=== PATIENT | female | born 1990 | race Caucasian/White ===

== ENCOUNTER 2024-06-17 18:41 | Emergency (ER) | payer OTHER, SELFPAY ==
[2024-06-17 18:42] VITALS: BP 151/107; PULSE 128; RESP 20; TEMP 36.2; O2SAT 100; BMI 25.7
[2024-06-17 19:24] LABS: Absolute Lymphocyte Count 1.62 X10^3/uL (0.83-4.51); Absolute Neutrophil Count 7.5 X10^3/uL (2.0-7.7); Basophil# 0.04 X10^3/uL; Basophil% 0.4 % (0-1); Eosinophil# 0.09 X10^3/uL; Eosinophils% 0.9 % (0-5); Hematocrit 38.1 % (37-47); Hemoglobin 13.4 g/dL (12.0-15.0); Lymphocyte # 1.62 X10^3/ul (0.83-4.51); Lymphocyte % 15.9 % (19-41); Mean Corp Hgb Conc 35.2 g/dL (32-36); Mean Corpuscular Hgb 31.5 pg (27.0-32.0); Mean Corpuscular Volume 89.4 fL (81-99); Mean Platelet Vol. 9.9 fl (6.2-12.0); Monocyte# 0.91 X10^3/uL; Monocyte% 8.9 % (0-10); NRBC Flagged by Analyzer 0 % (0-5); Neutrophil # 7.46 X10^3/uL (2.7-7.7); Neutrophil % 73.2 % (47-70); Platelet Count 336 K/mm3 (150-450); RBC Distribution Width CV 12.6 % (11.6-14.6); RBC Distribution Width SD 41.1 fl (35.1-43.9); Red Blood Count 4.26 M/mm3 (4.2-5.4); White Blood Count 10.2 K/mm3 (4.4-11.0)
--- NOTE | 2024-06-17 19:49 | US_ITS ---
PROCEDURE: OB LIMITED WITH BIOMETRICS REASON FOR EXAM: 2NFD TRIMESTER BLEEDING COMPARISON: None. FINDINGS Examination is extremely limited. Intrauterine gestation is present in breech position. cardiac activity was noted at 164 beats per minute. The placenta is posterior and low-lying. Anechoic areas within the placenta measuring up to 0.9 by 1 x 0.4 cm nonspecific but may represent area of focal hemorrhage. age by current ultrasound is 14 weeks and 5 days. age by LMP is 15 weeks and 6 days. The bilateral ovaries demonstrate normal arterial and venous flow. No evidence of ovarian torsion. US/OB Limited With Biometrics IMPRESSION: As above. Please note that these examination is not predictive of viability of . Recommend OB input. Reading Location: [facility]
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
[2024-06-17 20:00] LABS: ALB/GLOB Ratio 1.3 RATIO (0.9-2.4); AST(SGOT) 18 U/L (<=31); Alanine Aminotransfer ALT/SGPT 15 U/L (<=34); Albumin, Serum 4.6 g/dL (3.5-5.0); Alkaline Phosphatase 59 U/L (35-104); Anion Gap 18 (5-15); BUN 11 mg/dL (4-19); BUN/Creat Ratio 16.2 RATIO (10-20); Calcium,Total 10.3 mg/dL (7.6-11.0); Carbon Dioxide 17.1 mmol/L (21.0-32.0); Chloride 98 mmol/L (98-108); Creatinine, Serum 0.66 mg/dL (0.70-1.20); EST Glomerular Filtration Rate 119 (>60); Estimated Creatinine Clearance 123.37 ml/min (50-250); Globulin 3.5 g/dL (2.2-4.2); Glucose 87 mg/dL (70-99); Lipase 66 U/L (13-75); Potassium 3.6 mmol/L (3.3-5.1); Sodium Level 133 mmol/L (133-145); Total Bilirubin 0.59 mg/dL (0.00-1.30)
[2024-06-17 20:13] LABS: Internal QC Validated? YES +Cl - CLEAR BKGD
[2024-06-17 20:41] VITALS: BP 112/81; O2SAT 98
--- NOTE | 2024-06-17 21:01 | ED.RN ---
Patient prompted for urine sample. Pt requested water first. Cup of ice water given.
[2024-06-17 21:37] LABS: White Blood Cells 0 SEEN /hpf (0-5)
[2024-06-17 22:00] VITALS: BP 121/80; O2SAT 99
[2024-06-17 22:14] LABS: Color, Urine Yellow (Yellow); Glucose, Dipstick Normal (Normal); Ketone-Dipstick 150 mg/dl (Negative); Protein-Dipstick 30 mg/dl (Negative); Urine Bilirubin Dipstick Negative (Negative); Urine Clarity Sl Cldy (Clear); Urine Urobilinogen Normal (Normal)
[2024-06-17 22:15] LABS: Leukocyte Esterase-Dipstick Negative /ul (Negative); Nitrite-Dipstick Negative (Negative); Occult Blood-Urine Negative /ul (Negative)
[2024-06-17 22:17] LABS: Bacteria 1+ /hpf (None Seen); Mucous, Urine 1+ /hpf (<or=2+); Red Blood Cells-Urine 0 SEEN /hpf (0-5); Squamous Epithelial Cells - UA 0-5 SEEN /hpf (5-10)
[2024-06-17 23:17] VITALS: BP 112/86; PULSE 74; RESP 16; TEMP 36.6; O2SAT 99
[2024-06-17 23:24] LABS: Pregnancy, Serum, hCG Quali. POSITIVE Negative
== END 2024-06-17 23:18 | disposition home or self-care (01) ==
PROVIDERS: Emergency Provider Emergency Medicine; Visit Provider Emergency Medicine
DX: O20.0 Threatened abortion (principal); O99.891 Other specified diseases and conditions complicating pregnancy; R45.6 Violent behavior; Z3A.16 16 weeks gestation of pregnancy
CPT/HCPCS: 76816; 80053; 81001; 83690; 84703; 85025; 86900; 86901; 99283; A4216

== ENCOUNTER 2024-09-26 17:45 | Outpatient (CLI) | payer OTHER, SELFPAY ==
[2024-09-26 17:59] VITALS: PULSE 115; O2SAT 98
[2024-09-26 18:00] VITALS: BP 115/70; PULSE 112
--- OUTSIDE RECORDS SUMMARY | 2024-09-26 19:41 | XMS RPT_ITS | CCD ---
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 above: Order Comment: Speci men Type: BLOOD SPECIMENOrdering Facility: [facility] Address: [address] [place] [address] Performed By: #### L [id number], HGBELEV ####[facility] LAB[facility] [id number] [place] [address] [place] HGB EVALUATION CASCADE INTER Florentino 06-18-2024 Hemoglobin pattern (Bld) [Interp] Reviewed by Everardo Goldberg MD Normal [facility] Comment on above: Order Comment: Speci men Type: BLOOD SPECIMENOrdering Facility: [facility] Address: [address] [place] [address] Performed By: #### L [id number], HGBELEV ####[facility] LABIA [id number] [place] [address] [place] INTERPRETATION (HGB EVAL) Normal [facility] Comment on above: Order Comment: Speci men Type: BLOOD SPECIMENOrdering Facility: [facility] Address: [address] [place] [address] Result Comment: Hemo globins were analyzed by capillary electrophoresis and CBC red cell parameters were reviewed. No abnormal hemoglobin is identified. There is a normal hemoglobin capillary electrophoresis pattern. Performed By: #### L [id number], HGBELEV ####[facility] [id number] [place] [address] [place] HIGH RISK HUMAN PAPILLOMA THELMA (HPV), PCR FOR DETECTION AND GENOTYPINGon 06-18-2024 HPV 16 Ag Ql (Unsp spec) Not detected Normal Not detec ashkan [facility] Comment on above: Order Comment: Speci men Type: FLUID SPECIMENOrdering Facility: [facility] Address: [address] [place] [address] Performed By: #### H PVHRT ####[facility] [id number] [address] [place] HPV 18 Ag Ql (Unsp spec) Not detected Normal Not detec [facility] Comment on above: Order Comment: Speci men Type: FLUID SPECIMENOrdering Facility: [facility] Address: [address] [place] [address] Performed By: #### H PVHRT ####[facility] [id number] [place] [address] [place] HPV 31+33+35+39+45+51+52+56+ 58+59+66+68 DNA JUANJOSE+probe Ql (Cvx) Not detected Normal Not detected [facility] Comment on above: Order Comment: Speci men Type: FLUID SPECIMENOrdering Facility: [facility] Address: [address] [place] [address] Result Comment: High Risk HPV Other Type includes HPV types 31, 33, 35, 39, 45, 51, 52, 56, 58, 59, 66 and 68. Performed By: #### H PVHRT ####[facility] [id number] [place] [address] [place] HIV 1+2 Ab IA Qlon HIV 1 and 2 Ab IA.rapid Nom (S/P/Bld) [facility] Comment on above: Test not indicated. HIV 1+2 Ab+HIV1 p24 Ag IA Ql Non-Reactive Nonreactive [facility] HIV immunoassay testing algorithm interpretation (S/P/Bld) [Interp] [facility] Comment on above: No evidence of HIV-1 or HIV-2 infection. Should recent infection be suspected, repeat testing may be considered 2-3 weeks after this draw. [place] Rev. Code 3701.243(E): This information has been disclosed to you from confidential records protected from disclosure by state law. You shall make no further disclosure of this information without the specific, written, and informed release of the individual to whom it pertains or as otherwise permitted by state law. A general authorization for the release of medical or other information is not sufficient for the purpose of the release of HIV test results or diagnoses. [facility] HIV 1 and 2 Ab IA.rapid Nom (S/P/Bld) Normal [facility] Comment on above: Order Comment: Speci men Type: BLOOD SPECIMENOrdering Facility: [facility] Address: [address] [place] [address] Result Comment: Test not indicated. Performed By: #### 5 195-3, 73186-3, 55375-1 ####[facility] [id number] [place] [address] [place] HIV 1+2 Ab+HIV1 p24 Ag IA Ql Non-Reactive Normal Nonreactive [facility] Comment on above: Order Comment: Speci men Type: BLOOD SPECIMENOrdering Facility: [facility] Address: [address] [place] [address] Performed By: #### 5 195-3, 65930-5, 31091-1 ####[facility] LABIA [id number] [place] [id number] [place] HIV immunoassay testing algorithm interpretation (S/P/Bld) [Interp] Normal [facility] Comment on above: Order Comment: Speci men Type: BLOOD SPECIMENOrdering Facility: [facility] Address: [address] [place] [address] Result Comment: No e vidence of HIV-1 or HIV-2 infection. Should recent infection be suspected, repeat testing may be considered 2-3 weeks after this draw. [place] Rev. Code 3701.243(E): This information has been disclosed to you from confidential records protected from disclosure by state law. ???You shall make no further disclosure of this information without the specific, written, and informed release of the individual to whom it pertains or as otherwise permitted by state law. A general authorization for the release of medical or other information is not sufficient for the purpose of the release of HIV test results or diagnoses. Performed By: #### 5 195-3, 84795-4, 21942-5 ####[facility] LABCLIA [id number] [facility] [place] [address] [place] HbA1c (Bld)on 06-18-2024 Average glucose Estimated from glycated hemoglobin (Bld) [Mass/Vol] 74 mg/dL [facility] Comment on above: eAG: (Estimated aver age glucose) is a calculated value from HgbA1c and is sales representatives of the average blood glucose level in the last 2-3 month period. HbA1c (Bld) [Mass fraction] 4.2 % Low 4.3 - 5.6 % [facility] Comment on above: [place] [employer] sociation guidelines indicate that patients with HgbA1c in the range 5.7-6.4% are at increased risk for development of diabetes, and intervention by lifestyle modification may be beneficial. HgbA1c greater or equal to 6.5% is considered diagnostic of diabetes. Interpretation and review of laboratory results Abnormal [facility] Average glucose Estimated from glycated hemoglobin (Bld) [Mass/Vol] 74 mg/dL Normal [facility] Comment on above: Order Comment: Speci men Type: BLOOD SPECIMEN Ordering Facility: [facility] Address: [address] [place] [address] Result Comment: eAG: (Estimated average glucose) is a calculated value from HgbA1c and is sales representatives of the average blood glucose level in the last 2-3 month period. Performed By: #### T SPN #### [facility] CLIA [id number] [address] [place], [place] [address] [address] [place] HbA1c (Bld) [Mass fraction] 4.2 % Low 4.3-5.6 [facility] Comment on above: Order Comment: Speci men Type: BLOOD SPECIMEN Ordering Facility: [facility] Address: [address] [place] [address] Result Comment: [place] [employer] guidelines indicate that patients with HgbA1c in the range 5.7-6.4% are at increased risk for development of diabetes, and intervention by lifestyle modification may be beneficial. HgbA1c greater or equal to 6.5% is considered diagnostic of diabetes. Performed By: #### T SPN #### [facility] CLIA [id number] [address] [place] [address] [place] PAP TESTon 06-18-2024 ADEQUACY Normal [facility] Comment on above: Order Comment: Speci men Type: FLUID SPECIMEN Ordering Facility: [facility] Address: [address] [place] [address] Result Comment: Sati sfactory for interpretation. Transformation zone present Performed By: #### L [id number] #### [facility] CLIA [id number] [address] OF [facility] CLIA [id number] [address] [place] [address] [place] CASE REPORT Normal [facility] Comment on above: Order Comment: Speci men Type: FLUID SPECIMEN Ordering Facility: [facility] Address: [address] [place] [address] Result Comment: Gyne cologic Cytology Report Case: [id number] Authorizing Provider: Marcia Thurman APRN.CNM Collected: 06/18/2024 09:43 AM Ordering Location: OB/Gynecology Received: 06/18/2024 12:41 PM First Screen: Feciuch, Anitra, CT, ASCP Specimen: Pap Test, ThinPrep, Cervix Performed By: #### L [id number] #### [facility] CLIA [id number] [address] OF [facility] CLIA [id number] [address] [place] [address] [place] CLINICAL HISTORY, CYTOLOGY, PAPER TESTER Routine Exam Normal [facility] Comment on above: Order Comment: Speci men Type: FLUID SPECIMEN Ordering Facility: [facility] Address: [address] [place] [address] Performed By: #### L [id number] #### [facility] CLIA [id number] [address] LAB CLIA [id number] [address] [place] [address] STATES OF [facility] Normal [facility] Comment on above: Order Comment: Speci men Type: FLUID SPECIMEN Ordering Facility: [facility] Address: [address] [place] [address] Result Comment: Tech nical component, journeyman lineman screening performed at [facility], [address] [place] [address] CLIA# [id number] Diagnostic interpretation performed at [facility], [address] [place] [address] CLIA# [id number] Annual Giving Director: Samuel Black M.D. Performed By: #### L [id number] #### [facility] CLIA [id number] [address] LAB CLIA [id number] [address] [place] [address] [place] INTERPRETATION, CYTOLOGY, PAPER TESTER Normal [facility] Comment on above: Order Comment: Speci men Type: FLUID SPECIMEN Ordering Facility: [facility] Address: [address] [place] [address] Result Comment: Nega tive for intraepithelial lesion or malignancy. at 1359 EDT Performed By: #### L [id number] #### [facility] CLIA [id number] [address] STATES OF [facility] CLIA [id number] [address] [place], [place] [id number] [place] LMP 02/27/2024 Normal [facility] Comment on above: Order Comment: Speci men Type: FLUID SPECIMEN Ordering Facility: [facility] Address: [address] [place] [address] Performed By: #### L [id number] #### [facility] CLIA [id number] [address] LAB CLIA [id number] [address] [place] [address] [place] PAP DISCLAIMER COMMENT The Pap Smear is a screening test for cervical cancer. False negative results occur with all screening tests, emphasizing the need for rescreening at recommended intervals, and clinical correlation. Normal [facility] Comment on above: Order Comment: Speci men Type: FLUID SPECIMEN Ordering Facility: [facility] Address: [address] [place] [address] Performed By: #### L [id number] #### [facility] CLIA [id number] [address] LAB CLIA [id number] [address] [place] [address] [place] PAP PHLEBOTOMY SERVICES TECHNICIAN COMMENT This specimen has been analyzed by the ThinPrep Imaging System, an automated imaging and review system, which assists the laboratory in evaluating cells on ThinPrep Pap tests. Following automated imaging, selected allen from every slide are reviewed by a journeyman lineman. Normal [facility] Comment on above: Order Comment: Speci men Type: FLUID SPECIMEN Ordering Facility: [facility] Address: [address] [place] [address] Performed By: #### L [id number] #### [facility] CLIA [id number] [address] LAB CLIA [id number] [address] [place] [address] [place] RBC PARAMETERS FOR HB IDon 0 - Erythrocyte distribution width (RBC) [Ratio] 12.6 % Normal 11.5-15.0 [facility] Comment on above: Order Comment: Speci men Type: BLOOD SPECIMENOrdering Facility: [facility] Address: [address] [place] [address] Performed By: #### L [id number] ####[facility] LABIA [id number] [place] [address] [place] Hematocrit (Bld) [Volume fraction] 36.5 % Normal 36.0-46.0 [facility] Comment on above: Order Comment: Speci men Type: BLOOD SPECIMENOrdering Facility: [facility] Address: [address] [place] [address] Performed By: #### L [id number] ####[facility] [id number] [place] [address] [place] Hemoglobin (Bld) [Mass/Vol] 12.6 g/dL Normal 11.5-15.5 [facility] Comment on above: Order Comment: Speci men Type: BLOOD SPECIMENOrdering Facility: [facility] Address: [address] [place] [address] Performed By: #### L [id number] ####[facility] [id number] [place] [address] [place] MCH (RBC) [Entitic mass] 31.6 pg Normal 26.0-34.0 [facility] Comment on above: Order Comment: Speci men Type: BLOOD SPECIMENOrdering Facility: [facility] Address: [address] [place] [address] Performed By: #### L [id number] ####[facility] [id number] [place] [address] [place] MCHC (RBC) [Mass/Vol] 34.5 g/dL Normal 30.5-36.0 [facility] Comment on above: Order Comment: Speci men Type: BLOOD SPECIMENOrdering Facility: [facility] Address: [address] [place] [address] Performed By: #### L [id number] ####[facility] [id number] [place] [address] [place] MCV (RBC) [Entitic vol] 91.5 fL Normal 80.0-100.0 [facility] Comment on above: Order Comment: [facility] Type: BLOOD SPECIMENOrdering Facility: [facility] Address: [address] [place] [address] Performed By: #### L [id number] ####[facility] [id number] [place] [address] [place] RBC (Bld) [#/Vol] 3.99 10*6/uL Normal 3.90-5.20 [facility] Comment on above: Order [facility]: [facility] Type: BLOOD SPECIMENOrdering Facility: [facility] Address: [address] [place] [address] Performed By: #### L [id number] ####[facility] [id number] [address] OF [place] RUBELLA IGG ANTIBODYon 06-18 Interpretation and review of laboratory results Abnormal [facility] Rubella IgG, Qual Negative Abnormal Positive [facility] Comment on above: The result suggests no history of Rubella vaccination or exposure to Rubella virus, however, some individuals with past history of Rubella vaccination may test negative using this test as immunity to Rubella virus wanes over time after vaccination. Please correlate with vaccination history if applicable. [facility] RUBELLA IGG AB, QUAL Negative Abnormal Positive [facility] Comment on above: Order Comment: Speci [facility] Type: BLOOD SPECIMENOrdering Facility: [facility] Address: [address] [place] [address] Result Comment: The result suggests no history of Rubella vaccination or exposure to Rubella virus, however, some individuals with past history of Rubella vaccination may test negative using this test as immunity to Rubella virus wanes over time after vaccination. Please correlate with vaccination history if applicable. Performed By: #### R UBIGG ####[facility] LAB[facility] [id number] [place] [id number] [place] Reagin and Treponema pallidu m IgG and IgM [Interp]on 06-18-2024 T. pallidum IgG+IgM IA Ql (S) Non-Reactive Nonreactive [facility] T. pallidum IgG+IgM IA Ql (S) Non-Reactive Normal Nonreactive [facility] Comment on above: Order Comment: Speci men Type: BLOOD SPECIMENOrdering Facility: [facility] Address: [address] [place] [address] Performed By: #### 5 195-3, [id number], 77395-1 ####[facility] [id number] [place] [id number] [place] Reagin+T pallidum IgG+IgM Se rPl-Impon 06-18-2024 Reagin and Treponema pallidum IgG and IgM [Interp] Cannot exclude recent Treponemal infection if specimen collected within 7-10 days after appearance of suspect lesions or 2-3 weeks after an exposure. Clinical correlation is required. Normal [facility] Comment on above: Order Comment: Speci men Type: BLOOD SPECIMENOrdering Facility: [facility] Address: [address] [place] [address] Performed By: #### 5 195-3, 48194-9, 27915-9 ####[facility] [id number] [place] [id number] [place] SYPHILIS TREPONEMAL W/REFLEX on 06-18-2024 Reagin and Treponema pallidum IgG and IgM [Interp] Cannot exclude recent Treponemal infection if specimen collected within 7-10 days after appearance of suspect lesions or 2-3 weeks after an exposure. Clinical correlation is required. [facility] TRICHOMONAS VAGINALIS NAATon 06-18-2024 T. vaginalis DNA JUANJOSE+probe Ql (Unsp spec) Not detected Normal Not detected [facility] Comment on above: Order Comment: Speci men Type: BLOOD SPECIMEN [facility] Address: [address] [place] [address] Performed By: #### T SPN #### [facility] CLIA [id number] [address] [place] [address] [place] TYPE + SCREEN PRENATALon ABO group Nom (Bld) O [facility] Blood group antibody screen Ql Negative [facility] Rh Nom (Bld) Positive [facility] Type and Screen Expiration 06/21/2024 23:[address] [facility] ABO O Normal [facility] Comment on above: Order Comment: Speci men Type: BLOOD SPECIMEN [facility] Address: [address] [place] [address] Performed By: #### T SPN #### [facility] CLIA [id number] [address] [place] [address] [place] Rh Nom (Bld) Positive Normal [facility] Comment on above: Order Comment: Speci men Type: BLOOD SPECIMEN [facility] Address: [address] [place] [address] Performed By: #### T SPN #### [facility] CLIA [id number] [address] [place] [address] [place] TYPE AND SCREEN EXPIRATION 06/21/2024 23:59 Normal [facility] Comment on above: Order Comment: Speci men Type: BLOOD SPECIMEN [facility] Address: [address] [place] [address] Performed By: #### T SPN #### [facility] CLIA [id number] [address] [place] [address] [place] Absolute lymphocyte countOrd ered By: ED PROVIDER on 06-17-2024 Lymphocytes Auto (Unsp spec) [#/Vol] 1.62 10*3/uL 0.83-4.51 [facility] Absolute neutrophil countOrd ered By: ED PROVIDER on 06-17-2024 Neutrophils (Bld) [#/Vol] 7.5 10*3/uL 2.0-7.7 [facility] Anion gap in Serum or Plasma Ordered By: Herber Fisher on 06-17-2024 Anion gap [Moles/Vol] 18 mmol/L High 5-15 [facility] Automated lymphocyte count a s percentage of total leukocytesOrdered By: ED PROVIDER on 06-17-2024 Lymphocytes/100 WBC Auto (Unsp spec) 15.9 % Low 19-41 [facility] [id number] 06-17-2024 ABO and Rh group Nom (Bld) Blood group O Rh(D) positive Normal [facility] Comment on above: Performed By: #### B 882-1 #### [facility] [address] [place], [address] BUN/creatinine ratioOrdered By: Herber Fisher on 06-17-2024 Urea nitrogen/Creatinine [Mass ratio] 16.2 mg/mg 10-20 [facility] Basophil percentageOrdered B y: ED PROVIDER on 06-17-2024 Basophils/100 WBC (Bld) 0.4 % 0-1 [facility] Beta HCG ( test) Ql Ordered By: Herber Fisher on 06-17-2024 Serum Test, Qualitative Negative [facility] Bilirubin Test strip Ql (U)O rdered By: Herber Fisher on 06-17-2024 Bilirubin Ql (U) Negative Negative [facility] CBC W/Diff, Automatedon 06-07 Absolute Lymph 1.62 X10 3/uL Normal 0.83-4.51 [facility] Comment on above: Performed By: #### L 100.0100, L700.6800, L501.2450, L500.4050 #### [facility] [address] [place], [address] Absolute Neut 7.5 X10 3/uL Normal 2.0-7.7 [facility] Comment on above: Performed By: #### L 100.0100, L700.6800, L501.2450, L500.4050 #### [facility] [address] [place], [address] Basophils/100 WBC (Bld) 0.4 % Normal 0-1 [facility] Comment on above: Performed By: #### L 100.0100, L700.6800, L501.2450, L500.4050 #### [facility] [address] [place], [address] Eosinophils/100 WBC (Bld) 0.9 % Normal 0-5 [facility] Comment on above: Performed By: #### L 100.0100, L700.6800, L501.2450, L500.4050 #### [facility] [address] [place], [address] Erythrocyte distribution width (RBC) [Ratio] 12.6 % Normal 11.6-14.6 [facility] Comment on above: Performed By: #### L 100.0100, L700.6800, L501.2450, L500.4050 #### [facility] [address] [place], [address] Hematocrit (Bld) [Volume fraction] 38.1 % Normal 37-47 [facility] Comment on above: Performed By: #### L 100.0100, L700.6800, L501.2450, L500.4050 #### [facility] [address] [place], [address] Hemoglobin (Bld) [Mass/Vol] 13.4 g/dL Normal 12.0-15.0 [facility] Comment on above: Performed By: #### L 100.0100, L700.6800, L501.2450, L500.4050 #### [facility] [address] [place], [address] IG% 0.700 Normal 0.0-0.9 [facility] Comment on above: Result Comment: IG% - Immature Granulocytes (promyelocytes, myelocytes and metamyelocytes) > 1% indicates that a LEFT SHIFT is Present. Performed By: #### L 100.0100, L700.6800, L501.2450, L500.4050 #### [facility] [address] [place], [address] Lymphocytes/100 WBC (Bld) 15.9 % Low 19-41 [facility] Comment on above: Performed By: #### L 100.0100, L700.6800, L501.2450, L500.4050 #### [facility] [address] [place], [address] MCH (RBC) [Entitic mass] 31.5 pg Normal 27.0-32.0 [facility] Comment on above: Performed By: #### L 100.0100, L700.6800, L501.2450, L500.4050 #### [facility] [address] [place], [address] MCHC (RBC) [Mass/Vol] 35.2 g/dL Normal 32-36 [facility] Comment on above: Performed By: #### L 100.0100, L700.6800, L501.2450, L500.4050 #### [facility] [address] [place], [address] MCV (RBC) [Entitic vol] 89.4 fL Normal 81-99 [facility] Comment on above: Performed By: #### L 100.0100, L700.6800, L501.2450, L500.4050 #### [facility] [address] [place], [address] Monocytes/100 WBC (Bld) 8.9 % Normal 0-10 [facility] Comment on above: Performed By: #### L 100.0100, L700.6800, L501.2450, L500.4050 #### [facility] [address] [place], [address] Neutrophils/100 WBC (Bld) 73.2 % High 47-70 [facility] Comment on above: Performed By: #### L 100.0100, L700.6800, L501.2450, L500.4050 #### [facility] [address] [place], [address] Nucleated RBC (Bld) [#/Vol] 0 10*3/uL Normal 0-5 [facility] Comment on above: Performed By: #### L 100.0100, L700.6800, L501.2450, L500.4050 #### [facility] [address] [place], [address] Platelet mean volume (Bld) [Entitic vol] 9.9 fL Normal 6.2-12.0 [facility] Comment on above: Performed By: #### L 100.0100, L700.6800, L501.2450, L500.4050 #### [facility] [address] [place], [address] Platelets (Bld) [#/Vol] 336 10*3/uL Normal 150-450 [facility] Comment on above: Performed By: #### L 100.0100, L700.6800, L501.2450, L500.4050 #### [facility] [address] [place], [address] RBC (Bld) [#/Vol] 4.26 10*6/uL Normal 4.2-5.4 [facility] Comment on above: Performed By: #### L 100.0100, L700.6800, L501.2450, L500.4050 #### [facility] [address] [place], [address] RDW SD 41.1 fl Normal 35.1-43.9 [facility] Comment on above: Performed By: #### L 100.0100, L700.6800, L501.2450, L500.4050 #### [facility] [address] [place], [address] WBC (Bld) [#/Vol] 10.2 10*3/uL Normal 4.4-11.0 [facility] Comment on above: Performed By: #### L 100.0100, L700.6800, L501.2450, L500.4050 #### [facility] [address] [place], [address] Comprehensive Metabolic Prof ilon 06-17-2024 ALK PHOS 59 U/L Normal 35-104 [facility] Comment on above: Performed By: #### L 100.0100, L700.6800, L501.2450, L500.4050 #### [facility] [address] [place], [address] BUN/CRE 16.2 RATIO Normal 10-20 [facility] Comment on above: Performed By: #### L 100.0100, L700.6800, L501.2450, L500.4050 #### [facility] [address] [place], [address] ECRCL 123.37 ml/min Normal 50-250 [facility] Comment on above: Performed By: #### L 100.0100, L700.6800, L501.2450, L500.4050 #### [facility] [address] [place], [address] GAP 18 High 5-15 [facility] Comment on above: Performed By: #### L 100.0100, L700.6800, L501.2450, L500.4050 #### [facility] [address] [place], [address] T PROT 8.0 g/dL Normal 5.9-8.4 [facility] Comment on above: Performed By: #### L 100.0100, L700.6800, L501.2450, L500.4050 #### [facility] [address] [place], [address] Comprehensive Metabolic Prof ilOrdered By: Herber Fisher on 06-17-2024 Albumin [Mass/Vol] 4.6 g/dL 3.5-5.0 [facility] Comment on above: Performed By: #### L 100.0100, L700.6800, L501.2450, L500.4050 #### [facility] [address] [place], [address] Albumin/Globulin [Mass ratio] 1.3 {ratio} 0.9-2.4 [facility] Comment on above: Performed By: #### L 100.0100, L700.6800, L501.2450, L500.4050 #### [facility] [address] [place], [address] ALT [Catalytic activity/Vol] 15 U/L <35 [facility] Comment on above: Performed By: #### L 100.0100, L700.6800, L501.2450, L500.4050 #### [facility] [address] [place], [address] AST [Catalytic activity/Vol] 18 U/L <32 [facility] Comment on above: Performed By: #### L 100.0100, L700.6800, L501.2450, L500.4050 #### [facility] [address] [place], [address] Bilirubin [Mass/Vol] 0.59 mg/dL 0.00-1.30 [facility] Comment on above: Performed By: #### L 100.0100, L700.6800, L501.2450, L500.4050 #### [facility] [address] [place], [address] Calcium [Mass/Vol] 10.3 mg/dL 7.6-11.0 [facility] Comment on above: Performed By: #### L 100.0100, L700.6800, L501.2450, L500.4050 #### [facility] [address] [place], [address] Chloride [Moles/Vol] 98 mmol/L 98-108 [facility] Comment on above: Performed By: #### L 100.0100, L700.6800, L501.2450, L500.4050 #### [facility] [address] [place], [address] CO2 [Moles/Vol] 17.1 mmol/L Low 21.0-32.0 [facility] Comment on above: Performed By: #### L 100.0100, L700.6800, L501.2450, L500.4050 #### [facility] [address] [place], [address] Creatinine [Mass/Vol] 0.66 mg/dL Low 0.70-1.20 [facility] Comment on above: Performed By: #### L 100.0100, L700.6800, L501.2450, L500.4050 #### [facility] [address] [place], [address] GFR/1.73 sq M.predicted among non-blacks MDRD (S/P/Bld) [Vol rate/Area] 119 mL/min/{1.73_m2} >60 [facility] Comment on above: Result Comment: mL/m in/1.73m2 CKD-EPI Creatinine Equation (2020) Performed By: #### L 100.0100, L700.6800, L501.2450, L500.4050 #### [facility] [address] [place], [address] mL/min/1.73m2 CKD-EP I Creatinine Equation (2020) Globulin (S) [Mass/Vol] 3.5 g/dL 2.2-4.2 [facility] Comment on above: Performed By: #### L 100.0100, L700.6800, L501.2450, L500.4050 #### [facility] [address] [place], [address] Glucose [Mass/Vol] 87 mg/dL 70-99 [facility] Comment on above: Performed By: #### L 100.0100, L700.6800, L501.2450, L500.4050 ####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
--- NOTE | 2024-09-29 07:23 | OB.TRI.HP_ITS ---
HPI - General General Date of Admission: 09/26/24 Date of Service: 09/26/24 Chief Complaint: NST HPI Narrative MICHAEL CARDENAS, is a 33 F who presents scheduled NST for IUGR. BPP in office weekly. No complaints. Reactive NST Maternal Data Information Final ANDRÉS: 12/03/24 Gestational age: 30+2 PFSH PFSH Medical History Epilepsy Home Medications ?Medication ?Instructions ?Recorded ?Last Taken ?Type vit no.95-ferrous 1 tab PO DAILY 06/17/24 Unk nown History fumarate 28 mg-folic acid 800 mcg tablet () Allergy/AdvReac Type Severity Reaction Status Date / Time No Known Allergies Allergy Verified 06/17/24 18:42 Social History Smoking Status: Never smoker History 2 Elective abortions Hx Para 0 Spontaneous abortions Hx # Term Pregnancies Ectopic pregnancies Hx # Pregnancies Multiple births # of living children NST FHR Rate Baby A Baseline: 145 Variability:: Moderate Accelerations:: 15 x 15 Decelerations:: None NST Reactive:: Yes Uterine Activity:: none Assessment & Plan (1) IUGR (intrauterine growth restriction): (2) 30 weeks gestation of : PLAN: Plan Weekly NST and BPP for IUGR
== END 2024-09-26 19:00 | disposition home or self-care (01) ==
LOC: WPOUT 17:56 → WP 17:56
PROVIDERS: Referring Provider Obstetrics & Gynecology; Visit Provider Obstetrics & Gynecology
DX: O36.5930 Maternal care for other known or suspected poor fetal growth, third trimester, not applicable or unspecified (principal); Z3A.30 30 weeks gestation of pregnancy
CPT/HCPCS: 59025; 59050; 99221; G0378

== ENCOUNTER 2024-10-04 17:40 | Outpatient (CLI) | payer OTHER, SELFPAY ==
[2024-09-26 18:00] VITALS: RESP 14; TEMP 37.2; O2SAT 100
[2024-10-04 17:51] VITALS: RESP 12; TEMP 37.3; O2SAT 97
--- OUTSIDE RECORDS SUMMARY | 2024-10-04 17:53 | XMS RPT_ITS | CCD ---
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 Registered Nurse Type: ED Notes Filed: 07/21/2024 00:20 Note Text: Hand off report given to EMS and OB roving changer who verbalized understanding. Pt's vss and left ED in stable condition via EMS. Normal [facility] NURSING PROGon 07-21-2024 NURSING PROG HNO ID: [id number] Author: ALY HERNANDEZ, DIEGO Service: Nursing Author Type: Registered Nurse Type: Nursing Progress Note Filed: 07/21/2024 02:48 Note Text: Other: IV removed and bandaid applied. Patient states pain is getting less frequent and more manageable and just wants to go home. Discharge instructions given to patients and discussed precautions. This RN walked Patient to main entrance where was picking her up. No complaints at this time. Normal [facility] NURSING PROG HNO ID: [id number] Author: ALY HERNANDEZ RN Service: Nursing Author Type: Registered Nurse [...] feels safe going home with . Normal [facility] CBC W Auto Differential pane l (Bld)on 07-20-2024 Basophils (Bld) [#/Vol] 0.03 10*3/uL Normal <0.11 [facility] Comment on above: Order Comment: Speci men Type: BLOOD SPECIMENOrdering Facility: [facility] Address: [address] [place] [address] Performed By: #### 5 7021-8 ####[facility] LABCLIA [id number] [place] [address] [place] Basophils/100 WBC (Bld) 0.3 % Normal [facility] Comment on above: Order Comment: Speci men Type: BLOOD SPECIMENOrdering Facility: [facility] Address: [address] [place] [address] Performed By: #### 5 7021-8 ####[facility] LABCLIA [id number] [place] [address] [place] Differential cell count method Nom (Bld) Auto Normal [facility] Comment on above: Order Comment: Speci men Type: BLOOD SPECIMENOrdering Facility: [facility] Address: [address] [place] [address] Performed By: #### 5 7021-8 ####[facility] [place] LABCLIA [id number] [place] [address] [place] Eosinophils (Bld) [#/Vol] 0.12 10*3/uL Normal <0.46 [facility] Comment on above: Order Comment: Speci men Type: BLOOD SPECIMENOrdering Facility: [facility] Address: [address] [place] [address] Performed By: #### 5 7021-8 ####[facility] LABCLIA [id number] [place] [address] [place] Eosinophils/100 WBC (Bld) 1.1 % Normal [facility] Comment on above: Order Comment: Speci men Type: BLOOD SPECIMENOrdering Facility: [facility] Address: [address] [place] [address] Performed By: #### 5 7021-8 ####[facility] [place] LABCLIA [id number] [place] [address] [place] Erythrocyte distribution width (RBC) [Ratio] 12.7 % Normal 11.5-15.0 [facility] Comment on above: Order Comment: Speci men Type: BLOOD SPECIMENOrdering Facility: [facility] Address: [address] [place] [address] Performed By: #### 5 7021-8 ####[facility] [place] LABCLIA [id number] [place] [address] [place] Hematocrit (Bld) [Volume fraction] 32.4 % Low 36.0-46.0 [facility] Comment on above: Order Comment: Speci men Type: BLOOD SPECIMENOrdering Facility: [facility] Address: [address] [place] [address] Performed By: #### 5 7021-8 ####[facility] LABCLIA [id number] [place] [address] [facility] [place] Hemoglobin (Bld) [Mass/Vol] 11.1 g/dL Low 11.5-15.5 [facility] Comment on above: Order Comment: Speci men Type: BLOOD SPECIMENOrdering Facility: [facility] Address: [address] [place] [address] Performed By: #### 5 7021-8 ####[facility] [place] LABCLIA [id number] [place] [address] [place] Immature granulocytes (Bld) [#/Vol] 0.07 10*3/uL Normal <0.10 [facility] Comment on above: Order Comment: Speci men Type: BLOOD SPECIMENOrdering Facility: [facility] Address: [address] [place] [address] Performed By: #### 5 7021-8 ####[facility] [place] LABCLIA [id number] [place] [address] [facility] [place] Immature granulocytes/100 WBC (Bld) 0.6 % Normal [facility] Comment on above: Order Comment: Speci men Type: BLOOD SPECIMENOrdering Facility: [facility] Address: [address] [place] [address] Performed By: #### 5 7021-8 ####[facility] [place] LABCLIA [id number] [place] [address] [place] Lymphocytes (Bld) [#/Vol] 1.73 10*3/uL Normal 1.00-4.00 [facility] Comment on above: Order Comment: Speci men Type: BLOOD SPECIMENOrdering Facility: [facility] Address: [address] [place] [address] Performed By: #### 5 7021-8 ####[facility] LABCLIA [id number] [address] Lymphocytes/100 WBC (Bld) 15.6 % Normal [facility] Comment on above: Order Comment: Speci men Type: BLOOD SPECIMENOrdering Facility: [facility] Address: [address] [place] [address] Performed By: #### 5 7021-8 ####[facility] LABCLIA [id number] [place] [address] [place] MCH (RBC) [Entitic mass] 31.0 pg Normal 26.0-34.0 [facility] Comment on above: Order Comment: Speci men Type: BLOOD SPECIMENOrdering Facility: [facility] Address: [address] [place] [address] Performed By: #### 5 7021-8 ####[facility] [place] LABCLIA [id number] [place] [address] [facility] MCHC (RBC) [Mass/Vol] 34.3 g/dL Normal 30.5-36.0 [facility] Comment on above: Order Comment: Speci men Type: BLOOD SPECIMENOrdering Facility: [facility] Address: [address] [place] [address] Performed By: #### 5 7021-8 ####[facility] [place] LABCLIA [id number] [place] [address] [place] MCV (RBC) [Entitic vol] 90.5 fL Normal 80.0-100.0 [facility] Comment on above: Order Comment: Speci men Type: BLOOD SPECIMENOrdering Facility: [facility] Address: [address] [place] [address] Performed By: #### 5 7021-8 ####[facility] [place] LABCLIA [id number] [place] [address] [place] Monocytes (Bld) [#/Vol] 0.65 10*3/uL Normal <0.87 [facility] Comment on above: Order Comment: Speci men Type: BLOOD SPECIMENOrdering Facility: [facility] Address: [address] [place] [address] Performed By: #### 5 7021-8 ####[facility] LABCLIA [id number] [place] [address] [place] Monocytes/100 WBC (Bld) 5.9 % Normal [facility] Comment on above: Order Comment: Speci men Type: BLOOD SPECIMENOrdering Facility: [facility] Address: [address] [place] [address] Performed By: #### 5 7021-8 ####[facility] LABCLIA [id number] [place] [address] [place] Neutrophils (Bld) [#/Vol] 8.48 10*3/uL High 1.45-7.50 [facility] Comment on above: Order Comment: Speci men Type: BLOOD SPECIMENOrdering Facility: [facility] Address: [address] [place] [address] Performed By: #### 5 7021-8 ####[facility] [place] LABCLIA [id number] [place] [address] [place] Neutrophils/100 WBC (Bld) 76.5 % Normal [facility] Comment on above: Order Comment: Speci men Type: BLOOD SPECIMENOrdering Facility: [facility] Address: [address] [place] [address] Performed By: #### 5 7021-8 ####[facility] LABCLIA [id number] [facility] [address] [place] Nucleated RBC (Bld) [#/Vol] Normal [facility] Comment on above: Order Comment: Speci men Type: BLOOD SPECIMENOrdering Facility: [facility] Address: [address] [place] [address] Performed By: #### 5 7021-8 ####[facility] LABCLIA [id number] [facility] [place] [address] [place] Nucleated RBC/100 WBC (Bld) [Ratio] Normal [facility] Comment on above: Order Comment: Speci men Type: BLOOD SPECIMENOrdering Facility: [facility] Address: [address] [place] [address] Performed By: #### 5 7021-8 ####[facility] [place] LABCLIA [id number] [facility] [address] [place] Platelet mean volume (Bld) [Entitic vol] 9.6 fL Normal 9.0-12.7 [facility] Comment on above: Order Comment: Speci men Type: BLOOD SPECIMENOrdering Facility: [facility] Address: [address] [place] [address] Performed By: #### 5 7021-8 ####[facility] LABCLIA [id number] [facility] [address] [place] Platelets (Bld) [#/Vol] 295 10*3/uL Normal 150-400 [facility] Comment on above: Order Comment: Speci men Type: BLOOD SPECIMENOrdering Facility: [facility] Address: [address] [place] [address] Performed By: #### 5 7021-8 ####[facility] [place] LABCLIA [id number] [place] [address] [facility] RBC (Bld) [#/Vol] 3.58 10*6/uL Low 3.90-5.20 [facility] Comment on above: Order Comment: Speci men Type: BLOOD SPECIMENOrdering Facility: [facility] Address: [address] [place] [address] Performed By: #### 5 7021-8 ####[facility] LABCLIA [id number] [facility] [address] [facility] WBC (Bld) [#/Vol] 11.08 10*3/uL High 3.70-11.00 [facility] Comment on above: Order Comment: Speci men Type: BLOOD SPECIMENOrdering Facility: [facility] Address: [address] [place] [address] Performed By: #### 5 7021-8 ####[facility] LABCLIA [id number] [facility] [address] [facility] Comprehensive metabolic 2000 panelon 07-20-2024 Albumin [Mass/Vol] 3.8 g/dL Low 3.9-4.9 [facility] Comment on above: Order Comment: Speci men Type: BLOOD SPECIMENOrdering Facility: [facility] Address: [address] [place] [address] Performed By: #### 2 4323-8, 96072-5, 3040-3 ####[facility] LABCLIA [id number] [facility] [address] [facility] ALP [Catalytic activity/Vol] 59 U/L Normal 34-123 [facility] Comment on above: Order Comment: Speci men Type: BLOOD SPECIMENOrdering Facility: [facility] Address: [address] [place] [address] Performed By: #### 2 4323-8, 96829-3, 3040-3 ####[facility] LABCLIA [id number] [facility] [address] [facility] ALT With P-5'-P [Catalytic activity/Vol] 9 U/L Normal 7-38 [facility] Comment on above: Order Comment: Speci men Type: BLOOD SPECIMENOrdering Facility: [facility] Address: [address] [place] [address] Performed By: #### 2 4323-8, 19324-5, 3039-3 ####[facility] LABCLIA [id number] [place] [address] [place] [facility] Anion gap [Moles/Vol] 14 mmol/L Normal 8-15 [facility] Comment on above: Order Comment: Speci men Type: BLOOD SPECIMENOrdering Facility: [facility] Address: [address] [place] [address] Performed By: #### 2 4323-8, , 3 ####[facility] [place] LABCLIA [id number] [facility] [address] [place] AST With P-5'-P [Catalytic activity/Vol] 14 U/L Normal 13-35 [facility] Comment on above: Order Comment: Speci men Type: BLOOD SPECIMENOrdering Facility: [facility] Address: [address] [place] [address] Performed By: #### 2 4323-8, , 3039-3 ####[facility] [place] LABCLIA [id number] [facility] [address] [place] Bilirubin [Mass/Vol] mg/dL Low 0.2-1.3 [facility] Comment on above: Order Comment: Speci men Type: BLOOD SPECIMENOrdering Facility: [facility] Address: [address] [place] [address] Performed By: #### 2 4323-8, , 3039-3 ####[facility] [place] LABCLIA [id number] [facility] [address] [place] Calcium [Mass/Vol] 9.1 mg/dL Normal 8.5-10.2 [facility] Comment on above: Order Comment: Speci men Type: BLOOD SPECIMENOrdering Facility: [facility] Address: [address] [id number] Performed By: #### 2 4323-8, 14772-8, 0-3 ####[facility] [place] LABCLIA [id number] [place] [address] [place] Chloride [Moles/Vol] 107 mmol/L Normal 98-107 [facility] Comment on above: Order Comment: Speci men Type: BLOOD SPECIMENOrdering Facility: [facility] Address: [address] [place], [place] [address] Performed By: #### 2 4323-8, , 0-3 ####[facility] LABCLIA [id number] [place] [address] [facility] [place] CO2 [Moles/Vol] 16 mmol/L Low 22-30 [facility] Comment on above: Order Comment: Speci men Type: BLOOD SPECIMENOrdering Facility: [facility] Address: [address] [place] [address] Performed By: #### 2 4323-8, , 0-3 ####[facility] LABCLIA [id number] [place] [address] [facility] [place] Creatinine [Mass/Vol] 0.50 mg/dL Low 0.58-0.96 [facility] Comment on above: Order Comment: Speci men Type: BLOOD SPECIMENOrdering Facility: [facility] Address: [address] [place] [address] Performed By: #### 2 4323-8, 88914-1, 0-3 ####[facility] [place] LABCLIA [id number] [place] [address] [facility] Creatinine and Glomerular filtration rate.predicted panel (S/P/Bld) 127 mL/min/1.73m??? Normal >=60 [facility] Comment on above: Order Comment: Speci men Type: BLOOD SPECIMENOrdering Facility: [facility] Address: [address] [place], [place] [address] Result Comment: Rosal[place] mated Glomerular Filtration Rate [...] actual GFR. Performed By: #### 2 4323-8, 71222-8, 3039-3 ####[facility] Advise Only LABLoved.laIA [id number] [place] [address] [place] Glucose [Mass/Vol] 103 mg/dL High 74-99 [facility] Comment on above: Order Comment: Vivi leon Type: BLOOD SPECIMENOrdering Facility: [facility] Address: [address] [place] [address] Result Comment: The [place] Diabetes Association (ADA) provides guidance for cutoff [...] Standards of Medical Care in Diabetes 2016, [place] [employer]. Diabetes Care. 2016.39(Suppl 1). Performed By: #### 2 4323-8, , 3 ####[facility] [employer] LABIA [id number] [place] [address] [place] Potassium [Moles/Vol] 3.7 mmol/L Normal 3.7-5.1 [facility] Comment on above: Order Comment: Vivi leon Type: BLOOD SPECIMENOrdering Facility: [facility] Address: [address] [place] [address] Performed By: #### 2 4323-8, , 3039-3 ####[facility] [place] LABCLIA [id number] [facility] [place] [address] [place] Protein [Mass/Vol] 6.6 g/dL Normal 6.3-8.0 [facility] Comment on above: Order Comment: Speci men Type: BLOOD SPECIMENOrdering Facility: [facility] Address: [address] [place] [address] Performed By: #### 2 4323-8, 31432-7, 3040-3 ####[facility] [place] LABCLIA [id number] [facility] [address] [place] Sodium [Moles/Vol] 137 mmol/L Normal 136-144 [facility] Comment on above: Order Comment: Speci men Type: BLOOD SPECIMENOrdering Facility: [facility] Address: [address] [place] [address] Performed By: #### 2 4323-8, 73666-3, 3040-3 ####[facility] LABCLIA [id number] [place] [address] [place] Urea nitrogen [Mass/Vol] 3 mg/dL Low 7-21 [facility] Comment on above: Order Comment: Speci men Type: BLOOD SPECIMENOrdering Facility: [facility] Address: [address] [place] [address] Performed By: #### 2 4323-8, 11297-9, 3040-3 ####[facility] [place] LABCLIA [id number] [facility] [place] [address] [place] ED NOTEon 07-20-2024 ED NOTE HNO ID: [id number] Author: RASHEEDA COSTELLO RN Service: ? Author Type: Registered Nurse Type: ED Notes Filed: 07/21/2024 00:18 Note Text: Dr. Babb at bedside speaking with pt. Pt very reluctant to be admitted to the hospital, but after discussion with Dr. Babb pt is compliant with transfer. Pt on phone with spouse notifying him of transfer. Normal [facility] ED NOTE HNO ID: [id number] Author: RASHEEDA COSTELLO RN Service: ? Author [...] she leave with . Dr. Babb notified. [facility] ED NOTE HNO ID: [id number] Author: RASHEEDA COSTELLO RN Service: ? Author Type: Registered Nurse Type: ED Notes Filed: 07/20/2024 23:37 Note Text: Pt asked this RN if she could have spouse take her to [facility] OB Triage. This RN asked Dr. [...] importance of continuous monitoring. Pt verbalized understanding. [facility] ED NOTE HNO ID: [id number] Author: RAMIRO DING RN Service: Emergency Medicine Author Type: Registered Nurse Type: ED Notes Filed: 07/20/2024 23:03 Note Text: OB Triage at [facility] contacted. ED physician spoke with Dr. Farris. Dr. Farris accepted patient. [facility] transport arranged. [facility] ED NOTE HNO ID: [id number] Author: RAMIRO DING RN Service: ? Author Type: Registered Nurse Type: ED Notes Filed: 07/20/2024 23:01 Note Text: [facility] ETA 0000/0030 [facility] ED NOTE HNO ID: [id number] Author: RASHEEDA COSTELLO RN Service: ? Author [...] 2236 2240 2251 2301 2313 2324 Normal [facility] ED PROV NOTEon 07-20-2024 ED PROV NOTE HNO ID: [id number] Author: TRIPP BABB MD Service: Emergency Medicine Author Type: Physician Type: ED Provider Notes Filed: 07/20/2024 23:56 Note Text: ED Provider Note Patient Name: Monique Cardenas : 1990 SERVICE DATE: 07/20/24 History Patient [...] of town, with her delivery plan in [facility]. This afternoon patient had unfortunately had a [...] reviewed and are negative. Physical Exam Vitals [07/20/24 2225] BP Pulse Temp Temp src Resp SpO2 [...] of 2024. Patient is actually here from [place], with her planned delivery in [place]. Patient is only here visiting with her for work. Patient did have 1 pr (more content not included)... Normal [facility] Ethanol SerPl-mCncon 025 Ethanol [Mass/Vol] 156 mg/dL High <11 [facility] Comment on above: Order Comment: Vivi leon Type: BLOOD SPECIMEN [facility] Address: [address] [place] [address] Result Comment: Valu es > 80 mg/dL may indicate intoxication Performed By: #### 5 643-2 #### [facility] CLIA [id number] [place] [address] [place] Lipase SerPl-cCncon 07-21-19 25 Lipase [Catalytic activity/Vol] 57 U/L Normal 16-61 [facility] Comment on above: Order Comment: Vivi leon Type: BLOOD SPECIMENOrdering Facility: [facility] Address: [address] [place] [address] Performed By: #### 2 4323-8, 19669-4, 3040-3 ####[facility] LABCLIA [id number] [place] [address] [place] MATERNAL DRUG SCREEN,URINEon 07-20-2024 Amphetamines Confirm (U) [Mass/Vol] Negative Normal Negative [facility] Comment on above: Order Comment: Vvii leon Type: URINE SPECIMEN [facility] Address: [address] [place] [address] Performed By: #### M DSRF #### [facility] CLIA [id number] [address] [place] BARBITURATES, URINE Negative Normal Negative [facility] Comment on above: Order Comment: Speci men Type: URINE SPECIMEN [facility] Address: [facility] [place] [address] Performed By: #### M DSRF #### [facility] CLIA [id number] [address] [place] [address] [place] BENZODIAZEPINES, UR Negative Normal Negative [facility] Comment on above: Order Comment: Speci men Type: URINE SPECIMEN [facility] Address: [address] [place] [address] Performed By: #### M DSRF #### [facility] CLIA [id number] [address] [place] Cannabinoids Screen Ql (U) Negative Normal Negative [facility] Comment on above: Order Comment: Speci men Type: URINE SPECIMEN [facility] Address: [address] [place] [address] Performed By: #### M DSRF #### [facility] CLIA [id number] [address] [place] Cocaine Ql (U) Negative Normal Negative [facility] [facility] Comment on above: Order Comment: Speci men Type: URINE SPECIMEN [facility] Address: [address] [place] [address] Performed By: #### M DSRF #### [facility] CLIA [id number] 1 [place] [address] [place] Ethanol (U) [Mass/Vol] 211 mg/dL High <11 [facility] Comment on above: Order Comment: Speci men Type: URINE SPECIMEN [facility] Facility[facility] Address: [address] [place] [address] Performed By: #### M DSRF #### [facility] CLIA [id number] 1 [place] [address] [place] Opiates Screen Ql (U) Negative Normal Negative [facility] Comment on above: Order Comment: Speci men Type: URINE SPECIMEN [facility] Address: [address] [place] [address] Performed By: #### M DSRF #### [facility] CLIA [id number] [address] oxyCODONE cutoff Screen (U) [Mass/Vol] Negative Normal Negative [facility] Comment on above: Order Comment: Speci men Type: URINE SPECIMEN [facility] Address: [address] [place] [address] Performed By: #### M DSRF #### [facility] CLIA [id number] [address] Phencyclidine Ql (U) Negative Normal Negative [facility] Comment on above: Order Comment: Speci men Type: URINE SPECIMEN [facility] Facility[facility] Address: [address] [place] [address] Performed By: #### M DSRF #### [facility] CLIA [id number] [address] [place] Magnesium SerPl-mCncon 07-20 Magnesium [Mass/Vol] 1.6 mg/dL Low 1.7-2.3 [facility] Comment on above: Order Comment: Speci men Type: BLOOD SPECIMENOrdering Facility: [facility] Address: [address] [place] [address] Performed By: #### 2 4323-8, 75325-3, 3040-3 ####[facility] LABCLIA [id number] [address] [place] SEPSIS LACTATEon 07-20-2024 Lactate [Moles/Vol] 1.7 mmol/L Normal <=2.0 [facility] Comment on above: Order Comment: Speci men Type: BLOOD SPECIMENOrdering Facility: [facility] Address: [address] [place] [address] Performed By: #### S LACT ####[facility] [id number] [place] [address] [facility] Urinalysis complete panel (U )on 07-20-2024 Bacteria LM.HPF (Urine sed) [#/Area] Rare Abnormal None Seen [facility] Comment on above: Order Comment: Speci men Type: URINE SPECIMEN [facility] Address: [address] [place] [address] Performed By: #### 2 4356-8 #### [facility] CLIA [id number] [address] [place] [address] [facility] [place] Bilirubin Ql (U) Negative Normal Negative [facility] Comment on above: Order Comment: Speci men Type: URINE SPECIMEN [facility] Facility[facility] Address: [address] [place] [address] Performed By: #### 2 4356-8 #### [facility] CLIA [id number] [address] [place], [place] [address] [place] [address] Clarity (Unsp spec) Clear Normal Clear [facility] Comment on above: Order Comment: Speci men Type: URINE SPECIMEN [facility] Facility[facility] Address: [address] [place] [address] Performed By: #### 2 4356-8 #### [facility] CLIA [id number] [address] [place] [address] [facility] Color (U) Yellow Normal Yellow [facility] Comment on above: Order Comment: Speci men Type: URINE SPECIMEN [facility] Facility[facility] Address: [address] [place] [address] Performed By: #### 2 4356-8 #### [facility] CLIA [id number] [address] Epithelial cells LM.HPF (Urine sed) [#/Area] Few Normal [facility] Comment on above: Order Comment: Speci men Type: URINE SPECIMEN [facility] Address: [address] [place] [address] Performed By: #### 2 4356-8 #### [facility] CLIA [id number] [address] [place] [address] [facility] [place] Glucose Test strip (U) [Mass/Vol] Negative Normal Negative [facility] Comment on above: Order Comment: Speci men Type: URINE SPECIMEN [facility] Address: [address] [place] [address] Performed By: #### 2 4356-8 #### [facility] CLIA [id number] [address] [place] [address] [place] Hemoglobin Ql (U) Negative Normal Negative [facility] Comment on above: Order Comment: Speci men Type: URINE SPECIMEN [facility] Address: [address] [place] [address] Performed By: #### 2 4356-8 #### [facility] CLIA [id number] [address] [place] [address] [place] Ketones Ql (U) Negative Normal Negative [facility] Comment on above: Order Comment: Speci men Type: URINE SPECIMEN [facility] Address: [address] [place] [address] Performed By: #### 2 4356-8 #### [facility] CLIA [id number] [address] [place] [address] [place] Leukocyte esterase Test strip Ql (U) Negative Normal Negative [facility] Comment on above: Order Comment: Speci men Type: URINE SPECIMEN [facility] Address: [address] [place] [address] Performed By: #### 2 4356-8 #### [facility] CLIA [id number] [address] [place] [address] [place] Nitrite Ql (U) Negative Normal Negative [facility] Comment on above: Order Comment: Speci men Type: URINE SPECIMEN [facility] Address: [address] [place] [address] Performed By: #### 2 4356-8 #### [facility] CLIA [id number] [address] [place] [address] [place] pH (U) 6.0 [pH] Normal 5.0-8.0 [facility] Comment on above: Order Comment: Speci men Type: URINE SPECIMEN [facility] Address: [address] [place] [address] Performed By: #### 2 4356-8 #### [facility] CLIA [id number] [address] [place] [id number] [facility] Protein (U) [Mass/Vol] Negative Normal Negative [facility] Comment on above: Order Comment: Speci men Type: URINE SPECIMEN [facility] Address: [address] [place] [address] Performed By: #### 2 4356-8 #### [facility] CLIA [id number] [address] [place] RBC LM.HPF (Urine sed) [#/Area] 0-3 /HPF Normal 0-3 /HPF [facility] Comment on above: Order Comment: Speci men Type: URINE SPECIMEN [facility] Address: [address] [place] [address] Performed By: #### 2 4356-8 #### [facility] CLIA [id number] [address] [place] Specific gravity (U) [Rel density] <=1.005 Low 1.005-1.030 [facility] Comment on above: Order Comment: Speci men Type: URINE SPECIMEN [facility] Address: [address] [place] [address] Performed By: #### 2 4356-8 #### [facility] CLIA [id number] [address] Urobilinogen Ql (U) 0.2 EU/dL Normal 0.2-1.0 EU/dL [facility] Comment on above: Order Comment: Speci men Type: URINE SPECIMEN [facility] Address: [address] [place] [address] Performed By: #### 2 4356-8 #### [facility] CLIA [id number] [address] [place] [address] [place] WBC LM.HPF (Urine sed) [#/Area] 0-5 /HPF Normal 0-5 /HPF [facility] Comment on above: Order Comment: Speci men Type: URINE SPECIMEN [facility] Facility[facility] Address: [address] [place] [id number] Performed By: #### 2 4356-8 #### [facility] CLIA [id number] [address] [place] [address] [facility] [place] CNCOon 07-01-2024 CNCO Letter Text Normal [facility] CNPNon 06-27-2024 CNPN Telephone (OBGYWM) MONIQUE CARDENAS ([id number]) 1990 F Date Time Provider Department 06/27/24 MARCIA THURMAN OBMIKAWBobby During your visit today, we recorded the following information about you: Arelis Vázquez RN 06/27/2024 8:24 AM Signed Breast pump order received from [facility]. To JOSE to sign. DIEGO Ruiz Jennifer, [...] 3 tablets by mouth once daily. - Ncuygzht-Bs-Vql-Fe-F A tab Take 1 tablet by mouth [...] status, antepartum [O09.899,*06/23/2024 Encounter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
[2024-10-04 17:54] VITALS: BMI 27.1
[2024-10-04 18:11] VITALS: BP 110/71; PULSE 108
[2024-10-04] MEDS: Ondansetron ODT 4 MG Tablet 8 MG PO (18:44)
--- NOTE | 2024-10-05 13:11 | OB.TRI.HP_ITS ---
HPI - General General Date of Service: 10/04/24 Chief Complaint: IUGR HPI Narrative MICHAEL CARDENAS, is a 33 F who presents at 31 3/7 w/ IUGR for NST. Denies VB/LOF. Good FM. No ctxs, just occas. cramping Maternal Data Information Final ANDRÉS: 12/03/24 Final ANDRÉS Source: US <20 weeks Gestational age: 31 3/7 [facility] Medical History Epilepsy Home Medications ?Medication ?Instructions ?Recorded ?Last Taken ?Type vit no.95-ferrous 1 tab PO DAILY 06/17/24 Unk nown History fumarate 28 mg-folic acid 800 mcg tablet () Allergy/AdvReac Type Severity Reaction Status Date / Time No Known Allergies Allergy Verified 10/04/24 18:04 Social History Smoking Status: Never smoker History 2 Elective abortions Hx Para 0 Spontaneous abortions Hx # Term Pregnancies Ectopic pregnancies Hx # Pregnancies Multiple births # of living children Physical Exam Narrative abd- soft, nontender, graivd ext- no edema Const alert and no apparent distress NST FHR Rate Baby A Baseline: 150 Variability:: Moderate Accelerations:: 15 x 15 Decelerations:: None NST Reactive:: Yes Uterine Activity:: no regular ctxs Assessment & Plan (1) 31 weeks gestation of : (2) IUGR (intrauterine growth restriction): (3) Supervision of other high risk pregnancies, third trimester: PLAN: NST reactive, f/u in office as scheduled. Kick counts. D/w her possible etiologies of IUGR and for now I do not have a definitive cause for her. However, d/w her importance of close f/u and importance of this and she agrees w/ plan
== END 2024-10-04 18:50 | disposition home or self-care (01) ==
LOC: WPOUT 17:50 → WP 17:50
PROVIDERS: Referring Provider Obstetrics & Gynecology; Visit Provider Obstetrics & Gynecology
DX: O36.5930 Maternal care for other known or suspected poor fetal growth, third trimester, not applicable or unspecified (principal); Z3A.31 31 weeks gestation of pregnancy
CPT/HCPCS: 59025; 99221; G0378

== ENCOUNTER 2024-10-11 17:45 | Outpatient (CLI) | payer OTHER, SELFPAY ==
--- OUTSIDE RECORDS SUMMARY | 2024-10-11 17:53 | XMS RPT_ITS | CCD ---
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 ####[facility] LABIA [id number] [place] [id number] [place] CNPNon 09-22-2024 [facility] MONIQUE SILVEIRA ([id number]) 1990 F Date Time Provider Department 09/22/24 ASHLYN SOTO OBGYWM During your visit today, we recorded the following information about you: Last Period 02/27/24 Arelis Manzo, DIEGO 09/22/2024 3:03 PM Signed Spoke to patient and she is spending time between both [place] and [place]. On her way back now for tomorrow's visit. She has not had any additional care elsewhere in [place]. She did not have ultrasound done or [...] Allergies) Date Reviewed: 07/21/2024 Reviewed by: Aly Hernandez, DIEGO - Fully Assessed Reason for Visit: Appointment [186] Prescriptions as of 09/22/2024 - aspirin, enteric coated (ECOTRIN LOW STRENGTH) 81 mg EC tablet Take 1 tablet by mouth once daily. - vits62/FA/om3/dha/ep a ( GUMMY ORAL) Take by mouth once daily. - folic acid 1 mg tablet Take 3 tablets by mouth once daily. - Jlclqbrk-Cj-Cal-Fe-F A tab Take 1 tablet by mouth [...] Encounter Status:Closed by ARELIS MANZO on 09/22/24 [facility] Davin 08-22-2024 CNPN Telephone (NE50MN) MONIQUE SILVEIRA ([id number]) 1990 F Date Time Provider Department 08/22/[address] [facility] During your visit today, we recorded the following information about you: Shellicarolyn Kourtney 08/22/2024 1:46 PM Signed left vm for patient about scheduling consult to epilepsy. called [phone] Allergies As of Date: 08/22/2024 (No Known Allergies) Date Reviewed: 07/21/2024 Reviewed by: Aly Hernandez, DIEGO - Fully Assessed Reason for Visit: Appointment [186] Cmt: left vm for patient about scheduling consult to epilepsy. called [phone] Prescriptions as of 08/22/2024 - aspirin, enteric coated (ECOTRIN LOW STRENGTH) 81 mg EC tablet Take 1 tablet by mouth once daily. - vits62/FA/om3/dha/ep a ( GUMMY ORAL) Take by mouth once daily. - folic acid 1 mg tablet Take 3 tablets by mouth once daily. - Sudejbkk-Vu-Fcs-Fe-F A tab Take 1 tablet by mouth [...] Encounter Status:Closed by KOURTNEY SUTTON on 08/22/24 [facility] Davin 08-14-2024 CNPN Telephone (OBGYWM) MONIQUE SILVEIRA ([id number]) 1990 F Date Time Provider Department 08/14/24 MARCIA THURMAN OBMIKAWBobby During your visit today, we recorded the following information about you: Little Kline RN 08/14/2024 5:00 PM Signed Patient called requesting to have her medical records faxed to an office in [place]. Advised that a medical release would need [...] 3 tablets by mouth once daily. - Dxwjxxnm-Hk-Jlh-Fe-F A tab Take 1 tablet by mouth [...] Encounter Status:Closed by LITTLE KLINE on 08/14/24 [facility] ED NOTEon 07-21-2024 ED NOTE HNO ID: [id number] Author: RASHEEDA COSTELLO RN Service: ? Author Type: Registered Nurse Type: ED Notes Filed: 07/21/2024 00:20 Note Text: Hand off report given to EMS and OB photo intern who verbalized understanding. Pt's vss and left ED in stable condition via EMS. Normal [facility] NURSING PROGon 07-21-2024 NURSING PROG HNO ID: [id number] Author: ALY HERNANDEZ, DIEGO Service: Nursing Author [...] up. No complaints at this time. Normal [facility] NURSING PROG HNO ID: [id number] Author: ALY HERNANDEZ, RN Service: Nursing Author [...] feels safe going home with . Normal [facility] CBC W Auto Differential pane l (Bld)on 07-20-2024 Basophils (Bld) [#/Vol] 0.03 10*3/uL Normal <0.11 [facility] Comment on above: Order Comment: Speci men Type: BLOOD SPECIMENOrdering Facility: [facility] Address: [address] [place] [address] Performed By: #### 5 7021-8 ####[facility] [place] LABCLIA [id number] [place] [address] [place] Basophils/100 WBC (Bld) 0.3 % Normal A [facility] Comment on above: Order Comment: Speci men Type: BLOOD SPECIMENOrdering Facility: [facility] Address: [address] [place] [address] Performed By: #### 5 7021-8 ####[facility] [place] LABCLIA [id number] [place] [id number] [place] Differential cell count method Nom (Bld) Auto Normal [facility] Comment on above: Order Comment: Speci men Type: BLOOD SPECIMENOrdering Facility: [facility] Address: [address] [place] [address] Performed By: #### 5 7021-8 ####[facility] [place] LABCLIA [id number] [facility] [address] [place] Eosinophils (Bld) [#/Vol] 0.12 10*3/uL Normal <0.46 [facility] Comment on above: Order Comment: Speci men Type: BLOOD SPECIMENOrdering Facility: [facility] Address: [address] [place] [address] Performed By: #### 5 7021-8 ####[facility] [place] LABCLIA [id number] [place] [address] [place] Eosinophils/100 WBC (Bld) 1.1 % Normal [facility] Comment on above: Order Comment: Speci men Type: BLOOD SPECIMENOrdering Facility: [facility] Address: [address] [place] [address] Performed By: #### 5 7021-8 ####[facility] LABCLIA [id number] [place] [address] [facility] Erythrocyte distribution width (RBC) [Ratio] 12.7 % Normal 11.5-15.0 [facility] Comment on above: Order Comment: Speci men Type: BLOOD SPECIMENOrdering Facility: [facility] Address: [address] [place] [address] Performed By: #### 5 7021-8 ####[facility] [place] LABCLIA [id number] [place] [address] [facility] OF [place] Hematocrit (Bld) [Volume fraction] 32.4 % Low 36.0-46.0 [facility] Comment on above: Order Comment: Speci men Type: BLOOD SPECIMENOrdering Facility: [facility] Address: [address] [place] [address] Performed By: #### 5 7021-8 ####[facility] [place] LABCLIA [id number] [place] [address] [facility] [place] Hemoglobin (Bld) [Mass/Vol] 11.1 g/dL Low 11.5-15.5 [facility] Comment on above: Order Comment: Speci men Type: BLOOD SPECIMENOrdering Facility: [facility] Address: [address] [place] [address] Performed By: #### 5 7021-8 ####[facility] [place] LABCLIA [id number] [place] [address] [place] [facility] Immature granulocytes (Bld) [#/Vol] 0.07 10*3/uL Normal <0.10 [facility] Comment on above: Order Comment: Speci men Type: BLOOD SPECIMENOrdering Facility: [facility] Address: [address] [place] [address] Performed By: #### 5 7021-8 ####[facility] [place] LABCLIA [id number] [place] [address] [facility] Immature granulocytes/100 WBC (Bld) 0.6 % Normal [facility] Comment on above: Order Comment: Speci men Type: BLOOD SPECIMENOrdering Facility: [facility] Address: [address] [place] [address] Performed By: #### 5 7021-8 ####[facility] [place] LABCLIA [id number] [place] [address] [place] Lymphocytes (Bld) [#/Vol] 1.73 10*3/uL Normal 1.00-4.00 [facility] Comment on above: Order Comment: Speci men Type: BLOOD SPECIMENOrdering Facility: [facility] Address: [address] [place] [address] Performed By: #### 5 7021-8 ####[facility] [place] LABCLIA [id number] [place] [address] [place] [facility] Lymphocytes/100 WBC (Bld) 15.6 % Normal [facility] Comment on above: Order Comment: Speci men Type: BLOOD SPECIMENOrdering Facility: [facility] Address: [address] [place] [address] Performed By: #### 5 7021-8 ####[facility] [place] LABCLIA [id number] [place] [address] [place] MCH (RBC) [Entitic mass] 31.0 pg Normal 26.0-34.0 [facility] Comment on above: Order Comment: Speci men Type: BLOOD SPECIMENOrdering Facility: [facility] Address: [address] [place] [address] Performed By: #### 5 7021-8 ####[facility] [place] LABCLIA [id number] [place] [address] [place] MCHC (RBC) [Mass/Vol] 34.3 g/dL Normal 30.5-36.0 [facility] Comment on above: Order Comment: Speci men Type: BLOOD SPECIMENOrdering Facility: [facility] Address: [address] [place] [address] Performed By: #### 5 7021-8 ####[facility] LABCLIA [id number] [place] [address] [place] [facility] MCV (RBC) [Entitic vol] 90.5 fL Normal 80.0-100.0 [facility] Comment on above: Order Comment: Speci men Type: BLOOD SPECIMENOrdering Facility: [facility] Address: [address] [place] [address] Performed By: #### 5 7021-8 ####[facility] LABCLIA [id number] [place] [address] [facility] Monocytes (Bld) [#/Vol] 0.65 10*3/uL Normal <0.87 [facility] Comment on above: Order Comment: Speci men Type: BLOOD SPECIMENOrdering Facility: [facility] Address: [address] [place] [address] Performed By: #### 5 7021-8 ####[facility] [place] LABCLIA [id number] [place] [id number] [facility] Monocytes/100 WBC (Bld) 5.9 % Normal [facility] Comment on above: Order Comment: Speci men Type: BLOOD SPECIMENOrdering Facility: [facility] Address: [address] [place] [address] Performed By: #### 5 7021-8 ####[facility] [place] LABCLIA [id number] [place] [address] [place] Neutrophils (Bld) [#/Vol] 8.48 10*3/uL High 1.45-7.50 [facility] Comment on above: Order Comment: Speci men Type: BLOOD SPECIMENOrdering Facility: [facility] Address: [address] [place] [address] Performed By: #### 5 7021-8 ####[facility] [place] LABCLIA [id number] [place] [address] [place] Neutrophils/100 WBC (Bld) 76.5 % Normal [facility] Comment on above: Order Comment: Speci men Type: BLOOD SPECIMENOrdering Facility: [facility] Address: [address] [place] [address] Performed By: #### 5 7021-8 ####[facility] [place] LABCLIA [id number] [facility] [place] [address] [place] Nucleated RBC (Bld) [#/Vol] Normal [facility] Comment on above: Order Comment: Speci men Type: BLOOD SPECIMENOrdering Facility: [facility] Address: [address] [place] [address] Performed By: #### 5 7021-8 ####[facility] [place] LABCLIA [id number] [facility] [address] [place] Nucleated RBC/100 WBC (Bld) [Ratio] Normal [facility] Comment on above: Order Comment: Speci men Type: BLOOD SPECIMENOrdering Facility: [facility] Address: [address] [place] [address] Performed By: #### 5 7021-8 ####[facility] [place] LABCLIA [id number] [facility] [address] [place] Platelet mean volume (Bld) [Entitic vol] 9.6 fL Normal 9.0-12.7 [facility] Comment on above: Order Comment: Speci men Type: BLOOD SPECIMENOrdering Facility: [facility] Address: [address] [place] [address] Performed By: #### 5 7021-8 ####[facility] LABCLIA [id number] [place] [address] [facility] Platelets (Bld) [#/Vol] 295 10*3/uL Normal 150-400 [facility] Comment on above: Order Comment: Speci men Type: BLOOD SPECIMENOrdering Facility: [facility] Address: [address] [place] [address] Performed By: #### 5 7021-8 ####[facility] LABCLIA [id number] [place] [address] [facility] RBC (Bld) [#/Vol] 3.58 10*6/uL Low 3.90-5.20 [facility] Comment on above: Order Comment: Speci men Type: BLOOD SPECIMENOrdering Facility: [facility] Address: [address] [place] [address] Performed By: #### 5 7021-8 ####[facility] LABCLIA [id number] [place] [address] [facility] WBC (Bld) [#/Vol] 11.08 10*3/uL High 3.70-11.00 [facility] Comment on above: Order Comment: Speci men Type: BLOOD SPECIMENOrdering Facility: [facility] Address: [address] [place] [address] Performed By: #### 5 7021-8 ####[facility] LABCLIA [id number] [place] [address] [facility] Comprehensive metabolic 2000 panelon 07-20-2024 Albumin [Mass/Vol] 3.8 g/dL Low 3.9-4.9 [facility] Comment on above: Order Comment: Speci men Type: BLOOD SPECIMENOrdering Facility: [facility] Address: [address] [place] [address] Performed By: #### 2 4323-8, 16576-4, 0-3 ####[facility] [place] LABCLIA [id number] [place] [address] [place] ALP [Catalytic activity/Vol] 59 U/L Normal 34-123 [facility] Comment on above: Order Comment: Speci men Type: BLOOD SPECIMENOrdering Facility: [facility] Address: [address] [place] [address] Performed By: #### 2 4323-8, 74489-5, 3039-3 ####[facility] [place] LABCLIA [id number] [place] [address] [place] ALT With P-5'-P [Catalytic activity/Vol] 9 U/L Normal 7-38 [facility] Comment on above: Order Comment: Speci men Type: BLOOD SPECIMENOrdering Facility: [facility] Address: [address] [place] [address] Performed By: #### 2 4323-8, , 3039-3 ####[facility] [place] LABCLIA [id number] [place] [address] [place] Anion gap [Moles/Vol] 14 mmol/L Normal 8-15 [facility] Comment on above: Order Comment: Speci men Type: BLOOD SPECIMENOrdering Facility: [facility] Address: [address] [place] [address] Performed By: #### 2 4323-8, 50021-5, 3039-3 ####[facility] [place] LABCLIA [id number] [place] [address] [place] AST With P-5'-P [Catalytic activity/Vol] 14 U/L Normal 13-35 [facility] Comment on above: Order Comment: Speci men Type: BLOOD SPECIMENOrdering Facility: [facility] Address: [address] [place] [address] Performed By: #### 2 4323-8, 60229-0, 0-3 ####[facility] [place] LABCLIA [id number] [place] [address] [place] Bilirubin [Mass/Vol] mg/dL Low 0.2-1.3 [facility] Comment on above: Order Comment: Speci men Type: BLOOD SPECIMENOrdering Facility: [facility] Address: [address] [place] [address] Performed By: #### 2 4323-8, 58620-2, 0-3 ####[facility] [place] LABCLIA [id number] [place] [address] [place] Calcium [Mass/Vol] 9.1 mg/dL Normal 8.5-10.2 [facility] Comment on above: Order Comment: Speci men Type: BLOOD SPECIMENOrdering Facility: [facility] Address: [address] [place] [address] Performed By: #### 2 4323-8, , 3039-3 ####[facility] [place] LABCLIA [id number] [place] [address] [place] Chloride [Moles/Vol] 107 mmol/L Normal 98-107 [facility] Comment on above: Order Comment: Speci men Type: BLOOD SPECIMENOrdering Facility: [facility] Address: [address] [place] [address] Performed By: #### 2 4323-8, , 3039-3 ####[facility] [place] LABCLIA [id number] [place] [address] [place] CO2 [Moles/Vol] 16 mmol/L Low 22-30 [facility] Comment on above: Order Comment: Speci men Type: BLOOD SPECIMENOrdering Facility: [facility] Address: [address] [place], [place] [address] Performed By: #### 2 4323-8, , 3039-3 ####[facility] [place] LABCLIA [id number] [place] [address] [place] Creatinine [Mass/Vol] 0.50 mg/dL Low 0.58-0.96 [facility] Comment on above: Order Comment: Speci men Type: BLOOD SPECIMENOrdering Facility: [facility] Address: [address] [place] [id number] Performed By: #### 2 4323-8, 84525-0, 3040-3 ####[facility] LABCLIA [id number] [place] [address] [place] Creatinine and Glomerular filtration rate.predicted panel (S/P/Bld) 127 mL/min/1.73m??? Normal >=60 [facility] Comment on above: Order Comment: Vivi leon Type: BLOOD SPECIMENOrdering Facility: [facility] Address: [address] [place] [address] Result Comment: Rosalind mated Glomerular Filtration Rate [...] actual GFR. Performed By: #### 2 4323-8, 40731-7, 3040-3 ####[facility] LABIA [id number] [place] [address] [place] Glucose [Mass/Vol] 103 mg/dL High 74-99 [facility] Comment on above: Order Comment: Vivi leon Type: BLOOD SPECIMENOrdering Facility: [facility] Address: [address] [place] [address] Result Comment: The [place] Diabetes Association (ADA) provides guidance for cutoff [...] Standards of Medical Care in Diabetes 2016, [place] Diabetes Association. Diabetes Care. 2016.39(Suppl 1). Performed By: #### 2 4323-8, 59446-0, 0-3 ####[employer] [facility] [place] LABCLIA [id number] [place] [address] [place] Potassium [Moles/Vol] 3.7 mmol/L Normal 3.7-5.1 [facility] Comment on above: Order Comment: Speci men Type: BLOOD SPECIMENOrdering Facility: [facility] Address: [address] [place] [address] Performed By: #### 2 4323-8, 63821-2, 0-3 ####[facility] LABCLIA [id number] [place] [address] [place] Protein [Mass/Vol] 6.6 g/dL Normal 6.3-8.0 [facility] Comment on above: Order Comment: Speci men Type: BLOOD SPECIMENOrdering Facility: [facility] Address: [address] [place] [address] Performed By: #### 2 4323-8, , 0-3 ####[facility] [employer] LABCLIA [id number] [place] [address] [place] Sodium [Moles/Vol] 137 mmol/L Normal 136-144 [facility] Comment on above: Order Comment: Speci men Type: BLOOD SPECIMENOrdering Facility: [facility] Address: [address] [place] [address] Performed By: #### 2 4323-8, 33363-7, 0-3 ####[facility] [employer] LABCLIA [id number] [place] [address] [place] Urea nitrogen [Mass/Vol] 3 mg/dL Low 7-21 [facility] Comment on above: Order Comment: Speci men Type: BLOOD SPECIMENOrdering Facility: [facility] Address: [address] [place] [address] Performed By: #### 2 4323-8, 54593-7, 0-3 ####[facility] NICOLAS [id number] [place] [address] [facility] ED NOTEon 07-20-2024 ED NOTE HNO ID: [id number] Author: RASHEEDA COSTELLO RN Service: ? Author Type: Registered Nurse Type: ED Notes Filed: 07/21/2024 00:18 Note Text: Dr. Babb at bedside speaking with pt. Pt very reluctant to be admitted to the hospital, but after discussion with Dr. Babb pt is compliant with transfer. Pt on phone with spouse notifying him of transfer. Normal [facility] ED NOTE HNO ID: [id number] Author: RASHEEDA COSTELLO RN Service: ? Author [...] she leave with . Dr. Babb notified. Normal [facility] ED NOTE HNO ID: [id number] Author: RASHEEDA COSTELLO RN Service: ? Author Type: Registered Nurse Type: ED Notes Filed: 07/20/2024 23:37 Note Text: Pt asked this RN if she could have spouse take her to [facility] OB Triage. This RN asked Dr. [...] importance of continuous monitoring. Pt verbalized understanding. Normal [facility] ED NOTE HNO ID: [id number] Author: RAMIRO DING RN Service: Emergency Medicine Author Type: Registered Nurse Type: ED Notes Filed: 07/20/2024 23:03 Note Text: OB Triage at [facility] contacted. ED physician spoke with Dr. Serra. Dr. Serra accepted patient. [facility] transport arranged. [facility] ED NOTE HNO ID: [id number] Author: RAMIRO DING RN Service: ? Author Type: Registered Nurse Type: ED Notes Filed: 07/20/2024 23:01 Note Text: [facility] ETA 0000/0030 [facility] ED NOTE HNO ID: [id number] Author: RASHEEDA COSTELLO RN Service: ? Author [...] 2230 [id number] 2240 2251 2301 2313 2324 [facility] ED PROV NOTEon 07-20-2024 ED PROV NOTE HNO ID: [id number] Author: TRIPP BABB MD Service: Emergency Medicine [...] of town, with her delivery plan in [facility]. This afternoon patient had unfortunately had a [...] of 2024. Patient is actually here from [place], with her planned delivery in [place]. Patient is only here visiting with her for work. Patient did have 1 pr (more content not included)... Normal [facility] Ethanol SerPl-mCncon 025 Ethanol [Mass/Vol] 156 mg/dL High <11 [facility] Comment on above: Order Comment: Speci men Type: BLOOD SPECIMEN Ordering Facility: [facility] Address: [address] [place], [place] [address] Result Comment: Valu es > 80 mg/dL may indicate intoxication Performed By: #### 5 643-2 #### [facility] CLIA [id number] [address] [place] [address] [place] Lipase SerPl-cCncon 07-21-19 25 Lipase [Catalytic activity/Vol] 57 U/L Normal 16-61 [facility] Comment on above: Order Comment: Speci men Type: BLOOD SPECIMENOrdering Facility: [facility] Address: [address] [place] [address] Performed By: #### 2 4323-8, 18657-5, 3040-3 ####[facility] LABCLIA [id number] [place] [address] [place] MATERNAL DRUG SCREEN,URINEon 07-20-2024 Amphetamines Confirm (U) [Mass/Vol] Negative Normal Negative [facility] Comment on above: Order Comment: Speci men Type: URINE SPECIMEN Ordering Facility: [facility] Address: [address] [place] [address] Performed By: #### M DSRF #### [facility] CLIA [id number] [address] [place] [address] [place] BARBITURATES, URINE Negative Normal Negative [facility] Comment on above: Order Comment: Speci men Type: URINE SPECIMEN Ordering Facility: [facility] Address: [address] [place] [address] Performed By: #### M DSRF #### [facility] CLIA [id number] [address] [place] [address] [place] BENZODIAZEPINES, UR Negative Normal Negative [facility] Comment on above: Order Comment: Speci men Type: URINE SPECIMEN Ordering Facility: [facility] Address: [address] [place] [address] Performed By: #### M DSRF #### [facility] CLIA [id number] [address] [place] [address] [place] Cannabinoids Screen Ql (U) Negative Normal Negative [facility] Comment on above: Order Comment: Speci men Type: URINE SPECIMEN Ordering Facility: [facility] Address: [address] [place] [address] Performed By: #### M DSRF #### [facility] CLIA [id number] [address] [place] [address] [place] Cocaine Ql (U) Negative Normal Negative [facility] Comment on above: Order Comment: Speci men Type: URINE SPECIMEN Ordering Facility: [facility] Address: [address] [place] [address] Performed By: #### M DSRF #### [facility] CLIA [id number] [address] [place] Ethanol (U) [Mass/Vol] 211 mg/dL High <11 [facility] Comment on above: Order Comment: Speci men Type: URINE SPECIMEN Ordering Facility: [facility] Address: [address] [place] [address] Performed By: #### M DSRF #### [facility] CLIA [id number] [address] [place] Opiates Screen Ql (U) Negative Normal Negative [facility] Comment on above: Order Comment: Speci men Type: URINE SPECIMEN Ordering Facility: [facility] Address: [address] [place] [address] Performed By: #### M DSRF #### [facility] CLIA [id number] [address] [place] oxyCODONE cutoff Screen (U) [Mass/Vol] Negative Normal Negative [facility] Comment on above: Order Comment: Speci men Type: URINE SPECIMEN Ordering Facility: [facility] Address: [address] [place] [address] Performed By: #### M DSRF #### [facility] CLIA [id number] [address] [place] Phencyclidine Ql (U) Negative Normal Negative [facility] Comment on above: Order Comment: Speci men Type: URINE SPECIMEN Ordering Facility: [facility] Address: [address] [place] [address] Performed By: #### M DSRF #### [facility] CLIA [id number] [address] [place] Magnesium SerPl-mCncon 07-20 Magnesium [Mass/Vol] 1.6 mg/dL Low 1.7-2.3 [facility] Comment on above: Order Comment: Speci men Type: BLOOD SPECIMENOrdering Facility: [facility] Address: [address] [place] [address] Performed By: #### 2 4323-8, 91368-7, 3040-3 ####[facility] LABCLIA [id number] [place] [address] [facility] SEPSIS LACTATEon 07-20-2024 Lactate [Moles/Vol] 1.7 mmol/L Normal <=2.0 [facility] Comment on above: Order Comment: Speci men Type: BLOOD SPECIMENOrdering Facility: [facility] Address: [address] [place] [address] Performed By: #### S LACT ####[facility] LABCLIA [id number] [address] Urinalysis complete panel (U )on 07-20-2024 Bacteria LM.HPF (Urine sed) [#/Area] Rare Abnormal None Seen [facility] Comment on above: Order Comment: Speci men Type: URINE SPECIMEN [facility]ing Facility: [facility] Address: [address] [place] [address] Performed By: #### 2 4356-8 #### [facility] CLIA [id number] [address] Bilirubin Ql (U) Negative Normal Negative [facility] Comment on above: Order Comment: Speci men Type: URINE SPECIMEN [facility]ing [facility]: [facility] Address: [address] [place] [address] Performed By: #### 2 4356-8 #### [facility] CLIA [id number] [address] [place] [address] [facility] Clarity (Unsp spec) Clear Normal Clear [facility] Comment on above: Order Comment: Speci men Type: URINE SPECIMEN Ordering Facility: [facility] Address: [address] [place] [address] Performed By: #### 2 4356-8 #### [facility] CLIA [id number] [address] [place] [address] [place] Color (U) Yellow Normal Yellow [facility] Comment on above: Order Comment: Speci men Type: URINE SPECIMEN Ordering Facility: [facility] Address: [address] [place] [address] Performed By: #### 2 4356-8 #### [facility] CLIA [id number] [address] [place] [address] [place] Epithelial cells LM.HPF (Urine sed) [#/Area] Few Normal [facility] Comment on above: Order Comment: Speci men Type: URINE SPECIMEN Ordering Facility: [facility] Address: [address] [place] [address] Performed By: #### 2 4356-8 #### [facility] CLIA [id number] [address] [place] [address] [facility] Glucose Test strip (U) [Mass/Vol] Negative Normal Negative [facility] Comment on above: Order Comment: Speci men Type: URINE SPECIMEN Ordering Facility: [facility] Address: [address] [place] [address] Performed By: #### 2 4356-8 #### [facility] CLIA [id number] [address] [place] [address] [place] Hemoglobin Ql (U) Negative Normal Negative [facility] Comment on above: Order Comment: Speci men Type: URINE SPECIMEN Ordering Facility: [facility] Address: [address] [place] [address] Performed By: #### 2 4356-8 #### [facility] CLIA [id number] [address] [place] [address] [place] Ketones Ql (U) Negative Normal Negative [facility] Comment on above: Order Comment: Speci men Type: URINE SPECIMEN Ordering Facility: [facility] Address: [address] [place] [address] Performed By: #### 2 4356-8 #### [facility] CLIA [id number] [address] [place] [address] [place] Leukocyte esterase Test strip Ql (U) Negative Normal Negative [facility] Comment on above: Order Comment: Speci men Type: URINE SPECIMEN Ordering Facility: [facility] Address: [address] [place] [address] Performed By: #### 2 4356-8 #### [facility] CLIA [id number] [address] [place] [address] [place] Nitrite Ql (U) Negative Normal Negative [facility] Comment on above: Order Comment: Speci men Type: URINE SPECIMEN Ordering Facility: [facility] Address: [address] [place] [address] Performed By: #### 2 4356-8 #### [facility] CLIA [id number] [address] [place] [address] [place] pH (U) 6.0 [pH] Normal 5.0-8.0 [facility] Comment on above: Order Comment: Speci men Type: URINE SPECIMEN Ordering Facility: [facility] Address: [address] [place] [address] Performed By: #### 2 4356-8 #### [facility] CLIA [id number] [address] [place] [address] [place] Protein (U) [Mass/Vol] Negative Normal Negative [facility] Comment on above: Order Comment: Speci men Type: URINE SPECIMEN Ordering Facility: [facility] Address: [address] [place] [address] Performed By: #### 2 4356-8 #### [facility] CLIA [id number] [address] [place] [address] [place] RBC LM.HPF (Urine sed) [#/Area] 0-3 /HPF Normal 0-3 /HPF [facility] Comment on above: Order Comment: Speci men Type: URINE SPECIMEN Ordering Facility: [facility] Address: [address] [place] [address] Performed By: #### 2 4356-8 #### [facility] CLIA [id number] [address] [place] [address] [place] Specific gravity (U) [Rel density] <=1.005 Low 1.005-1.030 [facility] Comment on above: Order Comment: Speci men Type: URINE SPECIMEN Ordering Facility: [facility] Address: [address] [place] [address] Performed By: #### 2 4356-8 #### [facility] CLIA [id number] [address] [place] [address] [place] Urobilinogen Ql (U) 0.2 EU/dL Normal 0.2-1.0 EU/dL [facility] Comment on above: Order Comment: Speci men Type: URINE SPECIMEN Ordering [facility]: [facility] Address: [address] [place] [address] Performed By: #### 2 4356-8 #### [facility] CLIA [id number] [address] [place] [id number] [place] WBC LM.HPF (Urine sed) [#/Area] 0-5 /HPF Normal 0-5 /HPF [facility] Comment on above: Order Comment: Speci men Type: URINE SPECIMEN [facility]ing [facility]: [facility] Address: [address] [place] [address] Performed By: #### 2 4356-8 #### [facility] CLIA [id number] [address] [place] [id number] [place] CNCOon 07-01-2024 CNCO Letter Text Normal [facility] CNPNon 06-27-2024 CNPN Telephone (ASHANTIWBobby) MONIQUE SILVEIRA ([id number]) 1990 F Date Time Provider Department 06/27/24 MARCIA THURMAN During your visit today, we recorded the following information about you: Arelis Manzo, DIEGO 06/27/2024 8:24 AM Signed Breast pump order received from [facility] Leanne. To JOSE to sign. DIEGO Ruiz Jennifer, [...] 3 tablets by mouth once daily. - Fvyberpv-Ef-Fch-Fe-F A tab Take 1 tablet by mouth [...] Encounter Status:Closed by ARELIS MANZO on 06/27/24 [facility] MONIQUE SILVEIRA ([id number]) 1990 F Date Time Provider Department 06/23/24 [...] 3 tablets by mouth once daily. - Taflqfzm-Bb-Xst-Fe-F A tab Take 1 tablet by mouth [...] Encounter Status:Closed by ARELIS MANZO on 06/26/24 [facility] 06-20-2024 [facility] Telephone (OBGYWM) THERESAMONIQUE ([id number]) 1990 F Date Time Provider Department 06/20/24 MARCIA THURMAN During your visit today, we [...] 3 tablets by mouth once daily. - Rppaofxl-Ig-Eqa-Fe-F A tab Take 1 tablet by mouth [...] Status:Closed by ARELIS MANZO on 06/20/24 [facility] NAATon 0 06-18-2024 Lactobacillus crispatus+gasseri+randolph ii + Gardnerella vaginalis + Atopobium vaginae rRNA JUANJOSE+probe Ql (Vag fld) Not detected Normal Not detected [facility] Comment on above: Order Comment: Speci men Type: SWABOrdering Facility: [facility] Address: [address] [place] [address] Performed By: #### B VAMP ####[facility] LABCLIA [id number] [place] [address] [place] Bacteria Ur Culton Bacteria identified Cx Nom (U) ORGANISM ID: 1 10,000 -<50,000 CFU/ml Normal urogenital donald Normal [facility] Comment on above: Performed By: #### 6 30-4 ####[facility] LABCLIA [id number] [place] [address] [place] C. trachomatis+N. gonorrhoea e DNA JUANJOSE+probe Ql (Unsp spec)on 06-18-2024 C. trachomatis rRNA JUANJOSE+probe Ql (Unsp spec) Not detected Normal Not detected [facility] Comment on above: Order Comment: Speci men Type: SWABOrdering Facility: [facility] Address: [address] [place] [address] Performed By: #### 3 6902-5, TRVAMP ####[facility] LABIA [id number] [place] [address] [place] N. gonorrhoeae rRNA JUANJOSE+probe Ql (Unsp spec) Not detected Normal Not detected [facility] Comment on above: Order Comment: Speci men Type: SWABOrdering Facility: [facility] Address: [address] [place] [address] Performed By: #### 3 6902-5, TRVAMP ####[facility] LABCLIA [id number] [place] [address] [place] CBC W Auto Differential pane l (Bld)on 06-18-2024 Basophils (Bld) [#/Vol] 10*3/uL Normal <0.11 C [facility] Comment on above: Order Comment: Speci men Type: BLOOD SPECIMENOrdering Facility: [facility] Address: [address] [place] [address] Performed By: #### 5 7021-8 ####[facility]ENTERWNCLIA [id number] [place] [address] [place] Basophils/100 WBC (Bld) 0.2 % Normal C [facility] Comment on above: Order Comment: Speci men Type: BLOOD SPECIMENOrdering Facility: [facility] Address: [address] [place] [address] Performed By: #### 5 7021-8 ####[facility]ENTERLIA [id number] [place] [address] [place] Differential cell count method Nom (Bld) Auto Normal [facility] Comment on above: Order Comment: Speci men Type: BLOOD SPECIMENOrdering Facility: [facility] Address: [address] [place] [address] Performed By: #### 5 7021-8 ####[facility] [id number] [place] [address] [place] Eosinophils (Bld) [#/Vol] 0.12 10*3/uL Normal <0.46 [facility] Comment on above: Order Comment: Speci men Type: BLOOD SPECIMENOrdering Facility: [facility] Address: [address] [place] [address] Performed By: #### 5 7021-8 ####[facility]ENTERLIA [id number] [place] [address] [place] Eosinophils/100 WBC (Bld) 1.3 % Normal [facility] Comment on above: Order Comment: Speci men Type: BLOOD SPECIMENOrdering Facility: [facility] Address: [address] [place] [address] Performed By: #### 5 7021-8 ####[facility]ITALNCLIA [id number] [place] [address] [place] Erythrocyte distribution width (RBC) [Ratio] 12.7 % Normal 11.5-15.0 [facility] Comment on above: Order Comment: Speci men Type: BLOOD SPECIMENOrdering Facility: [facility] Address: [address] [place] [address] Performed By: #### 5 7021-8 ####[facility]ENTERLI [id number] [place] [address] [place] Hematocrit (Bld) [Volume fraction] 35.4 % Low 36.0-46.0 [facility] Comment on above: Order Comment: Speci men Type: BLOOD SPECIMENOrdering Facility: [facility] Address: [address] [place] [address] Performed By: #### 5 7021-8 ####[facility] [id number] [place] [address] [place] Hemoglobin (Bld) [Mass/Vol] 12.3 g/dL Normal 11.5-15.5 [facility] Comment on above: Order Comment: Speci men Type: BLOOD SPECIMENOrdering Facility: [facility] Address: [address] [place] [address] Performed By: #### 5 7021-8 ####[facility]ENTERLIA [id number] [place] [address] [place] Immature granulocytes (Bld) [#/Vol] 0.07 10*3/uL Normal <0.10 [facility] Comment on above: Order Comment: Speci men Type: BLOOD SPECIMENOrdering Facility: [facility] Address: [address] [place] [address] Performed By: #### 5 7021-8 ####[facility]PITALNCVAL[facility] [id number] [place] [address] [place] Immature granulocytes/100 WBC (Bld) 0.7 % Normal [facility] Comment on above: Order Comment: Speci men Type: BLOOD SPECIMENOrdering Facility: [facility] Address: [address] [place] [address] Performed By: #### 5 7021-8 ####[facility] HOSPITALNCJeanette [id number] [place] [address] [place] Lymphocytes (Bld) [#/Vol] 1.68 10*3/uL Normal 1.00-4.00 [facility] Comment on above: Order Comment: Speci men Type: BLOOD SPECIMENOrdering Facility: [facility] Address: [address] [place] [address] Performed By: #### 5 7021-8 ####[facility] HOSPITALNCMYRIAM [id number] [place] [address] [place] Lymphocytes/100 WBC (Bld) 17.6 % Normal [facility] Comment on above: Order Comment: Speci men Type: BLOOD SPECIMENOrdering Facility: [facility] Address: [address] [place] [address] Performed By: #### 5 7021-8 ####[facility]PITALNCLIA [id number] [place] [address] [place] MCH (RBC) [Entitic mass] 31.1 pg Normal 26.0-34.0 [facility] Comment on above: Order Comment: Speci men Type: BLOOD SPECIMENOrdering Facility: [facility] Address: [address] [place] [address] Performed By: #### 5 7021-8 ####[facility] H[facility]PITALNCLIA [id number] [place] [address] [place] MCHC (RBC) [Mass/Vol] 34.7 g/dL Normal 30.5-36.0 [facility] Comment on above: Order Comment: Speci men Type: BLOOD SPECIMENOrdering Facility: [facility] Address: [address] [place] [address] Performed By: #### 5 7021-8 ####[facility] [id number] [place] [address] [place] MCV (RBC) [Entitic vol] 89.6 fL Normal 80.0-100.0 C [facility] Comment on above: Order Comment: Speci men Type: BLOOD SPECIMENOrdering Facility: [facility] Address: [address] [place] [address] Performed By: #### 5 7021-8 ####[facility] HOSPITALNCJeanette [id number] [place] [address] [place] Monocytes (Bld) [#/Vol] 0.90 10*3/uL High <0.87 [facility] Comment on above: Order Comment: Speci men Type: BLOOD SPECIMENOrdering Facility: [facility] Address: [address] [place] [address] Performed By: #### 5 7021-8 ####[facility]PITALNCLIA [id number] [place] [address] [place] Monocytes/100 WBC (Bld) 9.4 % Normal [facility] Comment on above: Order Comment: Speci men Type: BLOOD SPECIMENOrdering Facility: [facility] Address: [address] [place] [address] Performed By: #### 5 7021-8 ####[facility]ITALNCLIA [id number] [place] [address] [place] Neutrophils (Bld) [#/Vol] 6.75 10*3/uL Normal 1.45-7.50 [facility] Comment on above: Order Comment: Speci men Type: BLOOD SPECIMENOrdering Facility: [facility] Address: [address] [place], [place] [address] Performed By: #### 5 7021-8 ####[facility] CENTERWGAURAVLIA [id number] [place] [address] [place] Neutrophils/100 WBC (Bld) 70.8 % Normal [facility] [facility] Comment on above: Order Comment: Speci men Type: BLOOD SPECIMENOrdering Facility: [facility] Address: [address] [place] [address] Performed By: #### 5 7021-8 ####[facility] CENTERLIA [id number] [place] [address] [place] Nucleated RBC (Bld) [#/Vol] 10*3/uL Normal <0.01 [facility] Comment on above: Order Comment: Speci men Type: BLOOD SPECIMENOrdering Facility: [facility] Address: [address] [place] [address] Performed By: #### 5 7021-8 ####[facility] [id number] [place] [address] [place] Nucleated RBC/100 WBC (Bld) [Ratio] 0.0 /100 WBC Normal [facility] Comment on above: Order Comment: Speci men Type: BLOOD SPECIMENOrdering Facility: [facility] Address: [address] [place] [address] Performed By: #### 5 7021-8 ####[facility]A [id number] [place] [address] [place] Platelet mean volume (Bld) [Entitic vol] 9.5 fL Normal 9.0-12.7 [facility] Comment on above: Order Comment: Speci men Type: BLOOD SPECIMENOrdering Facility: [facility] Address: [address] [place] [address] Performed By: #### 5 7021-8 ####[facility] CENTERLI [id number] [place] [address] [place] Platelets (Bld) [#/Vol] 282 10*3/uL Normal 150-400 [facility] Comment on above: Order Comment: Speci men Type: BLOOD SPECIMENOrdering Facility: [facility] Address: [address] [place] [address] Performed By: #### 5 7021-8 ####[facility] CENTERMYRIAM [id number] [place] [address] [place] RBC (Bld) [#/Vol] 3.95 10*6/uL Normal 3.90-5.20 [facility] Comment on above: Order Comment: Speci men Type: BLOOD SPECIMENOrdering Facility: [facility] Address: [address] [place] [address] Performed By: #### 5 7021-8 ####[facility] CENTERJeanette [id number] [place] [address] [place] WBC (Bld) [#/Vol] 9.54 10*3/uL Normal 3.70-11.00 [facility] Comment on above: Order Comment: Speci men Type: BLOOD SPECIMENOrdering Facility: [facility] Address: [address] [place] [address] Performed By: #### 5 7021-8 ####[facility] CENTERLIA [id number] [place] [id number] [place] HBV surface Ag Ql (S)on 06-07 Interpretation and review of laboratory results Normal [facility] HBV surface Ag Ser Qlon 06-07 HBV surface Ag Ql (S) Negative Normal Negative [facility] Comment on above: Order Comment: Speci men Type: BLOOD SPECIMENOrdering Facility: [facility] Address: [address] [place] [address] Performed By: #### 5 195-3, 76584-5, 18932-6 ####[facility] LABCLIA [id number] [place] [address] [place] HCV Ab Ql (S)on 06-18-2024 Interpretation and review of laboratory results Normal [facility] HCV Ab Ser Qlon 06-18-2024 HCV Ab Ql (S) Negative Normal Negative [facility] Comment on above: Order Comment: Speci men Type: BLOOD SPECIMENOrdering Facility: [facility] Address: [address] [place] [address] Result Comment: The result suggests no evidence of active infection with Hepatitis C virus. Should recent infection be suspected, repeat testing may be considered 4-6 weeks after this draw. Performed By: #### 1 6128-1 ####[facility]PITALIA [id number] [place] [address] [place] HEPATITIS B SURFACE ANTIGENo n 06-18-2024 HBV surface Ag Ql (S) Negative Negative [facility] HEPATITIS C ANTIBODY IA WITH CONFIRMATIONon 06-18-2024 HCV Ab Ql (S) Negative Negative [facility] Comment on above: The result suggests no evidence of active infection with Hepatitis C virus. Should recent infection be suspected, repeat testing may be considered 4-6 weeks after this draw. HGB ELECTROPHORESIS FOR EVAL (LAB ORDER)on 06-18-2024 Hemoglobin A (Bld) [Mass fraction] 97.1 % Normal 96.2-98.0 [facility] Comment on above: Order Comment: Speci men Type: BLOOD SPECIMENOrdering Facility: [facility] Address: [address] [place] [address] Performed By: #### L [id number], HGBELEV ####[facility] HOSPITALIA [id number] [place] [address] [place] Hemoglobin A2 (Bld) [Mass fraction] 2.9 % Normal 2.0-3.1 [facility] Comment on above: Order Comment: Speci men Type: BLOOD SPECIMENOrdering Facility: [facility] Address: [address] [place] [address] Performed By: #### L [id number], HGBELEV ####[facility] LABCLIA [id number] [place] [id number] [place] Hemoglobin Unsp Elph (Bld) [Mass fraction] No abnormal hemoglobin identified. Normal No abnormal hemoglobin identified. [facility] Comment on above: Order Comment: Speci men Type: BLOOD SPECIMENOrdering Facility: [facility] Address: [address] [place] [address] Performed By: #### L [id number], HGBELEV ####[facility] LABIA [id number] [place] [address] [place] HGB EVALUATION CASCADE INTER Florentino 06-18-2024 Hemoglobin pattern (Bld) [Interp] Reviewed by Everardo Goldberg MD Normal [facility] Comment on above: Order Comment: Speci men Type: BLOOD SPECIMENOrdering Facility: [facility] Address: [address] [place] [address] Performed By: #### L [id number], HGBELEV ####[facility] HOSPITALIA [id number] [place] [address] [place] INTERPRETATION (HGB EVAL) Normal [facility] Comment on above: Order Comment: Speci men Type: BLOOD SPECIMENOrdering Facility: [facility] Address: [address] [place] [address] Result Comment: Hemo globins were analyzed by capillary electrophoresis and CBC red cell parameters were reviewed. No abnormal hemoglobin is identified. There is a normal hemoglobin capillary electrophoresis pattern. Performed By: #### L [id number], HGBELEV ####[facility] LABIA [id number] [place] [address] [place] HIGH RISK HUMAN PAPILLOMA THELMA (HPV), PCR FOR DETECTION AND GENOTYPINGon 06-18-2024 HPV 16 Ag Ql (Unsp spec) Not detected Normal Not detec ashkan [facility] Comment on above: Order Comment: Speci men Type: FLUID SPECIMENOrdering Facility: [facility] Address: [address] [place] [address] Performed By: #### H PVHRT ####[facility] LABIA [id number] [place] [address] [place] HPV 18 Ag Ql (Unsp spec) Not detected Normal Not detec ashkan [facility] Comment on above: Order Comment: Speci men Type: FLUID SPECIMENOrdering Facility: [facility] Address: [address] [place] [address] Performed By: #### H PVHRT ####[facility]ITALIA [id number] [place] [address] [place] HPV 31+33+35+39+45+51+52+56+ 58+59+66+68 DNA JUANJOSE+probe Ql (Cvx) Not detected Normal Not detected [facility] Comment on above: Order Comment: Speci men Type: FLUID SPECIMENOrdering Facility: [facility] Address: [address] [place] [address] Result Comment: High Risk HPV Other Type includes HPV types 31, 33, 35, 39, 45, 51, 52, 56, 58, 59, 66 and 68. Performed By: #### H PVHRT ####[facility] LABIA [id number] [place] [address] [place] HIV 1+2 Ab IA Qlon 5 HIV 1 and 2 Ab IA.rapid Nom (S/P/Bld) [facility] Comment on above: Test not indicated. HIV 1+2 Ab+HIV1 p24 Ag IA Ql Non-Reactive Nonreactive [facility] HIV immunoassay testing algorithm interpretation (S/P/Bld) [Interp] [facility] Comment on above: No evidence of HIV-1 or HIV-2 infection. Should recent infection be suspected, repeat testing may be considered 2-3 weeks after this draw. [place] Rev. Code 3701.243(E): This information has been [...] release of HIV test results or diagnoses. [facility] HIV 1 and 2 Ab IA.rapid Nom (S/P/Bld) Normal [facility] Comment on above: Order Comment: Speci men Type: BLOOD SPECIMENOrdering Facility: [facility] Address: [address] [place] [address] Result Comment: Test not indicated. Performed By: #### 5 195-3, 93198-3, 70038-1 ####[facility] LABCLIA [id number] [place] [address] [place] HIV 1+2 Ab+HIV1 p24 Ag IA Ql Non-Reactive Normal Nonreactive [facility] Comment on above: Order Comment: Speci men Type: BLOOD SPECIMENOrdering Facility: [facility] Address: [address] [place] [address] Performed By: #### 5 195-3, 04783-8, 26890-0 ####[facility] LABCLIA [id number] [place] [address] [place] HIV immunoassay testing algorithm interpretation (S/P/Bld) [Interp] Normal [facility] Comment on above: Order Comment: Speci men Type: BLOOD SPECIMENOrdering Facility: [facility] Address: [address] [place] [address] Result Comment: No e vidence of HIV-1 or HIV-2 infection. Should recent infection be suspected, repeat testing may be considered 2-3 weeks after this draw. [place] Rev. Code 3701.243(E): This information has been [...] or diagnoses. Performed By: #### 5 195-3, 74792-4, 71450-6 ####[facility] LABCLIA [id number] [address] [address] [place] HbA1c (Bld)on 06-18-2024 Average glucose Estimated from glycated hemoglobin (Bld) [Mass/Vol] 74 mg/dL [facility] Comment on above: eAG: (Estimated aver age glucose) is a calculated value from HgbA1c and is brand representative of the average blood glucose level in the last 2-3 month period. HbA1c (Bld) [Mass fraction] 4.2 % Low 4.3 - 5.6 % [facility] Comment on above: [place] Diabetes As sociation guidelines indicate that patients with HgbA1c in the range 5.7-6.4% are at increased risk for development of diabetes, and intervention by lifestyle modification may be beneficial. HgbA1c greater or equal to 6.5% is considered diagnostic of diabetes. Interpretation and review of laboratory results Abnormal [facility] Average glucose Estimated from glycated hemoglobin (Bld) [Mass/Vol] 74 mg/dL Normal [facility] Comment on above: Order Comment: Vivi leon Type: BLOOD SPECIMENOrdering Facility: [facility] Address: [address] [place] [address] Result Comment: eAG: (Estimated average glucose) is a calculated value from HgbA1c and is brand representative of the average blood glucose level in the last 2-3 month period. Performed By: #### 5 5454-3 ####[facility] LABIA [id number] [address] [address] [place] [facility] HbA1c (Bld) [Mass fraction] 4.2 % Low 4.3-5.6 [facility] Comment on above: Order Comment: Vivi leon Type: BLOOD SPECIMENOrdering Facility: [facility] Address: [address] [place] [address] Result Comment: [place] Diabetes Association guidelines indicate that patients with HgbA1c in the range 5.7-6.4% are at increased risk for development of diabetes, and intervention by lifestyle modification may be beneficial. HgbA1c greater or equal to 6.5% is considered diagnostic of diabetes. Performed By: #### 5 5454-3 ####[facility] LABCLIA [id number] [address] [place] [address] [place] PAP TESTon 06-18-2024 ADEQUACY Normal [facility] Comment on above: Order Comment: Speci men Type: FLUID SPECIMENOrdering Facility: [facility] Address: [address] [place] [address] Result Comment: Sati sfactory for interpretation. Transformation zone present Performed By: #### L [id number] ####[facility]ORATORYCLIA [id number] [place] [id number] [place] [facility] LABCLIA [id number] [address] [address] [place] CASE REPORT Normal [facility] Comment on above: Order Comment: Speci men Type: FLUID SPECIMENOrdering Facility: [facility] Address: [address] [place] [address] Result Comment: Gyne cologic Cytology Report Case: [id number] Authorizing Provider: Marcia Thurman APRN.CNM Collected: 06/18/2024 09:43 AM Ordering Location: OB/Gynecology Received: 06/18/2024 12:41 PM First Screen: Feciuch, Anitra, CT, ASCP Specimen: Pap Test, ThinPrep, Cervix Performed By: #### L [id number] ####[facility] LABORATORYCLIA [id number] [place] [id number] [place] [facility] LABCLIA [id number] [address] [place] [address] [place] CLINICAL HISTORY, CYTOLOGY, RELAY TELEGRAPHER Routine Exam Normal [facility] Comment on above: Order Comment: Speci men Type: FLUID SPECIMENOrdering Facility: [facility] Address: [address] [place] [address] Performed By: #### L [id number] ####[facility]ATORYCLIA [id number] [place] [address] [place] [facility] LABCLIA [id number] [address] [place] [address] [place] FINAL PERFORMING LAB Normal [facility] Comment on above: Order Comment: Speci men Type: FLUID SPECIMENOrdering Facility: [facility] Address: [address] [place] [address] Result Comment: Tech nical component, superintendent of schools screening performed at [facility], [address] [place] [address] CLIA# [id number] Diagnostic interpretation performed at [facility], [address] [place] [address] CLIA# [id number] Taffy Candy Maker: Samuel Black M.D. Performed By: #### L [id number] ####[facility] LABORATORYCLIA [id number] [address] STATES [facility] LABCLIA [id number] [place] [id number] [place] INTERPRETATION, CYTOLOGY, RELAY TELEGRAPHER Normal [facility] Comment on above: Order Comment: Speci men Type: FLUID SPECIMENOrdering Facility: [facility] Address: [address] [place] [address] Result Comment: Nega tive for intraepithelial lesion or malignancy. at 1359 EDT Performed By: #### L [id number] ####[facility] LABORATORYCLIA [id number] [place] [address] [place] [facility] LABCLIA [id number] [place] [id number] [place] LMP 02/27/2024 Normal [facility] Comment on above: Order Comment: Speci men Type: FLUID SPECIMENOrdering Facility: [facility] Address: [address] [place] [address] Performed By: #### L [id number] ####[facility] LABORATORYCLIA [id number] [place], [place] [address] [place] [address] LABCLIA [id number] [address] [address] [place] PAP DISCLAIMER COMMENT The Pap Smear is a screening test for cervical cancer. False negative results occur with all screening tests, emphasizing the need for rescreening at recommended intervals, and clinical correlation. Normal [facility] Comment on above: Order Comment: Speci men Type: FLUID SPECIMENOrdering Facility: [facility] Address: [address] [place] [address] Performed By: #### L [id number] ####[facility] CARMELCLIA [id number] [address] LABCLIA [id number] [address] [address] [place] PAP FIELD AGRONOMIST COMMENT This specimen has been analyzed by the ThinPrep Imaging System, an automated imaging and review system, which assists the laboratory in evaluating cells on ThinPrep Pap tests. Following automated imaging, selected allen from every slide are reviewed by a superintendent of schools. Normal [facility] Comment on above: Order Comment: Speci men Type: FLUID SPECIMENOrdering Facility: [facility] Address: [address] [place] [address] Performed By: #### L [id number] ####[facility] LABORATORYCLIA [id number] [address] LABCLIA [id number] [place] [id number] [place] RBC PARAMETERS FOR HB IDon 0 - Erythrocyte distribution width (RBC) [Ratio] 12.6 % Normal 11.5-15.0 [facility] Comment on above: Order Comment: Speci men Type: BLOOD SPECIMENOrdering Facility: [facility] Address: [address] [place] [address] Performed By: #### L [id number] ####[facility] LABCLIA [id number] [place] [id number] [place] Hematocrit (Bld) [Volume fraction] 36.5 % Normal 36.0-46.0 [facility] Comment on above: Order Comment: Speci men Type: BLOOD SPECIMENOrdering Facility: [facility] Address: [address] [place] [address] Performed By: #### L [id number] ####[facility] LABCLIA [id number] [place] [address] [place] Hemoglobin (Bld)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
--- OUTSIDE RECORDS SUMMARY | 2024-10-11 17:53 | XMS RPT_ITS | CCD ---
Author Organization [facility] Care Team Providers Care Manager Of Disaster Recovery Name Role Phone Unavailable Primary Care Provider Unavailnataliia Fisher MD, Dr. Craven Emergency Provider Care Physician, No Primary Primary Care Provider Unavailable DEEPTI SERRA Admitting Unavailable DEEPTI SERRA Attending Unavailable TRIPP BABB Attending Dr. Herber Alvarez MD Attending Provider Alex SIMENTAL, Dr. Fitch Attending Provider Alex SIMENTAL, Dr. Fitch Referring Provider Dr. [...] Indications: with uncertain dates in first trimester ([facility]) , Late care ([facility]) Take 1 tablet by mouth [...] tablet Indications: Heartburn during in third trimester ([facility]) Take 1 tablet by mouth [...] {tbl} PO DAILY June 17, 2024 12:00am Alijxzpc-Wh-Ybs-Fe -FA tab (13 sources) Start: 06-18-2024 take 1 tablet by mouth once daily Jjysblav-Kj-Zhy-F e-FA tab Take 1 tablet by mouth [...] Translations: [Abdominal pain during in second trimester ([facility])] Onset: 07-20-2024 Episodic Administrative/social admission [...] care of mother, third trimester, other fetus ([facility])] Onset: 09-24-2024 Episodic Other complications of (1 source) Other specified related conditions, third trimester; Translations: [Heartburn during in third trimester ([facility])] Onset: 10-08-2024 Episodic Other complications of (1 source) Supervision of with insufficient care, third trimester; Translations: [Supervision of with insufficient care, third trimester ([facility])] Onset: 09-24-2024 Episodic Other female genital disorders (3 sources) Vaginal bleeding; Translations: [Abnormal uterine and vaginal bleeding, unspecified] 06-17-2024 Chronic Other female genital disorders (1 source) Abnormal uterine and vaginal bleeding, unspecified; Translations: [Abnormal uterine and vaginal bleeding, unspecified] Onset: 06-26-2024 Chronic Other gastrointestinal disorders (1 source) Heartburn; Translations: [Heartburn during in third trimester ([facility])] Onset: 10-08-2024 Episodic Other injuries [...] Unclassified (1 source) Rubella non-immune status, antepartum ([facility]); Translations: [Rubella non-immune status, antepartum ([facility])] Onset: 06-23-2024 Unclassified (1 source) [...] unspecified trimester; Translations: [Rubella non-immune status, antepartum ([facility])] Onset: 06-23-2024 Episodic Other complications of (2 sources) Supervision of with insufficient care, unspecified trimester; Translations: [Late care ([facility])] Onset: 06-18-2024 Episodic Other complications [...] Range Facility Examination level ultrasound on 10-08-2024 [facility] Radiology [facility]ative[facility] Phys[facility] Note[facility] 0 10-05-2024 OB Triage Physician Note [facility] Medical Records Department [address] [place] [address] OB Triage Physician Note 10/05/24 1311 MR#: [id number] Acct: [id number] Name: MONIQUE SILVEIRA Rep #: [id number] : 1990 33 From: Ashlyn Soto MD [...] US <20 weeks Gestational age: 31 3/7 [facility] Medical History Epilepsy Home Medications ???Medication ???Instructions [...] MD; No Primary Care Physician Signed Normal [facility] 09-29-2024 [facility] Telephone (OBGYWM) MONIQUE SILVEIRA ([id number]) 1990 F Date Time Provider Department 09/29/24 [...] day. Patient has her NSTs done at [facility] due to transportation issues.Please schedule her BPP for 09/30 if possible. DIEGO Mcmullen Lindsey, RN 09/29/2024 2:37 PM Signed Patient called back and states she is out of town which is why she cancelled today's ultrasound. She is not back until Sunday evening so wouldn't be available to do an ultrasound until . Patient has NST on Sunday at [facility] at 6 pm. After hanging up with patient a ultrasound did become available and I did schedule her. Is this ok to wait until and keep NST at [facility] on Sunday? Does patient need to see OB provider on if she does ultrasound? DIEGO Reyez Rebecca L, MD 09/29/2024 2:41 PM Signed US , NST Sunday or Sunday at [facility]. MD Darío Bailey Tara, RN 09/29/2024 3:08 [...] 3 tablets by mouth once daily. - Iwwqciau-Gf-Jnr-Fe-F A tab Take 1 tablet by mouth [...] Status:Closed by REN ANDERSON on 09/29/24 Normal [facility] OB Triage Physician Noteon 0 09-29-2024 OB Triage Physician Note [facility] Medical Records Department [address] [place] [address] OB Triage Physician Note 09/29/24 0723 MR#: [id number] Acct: [id number] Name: MONIQUE SILVEIRA Rep #: [id number] : 1990 33 From: Little Johnson MD PCP: Care Physician,No Primary Status:DEP CLI Y Location: [facility] HPI - General General Date of Admission: [...] MD; No Primary Care Physician Signed Normal [facility] CBC W Auto Differential pane l (Bld)on 09-24-2024 Basophils (Bld) [#/Vol] 0.03 10*3/uL Normal <0.11 [facility] Comment on above: Order Comment: Speci men Type: BLOOD SPECIMENOrdering Facility: [facility] Address: [address] [place] [address] Performed By: #### 5 7021-8 ####[facility] [id number] [place] [address] [place] Basophils/100 WBC (Bld) 0.3 % Normal C [facility] Comment on above: Order Comment: Speci men Type: BLOOD SPECIMENOrdering Facility: [facility] Address: [address] [place] [address] Performed By: #### 5 7021-8 ####[facility] [id number] [place] [address] [place] Differential cell count method Nom (Bld) Auto Normal [facility] Comment on above: Order Comment: Speci men Type: BLOOD SPECIMENOrdering Facility: [facility] Address: [address] [place] [address] Performed By: #### 5 7021-8 ####[facility] ALEYDALulyNCMYRIAM [id number] [place] [address] [place] Eosinophils (Bld) [#/Vol] 0.14 10*3/uL Normal <0.46 [facility] Comment on above: Order Comment: Speci men Type: BLOOD SPECIMENOrdering Facility: [facility] Address: [address] [place] [address] Performed By: #### 5 7021-8 ####[facility] [id number] [place] [address] [place] Eosinophils/100 WBC (Bld) 1.5 % Normal [facility] Comment on above: Order Comment: Speci men Type: BLOOD SPECIMENOrdering Facility: [facility] Address: [address] [place] [address] Performed By: #### 5 7021-8 ####[facility]ITALNCBUTCHA [id number] [place] [address] [place] Erythrocyte distribution width (RBC) [Ratio] 13.1 % Normal 11.5-15.0 [facility] Comment on above: Order Comment: Speci men Type: BLOOD SPECIMENOrdering Facility: [facility] Address: [address] [place] [address] Performed By: #### 5 7021-8 ####[facility]ITALNCL[facility] [id number] [place] [address] [place] Hematocrit (Bld) [Volume fraction] 32.2 % Low 36.0-46.0 [facility] Comment on above: Order Comment: Speci men Type: BLOOD SPECIMENOrdering Facility: [facility] Address: [address] [place] [address] Performed By: #### 5 7021-8 ####[facility]ITALNCL[facility] [id number] [place] [address] [place] Hemoglobin (Bld) [Mass/Vol] 11.0 g/dL Low 11.5-15.5 [facility] Comment on above: Order Comment: Speci men Type: BLOOD SPECIMENOrdering Facility: [facility] Address: [address] [place] [address] Performed By: #### 5 7021-8 ####[facility]IT[facility] [id number] [place] [address] [place] Immature granulocytes (Bld) [#/Vol] 0.13 10*3/uL High <0.10 [facility] Comment on above: Order Comment: Speci men Type: BLOOD SPECIMENOrdering Facility: [facility] Address: [address] [place] [address] Performed By: #### 5 7021-8 ####[facility] [id number] [place] [address] [place] Immature granulocytes/100 WBC (Bld) 1.4 % Normal [facility] Comment on above: Order Comment: Speci men Type: BLOOD SPECIMENOrdering Facility: [facility] Address: [address] [place] [address] Performed By: #### 5 7021-8 ####[facility]ITALL[facility] [id number] [place] [address] [place] Lymphocytes (Bld) [#/Vol] 1.69 10*3/uL Normal 1.00-4.00 [facility] Comment on above: Order Comment: Speci men Type: BLOOD SPECIMENOrdering Facility: [facility] Address: [address] [place] [address] Performed By: #### 5 7021-8 ####[facility]ITALNCLIA [id number] [place] [address] [place] Lymphocytes/100 WBC (Bld) 17.8 % Normal [facility] Comment on above: Order Comment: Speci men Type: BLOOD SPECIMENOrdering Facility: [facility] Address: [address] [place] [address] Performed By: #### 5 7021-8 ####[facility] [id number] [place] [address] [place] MCH (RBC) [Entitic mass] 30.0 pg Normal 26.0-34.0 [facility] Comment on above: Order Comment: Speci men Type: BLOOD SPECIMENOrdering Facility: [facility] Address: [address] [place] [address] Performed By: #### 5 7021-8 ####[facility] [id number] [place] [address] [place] MCHC (RBC) [Mass/Vol] 34.2 g/dL Normal 30.5-36.0 [facility] Comment on above: Order Comment: Speci men Type: BLOOD SPECIMENOrdering Facility: [facility] Address: [address] [place] [address] Performed By: #### 5 7021-8 ####[facility]ITALNCLIA [id number] [place] [address] [place] MCV (RBC) [Entitic vol] 87.7 fL Normal 80.0-100.0 C [facility] Comment on above: Order Comment: Speci men Type: BLOOD SPECIMENOrdering Facility: [facility] Address: [address] [place] [address] Performed By: #### 5 7021-8 ####[facility] [id number] [place] [address] [place] Monocytes (Bld) [#/Vol] 0.83 10*3/uL Normal <0.87 [facility] Comment on above: Order Comment: Speci men Type: BLOOD SPECIMENOrdering Facility: [facility] Address: [address] [place] [address] Performed By: #### 5 7021-8 ####[facility] HOSPITALGAURAVLIA [id number] [place] [address] [place] Monocytes/100 WBC (Bld) 8.7 % Normal [facility] Comment on above: Order Comment: Speci men Type: BLOOD SPECIMENOrdering Facility: [facility] Address: [address] [place] [address] Performed By: #### 5 7021-8 ####[facility] [id number] [place] [address] [place] Neutrophils (Bld) [#/Vol] 6.69 10*3/uL Normal 1.45-7.50 [facility] Comment on above: Order Comment: Speci men Type: BLOOD SPECIMENOrdering Facility: [facility] Address: [address] [place] [address] Performed By: #### 5 7021-8 ####[facility] [id number] [place] [address] [place] Neutrophils/100 WBC (Bld) 70.3 % Normal [facility] Comment on above: Order Comment: Speci men Type: BLOOD SPECIMENOrdering Facility: [facility] Address: [address] [place] [address] Performed By: #### 5 7021-8 ####[facility] [id number] [place] [address] [place] Nucleated RBC (Bld) [#/Vol] 10*3/uL Normal <0.01 [facility] Comment on above: Order Comment: Speci men Type: BLOOD SPECIMENOrdering Facility: [facility] Address: [address] [place] [address] Performed By: #### 5 7021-8 ####[facility] ALEYDAGUERNSEYGAURAVLIA [id number] [place] [address] [place] Nucleated RBC/100 WBC (Bld) [Ratio] 0.0 /100 WBC Normal [facility] Comment on above: Order Comment: Speci men Type: BLOOD SPECIMENOrdering Facility: [facility] Address: [address] [place] [address] Performed By: #### 5 7021-8 ####[facility] HOSPITALTRAA [id number] [place] [address] [place] Platelet mean volume (Bld) [Entitic vol] 9.7 fL Normal 9.0-12.7 [facility] Comment on above: Order Comment: Speci men Type: BLOOD SPECIMENOrdering Facility: [facility] Address: [address] [place] [address] Performed By: #### 5 7021-8 ####[facility]LE[facility]ATIONJeanette [id number] [place] [address] [place] Platelets (Bld) [#/Vol] 310 10*3/uL Normal 150-400 [facility] Comment on above: Order Comment: Speci men Type: BLOOD SPECIMENOrdering Facility: [facility] Address: [address] [place] [address] Performed By: #### 5 7021-8 ####[facility]ITALBUT[facility] [id number] [place] [address] [place] RBC (Bld) [#/Vol] 3.67 10*6/uL Low 3.90-5.20 [facility] Comment on above: Order Comment: Speci men Type: BLOOD SPECIMENOrdering Facility: [facility] Address: [address] [place] [address] Performed By: #### 5 7021-8 ####[facility]ITALL[facility] [id number] [place] [address] [place] WBC (Bld) [#/Vol] 9.51 10*3/uL Normal 3.70-11.00 [facility] Comment on above: Order Comment: Speci men Type: BLOOD SPECIMENOrdering Facility: [facility] Address: [address] [place] [address] Performed By: #### 5 7021-8 ####[facility] ELLI MILLTONCLIA [id number] [place] [address] [place] Examination level ultrasound [...] 10 oz EFW by: Hadlock (HC-AC-FL) Extended Rn Lpn Lvn 5.1 mm CM 6.4 mm 33% Nicolaides [...] normal LVOT view: normal 3-vessel view: normal 7-kdexlr-vubymgz view: normal Heart / Thorax Situs: situs [...] Perfo (more content not included)... MATERNAL MEDICINE [facility] Radiology Study observation (narrative) [facility] GESTATIONAL GLUCOSE SCREEN, 1-HOUR, 50 GRAM, NON-FASTINGOrdered By: Aniya Gan on 09-24-2024 Glucose [Mass/Vol] 121 mg/dL 74 - 134 mg/dL [facility] Comment on above: [place] [employer] of Obstetricians and Gynecologists (Lo/Sharla) guidelines state a gestational diabetes mellitus positive screen is made, in women not previously diagnosed with overt diabetes, when the 1 hr plasma glucose level is equal to or above 140 mg/dL. The [facility] Communications Coordinator and [facility] [place] recommends a 135 mg/dL cutoff. Interpretation and review of laboratory results Normal [facility] GESTATIONAL GLUCOSE SCREEN, 1-HOUR, 50 GRAM, NON-FASTINGon 09-24-2024 Glucose [Mass/Vol] 121 mg/dL Normal 74-[address] [facility] Comment on above: Order Comment: Speci men Type: BLOOD SPECIMENOrdering Facility: [facility] Address: [address] [place] [address] Result Comment: [facility] Congress of Obstetricians and Gynecologists (Wally/Sharla) guidelines state a gestational diabetes mellitus positive screen is made, in women not previously diagnosed with overt diabetes, when the 1 hr plasma glucose level is equal to or above 140 mg/dL. The [facility] Communications Coordinator and [facility] [place] recommends a 135 mg/dL cutoff. Performed By: #### G LTGST ####[facility] [id number] [place] [id number] [place] Reagin and Treponema pallidu m IgG and IgM [Interp]on 09-24-2024 T. pallidum IgG+IgM IA Ql (S) Non-Reactive Normal Nonreactive [facility] Comment on above: Order Comment: Speci men Type: BLOOD SPECIMENOrdering Facility: [facility] Address: [address] [place] [address] Performed By: #### 7 3752-8 ####[facility] LABIA [id number] [place] [address] [place] Reagin+T pallidum IgG+IgM Se rPl-Impon 09-24-2024 Reagin and Treponema pallidum IgG and IgM [Interp] Cannot exclude recent Treponemal infection if specimen collected within 7-10 days after appearance of suspect lesions or 2-3 weeks after an exposure. Clinical correlation is required. Normal [facility] Comment on above: Order Comment: Gisseli men Type: BLOOD SPECIMENOrdering Facility: [facility] Address: [address] [place] [address] Performed By: #### 7 3752-8 ####[facility] LABIA [id number] [place] [id number] [place] CNPNon 09-22-2024 CNPN Telephone ([facility]) MONIQUE SILVEIRA ([id number]) 1990 F Date Time Provider Department 09/22/24 ASHLYN SOTO OBGYWM During your visit today, we recorded the following information about you: Last Period 02/27/24 Arelis Manzo, DIEGO 09/22/2024 3:03 PM Signed Spoke to patient and she is spending time between both [place] and [place]. On her way back now for tomorrow's visit. She has not had any additional care elsewhere in [place]. She did not have ultrasound done or [...] 3 tablets by mouth once daily. - Nwzkvzjz-Wn-Evw-Fe-F A tab Take 1 tablet by mouth [...] Encounter Status:Closed by ARELIS MANZO on 09/22/24 [facility] Davin 08-22-2024 CNPN Telephone ([place]50[place]) MONIQUE SILVEIRA ([id number]) 1990 F Date Time Provider Department 08/22/24 NEUROLOGY PROVIDER [facility] During your visit today, we recorded the following information about you: Shellicarolyn Kourtney 08/22/2024 1:46 PM Signed left vm for patient about scheduling consult to epilepsy. called [phone] Allergies As of Date: 08/22/2024 (No Known Allergies) Date Reviewed: 07/21/2024 Reviewed by: Aly Hernandez, DIEGO - Fully Assessed Reason for Visit: Appointment [186] Cmt: left vm for patient about scheduling consult to epilepsy. called [phone] Prescriptions as of 08/22/2024 - aspirin, enteric coated (ECOTRIN LOW STRENGTH) 81 mg EC tablet Take 1 tablet by mouth once daily. - vits62/FA/om3/dha/ep a ( GUMMY ORAL) Take by mouth once daily. - folic acid 1 mg tablet Take 3 tablets by mouth once daily. - Iltpmvow-To-Nzb-Fe-F A tab Take 1 tablet by mouth [...] Encounter Status:Closed by KOURTNEY SUTTON on 08/22/24 [facility] 08-14-2024 CNPN Telephone (OBGYWM) MONIQUE SILVEIRA ([id number]) 1990 F Date Time Provider Department 08/14/24 MARCIA THURMAN OBMIKAWBobby During your visit today, we recorded the following information about you: Little Kline RN 08/14/2024 5:00 PM Signed Patient called requesting to have her medical records faxed to an office in [place]. Advised that a medical release would need [...] 3 tablets by mouth once daily. - Ljumvwav-Qi-Wra-Fe-F A tab Take 1 tablet by mouth [...] Encounter Status:Closed by LITTLE KLINE on 08/14/24 [facility] ED NOTEon 07-21-2024 ED NOTE HNO ID: [id number] Author: RASHEEDA COSTELLO RN Service: ? Author Type: Registered Nurse Type: ED Notes Filed: 07/21/2024 00:20 Note Text: Hand off report given to EMS and OB gold leaf layer who verbalized understanding. Pt's vss and left ED in stable condition via EMS. Normal [facility] NURSING PROGon 07-21-2024 NURSING PROG HNO ID: [id number] Author: ALY HERNANDEZ, DIEGO Service: Nursing Author [...] up. No complaints at this time. Normal [facility] NURSING PROG HNO ID: [id number] Author: ALY HERNANDEZ, RN Service: Nursing Author [...] feels safe going home with . Normal [facility] CBC W Auto Differential pane l (Bld)on 07-20-2024 Basophils (Bld) [#/Vol] 0.03 10*3/uL Normal <0.11 [facility] Comment on above: Order Comment: Speci men Type: BLOOD SPECIMENOrdering Facility: [facility] Address: [address] [place] [address] Performed By: #### 5 7021-8 ####[facility] LODI LABCLIA [id number] [place] [address] [place] Basophils/100 WBC (Bld) 0.3 % Normal [facility] Comment on above: Order Comment: Speci men Type: BLOOD SPECIMENOrdering Facility: [facility] Address: [address] [place] [address] Performed By: #### 5 7021-8 ####[facility] L[facility] LABCLIA [id number] [place] [id number] [place] Differential cell count method Nom (Bld) Auto Normal [facility] Comment on above: Order Comment: Speci men Type: BLOOD SPECIMENOrdering Facility: [facility] Address: [address] [place] [address] Performed By: #### 5 7021-8 ####[facility] LABCLIA [id number] [facility] [place] [address] [place] Eosinophils (Bld) [#/Vol] 0.12 10*3/uL Normal <0.46 [facility] Comment on above: Order Comment: Speci men Type: BLOOD SPECIMENOrdering Facility: [facility] Address: [address] [place] [address] Performed By: #### 5 7021-8 ####[facility] LABCLIA [id number] [facility] [place] [address] [place] Eosinophils/100 WBC (Bld) 1.1 % Normal [facility] Comment on above: Order Comment: Speci men Type: BLOOD SPECIMENOrdering Facility: [facility] Address: [address] [place] [address] Performed By: #### 5 7021-8 ####[facility] LABCLIA [id number] [place] [address] [facility] Erythrocyte distribution width (RBC) [Ratio] 12.7 % Normal 11.5-15.0 [facility] Comment on above: Order Comment: Speci men Type: BLOOD SPECIMENOrdering Facility: [facility] Address: [address] [place] [address] Performed By: #### 5 7021-8 ####[facility] L[facility] LABCLIA [id number] [place] [address] [facility] OF [place] Hematocrit (Bld) [Volume fraction] 32.4 % Low 36.0-46.0 [facility] Comment on above: Order Comment: Speci men Type: BLOOD SPECIMENOrdering Facility: [facility] Address: [address] [place] [address] Performed By: #### 5 7021-8 ####[facility] LABCLIA [id number] [place] [address] [facility] OF [place] Hemoglobin (Bld) [Mass/Vol] 11.1 g/dL Low 11.5-15.5 [facility] Comment on above: Order Comment: Speci men Type: BLOOD SPECIMENOrdering Facility: [facility] Address: [address] [place] [address] Performed By: #### 5 7021-8 ####[facility] LABCLIA [id number] [facility] [address] [place] [facility] Immature granulocytes (Bld) [#/Vol] 0.07 10*3/uL Normal <0.10 [facility] Comment on above: Order Comment: Speci men Type: BLOOD SPECIMENOrdering Facility: [facility] Address: [address] [place] [address] Performed By: #### 5 7021-8 ####[facility] LABCLIA [id number] [place] [address] [facility] Immature granulocytes/100 WBC (Bld) 0.6 % Normal [facility] Comment on above: Order Comment: Speci men Type: BLOOD SPECIMENOrdering Facility: [facility] Address: [address] [place] [address] Performed By: #### 5 7021-8 ####[facility] LABCLIA [id number] [facility] [address] [place] Lymphocytes (Bld) [#/Vol] 1.73 10*3/uL Normal 1.00-4.00 [facility] Comment on above: Order Comment: Speci men Type: BLOOD SPECIMENOrdering Facility: [facility] Address: [address] [place] [address] Performed By: #### 5 7021-8 ####[facility] LABCLIA [id number] [place] [address] [place] [facility] Lymphocytes/100 WBC (Bld) 15.6 % Normal [facility] Comment on above: Order Comment: Speci men Type: BLOOD SPECIMENOrdering Facility: [facility] Address: [address] [place] [address] Performed By: #### 5 7021-8 ####[facility] [place] LABCLIA [id number] [facility] [place] [address] [place] MCH (RBC) [Entitic mass] 31.0 pg Normal 26.0-34.0 [facility] Comment on above: Order Comment: Speci men Type: BLOOD SPECIMENOrdering Facility: [facility] Address: [address] [place] [address] Performed By: #### 5 7021-8 ####[facility] [place] LABCLIA [id number] [place] [address] [place] MCHC (RBC) [Mass/Vol] 34.3 g/dL Normal 30.5-36.0 [facility] Comment on above: Order Comment: Speci men Type: BLOOD SPECIMENOrdering Facility: [facility] Address: [address] [place] [address] Performed By: #### 5 7021-8 ####[facility] LAB[facility] [id number] [place] [address] [place] [facility] MCV (RBC) [Entitic vol] 90.5 fL Normal 80.0-100.0 [facility] Comment on above: Order Comment: Speci men Type: BLOOD SPECIMENOrdering Facility: [facility] Address: [address] [place] [address] Performed By: #### 5 7021-8 ####[facility] LABCL[facility] [id number] [place] [address] [facility] Monocytes (Bld) [#/Vol] 0.65 10*3/uL Normal <0.87 [facility] Comment on above: Order Comment: Speci men Type: BLOOD SPECIMENOrdering Facility: [facility] Address: [address] [place] [address] Performed By: #### 5 7021-8 ####[facility] [place] LABCLIA [id number] [place] [id number] [facility] Monocytes/100 WBC (Bld) 5.9 % Normal [facility] Comment on above: Order Comment: Speci men Type: BLOOD SPECIMENOrdering Facility: [facility] Address: [address] [place] [address] Performed By: #### 5 7021-8 ####[facility] [place] LABCLIA [id number] [place] [address] [place] Neutrophils (Bld) [#/Vol] 8.48 10*3/uL High 1.45-7.50 [facility] Comment on above: Order Comment: Speci men Type: BLOOD SPECIMENOrdering Facility: [facility] Address: [address] [place] [address] Performed By: #### 5 7021-8 ####[facility] [place] LABCLIA [id number] [place] [address] [place] Neutrophils/100 WBC (Bld) 76.5 % Normal [facility] Comment on above: Order Comment: Speci men Type: BLOOD SPECIMENOrdering Facility: [facility] Address: [address] [place] [address] Performed By: #### 5 7021-8 ####[facility] [place] LABCLIA [id number] [facility] [place] [address] [place] Nucleated RBC (Bld) [#/Vol] Normal [facility] Comment on above: Order Comment: Speci men Type: BLOOD SPECIMENOrdering Facility: [facility] Address: [address] [place] [address] Performed By: #### 5 7021-8 ####[facility] [place] LABCLIA [id number] [facility] [place] [address] [place] Nucleated RBC/100 WBC (Bld) [Ratio] Normal [facility] Comment on above: Order Comment: Speci men Type: BLOOD SPECIMENOrdering Facility: [facility] Address: [address] [place] [address] Performed By: #### 5 7021-8 ####[facility] [place] LABCLIA [id number] [facility] [place] [address] [place] Platelet mean volume (Bld) [Entitic vol] 9.6 fL Normal 9.0-12.7 [facility] Comment on above: Order Comment: Speci men Type: BLOOD SPECIMENOrdering Facility: [facility] Address: [address] [place] [address] Performed By: #### 5 7021-8 ####[facility] LABCLIA [id number] [facility] [address] [facility] Platelets (Bld) [#/Vol] 295 10*3/uL Normal 150-400 [facility] Comment on above: Order Comment: Speci men Type: BLOOD SPECIMENOrdering Facility: [facility] Address: [address] [place] [address] Performed By: #### 5 7021-8 ####[facility] LABCLIA [id number] [facility] [address] [facility] RBC (Bld) [#/Vol] 3.58 10*6/uL Low 3.90-5.20 [facility] Comment on above: Order Comment: Speci men Type: BLOOD SPECIMENOrdering Facility: [facility] Address: [address] [place] [address] Performed By: #### 5 7021-8 ####[facility] LABCL[facility] [id number] [facility] [address] [facility] WBC (Bld) [#/Vol] 11.08 10*3/uL High 3.70-11.00 [facility] Comment on above: Order Comment: Speci men Type: BLOOD SPECIMENOrdering Facility: [facility] Address: [address] [place] [address] Performed By: #### 5 7021-8 ####[facility] LABCLIA [id number] [facility] [address] [facility] Comprehensive metabolic 2000 panelon 07-20-2024 Albumin [Mass/Vol] 3.8 g/dL Low 3.9-4.9 [facility] Comment on above: Order Comment: Speci men Type: BLOOD SPECIMENOrdering Facility: [facility] Address: [address] [place] [address] Performed By: #### 2 4323-8, 44401-0, 0-3 ####[facility] [place] LABCLIA [id number] [place] [address] [place] ALP [Catalytic activity/Vol] 59 U/L Normal 34-123 [facility] Comment on above: Order Comment: Speci men Type: BLOOD SPECIMENOrdering Facility: [facility] Address: [address] [place] [address] Performed By: #### 2 4323-8, 50840-7, 3039-3 ####[facility] [place] LABCLIA [id number] [place] [address] [place] ALT With P-5'-P [Catalytic activity/Vol] 9 U/L Normal 7-38 [facility] Comment on above: Order Comment: Speci men Type: BLOOD SPECIMENOrdering Facility: [facility] Address: [address] [place] [address] Performed By: #### 2 4323-8, , 3039-3 ####[facility] [place] LABCLIA [id number] [place] [address] [place] Anion gap [Moles/Vol] 14 mmol/L Normal 8-15 [facility] Comment on above: Order Comment: Speci men Type: BLOOD SPECIMENOrdering Facility: [facility] Address: [address] [place] [address] Performed By: #### 2 4323-8, 50047-1, 3039-3 ####[facility] [place] LABCLIA [id number] [place] [address] [place] AST With P-5'-P [Catalytic activity/Vol] 14 U/L Normal 13-35 [facility] Comment on above: Order Comment: Speci men Type: BLOOD SPECIMENOrdering Facility: [facility] Address: [address] [place] [address] Performed By: #### 2 4323-8, 41451-1, 0-3 ####[facility] [place] LABCLIA [id number] [place] [address] [place] Bilirubin [Mass/Vol] mg/dL Low 0.2-1.3 [facility] Comment on above: Order Comment: Speci men Type: BLOOD SPECIMENOrdering Facility: [facility] Address: [address] [place] [address] Performed By: #### 2 4323-8, 10633-4, 0-3 ####[facility] [place] LABCLIA [id number] [facility] [address] [place] Calcium [Mass/Vol] 9.1 mg/dL Normal 8.5-10.2 [facility] Comment on above: Order Comment: Speci men Type: BLOOD SPECIMENOrdering Facility: [facility] Address: [address] [place] [address] Performed By: #### 2 4323-8, , 3039-3 ####[facility] [place] LABCLIA [id number] [place] [address] [place] Chloride [Moles/Vol] 107 mmol/L Normal 98-107 [facility] Comment on above: Order Comment: Speci men Type: BLOOD SPECIMENOrdering Facility: [facility] Address: [address] [place] [address] Performed By: #### 2 4323-8, , 3039-3 ####[facility] [place] LABCLIA [id number] [place] [address] [place] CO2 [Moles/Vol] 16 mmol/L Low 22-30 [facility] Comment on above: Order Comment: Speci men Type: BLOOD SPECIMENOrdering Facility: [facility] Address: [address] [place], [place] [address] Performed By: #### 2 4323-8, , 3039-3 ####[facility] [place] LABCLIA [id number] [facility] [address] [place] Creatinine [Mass/Vol] 0.50 mg/dL Low 0.58-0.96 [facility] Comment on above: Order Comment: Speci men Type: BLOOD SPECIMENOrdering Facility: [facility] Address: [address] [place] [id number] Performed By: #### 2 4323-8, 94205-9, 3040-3 ####[facility] LABCLIA [id number] [place] [address] [place] Creatinine and Glomerular filtration rate.predicted panel (S/P/Bld) 127 mL/min/1.73m??? Normal >=60 [facility] Comment on above: Order Comment: Vivi leon Type: BLOOD SPECIMENOrdering Facility: [facility] Address: [address] [place] [address] Result Comment: Rosalind mated Glomerular Filtration Rate [...] actual GFR. Performed By: #### 2 4323-8, 21206-1, 3040-3 ####[facility] LABIA [id number] [place] [address] [place] Glucose [Mass/Vol] 103 mg/dL High 74-99 [facility] Comment on above: Order Comment: Vivi leon Type: BLOOD SPECIMENOrdering Facility: [facility] Address: [address] [place] [address] Result Comment: The [place] Diabetes Association (ADA) provides guidance for cutoff [...] Standards of Medical Care in Diabetes 2016, [place] [employer]. Diabetes Care. 2016.39(Suppl 1). Performed By: #### 2 4323-8, 96909-1, 0-3 ####[facility] [place] LABCLIA [id number] [place] [address] [place] Potassium [Moles/Vol] 3.7 mmol/L Normal 3.7-5.1 [facility] Comment on above: Order Comment: Speci men Type: BLOOD SPECIMENOrdering Facility: [facility] Address: [address] [place] [address] Performed By: #### 2 4323-8, 57151-0, 0-3 ####[facility] LABCLIA [id number] [place] [address] [place] Protein [Mass/Vol] 6.6 g/dL Normal 6.3-8.0 [facility] Comment on above: Order Comment: Speci men Type: BLOOD SPECIMENOrdering Facility: [facility] Address: [address] [place] [address] Performed By: #### 2 4323-8, , 0-3 ####[facility] LABCLIA [id number] [place] [address] [place] Sodium [Moles/Vol] 137 mmol/L Normal 136-144 [facility] Comment on above: Order Comment: Speci men Type: BLOOD SPECIMENOrdering Facility: [facility] Address: [address] [place] [address] Performed By: #### 2 4323-8, 02521-3, 0-3 ####[facility] LABCLIA [id number] [facility] [address] [place] Urea nitrogen [Mass/Vol] 3 mg/dL Low 7-21 [facility] Comment on above: Order Comment: Speci men Type: BLOOD SPECIMENOrdering Facility: [facility] Address: [address] [place] [address] Performed By: #### 2 4323-8, 12003-5, 0-3 ####[facility] NICOLAS [id number] [place] [address] [facility] [place] ED NOTEon 07-20-2024 ED NOTE HNO ID: [id number] Author: RASHEEDA COSTELLO RN Service: ? Author Type: Registered Nurse Type: ED Notes Filed: 07/21/2024 00:18 Note Text: Dr. Babb at bedside speaking with pt. Pt very reluctant to be admitted to the hospital, but after discussion with Dr. Babb pt is compliant with transfer. Pt on phone with spouse notifying him of transfer. Normal [facility] ED NOTE HNO ID: [id number] Author: RASHEEDA COSTELLO RN Service: ? Author [...] leave with . Dr. Babb notified. Normal [facility] ED NOTE HNO ID: [id number] Author: RASHEEDA COSTELLO RN Service: ? Author Type: Registered Nurse Type: ED Notes Filed: 07/20/2024 23:37 Note Text: Pt asked this RN if she could have spouse take her to [facility] OB Triage. This RN asked Dr. [...] of continuous monitoring. Pt verbalized understanding. Normal [facility] ED NOTE HNO ID: [id number] Author: RAMIRO DING RN Service: Emergency Medicine Author Type: Registered Nurse Type: ED Notes Filed: 07/20/2024 23:03 Note Text: OB Triage at [facility] contacted. ED physician spoke with Dr. Serra. Dr. Serra accepted patient. [facility] transport arranged. [facility] ED NOTE HNO ID: [id number] Author: RAMIRO DING RN Service: ? Author Type: Registered Nurse Type: ED Notes Filed: 07/20/2024 23:01 Note Text: [facility] ETA 0000/0030 [facility] ED NOTE HNO ID: [id number] Author: RASHEEDA COSTELLO RN Service: ? Author [...] 2230 [id number] 2240 2251 2301 2313 2324 [facility] ED PROV NOTEon 07-20-2024 ED PROV NOTE HNO ID: [id number] Author: TRIPP BABB MD Service: Emergency Medicine [...] town, with her delivery plan in [facility]. This afternoon patient had unfortunately had a [...] of 2024. Patient is actually here from [place], with her planned delivery in [place]. Patient is only here visiting with her for work. Patient did have 1 pr (more content not included)... Normal [facility] Ethanol SerPl-mCncon 025 Ethanol [Mass/Vol] 156 mg/dL High <11 [facility] Comment on above: Order Comment: Speci men Type: BLOOD SPECIMEN [facility] Address: [address] [place], [place] [address] Result Comment: Valu es > 80 mg/dL may indicate intoxication Performed By: #### 5 643-2 #### [facility] CLIA [id number] [address] [place] [address] [place] Lipase SerPl-cCncon 07-21-19 25 Lipase [Catalytic activity/Vol] 57 U/L Normal 16-61 [facility] Comment on above: Order Comment: Speci men Type: BLOOD SPECIMENOrdering Facility: [facility] Address: [address] [place] [address] Performed By: #### 2 4323-8, 09693-9, 3040-3 ####[facility] [place] LABCLIA [id number] [place] [address] [place] MATERNAL DRUG SCREEN,URINEon 07-20-2024 Amphetamines Confirm (U) [Mass/Vol] Negative Normal Negative [facility] Comment on above: Order Comment: Speci men Type: URINE SPECIMEN [facility] Address: [address] [place] [address] Performed By: #### M DSRF #### [facility] CLIA [id number] [address] [place] [address] [place] BARBITURATES, URINE Negative Normal Negative [facility] Comment on above: Order Comment: Speci men Type: URINE SPECIMEN [facility] Address: [address] [place] [address] Performed By: #### M DSRF #### [facility] CLIA [id number] [address] [place] [address] [place] BENZODIAZEPINES, UR Negative Normal Negative [facility] Comment on above: Order Comment: Speci men Type: URINE SPECIMEN [facility] Address: [address] [place] [address] Performed By: #### M DSRF #### [facility] CLIA [id number] [address] [place] [address] [place] Cannabinoids Screen Ql (U) Negative Normal Negative [facility] Comment on above: Order Comment: Speci men Type: URINE SPECIMEN [facility] Address: [address] [place] [address] Performed By: #### M DSRF #### [facility] CLIA [id number] [address] [place] [address] [place] Cocaine Ql (U) Negative Normal Negative [facility] Comment on above: Order Comment: Speci men Type: URINE SPECIMEN [facility] Address: [address] [place] [address] Performed By: #### M DSRF #### [facility] CLIA [id number] [address] [place] Ethanol (U) [Mass/Vol] 211 mg/dL High <11 [facility] Comment on above: Order Comment: Speci men Type: URINE SPECIMEN [facility] Address: [address] [place] [address] Performed By: #### M DSRF #### [facility] CLIA [id number] [address] [place] Opiates Screen Ql (U) Negative Normal Negative [facility] Comment on above: Order Comment: Speci men Type: URINE SPECIMEN [facility] Address: [address] [place] [address] Performed By: #### M DSRF #### [facility] CLIA [id number] [address] [place] oxyCODONE cutoff Screen (U) [Mass/Vol] Negative Normal Negative [facility] Comment on above: Order Comment: Speci men Type: URINE SPECIMEN [facility] Address: [address] [place] [address] Performed By: #### M DSRF #### [facility] CLIA [id number] [address] [place] Phencyclidine Ql (U) Negative Normal Negative [facility] Comment on above: Order Comment: Speci men Type: URINE SPECIMEN [facility] Address: [address] [place] [address] Performed By: #### M DSRF #### [facility] CLIA [id number] [address] [place] Magnesium SerPl-mCncon 07-20 Magnesium [Mass/Vol] 1.6 mg/dL Low 1.7-2.3 [facility] Comment on above: Order Comment: Speci men Type: BLOOD SPECIMENOrdering Facility: [facility] Address: [address] [place] [address] Performed By: #### 2 4323-8, 92937-2, 3040-3 ####[facility] LABCLIA [id number] [place] [address] [facility] SEPSIS LACTATEon 07-20-2024 Lactate [Moles/Vol] 1.7 mmol/L Normal <=2.0 [facility] Comment on above: Order Comment: Speci men Type: BLOOD SPECIMENOrdering Facility: [facility] Address: [address] [place] [address] Performed By: #### S LACT ####[facility] LABCLIA [id number] [address] Urinalysis complete panel (U )on 07-20-2024 Bacteria LM.HPF (Urine sed) [#/Area] Rare Abnormal None Seen [facility] Comment on above: Order Comment: Speci men Type: URINE SPECIMEN [facility] Address: [address] [place] [address] Performed By: #### 2 4356-8 #### [facility] CLIA [id number] [address] Bilirubin Ql (U) Negative Normal Negative [facility] Comment on above: Order Comment: Speci men Type: URINE SPECIMEN [facility] Address: [address] [place] [address] Performed By: #### 2 4356-8 #### [facility] [place] [facility] CLIA [id number] [address] [place] [address] [facility] Clarity (Unsp spec) Clear Normal Clear [facility] Comment on above: Order Comment: Speci men Type: URINE SPECIMEN [facility] Address: [address] [place] [address] Performed By: #### 2 4356-8 #### [facility] [place] [facility] CLIA [id number] [address] [place] [address] [place] Color (U) Yellow Normal Yellow [facility] Comment on above: Order Comment: Speci men Type: URINE SPECIMEN [facility] Address: [address] [place] [address] Performed By: #### 2 4356-8 #### [facility] [place] [facility] CLIA [id number] [address] [place] [address] [place] Epithelial cells LM.HPF (Urine sed) [#/Area] Few Normal [facility] Comment on above: Order Comment: Speci men Type: URINE SPECIMEN [facility] Address: [address] [place] [address] Performed By: #### 2 4356-8 #### [facility] [place] [facility] CLIA [id number] [address] [place] [address] [facility] [place] Glucose Test strip (U) [Mass/Vol] Negative Normal Negative [facility] Comment on above: Order Comment: Speci men Type: URINE SPECIMEN [facility] Address: [address] [place] [address] Performed By: #### 2 4356-8 #### [facility] [place] [facility] CLIA [id number] [address] [place] [address] [place] Hemoglobin Ql (U) Negative Normal Negative [facility] Comment on above: Order Comment: Speci men Type: URINE SPECIMEN [facility] Address: [address] [place] [address] Performed By: #### 2 4356-8 #### [facility] [place] [facility] CLIA [id number] [address] [place] [address] [place] Ketones Ql (U) Negative Normal Negative [facility] Comment on above: Order Comment: Speci men Type: URINE SPECIMEN [facility] Address: [address] [place] [address] Performed By: #### 2 4356-8 #### [facility] [place] [facility] CLIA [id number] [address] [place] [address] [place] Leukocyte esterase Test strip Ql (U) Negative Normal Negative [facility] Comment on above: Order Comment: Speci men Type: URINE SPECIMEN [facility] Address: [address] [place] [address] Performed By: #### 2 4356-8 #### [facility] [place] [facility] CLIA [id number] [address] [place] [address] [place] Nitrite Ql (U) Negative Normal Negative [facility] Comment on above: Order Comment: Speci men Type: URINE SPECIMEN [facility] Address: [address] [place] [address] Performed By: #### 2 4356-8 #### [facility] [place] [facility] CLIA [id number] [address] [place] [address] [place] pH (U) 6.0 [pH] Normal 5.0-8.0 [facility] Comment on above: Order Comment: Speci men Type: URINE SPECIMEN [facility] Address: [address] [place] [address] Performed By: #### 2 4356-8 #### [facility] [place] [facility] CLIA [id number] [address] [place] [address] [place] Protein (U) [Mass/Vol] Negative Normal Negative [facility] Comment on above: Order Comment: Speci men Type: URINE SPECIMEN [facility] Address: [address] [place] [address] Performed By: #### 2 4356-8 #### [facility] [place] [facility] CLIA [id number] [address] [place] [address] [place] RBC LM.HPF (Urine sed) [#/Area] 0-3 /HPF Normal 0-3 /HPF [facility] Comment on above: Order Comment: Speci men Type: URINE SPECIMEN [facility] Address: [address] [place] [address] Performed By: #### 2 4356-8 #### [facility] [place] [facility] CLIA [id number] [address] [place] [address] [place] Specific gravity (U) [Rel density] <=1.005 Low 1.005-1.030 [facility] Comment on above: Order Comment: Speci men Type: URINE SPECIMEN [facility] Address: [address] [place] [address] Performed By: #### 2 4356-8 #### [facility] [place] [facility] CLIA [id number] [address] [place] [address] [place] Urobilinogen Ql (U) 0.2 EU/dL Normal 0.2-1.0 EU/dL [facility] Comment on above: Order Comment: Speci men Type: URINE SPECIMEN [facility] Address: [address] [place] [address] Performed By: #### 2 4356-8 #### [facility] CLIA [id number] [address] [id number] [place] WBC LM.HPF (Urine sed) [#/Area] 0-5 /HPF Normal 0-5 /HPF [facility] Comment on above: Order Comment: Speci men Type: URINE SPECIMEN [facility] Address: [address] [place] [address] Performed By: #### 2 4356-8 #### [facility] CLIA [id number] [address] [id number] [place] OF [place]DA CNCOon 07-01-2024 CNCO Letter Text Normal [facility] CNPNon 06-27-2024 CNPN Telephone (ASHANTIWBobby) MONIQUE SILVEIRA ([id number]) 1990 F Date Time Provider Department 06/27/24 MARCIA THURMAN During your visit today, we recorded the following information about you: Arelis Manzo, DIEGO 06/27/2024 8:24 AM Signed Breast pump order received from [employer] Leanne. To JOSE to sign. DIEGO Ruiz [...] 3 tablets by mouth once daily. - Vlevabsm-My-Ksp-Fe-F A tab Take 1 tablet by mouth [...] Encounter Status:Closed by ARELIS MANZO on 06/27/24 [facility]-2024 [facility] MONIQUE SILVEIRA ([id number]) 1990 F Date Time Provider Department 06/23/24 [...] 3 tablets by mouth once daily. - Lwblogpl-Nt-Ywp-Fe-F A tab Take 1 tablet by mouth [...] Encounter Status:Closed by ARELIS MANZO on 06/26/24 [facility] 06-20-2024 [facility] Telephone (OBGYWM) THERESAMONIQUE ([id number]) 1990 F Date Time Provider Department 06/20/24 [...] 3 tablets by mouth once daily. - Cxfgrpif-Ba-Ulr-Fe-F A tab Take 1 tablet by mouth [...] Status:Closed by ARELIS MANZO on 06/20/24 [facility]OSIS NAATon 0 06-18-2024 Lactobacillus crispatus+gasseri+randolph ii + Gardnerella vaginalis + Atopobium vaginae rRNA JUANJOSE+probe Ql (Vag fld) Not detected Normal Not detected [facility] Comment on above: Order Comment: Speci men Type: SWABOrdering Facility: [facility] Address: [address] [place] [address] Performed By: #### B VAMP ####[facility] LABCLIA [id number] [place] [address] [place] Bacteria Ur Culton Bacteria identified Cx Nom (U) ORGANISM ID: 1 10,000 -<50,000 CFU/ml Normal urogenital donald Normal [facility] Comment on above: Performed By: #### 6 30-4 ####[facility] LABCLIA [id number] [place] [address] [place] C. trachomatis+N. gonorrhoea e DNA JUANJOSE+probe Ql (Unsp spec)on 06-18-2024 C. trachomatis rRNA JUANJOSE+probe Ql (Unsp spec) Not detected Normal Not detected [facility] Comment on above: Order Comment: Speci men Type: SWABOrdering Facility: [facility] Address: [address] [place] [address] Performed By: #### 3 6902-5, TRVAMP ####[facility] LABIA [id number] [place] [address] [place] N. gonorrhoeae rRNA JUANJOSE+probe Ql (Unsp spec) Not detected Normal Not detected [facility] Comment on above: Order Comment: Speci men Type: SWABOrdering Facility: [facility] Address: [address] [place] [address] Performed By: #### 3 6902-5, TRVAMP ####[facility] LABCLIA [id number] [place] [address] [place] CBC W Auto Differential pane l (Bld)on 06-18-2024 Basophils (Bld) [#/Vol] 10*3/uL Normal <0.11 [facility] Comment on above: Order Comment: Speci men Type: BLOOD SPECIMENOrdering Facility: [facility] Address: [address] [place] [address] Performed By: #### 5 7021-8 ####[facility] HOSPITALWNCLIA [id number] [place] [address] [place] Basophils/100 WBC (Bld) 0.2 % Normal [facility] Comment on above: Order Comment: Speci men Type: BLOOD SPECIMENOrdering Facility: [facility] Address: [address] [place] [address] Performed By: #### 5 7021-8 ####[facility]ITALLIA [id number] [place] [address] [place] Differential cell count method Nom (Bld) Auto Normal [facility] Comment on above: Order Comment: Speci men Type: BLOOD SPECIMENOrdering Facility: [facility] Address: [address] [place] [address] Performed By: #### 5 7021-8 ####[facility] [id number] [place] [address] [place] Eosinophils (Bld) [#/Vol] 0.12 10*3/uL Normal <0.46 [facility] Comment on above: Order Comment: Speci men Type: BLOOD SPECIMENOrdering Facility: [facility] Address: [address] [place] [address] Performed By: #### 5 7021-8 ####[facility]ITALLIA [id number] [place] [address] [place] Eosinophils/100 WBC (Bld) 1.3 % Normal [facility] Comment on above: Order Comment: Speci men Type: BLOOD SPECIMENOrdering Facility: [facility] Address: [address] [place] [address] Performed By: #### 5 7021-8 ####[facility]PITALNCLIA [id number] [place] [address] [place] Erythrocyte distribution width (RBC) [Ratio] 12.7 % Normal 11.5-15.0 [facility] Comment on above: Order Comment: Speci men Type: BLOOD SPECIMENOrdering Facility: [facility] Address: [address] [place] [address] Performed By: #### 5 7021-8 ####[facility]OSPITALLI [id number] [place] [address] [place] Hematocrit (Bld) [Volume fraction] 35.4 % Low 36.0-46.0 [facility] Comment on above: Order Comment: Speci men Type: BLOOD SPECIMENOrdering Facility: [facility] Address: [address] [place] [address] Performed By: #### 5 7021-8 ####[facility] [id number] [place] [address] [place] Hemoglobin (Bld) [Mass/Vol] 12.3 g/dL Normal 11.5-15.5 [facility] Comment on above: Order Comment: Speci men Type: BLOOD SPECIMENOrdering Facility: [facility] Address: [address] [place] [address] Performed By: #### 5 7021-8 ####[facility]ITALLIA [id number] [place] [address] [place] Immature granulocytes (Bld) [#/Vol] 0.07 10*3/uL Normal <0.10 [facility] Comment on above: Order Comment: Speci men Type: BLOOD SPECIMENOrdering Facility: [facility] Address: [address] [place] [address] Performed By: #### 5 7021-8 ####[facility] [id number] [place] [address] [place] Immature granulocytes/100 WBC (Bld) 0.7 % Normal [facility] Comment on above: Order Comment: Speci men Type: BLOOD SPECIMENOrdering Facility: [facility] Address: [address] [place] [address] Performed By: #### 5 7021-8 ####[facility] HOSPITALNCJeanette [id number] [place] [address] [place] Lymphocytes (Bld) [#/Vol] 1.68 10*3/uL Normal 1.00-4.00 [facility] Comment on above: Order Comment: Speci men Type: BLOOD SPECIMENOrdering Facility: [facility] Address: [address] [place] [address] Performed By: #### 5 7021-8 ####COMMUNITY HOSPITALNCMYRIAM [id number] [place] [address] [place] Lymphocytes/100 WBC (Bld) 17.6 % Normal [facility] Comment on above: Order Comment: Speci men Type: BLOOD SPECIMENOrdering Facility: [facility] Address: [address] [place] [address] Performed By: #### 5 7021-8 ####[facility] HOSPITALNCLIA [id number] [place] [address] [place] MCH (RBC) [Entitic mass] 31.1 pg Normal 26.0-34.0 [facility] Comment on above: Order Comment: Speci men Type: BLOOD SPECIMENOrdering Facility: [facility] Address: [address] [place] [address] Performed By: #### 5 7021-8 ####[facility] HOSPITALNCLIA [id number] [place] [address] [place] MCHC (RBC) [Mass/Vol] 34.7 g/dL Normal 30.5-36.0 [facility] Comment on above: Order Comment: Speci men Type: BLOOD SPECIMENOrdering Facility: [facility] Address: [address] [place] [address] Performed By: #### 5 7021-8 ####[facility] ELLI VINICIO [id number] [place] [address] [place] MCV (RBC) [Entitic vol] 89.6 fL Normal 80.0-100.0 [facility] Comment on above: Order Comment: Speci men Type: BLOOD SPECIMENOrdering Facility: [facility] Address: [address] [place] [address] Performed By: #### 5 7021-8 ####[facility] HOSPITALNCJeanette [id number] [place] [address] [place] Monocytes (Bld) [#/Vol] 0.90 10*3/uL High <0.87 [facility] Comment on above: Order Comment: Speci men Type: BLOOD SPECIMENOrdering Facility: [facility] Address: [address] [place] [address] Performed By: #### 5 7021-8 ####[facility] HOSPITALNCLIA [id number] [place] [address] [place] Monocytes/100 WBC (Bld) 9.4 % Normal [facility] Comment on above: Order Comment: Speci men Type: BLOOD SPECIMENOrdering Facility: [facility] Address: [address] [place] [address] Performed By: #### 5 7021-8 ####[facility] HOSPITALNCLIA [id number] [place] [address] [place] Neutrophils (Bld) [#/Vol] 6.75 10*3/uL Normal 1.45-7.50 [facility] Comment on above: Order Comment: Speci men Type: BLOOD SPECIMENOrdering Facility: [facility] Address: [address] [place], [place] [address] Performed By: #### 5 7021-8 ####[facility] HOSPITALWGAURAVLIA [id number] [place] [address] [place] Neutrophils/100 WBC (Bld) 70.8 % Normal [facility] Comment on above: Order Comment: Speci men Type: BLOOD SPECIMENOrdering Facility: [facility] Address: [address] [place] [address] Performed By: #### 5 7021-8 ####[facility]ITALLIA [id number] [place] [address] [place] Nucleated RBC (Bld) [#/Vol] 10*3/uL Normal <0.01 [facility] Comment on above: Order Comment: Speci men Type: BLOOD SPECIMENOrdering Facility: [facility] Address: [address] [place] [address] Performed By: #### 5 7021-8 ####[facility] [id number] [place] [address] [place] Nucleated RBC/100 WBC (Bld) [Ratio] 0.0 /100 WBC Normal [facility] Comment on above: Order Comment: Speci men Type: BLOOD SPECIMENOrdering Facility: [facility] Address: [address] [place] [address] Performed By: #### 5 7021-8 ####[facility] [id number] [place] [address] [place] Platelet mean volume (Bld) [Entitic vol] 9.5 fL Normal 9.0-12.7 [facility] Comment on above: Order Comment: Speci men Type: BLOOD SPECIMENOrdering Facility: [facility] Address: [address] [place] [address] Performed By: #### 5 7021-8 ####[facility]PITALLI [id number] [place] [address] [place] Platelets (Bld) [#/Vol] 282 10*3/uL Normal 150-400 [facility] Comment on above: Order Comment: Speci men Type: BLOOD SPECIMENOrdering Facility: [facility] Address: [address] [place] [address] Performed By: #### 5 7021-8 ####[facility] HOSPITALMYRIAM [id number] [place] [address] [place] RBC (Bld) [#/Vol] 3.95 10*6/uL Normal 3.90-5.20 [facility] Comment on above: Order Comment: Speci men Type: BLOOD SPECIMENOrdering Facility: [facility] Address: [address] [place] [address] Performed By: #### 5 7021-8 ####[facility]ATIONJeanette [id number] [place] [address] [place] WBC (Bld) [#/Vol] 9.54 10*3/uL Normal 3.70-11.00 [facility] Comment on above: Order Comment: Speci men Type: BLOOD SPECIMENOrdering Facility: [facility] Address: [address] [place] [address] Performed By: #### 5 7021-8 ####[facility]OSPITALLIA [id number] [place] [address] [place] HBV surface Ag Ql (S)on 06-07 Interpretation and review of laboratory results Normal [facility] HBV surface Ag Ser Qlon 06-07 HBV surface Ag Ql (S) Negative Normal Negative [facility] Comment on above: Order Comment: Speci men Type: BLOOD SPECIMENOrdering Facility: [facility] Address: [address] [place] [address] Performed By: #### 5 195-3, 23790-8, 97244-8 ####[facility] LABCLIA [id number] [place] [address] [place] HCV Ab Ql (S)on 06-18-2024 Interpretation and review of laboratory results Normal [facility] HCV Ab Ser Qlon 06-18-2024 HCV Ab Ql (S) Negative Normal Negative [facility] Comment on above: Order Comment: Speci men Type: BLOOD SPECIMENOrdering Facility: [facility] Address: [address] [place] [address] Result Comment: The result suggests no evidence of active infection with Hepatitis C virus. Should recent infection be suspected, repeat testing may be considered 4-6 weeks after this draw. Performed By: #### 1 6128-1 ####[facility] SYSTEMIA [id number] [place] [address] [place] HEPATITIS B SURFACE ANTIGENo n 06-18-2024 HBV surface Ag Ql (S) Negative Negative [facility] HEPATITIS C ANTIBODY IA WITH CONFIRMATIONon 06-18-2024 HCV Ab Ql (S) Negative Negative [facility] Comment on above: The result suggests no evidence of active infection with Hepatitis C virus. Should recent infection be suspected, repeat testing may be considered 4-6 weeks after this draw. HGB ELECTROPHORESIS FOR EVAL (LAB ORDER)on 06-18-2024 Hemoglobin A (Bld) [Mass fraction] 97.1 % Normal 96.2-98.0 [facility] Comment on above: Order Comment: Speci men Type: BLOOD SPECIMENOrdering Facility: [facility] Address: [address] [place] [address] Performed By: #### L [id number], HGBELEV ####[facility] SYSTEMIA [id number] [place] [address] [place] Hemoglobin A2 (Bld) [Mass fraction] 2.9 % Normal 2.0-3.1 [facility] Comment on above: Order Comment: Speci men Type: BLOOD SPECIMENOrdering Facility: [facility] Address: [address] [place] [address] Performed By: #### L [id number], HGBELEV ####[facility] LABCLIA [id number] [place] [id number] [place] Hemoglobin Unsp Elph (Bld) [Mass fraction] No abnormal hemoglobin identified. Normal No abnormal hemoglobin identified. [facility] Comment on above: Order Comment: Speci men Type: BLOOD SPECIMENOrdering Facility: [facility] Address: [address] [place] [address] Performed By: #### L [id number], HGBELEV ####[facility] LABIA [id number] [place] [address] [place] HGB EVALUATION CASCADE INTER Florentino 06-18-2024 Hemoglobin pattern (Bld) [Interp] Reviewed by Everardo Goldberg MD Normal [facility] Comment on above: Order Comment: Speci men Type: BLOOD SPECIMENOrdering Facility: [facility] Address: [address] [place] [address] Performed By: #### L [id number], HGBELEV ####[facility] SYSTEMIA [id number] [place] [address] [place] INTERPRETATION (HGB EVAL) Normal [facility] Comment on above: Order Comment: Speci men Type: BLOOD SPECIMENOrdering Facility: [facility] Address: [address] [place] [address] Result Comment: Hemo globins were analyzed by capillary electrophoresis and CBC red cell parameters were reviewed. No abnormal hemoglobin is identified. There is a normal hemoglobin capillary electrophoresis pattern. Performed By: #### L [id number], HGBELEV ####[facility] LABIA [id number] [place] [address] [place] HIGH RISK HUMAN PAPILLOMA THELMA (HPV), PCR FOR DETECTION AND GENOTYPINGon 06-18-2024 HPV 16 Ag Ql (Unsp spec) Not detected Normal Not detec ashkan [facility] Comment on above: Order Comment: Speci men Type: FLUID SPECIMENOrdering Facility: [facility] Address: [address] [place] [address] Performed By: #### H PVHRT ####[facility] LABIA [id number] [place] [address] [place] HPV 18 Ag Ql (Unsp spec) Not detected Normal Not detec ashkan [facility] Comment on above: Order Comment: Speci men Type: FLUID SPECIMENOrdering Facility: [facility] Address: [address] [place] [address] Performed By: #### H PVHRT ####[facility] SYSTEMIA [id number] [place] [address] [place] HPV 31+33+35+39+45+51+52+56+ 58+59+66+68 DNA JUANJOSE+probe Ql (Cvx) Not detected Normal Not detected [facility] Comment on above: Order Comment: Speci men Type: FLUID SPECIMENOrdering Facility: [facility] Address: [address] [place] [address] Result Comment: High Risk HPV Other Type includes HPV types 31, 33, 35, 39, 45, 51, 52, 56, 58, 59, 66 and 68. Performed By: #### H PVHRT ####[facility] LABIA [id number] [place] [address] [place] HIV 1+2 Ab IA Qlon 5 HIV 1 and 2 Ab IA.rapid Nom (S/P/Bld) [facility] Comment on above: Test not indicated. HIV 1+2 Ab+HIV1 p24 Ag IA Ql Non-Reactive Nonreactive [facility] HIV immunoassay testing algorithm interpretation (S/P/Bld) [Interp] [facility] Comment on above: No evidence of HIV-1 or HIV-2 infection. Should recent infection be suspected, repeat testing may be considered 2-3 weeks after this draw. [place] Rev. Code 3701.243(E): This information has been [...] release of HIV test results or diagnoses. [facility] HIV 1 and 2 Ab IA.rapid Nom (S/P/Bld) Normal [facility] Comment on above: Order Comment: Speci men Type: BLOOD SPECIMENOrdering Facility: [facility] Address: [address] [place] [address] Result Comment: Test not indicated. Performed By: #### 5 195-3, 62105-5, 41660-7 ####[facility] LABCLIA [id number] [place] [address] [place] HIV 1+2 Ab+HIV1 p24 Ag IA Ql Non-Reactive Normal Nonreactive [facility] Comment on above: Order Comment: Speci men Type: BLOOD SPECIMENOrdering Facility: [facility] Address: [address] [place] [address] Performed By: #### 5 195-3, 20319-9, 68563-5 ####[facility] LABCLIA [id number] [place] [address] [place] HIV immunoassay testing algorithm interpretation (S/P/Bld) [Interp] Normal [facility] Comment on above: Order Comment: Speci men Type: BLOOD SPECIMENOrdering Facility: [facility] Address: [address] [place] [address] Result Comment: No e vidence of HIV-1 or HIV-2 infection. Should recent infection be suspected, repeat testing may be considered 2-3 weeks after this draw. [place] Rev. Code 3701.243(E): This information has been [...] or diagnoses. Performed By: #### 5 195-3, 29902-7, 42019-9 ####[facility] LABCLIA [id number] [address] [address] [place] HbA1c (Bld)on 06-18-2024 Average glucose Estimated from glycated hemoglobin (Bld) [Mass/Vol] 74 mg/dL [facility] Comment on above: eAG: (Estimated aver age glucose) is a calculated value from HgbA1c and is brand representative of the average blood glucose level in the last 2-3 month period. HbA1c (Bld) [Mass fraction] 4.2 % Low 4.3 - 5.6 % [facility] Comment on above: [place] Diabetes As sociation guidelines indicate that patients with HgbA1c in the range 5.7-6.4% are at increased risk for development of diabetes, and intervention by lifestyle modification may be beneficial. HgbA1c greater or equal to 6.5% is considered diagnostic of diabetes. Interpretation and review of laboratory results Abnormal [facility] Average glucose Estimated from glycated hemoglobin (Bld) [Mass/Vol] 74 mg/dL Normal [facility] Comment on above: Order Comment: Vivi leon Type: BLOOD SPECIMENOrdering Facility: [facility] Address: [address] [place] [address] Result Comment: eAG: (Estimated average glucose) is a calculated value from HgbA1c and is brand representative of the average blood glucose level in the last 2-3 month period. Performed By: #### 5 5454-3 ####[facility] LABIA [id number] [address] [address] [place] [facility] HbA1c (Bld) [Mass fraction] 4.2 % Low 4.3-5.6 [facility] Comment on above: Order Comment: Vivi leon Type: BLOOD SPECIMENOrdering Facility: [facility] Address: [address] [place] [address] Result Comment: [place] Diabetes Association guidelines indicate that patients with HgbA1c in the range 5.7-6.4% are at increased risk for development of diabetes, and intervention by lifestyle modification may be beneficial. HgbA1c greater or equal to 6.5% is considered diagnostic of diabetes. Performed By: #### 5 5454-3 ####[facility] LABCLIA [id number] [address] [place] [address] [place] PAP TESTon 06-18-2024 ADEQUACY Normal [facility] Comment on above: Order Comment: Speci men Type: FLUID SPECIMENOrdering Facility: [facility] Address: [address] [place] [address] Result Comment: Sati sfactory for interpretation. Transformation zone present Performed By: #### L [id number] ####[facility] LABORATORYCLIA [id number] [place] [id number] [place] [facility] LABCLIA [id number] [address] [address] [place] CASE REPORT Normal [facility] Comment on above: Order Comment: Speci men Type: FLUID SPECIMENOrdering Facility: [facility] Address: [address] [place] [address] Result Comment: Gyne cologic Cytology Report Case: [id number] Authorizing Provider: Marcia Thurman APRN.CNM Collected: 06/18/2024 09:43 AM Ordering Location: OB/Gynecology Received: 06/18/2024 12:41 PM First Screen: Feciuch, Anitra, CT, ASCP Specimen: Pap Test, ThinPrep, Cervix Performed By: #### L [id number] ####[facility] LABORATORYCLIA [id number] [place] [id number] [place] [facility] LABCLIA [id number] [address] [place] [address] [place] CLINICAL HISTORY, CYTOLOGY, CORE SHAPER TOP Routine Exam Normal [facility] Comment on above: Order Comment: Speci men Type: FLUID SPECIMENOrdering Facility: [facility] Address: [address] [place] [address] Performed By: #### L [id number] ####[facility]ORATORYCLIA [id number] [place] [address] [place] [facility] LABCLIA [id number] [address] [place] [address] [place] FINAL PERFORMING LAB Normal [facility] Comment on above: Order Comment: Speci men Type: FLUID SPECIMENOrdering Facility: [facility] Address: [address] [place] [address] Result Comment: Tech nical component, geospatial specialist screening performed at [facility], [address] [place] [address] CLIA# [id number] Diagnostic interpretation performed at [facility], [address] [place] [address] CLIA# [id number] Activities Counselor: Samuel Black M.D. Performed By: #### L [id number] ####[facility] LABORATORYCLIA [id number] [address] [facility] LABCLIA [id number] [place] [id number] [place] INTERPRETATION, CYTOLOGY, CORE SHAPER TOP Normal [facility] Comment on above: Order Comment: Speci men Type: FLUID SPECIMENOrdering Facility: [facility] Address: [address] [place] [address] Result Comment: Nega tive for intraepithelial lesion or malignancy. at 1359 EDT Performed By: #### L [id number] ####[facility] LABORATORYCLIA [id number] [place] [address] [facility] LABCLIA [id number] [place] [id number] [place] LMP 02/27/2024 Normal [facility] Comment on above: Order Comment: Speci men Type: FLUID SPECIMENOrdering Facility: [facility] Address: [address] [place] [address] Performed By: #### L [id number] ####[facility] LABORATORYCLIA [id number] [place], [place] [id number] [place] [address] LABCLIA [id number] [address] [address] [place] PAP DISCLAIMER COMMENT The Pap Smear is a screening test for cervical cancer. False negative results occur with all screening tests, emphasizing the need for rescreening at recommended intervals, and clinical correlation. Normal [facility] Comment on above: Order Comment: Speci men Type: FLUID SPECIMENOrdering Facility: [facility] Address: [address] [place] [address] Performed By: #### L [id number] ####[facility] CENTERCLIA [id number] [address] LABCLIA [id number] [address] [address] [place] PAP SOCIAL INSURANCE ADMINISTRATOR COMMENT This specimen has been analyzed by the ThinPrep Imaging System, an automated imaging and review system, which assists the laboratory in evaluating cells on ThinPrep Pap tests. Following automated imaging, selected allen from every slide are reviewed by a geospatial specialist. Normal [facility] Comment on above: Order Comment: Speci men Type: FLUID SPECIMENOrdering Facility: [facility] Address: [address] [place] [address] Performed By: #### L [id number] ####[facility] LABORATORYCLIA [id number] [address] LABCLIA [id number] [place] [id number] [place] RBC PARAMETERS FOR HB IDon 0 - Erythrocyte distribution width (RBC) [Ratio] 12.6 % Normal 11.5-15.0 [facility] Comment on above: Order Comment: Speci men Type: BLOOD SPECIMENOrdering Facility: [facility] Address: [address] [place] [address] Performed By: #### L [id number] ####[facility] LABCLIA [id number] [place] [id number] [place] Hematocrit (Bld) [Volume fraction] 36.5 % Normal 36.0-46.0 [facility] Comment on above: Order Comment: Speci men Type: BLOOD SPECIMENOrdering Facility: [facility] Address: [address] [place] [address] Performed By: #### L [id number] ####[facility] LABCLIA [id number] [place] [address] [place] Hemoglobin (Bld) [Mass/Vol] 12.6 g/dL Normal 11.5-15.5 [facility] Comment on above: Order Comment: Speci men Type: BLOOD SPECIMENOrdering Facility: [facility] Address: [address] [place] [address] Performed By: #### L [id number] ####[facility] LABIA [id number] [place] [address] [place] MCH (RBC) [Entitic mass] 31.6 pg Normal 26.0-34.0 [facility] Comment on above: Order Comment: Speci men Type: BLOOD SPECIMENOrdering Facility: [facility] Address: [address] [place] [address] Performed By: #### L [id number] ####[facility] LABIA [id number] [place] [address] [place] MCHC (RBC) [Mass/Vol] 34.5 g/dL Normal 30.5-36.0 [facility] Comment on above: Order Comment: Speci men Type: BLOOD SPECIMENOrdering Facility: [facility] Address: [address] [place] [address] Performed By: #### L [id number] ####[facility] LABCLIA [id number] [place] [address] [place] MCV (RBC) [Entitic vol] 91.5 fL Normal 80.0-100.0 [facility] Comment on above: Order Comment: Speci men Type: BLOOD SPECIMENOrdering Facility: [facility] Address: [address] [place] [address] Performed By: #### L [id number] ####[facility] LABCLIA [id number] [place] [address] [place] RBC (Bld) [#/Vol] 3.99 10*6/uL Normal 3.90-5.20 [facility] Comment on above: Order Comment: Vivi leon Type: BLOOD SPECIMENOrdering Facility: [facility] Address: [address] [place] [address] Performed By: #### L [id number] ####[facility] [id number] [place] [address] [place] RUBELLA IGG ANTIBODYon 06-18 Interpretation and review of laboratory results Abnormal [facility] Rubella IgG, Qual Negative Abnormal Positive [facility] Comment on above: The result suggests no history of Rubella vaccination or exposure to Rubella virus, however, some individuals with past history of Rubella vaccination may test negative using this test as immunity to Rubella virus wanes over time after vaccination. Please correlate with vaccination history if applicable. [facility] RUBELLA IGG AB, QUAL Negative Abnormal Positive [facility] Comment on above: Order Comment: Vivi leon Type: BLOOD SPECIMENOrdering Facility: [facility] Address: [address] [place] [address] Result Comment: The result suggests no history of Rubella vaccination or exposure to Rubella virus, however, some individuals with past history of Rubella vaccination may test negative using this test as immunity to Rubella virus wanes over time after vaccination. Please correlate with vaccination history if applicable. Performed By: #### R UBIGG ####[facility] [id number] [place] [address] [place] Reagin and Treponema pallidu m IgG and IgM [Interp]on 06-18-2024 T. pallidum IgG+IgM IA Ql (S) Non-Reactive Nonreactive [facility] T. pallidum IgG+IgM IA Ql (S) Non-Reactive Normal Nonreactive [facility] Comment on above: Order Comment: Vivi leon Type: BLOOD SPECIMENOrdering Facility: [facility] Address: [address] [place] [address] Performed By: #### 5 195-3, 38359-2, 42595-8 ####[facility] LABIA [id number] [place] [address] [place] Reagin+T pallidum IgG+IgM Se rPl-Impon 06-18-2024 Reagin and Treponema pallidum IgG and IgM [Interp] Cannot exclude recent Treponemal infection if specimen collected within 7-10 days after appearance of suspect lesions or 2-3 weeks after an exposure. Clinical correlation is required. Normal [facility] Comment on above: Order Comment: Speci men Type: BLOOD SPECIMENOrdering Facility: [facility] Address: [address] [place] [address] Performed By: #### 5 195-3, 88960-1, 15508-4 ####[facility] LABIA [id number] [place] [id number] [place] SYPHILIS TREPONEMAL W/REFLEX on 06-18-2024 Reagin and Treponema pallidum IgG and IgM [Interp] Cannot exclude recent Treponemal infection if specimen collected within 7-10 days after appearance of suspect lesions or 2-3 weeks after an exposure. Clinical correlation is required. [facility] TRICHOMONAS VAGINALIS NAATon 06-18-2024 T. vaginalis DNA JUANJOSE+probe Ql (Unsp spec) Not detected Normal Not detected [facility] Comment on above: Order Comment: Speci men Type: SWABOrdering Facility: [facility] Address: [address] [place] [address] Performed By: #### 3 6902-5, TRVAMP ####[facility] LABIA [id number] [place] [id number] [place] TYPE + SCREEN PRENATALon ABO group Nom (Bld) O [facility] Blood group antibody screen Ql Negative [facility] Rh Nom (Bld) Positive [facility] Type and Screen Expiration 06/21/2024 23:59 [facility] ABO O Normal [facility] Comment on above: Order Comment: Speci men Type: BLOOD SPECIMENOrdering Facility: [facility] Address: [address] [place] [address] Performed By: #### T SPN ####[facility] BANKCLIA [id number] [address] [place] Rh Nom (Bld) Positive Normal [facility] Comment on above: Order Comment: Speci men Type: BLOOD SPECIMENOrdering Facility: [facility] Address: [address] [place] [address] Performed By: #### T SPN ####[facility] BANKCLIA [id number] [address] [place] TYPE AND SCREEN EXPIRATION 06/21/2024 23:59 Normal [facility] Comment on above: Order Comment: Speci men Type: BLOOD SPECIMENOrdering Facility: [facility] Address: [address] [place] [address] Performed By: #### T SPN ####[facility] BANKCLIA [id number] [address] [place] Absolute lymphocyte countOrd ered By: ED PROVIDER on 06-17-2024 Lymphocytes Auto (Unsp spec) [#/Vol] 1.62 10*3/uL 0.83-4.51 [facility] Absolute neutrophil countOrd ered By: ED PROVIDER on 06-17-2024 Neutrophils (Bld) [#/Vol] 7.5 10*3/uL 2.0-7.7 [facility] Anion gap in Serum or Plasma Ordered By: Herber Fisher on 06-17-2024 Anion gap [Moles/Vol] 18 mmol/L High 5-15 [facility] Automated lymphocyte count a s percentage of total leukocytesOrdered By: ED PROVIDER on 06-17-2024 Lymphocytes/100 WBC Auto (Unsp spec) 15.9 % Low 19-41 [facility] [id number] 06-17-2024 ABO and Rh group Nom (Bld) Blood group O Rh(D) positive Normal [facility] Comment on above: Performed By: #### B 882-1 #### [facility] [address] [place], [address] BUN/creatinine ratioOrdered By: Herber Fisher on 06-17-2024 Urea nitrogen/Creatinine [Mass ratio] 16.2 mg/mg 10-20 [facility] Basophil percentageOrdered B y: ED PROVIDER on 06-17-2024 Basophils/100 WBC (Bld) 0.4 % 0-1 [facility] Beta HCG ( test) Ql Ordered By: Herber Fisher on 06-17-2024 Serum Test, Qualitative Negative [facility] Bilirubin Test strip Ql (U)O rdered By: Herber Fisher on 06-17-2024 Bilirubin Ql (U) Negative Negative [facility] Bilirubin, totalOrdered By: Herber Fisher on 06-17-2024 Bilirubin [Mass/Vol] 0.59 mg/dL Normal 0.00-1.30 [place] Comment on above: Performed By: #### L 100.0100, L700.6800, L501.2450, L500.4050 #### [facility] [address] [place], [address] CBC W/Diff, Automatedon 06-07 Absolute Lymph 1.62 X10 3/uL Normal 0.83-4.51 [facility] Comment on above: Performed By: #### L 100.0100, L700.6800, L501.2450, L500.4050 #### [facility] [address] [place], [address] Absolute Neut 7.5 X10 3/uL Normal 2.0-7.7 [facility] Comment on above: Performed By: #### L 100.0100, L700.6800, L501.2450, L500.4050 #### [facility] [address] [place], [address] Basophils/100 WBC (Bld) 0.4 % Normal 0-1 [facility] Comment on above: Performed By: #### L 100.0100, L700.6800, L501.2450, L500.4050 #### [facility] [address] [place], [address] Eosinophils/100 WBC (Bld) 0.9 % Normal 0-5 [facility] Comment on above: Performed By: #### L 100.0100, L700.6800, L501.2450, L500.4050 #### [facility] [address] [place], [address] Erythrocyte distribution width (RBC) [Ratio] 12.6 % Normal 11.6-14.6 [facility] Comment on above: Performed By: #### L 100.0100, L700.6800, L501.2450, L500.4050 #### [facility] [address] [place], [address] Hematocrit (Bld) [Volume fraction] 38.1 % Normal 37-47 [facility] Comment on above: Performed By: #### L 100.0100, L700.6800, L501.2450, L500.4050 #### [facility] [address] [place], [address] Hemoglobin (Bld) [Mass/Vol] 13.4 g/dL Normal 12.0-15.0 [facility] Comment on above: Performed By: #### L 100.0100, L700.6800, L501.2450, L500.4050 #### [facility] [address] [place], [address] IG% 0.700 Normal 0.0-0.9 [facility] Comment on above: Result Comment: IG% - Immature Granulocytes (promyelocytes, myelocytes and metamyelocytes) > 1% indicates that a LEFT SHIFT is Present. Performed By: #### L 100.0100, L700.6800, L501.2450, L500.4050 #### [facility] [address] [place], [address] Lymphocytes/100 WBC (Bld) 15.9 % Low 19-41 [facility] Comment on above: Performed By: #### L 100.0100, L700.6800, L501.2450, L500.4050 #### [facility] [address] [place], [address] MCH (RBC) [Entitic mass] 31.5 pg Normal 27.0-32.0 [facility] Comment on above: Performed By: #### L 100.0100, L700.6800, L501.2450, L500.4050 #### [facility] [address] [place], [address] MCHC (RBC) [Mass/Vol] 35.2 g/dL Normal 32-36 [facility] Comment on above: Performed By: #### L 100.0100, L700.6800, L501.2450, L500.4050 #### [facility] [address] [place], [address] MCV (RBC) [Entitic vol] 89.4 fL Normal 81-99 [facility] Comment on above: Performed By: #### L 100.0100, L700.6800, L501.2450, L500.4050 #### [facility] [address] [place], [address] Monocytes/100 WBC (Bld) 8.9 % Normal 0-10 [facility] Comment on above: Performed By: #### L 100.0100, L700.6800, L501.2450, L500.4050 #### [facility] [address] [place], [address] Neutrophils/100 WBC (Bld) 73.2 % High 47-70 [facility] Comment on above: Performed By: #### L 100.0100, L700.6800, L501.2450, L500.4050 #### [facility] [address] [place], [address] Nucleated RBC (Bld) [#/Vol] 0 10*3/uL Normal 0-5 [facility] Comment on above: Performed By: #### L 100.0100, L700.6800, L501.2450, L500.4050 #### [facility] [address] [place], [address] Platelet mean volume (Bld) [Entitic vol] 9.9 fL Normal 6.2-12.0 [facility] Comment on above: Performed By: #### L 100.0100, L700.6800, L501.2450, L500.4050 #### [facility] [address] [place], [address] Platelets (Bld) [#/Vol] 336 10*3/uL Normal 150-450 [facility] Comment on above: Performed By: #### L 100.0100, L700.6800, L501.2450, L500.4050 #### [facility] [address] [place], [address] RBC (Bld) [#/Vol] 4.26 10*6/uL Normal 4.2-5.4 [facility] Comment on above: Performed By: #### L 100.0100, L700.6800, L501.2450, L500.4050 #### [facility] [address] [place], [address] RDW SD 41.1 fl Normal 35.1-43.9 [facility] Comment on above: Performed By: #### L 100.0100, L700.6800, L501.2450, L500.4050 #### [facility] [address] [place], [address] WBC (Bld) [#/Vol] 10.2 10*3/uL Normal 4.4-11.0 [facility] Comment on above: Performed By: #### L 100.0100, L700.6800, L501.2450, L500.4050 #### [facility] [address] [place], [address] Carbon dioxide, total [Moles /volume] in Central venous bloodOrdered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
[2024-10-11 17:59] VITALS: BMI 28.2
[2024-10-11 18:34] VITALS: BP 115/69; PULSE 105
--- NOTE | 2024-10-12 10:58 | OB.TRI.NOTE ---
HPI - General General Date of Admission: 10/11/24 Date of Service: 10/11/24 Chief Complaint: NST HPI Narrative MICHAEL CARDENAS, is a 33 F who presents for scheduled NST. [facility] Medical History Epilepsy Home Medications ?Medication ?Instructions ?Recorded ?Last Taken ?Type vit no.95-ferrous 1 tab PO DAILY 06/17/24 Unknown History fumarate 28 mg-folic acid 800 mcg tablet () Allergy/AdvReac Type Severity Reaction Status Date / Time No Known Allergies Allergy Verified 10/11/24 17:58 Social History Smoking Status: Never smoker History 2 Elective abortions Hx Para 0 Spontaneous abortions Hx # Term Pregnancies Ectopic pregnancies Hx # Pregnancies Multiple births # of living children NST FHR Rate Baby A Baseline: 135 Variability:: Moderate Accelerations:: 15 x 15 Decelerations:: None NST Reactive:: Yes FHR Category:: Category I Uterine Activity:: none Assessment & Plan (1) 32 weeks gestation of : (2) IUGR (intrauterine growth restriction): PLAN: NST reactive.
--- NOTE | 2024-10-12 10:58 | OB.TRI.NOTE ---
HPI - General General Date of Admission: 10/11/24 Date of Service: 10/11/24 Chief Complaint: NST HPI Narrative MICHAEL CARDENAS, is a 33 F who presents for scheduled NST. [facility] Medical History Epilepsy Home Medications ?Medication ?Instructions ?Recorded ?Last Taken ?Type vit no.95-ferrous 1 tab PO DAILY 06/17/24 Unknown History fumarate 28 mg-folic acid 800 mcg tablet () Allergy/AdvReac Type Severity Reaction Status Date / Time No Known Allergies Allergy Verified 10/11/24 17:58 Social History Smoking Status: Never smoker History 2 Elective abortions Hx Para 0 Spontaneous abortions Hx # Term Pregnancies Ectopic pregnancies Hx # Pregnancies Multiple births # of living children NST FHR Rate Baby A Baseline: 135 Variability:: Moderate Accelerations:: 15 x 15 Decelerations:: None NST Reactive:: Yes FHR Category:: Category I Uterine Activity:: none Assessment & Plan (1) 32 weeks gestation of : (2) IUGR (intrauterine growth restriction): PLAN: NST reactive.
== END 2024-10-11 18:35 | disposition home or self-care (01) ==
LOC: WPOUT 17:51 → WP 17:51
PROVIDERS: Referring Provider Obstetrics & Gynecology; Visit Provider Obstetrics & Gynecology
DX: O36.5930 Maternal care for other known or suspected poor fetal growth, third trimester, not applicable or unspecified (principal); Z3A.32 32 weeks gestation of pregnancy
CPT/HCPCS: 59025; 59050; 99221; G0378

== ENCOUNTER 2024-12-07 19:05 | Inpatient (IN) | payer OTHER, SELFPAY ==
--- OUTSIDE RECORDS SUMMARY | 2024-12-07 19:17 | XMS RPT_ITS | CCD ---
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 1.73 10*3/uL Normal 1.00-4.00 [facility] Comment on above: Order Comment: Speci men Type: BLOOD SPECIMENOrdering Facility: [facility] Address: [address] [place] [address] Performed By: #### 5 7021-8 ####[facility] LABCLIA [id number] [place] [address] [facility] Lymphocytes/100 WBC (Bld) 15.6 % Normal [facility] Comment on above: Order Comment: Speci men Type: BLOOD SPECIMENOrdering Facility: [facility] Address: [address] [place] [address] Performed By: #### 5 7021-8 ####[facility] LABCLIA [id number] [place] [address] [facility] [place] MCH (RBC) [Entitic mass] 31.0 pg Normal 26.0-34.0 [facility] Comment on above: Order Comment: Speci men Type: BLOOD SPECIMENOrdering Facility: [facility] Address: [address] [place] [address] Performed By: #### 5 7021-8 ####[facility] LABCLIA [id number] [place] [address] [facility] MCHC (RBC) [Mass/Vol] 34.3 g/dL Normal 30.5-36.0 [facility] Comment on above: Order Comment: Speci men Type: BLOOD SPECIMENOrdering Facility: [facility] Address: [address] [place] [address] Performed By: #### 5 7021-8 ####[facility] LABCLIA [id number] [place] [id number] [facility] MCV (RBC) [Entitic vol] 90.5 fL Normal 80.0-100.0 [facility] Comment on above: Order Comment: Speci men Type: BLOOD SPECIMENOrdering Facility: [facility] Address: [address] [place] [address] Performed By: #### 5 7021-8 ####[facility] LABCLIA [id number] [place] [id number] [facility] Monocytes (Bld) [#/Vol] 0.65 10*3/uL Normal <0.87 [facility] Comment on above: Order Comment: Speci men Type: BLOOD SPECIMENOrdering Facility: [facility] Address: [address] [place] [address] Performed By: #### 5 7021-8 ####[facility] [place] LABCLIA [id number] [place] [address] [facility] Monocytes/100 WBC (Bld) 5.9 % Normal A [facility] Comment on above: Order Comment: Speci men Type: BLOOD SPECIMENOrdering Facility: [facility] Address: [address] [place] [address] Performed By: #### 5 7021-8 ####[facility] LABCLIA [id number] [place] [address] [place] Neutrophils (Bld) [#/Vol] 8.48 10*3/uL High 1.45-7.50 [facility] Comment on above: Order Comment: Speci men Type: BLOOD SPECIMENOrdering Facility: [facility] Address: [address] [place] [address] Performed By: #### 5 7021-8 ####[facility] LABCLIA [id number] [facility] [place] [address] [place] Neutrophils/100 WBC (Bld) 76.5 % Normal [facility] Comment on above: Order Comment: Speci men Type: BLOOD SPECIMENOrdering Facility: [facility] Address: [address] [place] [address] Performed By: #### 5 7021-8 ####[facility] LABCLIA [id number] [place] [address] [place] Nucleated RBC (Bld) [#/Vol] Normal [facility] Comment on above: Order Comment: Speci men Type: BLOOD SPECIMENOrdering Facility: [facility] Address: [address] [place] [address] Performed By: #### 5 7021-8 ####[facility] LABCLIA [id number] [place] [address] [place] Nucleated RBC/100 WBC (Bld) [Ratio] Normal [facility] Comment on above: Order Comment: Speci men Type: BLOOD SPECIMENOrdering Facility: [facility] Address: [address] [place] [address] Performed By: #### 5 7021-8 ####[facility] LABCLIA [id number] [place] [address] [place] Platelet mean volume (Bld) [Entitic vol] 9.6 fL Normal 9.0-12.7 [facility] Comment on above: Order Comment: Speci men Type: BLOOD SPECIMENOrdering Facility: [facility] Address: [address] [place] [address] Performed By: #### 5 7021-8 ####[facility] LABCLIA [id number] [place] [facility] [place] [address] [facility] Platelets (Bld) [#/Vol] 295 10*3/uL Normal 150-400 [facility] Comment on above: Order Comment: Speci men Type: BLOOD SPECIMENOrdering Facility: [facility] Address: [address] [place] [address] Performed By: #### 5 7021-8 ####[facility] [id number] [facility] [place] [address] [facility] RBC (Bld) [#/Vol] 3.58 10*6/uL Low 3.90-5.20 [facility] Comment on above: Order Comment: Speci men Type: BLOOD SPECIMENOrdering Facility: [facility] Address: [address] [place] [address] Performed By: #### 5 7021-8 ####[facility] LABCLIA [id number] [facility] [place] [address] [facility] WBC (Bld) [#/Vol] 11.08 10*3/uL High 3.70-11.00 [facility] Comment on above: Order Comment: Speci men Type: BLOOD SPECIMENOrdering Facility: [facility] Address: [address] [place] [address] Performed By: #### 5 7021-8 ####[facility] LABCLIA [id number] [facility] [place] [address] [facility] Comprehensive metabolic 2000 panelon 07-20-2024 Albumin [Mass/Vol] 3.8 g/dL Low 3.9-4.9 [facility] Comment on above: Order Comment: Speci men Type: BLOOD SPECIMENOrdering Facility: [facility] Address: [address] [place] [address] Performed By: #### 2 4323-8, 60443-6, 3040-3 ####[facility] LABCLIA [id number] [facility] [place] [address] [place] [facility] ALP [Catalytic activity/Vol] 59 U/L Normal 34-123 [facility] Comment on above: Order Comment: Speci men Type: BLOOD SPECIMENOrdering Facility: [facility] Address: [address] [place] [address] Performed By: #### 2 4323-8, 66029-8, 0-3 ####[facility] LABCLIA [id number] [place] [address] [place] [facility] ALT With P-5'-P [Catalytic activity/Vol] 9 U/L Normal 7-38 [facility] Comment on above: Order Comment: Speci men Type: BLOOD SPECIMENOrdering Facility: [facility] Address: [address] [place], [place] [address] Performed By: #### 2 4323-8, , 0-3 ####[facility] LABCLIA [id number] [facility] [place] [address] [facility] Anion gap [Moles/Vol] 14 mmol/L Normal 8-15 [facility] Comment on above: Order Comment: Speci men Type: BLOOD SPECIMENOrdering Facility: [facility] Address: [address] [place] [address] Performed By: #### 2 4323-8, , 0-3 ####[facility] LABCLIA [id number] [place] [address] [place] [facility] AST With P-5'-P [Catalytic activity/Vol] 14 U/L Normal 13-35 [facility] Comment on above: Order Comment: Speci men Type: BLOOD SPECIMENOrdering Facility: [facility] Address: [address] [place] [address] Performed By: #### 2 4323-8, , 0-3 ####[facility] LABCLIA [id number] [place] [address] [place] Bilirubin [Mass/Vol] mg/dL Low 0.2-1.3 [facility] Comment on above: Order Comment: Speci men Type: BLOOD SPECIMENOrdering Facility: [facility] Address: [address] [place], [place] [address] Performed By: #### 2 4323-8, , 3039-3 ####[facility] [place] LABCLIA [id number] [facility] [place] [address] [place] Calcium [Mass/Vol] 9.1 mg/dL Normal 8.5-10.2 [facility] Comment on above: Order Comment: Speci men Type: BLOOD SPECIMENOrdering Facility: [facility] Address: [address] [place], [place] [address] Performed By: #### 2 4323-8, , 3039-3 ####[facility] [place] LABCLIA [id number] [place] [address] [place] Chloride [Moles/Vol] 107 mmol/L Normal 98-107 [facility] Comment on above: Order Comment: Speci men Type: BLOOD SPECIMENOrdering Facility: [facility] Address: [address] [place], [place] [address] Performed By: #### 2 4323-8, , 3039-3 ####[facility] [place] LABCLIA [id number] [facility] [place] [address] [place] CO2 [Moles/Vol] 16 mmol/L Low 22-30 [facility] Comment on above: Order Comment: Speci men Type: BLOOD SPECIMENOrdering Facility: [facility] Address: [address] [place] [address] Performed By: #### 2 4323-8, , 0-3 ####[facility] [place] LABCLIA [id number] [facility] [place] [address] [place] Creatinine [Mass/Vol] 0.50 mg/dL Low 0.58-0.96 [facility] Comment on above: Order Comment: Speci men Type: BLOOD SPECIMENOrdering Facility: [facility] Address: [address] [place], [place] [address] Performed By: #### 2 4323-8, 89871-0, 3039-3 ####[facility] LABCLIA [id number] [place] [address] [place] Creatinine and Glomerular filtration rate.predicted panel (S/P/Bld) 127 mL/min/1.73m??? Normal >=60 [facility] Comment on above: Order Comment: Vivi leon Type: BLOOD SPECIMENOrdering Facility: [facility] Address: [address] [place] [address] Result Comment: Rosalind mated Glomerular Filtration Rate [...] GFR. Performed By: #### 2 4323-8, , 3 ####[facility] LABIA [id number] [place] [address] [place] Glucose [Mass/Vol] 103 mg/dL High 74-99 [facility] Comment on above: Order Comment: Vivi leon Type: BLOOD SPECIMENOrdering Facility: [facility] Address: [address] [place] [address] Result Comment: The [place] Diabetes Association (ADA) provides guidance for cutoff [...] Standards of Medical Care in Diabetes 2016, [place] [employer]. Diabetes Care. 2016.39(Suppl 1). Performed By: #### 2 4323-8, 11767-8, 3040-3 ####[facility] LABCLIA [id number] [place] [address] [place] Potassium [Moles/Vol] 3.7 mmol/L Normal 3.7-5.1 [facility] Comment on above: Order Comment: Speci men Type: BLOOD SPECIMENOrdering Facility: [facility] Address: [address] [place] [address] Performed By: #### 2 4323-8, , 3039-3 ####[facility] LABCLIA [id number] [facility] [place] [address] [place] Protein [Mass/Vol] 6.6 g/dL Normal 6.3-8.0 [facility] Comment on above: Order Comment: Speci men Type: BLOOD SPECIMENOrdering Facility: [facility] Address: [address] [place] [address] Performed By: #### 2 4323-8, , 3039-3 ####[facility] [id number] [facility] [place] [address] [place] Sodium [Moles/Vol] 137 mmol/L Normal 136-144 [facility] Comment on above: Order Comment: Speci men Type: BLOOD SPECIMENOrdering Facility: [facility] Address: [address] [place] [address] Performed By: #### 2 4323-8, , 3039-3 ####[facility] [id number] [facility] [place] [address] [place] Urea nitrogen [Mass/Vol] 3 mg/dL Low 7-21 [facility] Comment on above: Order Comment: Speci men Type: BLOOD SPECIMENOrdering Facility: [facility] Address: [address] [place] [address] Performed By: #### 2 4323-8, 87079-4, 0-3 ####[facility] [place] LABCLIA [id number] [facility] [place] [address] [place] ED NOTEon 07-20-2024 ED NOTE HNO ID: [id number] Author: RASHEEDA COSTELLO RN Service: ? Author Type: Registered Nurse Type: ED Notes Filed: 07/21/2024 00:18 Note Text: Dr. Babb at bedside speaking with pt. Pt very reluctant to be admitted to the hospital, but after discussion with Dr. Babb pt is compliant with transfer. Pt on phone with spouse notifying him of transfer. [facility] ED NOTE HNO ID: [id number] Author: RASHEEDA COSTELLO, [place] Service: ? Author Type: Registered Nurse Type: [...] she leave with . Dr. Babb notified. [facility] ED NOTE HNO ID: [id number] Author: RASHEEDA COSTELLO RN Service: ? Author Type: Registered Nurse Type: ED Notes Filed: 07/20/2024 23:37 Note Text: Pt asked this RN if she could have spouse take her to [facility] OB Triage. This RN asked Dr. Babb. [...] importance of continuous monitoring. Pt verbalized understanding. [facility] ED NOTE HNO ID: [id number] Author: RAMIRO DING RN Service: Emergency Medicine Author Type: Registered Nurse Type: ED Notes Filed: 07/20/2024 23:03 Note Text: OB Triage at [facility] contacted. ED physician spoke with Dr. Serra. Dr. Serra accepted patient. [facility] transport arranged. [facility] ED NOTE HNO ID: [id number] Author: RAMIRO DING RN Service: ? Author Type: Registered Nurse Type: ED Notes Filed: 07/20/2024 23:01 Note Text: [facility] ETA 0000/0030 [facility] ED NOTE HNO ID: [id number] Author: RASHEEDA COSTELLO RN Service: ? Author [...] 2230 2236 2240 2251 2301 2313 2324 [facility] ED PROV NOTEon 07-20-2024 ED PROV NOTE HNO ID: [id number] Author: TRIPP BABB MD Service: Emergency Medicine [...] of town, with her delivery plan in [facility]. This afternoon patient had unfortunately had [...] Clinical Impression Clinical Impressions as of 07/20/24 2353 Abdominal pain during in second trimester (HCC) [...] of 2024. Patient is actually here from [place], with her planned delivery in [place]. Patient is only here visiting with her for work. Patient did have 1 pr (more content not included)... Normal [facility] Ethanol SerPl-mCncon 025 Ethanol [Mass/Vol] 156 mg/dL High <11 [facility] Comment on above: Order Comment: Vivi leon Type: BLOOD SPECIMEN [facility] Address: [address] [place] [address] Result Comment: Valu es > 80 mg/dL may indicate intoxication Performed By: #### 5 643-2 #### [facility] CLIA [id number] [address] [place], [place] [id number] [place] Lipase SerPl-cCncon 07-21-19 25 Lipase [Catalytic activity/Vol] 57 U/L Normal 16-61 [facility] Comment on above: Order Comment: Vivi leon Type: BLOOD SPECIMENOrdering Facility: [facility] Address: [address] [place] [address] Performed By: #### 2 4323-8, 37234-3, 3040-3 ####[facility] [place] LABCLIA [id number] [place] [address] OF [place] MATERNAL DRUG SCREEN,URINEon 07-20-2024 Amphetamines Confirm (U) [Mass/Vol] Negative Normal Negative [facility] Comment on above: Order Comment: Speci men Type: URINE SPECIMEN [facility] Address: [address] [place] [address] Performed By: #### M DSRF #### [facility] CLIA [id number] [address] [place] BARBITURATES, URINE Negative Normal Negative [facility] Comment on above: Order Comment: Speci men Type: URINE SPECIMEN [facility] Address: [address] [place] [address] Performed By: #### M DSRF #### [facility] CLIA [id number] [address] [place] [address] [place] BENZODIAZEPINES, UR Negative Normal Negative [facility] Comment on above: Order Comment: Speci men Type: URINE SPECIMEN [facility] Address: [address] [place] [address] Performed By: #### M DSRF #### [facility] CLIA [id number] [address] OF [facility] Cannabinoids Screen Ql (U) Negative Normal Negative [facility] Comment on above: Order Comment: Speci men Type: URINE SPECIMEN Order[facility] Address: [address] [place] [address] Performed By: #### M DSRF #### [facility] CLIA [id number] [address] [place] Cocaine Ql (U) Negative Normal Negative [facility] Comment on above: Order Comment: Speci men Type: URINE SPECIMEN [facility] Address: [address] [place] [address] Performed By: #### M DSRF #### [facility] CLIA [id number] [address] [place] Ethanol (U) [Mass/Vol] 211 mg/dL High <[address] [facility] Comment on above: Order Comment: Speci men Type: URINE SPECIMEN [facility] Address: [address] [place] [address] Performed By: #### M DSRF #### [facility] CLIA [id number] [address] [place] Opiates Screen Ql (U) Negative Normal Negative [facility] Comment on above: Order Comment: Speci men Type: URINE SPECIMEN [facility] Address: [address] [place] [address] Performed By: #### M DSRF #### [facility] CLIA [id number] [address] [place] oxyCODONE cutoff Screen (U) [Mass/Vol] Negative Normal Negative [facility] Comment on above: Order Comment: Speci men Type: URINE SPECIMEN [facility] Address: [address] [place] [address] Performed By: #### M DSRF #### [facility] CLIA [id number] [address] OF [place] Phencyclidine Ql (U) Negative Normal Negative [facility] Comment on above: Order Comment: Speci men Type: URINE SPECIMEN [facility] Address: [address] [place] [address] Performed By: #### M DSRF #### [facility] CLIA [id number] [address] [place] [id number] [place] Magnesium SerPl-mCncon 07-20 Magnesium [Mass/Vol] 1.6 mg/dL Low 1.7-2.3 [facility] Comment on above: Order Comment: Speci men Type: BLOOD SPECIMENOrdering Facility: [facility] Address: [address] [place] [address] Performed By: #### 2 4323-8, 62645-0, 3040-3 ####[facility] [id number] [place] [address] [facility] SEPSIS LACTATEon 07-20-2024 Lactate [Moles/Vol] 1.7 mmol/L Normal <=2.0 [facility] Comment on above: Order Comment: Speci men Type: BLOOD SPECIMENOrdering Facility: [facility] Address: [address] [place] [address] Performed By: #### S LACT ####[facility] [id number] [place] [address] [facility] Urinalysis complete panel (U )on 07-20-2024 Bacteria LM.HPF (Urine sed) [#/Area] Rare Abnormal None Seen [facility] Comment on above: Order Comment: Speci men Type: URINE SPECIMEN [facility]ing Facility: [facility] Address: [address] [place] [address] Performed By: #### 2 4356-8 #### [facility] CLIA [id number] [address] [place] [address] [facility] Bilirubin Ql (U) Negative Normal Negative [facility] Comment on above: Order Comment: Speci men Type: URINE SPECIMEN [facility]ing Facility: [facility] Address: [address] [place] [address] Performed By: #### 2 4356-8 #### [facility] CLIA [id number] [address] [place] [address] [facility] [place] Clarity (Unsp spec) Clear Normal Clear [facility] Comment on above: Order Comment: Speci men Type: URINE SPECIMEN [facility]ing Facility: [facility] Address: [address] [place] [address] Performed By: #### 2 4356-8 #### [facility] CLIA [id number] [address] [place] [address] [facility] [place] Color (U) Yellow Normal Yellow [facility] Comment on above: Order Comment: Speci men Type: URINE SPECIMEN [facility]ing Facility: [facility] Address: [address] [place] [address] Performed By: #### 2 4356-8 #### [facility] CLIA [id number] [address] [place] [address] [place] Epithelial cells LM.HPF (Urine sed) [#/Area] Few Normal [facility] Comment on above: Order Comment: Speci men Type: URINE SPECIMEN [facility] Facility: [facility] Address: [address] [place] [address] Performed By: #### 2 4356-8 #### [facility] CLIA [id number] [address] [place] [address] [place] Glucose Test strip (U) [Mass/Vol] Negative Normal Negative [facility] Comment on above: Order Comment: Speci men Type: URINE SPECIMEN [facility]: [facility] Address: [address] [place] [address] Performed By: #### 2 4356-8 #### [facility] CLIA [id number] [address] [place] [address] [place] Hemoglobin Ql (U) Negative Normal Negative [facility] Comment on above: Order Comment: Speci men Type: URINE SPECIMEN [facility]: [facility] Address: [address] [place] [address] Performed By: #### 2 4356-8 #### [facility] CLIA [id number] [address] [place] [address] [place] Ketones Ql (U) Negative Normal Negative [facility] Comment on above: Order Comment: Speci men Type: URINE SPECIMEN [facility]: [facility] Address: [address] [place] [address] Performed By: #### 2 4356-8 #### [facility] CLIA [id number] [address] [place] [address] [place] Leukocyte esterase Test strip Ql (U) Negative Normal Negative [facility] Comment on above: Order Comment: Speci men Type: URINE SPECIMEN [facility] Address: [address] [place] [address] Performed By: #### 2 4356-8 #### [facility] CLIA [id number] [address] [place] [address] [place] Nitrite Ql (U) Negative Normal Negative [facility] Comment on above: Order Comment: Speci men Type: URINE SPECIMEN [facility] Address: [address] [place] [address] Performed By: #### 2 4356-8 #### [facility] CLIA [id number] [address] [place] [address] [place] pH (U) 6.0 [pH] Normal 5.0-8.0 [facility] Comment on above: Order Comment: Speci men Type: URINE SPECIMEN [facility] Address: [address] [place] [address] Performed By: #### 2 4356-8 #### [facility] CLIA [id number] [address] [place] [id number] [facility] Protein (U) [Mass/Vol] Negative Normal Negative [facility] Comment on above: Order Comment: Speci men Type: URINE SPECIMEN [facility]: [facility] Address: [address] [place] [address] Performed By: #### 2 4356-8 #### [facility] CLIA [id number] [address] [place] [id number] [facility] [place] RBC LM.HPF (Urine sed) [#/Area] 0-3 /HPF Normal 0-3 /HPF [facility] Comment on above: Order Comment: Speci men Type: URINE SPECIMEN [facility]: [facility] Address: [address] [place] [address] Performed By: #### 2 4356-8 #### [facility] CLIA [id number] [address] [place] [address] [place] Specific gravity (U) [Rel density] <=1.005 Low 1.005-1.030 [facility] Comment on above: Order Comment: Speci men Type: URINE SPECIMEN [facility] Address: [address] [place] [address] Performed By: #### 2 4356-8 #### [facility] CLIA [id number] [address] [place], [place] [id number] [facility] Urobilinogen Ql (U) 0.2 EU/dL Normal 0.2-1.0 EU/dL [facility] Comment on above: Order Comment: Speci men Type: URINE SPECIMEN [facility]: [facility] Address: [address] [place] [address] Performed By: #### 2 4356-8 #### [facility] CLIA [id number] [address] [place], [place] [id number] [place] WBC LM.HPF (Urine sed) [#/Area] 0-5 /HPF Normal 0-5 /HPF [facility] Comment on above: Order Comment: Speci men Type: URINE SPECIMEN [facility] Address: [address] [place] [address] Performed By: #### 2 4356-8 #### [facility] CLIA [id number] [address] [place] [address] [place] CNCOon 07-01-2024 CNCO Letter Text Normal [facility] CNPNon 06-27-2024 CNPN Telephone (OBGYWM) MONIQUE SILVEIRA ([id number]) 1990 F Date Time Provider Department 06/27/24 MARCIA THURMAN During your visit today, we recorded the following information about you: Arelis Manzo RN 06/27/2024 8:24 AM Signed Breast pump order received from [facility]. To JOSE to sign. DIEGO Ruiz Jennifer, [...] 3 tablets by mouth once daily. - Bkchlgiz-Xr-Six-Fe-F A tab Take 1 tablet by mouth [...] Encounter Status:Closed by ARELIS MANZO on 06/27/24 [facility] Davin [facility]2024 [facility] MONIQUE SILVEIRA ([id number]) 1990 F Date Time Provider Department 06/23/24 MARCIA THURMAN During your visit today, we [...] 3 tablets by mouth once daily. - Euysurcn-Oq-Ewy-Fe-F A tab Take 1 tablet by mouth [...] Encounter Status:Closed [facility] Telephone (OBGYWM) MONIQUE SILVEIRA ([id number]) 1990 F Date Time Provider Department 06/20/24 [...] 3 tablets by mouth once daily. - Bbzhmxei-Jp-Ldf-Fe-F A tab Take 1 tablet by mouth [...] Status:Closed by ARELIS MANZO on 06/20/24 Normal [facility] BACTERIAL VAGINOSIS NAATon 0 06-18-2024 Lactobacillus crispatus+gasseri+randolph ii + Gardnerella vaginalis + Atopobium vaginae rRNA JUANJOSE+probe Ql (Vag fld) Not detected Normal Not detected [facility] Comment on above: Order Comment: Speci men Type: BLOOD SPECIMEN [facility] Address: [address] [place] [address] Performed By: #### L [id number], [place]GB[place] #### [facility] CLIA [id number] [address] [place] [address] [place] Bacteria Ur Culton Bacteria identified Cx Nom (U) ORGANISM ID: 1 10,000 -<50,000 CFU/ml Normal urogenital donald Normal [facility] Comment on above: Performed By: #### 6 30-4 ####[facility] [id number] [place] [address] [place] C. trachomatis+N. gonorrhoea e DNA JUANJOSE+probe Ql (Unsp spec)on 06-18-2024 C. trachomatis rRNA JUANJOSE+probe Ql (Unsp spec) Not detected Normal Not detected [facility] Comment on above: Order Comment: Speci men Type: BLOOD SPECIMEN [facility] Address: [address] [place] [address] Performed By: #### L [id number], [place] #### [facility] CLIA [id number] [address] [place] [address] [place] N. gonorrhoeae rRNA JUANJOSE+probe Ql (Unsp spec) Not detected Normal Not detected [facility] Comment on above: Order Comment: Speci men Type: BLOOD SPECIMEN [facility] Address: [address] [place] [address] Performed By: #### L [id number], [place] #### [facility] CLIA [id number] [address] [place] [address] [place] CBC W Auto Differential pane l (Bld)on 06-18-2024 Basophils (Bld) [#/Vol] 10*3/uL Normal <0.11 C [facility] Comment on above: Order Comment: Speci men Type: BLOOD SPECIMEN [facility] Address: [address] [place] [address] Performed By: #### L [id number], [place]GB[place] #### [facility] CLIA [id number] [address] [place] [address] [place] Basophils/100 WBC (Bld) 0.2 % Normal [facility] Comment on above: Order Comment: Speci men Type: BLOOD SPECIMEN [facility] Address: [address] [place] [address] Performed By: #### L [id number], HGB[place] #### [facility] CLIA [id number] [address] [place] [address] [place] Differential cell count method Nom (Bld) Auto Normal [facility] Comment on above: Order Comment: Speci men Type: BLOOD SPECIMEN [facility] Address: [address] [place] [address] Performed By: #### L [id number], HGB[place] #### [facility] CLIA [id number] [address] [place] [address] [place] Eosinophils (Bld) [#/Vol] 0.12 10*3/uL Normal <0.46 [facility] Comment on above: Order Comment: Speci men Type: BLOOD SPECIMEN [facility] Address: [address] [place] [address] Performed By: #### L [id number], [place]GB[place] #### [facility] CLIA [id number] [address] [place] [address] [place] Eosinophils/100 WBC (Bld) 1.3 % Normal [facility] Comment on above: Order Comment: Speci men Type: BLOOD SPECIMEN [facility] Address: [address] [place] [address] Performed By: #### L [id number], [place]GB[place] #### [facility] CLIA [id number] [address] [place] [address] [place] Erythrocyte distribution width (RBC) [Ratio] 12.7 % Normal 11.5-15.0 [facility] Comment on above: Order Comment: Speci men Type: BLOOD SPECIMEN [facility] Address: [address] [place] [address] Performed By: #### L [id number], [place] #### [facility] CLIA [id number] [address] [place] [address] [place] Hematocrit (Bld) [Volume fraction] 35.4 % Low 36.0-46.0 [facility] Comment on above: Order Comment: Speci men Type: BLOOD SPECIMEN [facility] Address: [address] [place] [address] Performed By: #### L [id number], [place]GB[place] #### [facility] CLIA [id number] [address] [place] [address] [place] Hemoglobin (Bld) [Mass/Vol] 12.3 g/dL Normal 11.5-15.5 [facility] Comment on above: Order Comment: Speci men Type: BLOOD SPECIMEN [facility] Address: [address] [place] [address] Performed By: #### L [id number], [place]GB[place] #### [facility] CLIA [id number] [address] [place] [address] [place] Immature granulocytes (Bld) [#/Vol] 0.07 10*3/uL Normal <0.10 [facility] Comment on above: Order Comment: Speci men Type: BLOOD SPECIMEN [facility] Address: [address] [place] [address] Performed By: #### L [id number], [place]GB[place] #### [facility] CLIA [id number] [address] [place] [address] [place] Immature granulocytes/100 WBC (Bld) 0.7 % Normal [facility] Comment on above: Order Comment: Speci men Type: BLOOD SPECIMEN [facility]: [facility] Address: [address] [place] [address] Performed By: #### L [id number], [place] #### [facility] CLIA [id number] [address] [place] [address] [place] Lymphocytes (Bld) [#/Vol] 1.68 10*3/uL Normal 1.00-4.00 [facility] Comment on above: Order Comment: Speci men Type: BLOOD SPECIMEN [facility]: [facility] Address: [address] [place] [address] Performed By: #### L [id number], [place] #### [facility] CLIA [id number] [address] [place] [address] [place] Lymphocytes/100 WBC (Bld) 17.6 % Normal [facility] Comment on above: Order Comment: Speci men Type: BLOOD SPECIMEN [facility]: [facility] Address: [address] [place] [address] Performed By: #### L [id number], HGBELEV #### [facility] CLIA [id number] [address] [place] [address] [place] MCH (RBC) [Entitic mass] 31.1 pg Normal 26.0-34.0 [facility] Comment on above: Order Comment: Speci men Type: BLOOD SPECIMEN [facility] Address: [address] [place] [address] Performed By: #### L [id number], HGB[place] #### [facility] CLIA [id number] [address] [place] [address] [place] MCHC (RBC) [Mass/Vol] 34.7 g/dL Normal 30.5-36.0 [facility] Comment on above: Order Comment: Speci men Type: BLOOD SPECIMEN [facility]: [facility] Address: [address] [place] [address] Performed By: #### L [id number], [place]GB[place] #### [facility] CLIA [id number] [address] [place] [address] [place] MCV (RBC) [Entitic vol] 89.6 fL Normal 80.0-100.0 C [facility] Comment on above: Order Comment: Speci men Type: BLOOD SPECIMEN [facility]: [facility] Address: [address] [place] [address] Performed By: #### L [id number], [place]GB[place] #### [facility] CLIA [id number] [address] [place] [address] [place] Monocytes (Bld) [#/Vol] 0.90 10*3/uL High <0.87 [facility] Comment on above: Order Comment: Speci men Type: BLOOD SPECIMEN [facility]: [facility] Address: [address] [place] [address] Performed By: #### L [id number], [place]GB[place] #### [facility] CLIA [id number] [address] [place] [address] [place] Monocytes/100 WBC (Bld) 9.4 % Normal C [facility] Comment on above: Order Comment: Speci men Type: BLOOD SPECIMEN [facility]: [facility] Address: [address] [place] [address] Performed By: #### L [id number], HGBELEV #### [facility] CLIA [id number] [address] [place] [address] [place] Neutrophils (Bld) [#/Vol] 6.75 10*3/uL Normal 1.45-7.50 [facility] Comment on above: Order Comment: Speci men Type: BLOOD SPECIMEN [facility]: [facility] Address: [address] [place] [address] Performed By: #### L [id number], HGB[place]LEV #### [facility] CLIA [id number] [address] [place] [address] [place] Neutrophils/100 WBC (Bld) 70.8 % Normal [facility] Comment on above: Order Comment: Speci men Type: BLOOD SPECIMEN [facility] Facility: [facility] Address: [address] [place] [address] Performed By: #### L [id number], HGBELEV #### [facility] CLIA [id number] [address] [place] [address] [place] Nucleated RBC (Bld) [#/Vol] 10*3/uL Normal <0.01 [facility] Comment on above: Order Comment: Speci men Type: BLOOD SPECIMEN [facility] Facility: [facility] Address: [address] [place] [address] Performed By: #### L [id number], HGBELEV #### [facility] CLIA [id number] [address] [place] [address] [place] Nucleated RBC/100 WBC (Bld) [Ratio] 0.0 /100 WBC Normal [facility] Comment on above: Order Comment: Speci men Type: BLOOD SPECIMEN [facility] Facility: [facility] Address: [address] [place] [address] Performed By: #### L [id number], HGBELEV #### [facility] CLIA [id number] [address] [place] [address] [place] Platelet mean volume (Bld) [Entitic vol] 9.5 fL Normal 9.0-12.7 [facility] Comment on above: Order Comment: Speci men Type: BLOOD SPECIMEN [facility] Facility: [facility] Address: [address] [place] [address] Performed By: #### L [id number], HGBELEV #### [facility] CLIA [id number] [address] [place] [address] [place] Platelets (Bld) [#/Vol] 282 10*3/uL Normal 150-400 [facility] Comment on above: Order Comment: Speci men Type: BLOOD SPECIMEN Ordering Facility: [facility] Address: [address] [place] [address] Performed By: #### L [id number], HGBELEV #### [facility] CLIA [id number] [address] [place] [address] [place] RBC (Bld) [#/Vol] 3.95 10*6/uL Normal 3.90-5.20 [facility] Comment on above: Order Comment: Speci men Type: BLOOD SPECIMEN [facility]ing Facility: [facility] Address: [address] [place] [address] Performed By: #### L [id number], HGBELEV #### [facility] CLIA [id number] [address] [place] [address] [place] WBC (Bld) [#/Vol] 9.54 10*3/uL Normal 3.70-11.00 [facility] Comment on above: Order Comment: Speci men Type: BLOOD SPECIMEN Ordering Facility: [facility] Address: [address] [place] [address] Performed By: #### L [id number], HGBELEV #### [facility] CLIA [id number] [address] [place] [address] [place] HBV surface Ag Ql (S)on 06-07 Interpretation and review of laboratory results Normal [facility] HBV surface Ag Ser Qlon 06-07 HBV surface Ag Ql (S) Negative Normal Negative [facility] Comment on above: Order Comment: Speci men Type: BLOOD SPECIMEN Ordering Facility: [facility] Address: [address] [place] [address] Performed By: #### L [id number], HGBELEV #### [facility] CLIA [id number] [address] [place] [address] [place] HCV Ab Ql (S)on 06-18-2024 Interpretation and review of laboratory results Normal [facility] HCV Ab Ser Qlon 06-18-2024 HCV Ab Ql (S) Negative Normal Negative [facility] Comment on above: Order Comment: Vivi leon Type: BLOOD SPECIMEN Order[facility] Facility: [facility] Address: [address] [place] [address] Result Comment: The result suggests no evidence of active infection with Hepatitis C virus. Should recent infection be suspected, repeat testing may be considered 4-6 weeks after this draw. Performed By: #### L [id number], HGBELEV #### [facility] CLIA [id number] [address] [place] [address] [place] HEPATITIS B SURFACE ANTIGENo n 06-18-2024 HBV surface Ag Ql (S) Negative Negative [facility] HEPATITIS C ANTIBODY IA WITH CONFIRMATIONon 06-18-2024 HCV Ab Ql (S) Negative Negative [facility] Comment on above: The result suggests no evidence of active infection with Hepatitis C virus. Should recent infection be suspected, repeat testing may be considered 4-6 weeks after this draw. HGB ELECTROPHORESIS FOR EVAL (LAB ORDER)on 06-18-2024 Hemoglobin A (Bld) [Mass fraction] 97.1 % Normal 96.2-98.0 [facility] Comment on above: Order Comment: Vivi leon Type: BLOOD SPECIMEN Ordering Facility: [facility] Address: [address] [place] [address] Performed By: #### L [id number], HGBELEV #### [facility] CLIA [id number] [address] [place] [address] [place] Hemoglobin A2 (Bld) [Mass fraction] 2.9 % Normal 2.0-3.1 [facility] Comment on above: Order Comment: Vivi leon Type: BLOOD SPECIMEN Ordering Facility: [facility] Address: [address] [place] [address] Performed By: #### L [id number], HGBELEV #### [facility] CLIA [id number] [address] [place] [address] [place] Hemoglobin Unsp Elph (Bld) [Mass fraction] No abnormal hemoglobin identified. Normal No abnormal hemoglobin identified. [facility] Comment on above: Order Comment: Vivi leon Type: BLOOD SPECIMEN Ordering Facility: [facility] Address: [address] [place] [address] Performed By: #### L [id number], HGBELEV #### [facility] CLIA [id number] [address] [place] [address] [place] HGB EVALUATION CASCADE INTER Florentino 06-18-2024 Hemoglobin pattern (Bld) [Interp] Reviewed by Everardo Goldberg MD Normal [facility] Comment on above: Order Comment: Vivi leon Type: BLOOD SPECIMEN Ordering Facility: [facility] Address: [address] [place] [address] Performed By: #### L [id number], HGBELEV #### [facility] CLIA [id number] [address] [place] [address] [place] INTERPRETATION (HGB EVAL) Normal [facility] Comment on above: Order Comment: Vivi leon Type: BLOOD SPECIMEN Ordering Facility: [facility] Address: [address] [place] [address] Result Comment: Hemo globins were analyzed by capillary electrophoresis and CBC red cell parameters were reviewed. No abnormal hemoglobin is identified. There is a normal hemoglobin capillary electrophoresis pattern. Performed By: #### L [id number], HGBELEV #### [facility] CLIA [id number] [address] [place] [address] [place] HIGH RISK HUMAN P[place]ILL[place] THELMA (HPV), PCR FOR DETECTION AND GENOTYPINGon 06-18-2024 HPV 16 Ag Ql (Unsp spec) Not detected Normal Not detec ashkan [facility] Comment on above: Order Comment: Vivi leon Type: BLOOD SPECIMEN [facility] Facility: [facility] Address: [address] [place] [address] Performed By: #### L [id number], HGBELEV #### [facility] CLIA [id number] [address] [place] [address] [place] HPV 18 Ag Ql (Unsp spec) Not detected Normal Not detec ashkan [facility] Comment on above: Order Comment: Speci men Type: BLOOD SPECIMEN Ordering Facility: [facility] Address: [address] [place] [address] Performed By: #### L [id number], HGBELEV #### [facility] CLIA [id number] [address] [place] [address] [place] HPV 31+33+35+39+45+51+52+56+ 58+59+66+68 DNA JUANJOSE+probe Ql (Cvx) Not detected Normal Not detected [facility] Comment on above: Order Comment: Speci men Type: BLOOD SPECIMEN Ordering Facility: [facility] Address: [address] [place] [address] Result Comment: High Risk HPV Other Type includes HPV types 31, 33, 35, 39, 45, 51, 52, 56, 58, 59, 66 and 68. Performed By: #### L [id number], HGBELEV #### [facility] CLIA [id number] [address] [place] [address] [place] HIV 1+2 Ab IA Qlon 5 HIV 1 and 2 Ab IA.rapid Nom (S/P/Bld) [facility] Comment on above: Test not indicated. HIV 1+2 Ab+HIV1 p24 Ag IA Ql Non-Reactive Nonreactive [facility] HIV immunoassay testing algorithm interpretation (S/P/Bld) [Interp] [facility] Comment on above: No evidence of HIV-1 or HIV-2 infection. Should recent infection be suspected, repeat testing may be considered 2-3 weeks after this draw. [place] Rev. Code 3701.243(E): This information has been [...] release of HIV test results or diagnoses. [facility] HIV 1 and 2 Ab IA.rapid Nom (S/P/Bld) Normal [facility] Comment on above: Order Comment: Speci men Type: BLOOD SPECIMEN Ordering Facility: [facility] Address: [address] [place] [address] Result Comment: Test not indicated. Performed By: #### L [id number], HGBELEV #### [facility] CLIA [id number] [address] [place] [address] [place] HIV 1+2 Ab+HIV1 p24 Ag IA Ql Non-Reactive Normal Nonreactive [facility] Comment on above: Order Comment: Speci men Type: BLOOD SPECIMEN Ordering Facility: [facility] Address: [address] [place] [address] Performed By: #### L [id number], HGBELEV #### [facility] CLIA [id number] [address] [place] [address] [place] HIV immunoassay testing algorithm interpretation (S/P/Bld) [Interp] Normal [facility] Comment on above: Order Comment: Speci men Type: BLOOD SPECIMEN Ordering Facility: [facility] Address: [address] [place] [address] Result Comment: No e vidence of HIV-1 or HIV-2 infection. Should recent infection be suspected, repeat testing may be considered 2-3 weeks after this draw. [place] Rev. Code 3701.243(E): This information has been [...] test results or diagnoses. Performed By: #### L [id number], HGBELEV #### [facility] CLIA [id number] [address] [place] [address] [place] HbA1c (Bld)on 06-18-2024 Average glucose Estimated from glycated hemoglobin (Bld) [Mass/Vol] 74 mg/dL [facility] Comment on above: eAG: (Estimated aver age glucose) is a calculated value from HgbA1c and is medical collections representative of the average blood glucose level in the last 2-3 month period. HbA1c (Bld) [Mass fraction] 4.2 % Low 4.3 - 5.6 % [facility] Comment on above: [place] Diabetes [employer] sociation guidelines indicate that patients with HgbA1c in the range 5.7-6.4% are at increased risk for development of diabetes, and intervention by lifestyle modification may be beneficial. HgbA1c greater or equal to 6.5% is considered diagnostic of diabetes. Interpretation and review of laboratory results Abnormal [facility] Average glucose Estimated from glycated hemoglobin (Bld) [Mass/Vol] 74 mg/dL Normal [facility] Comment on above: Order Comment: Vivi leon Type: BLOOD SPECIMEN Ordering Facility: [facility] Address: [address] [place] [address] Result Comment: eAG: (Estimated average glucose) is a calculated value from HgbA1c and is medical collections representative of the average blood glucose level in the last 2-3 month period. Performed By: #### L [id number], HGBELEV #### [facility] CLIA [id number] [address] [place] [address] [place] HbA1c (Bld) [Mass fraction] 4.2 % Low 4.3-5.6 [facility] Comment on above: Order Comment: Vivi leon Type: BLOOD SPECIMEN Ordering Facility: [facility] Address: [address] [place] [address] Result Comment: [place] Diabetes Association guidelines indicate that patients with HgbA1c in the range 5.7-6.4% are at increased risk for development of diabetes, and intervention by lifestyle modification may be beneficial. HgbA1c greater or equal to 6.5% is considered diagnostic of diabetes. Performed By: #### L [id number], HGBELEV #### [facility] CLIA [id number] [address] [place] [address] [place] PAP TESTon 06-18-2024 ADEQUACY Normal [facility] Comment on above: Order Comment: Speci men Type: BLOOD SPECIMEN Ordering Facility: [facility] Address: [address] [place] [address] Result Comment: Sati sfactory for interpretation. Transformation zone present Performed By: #### L [id number], HGBELEV #### [facility] CLIA [id number] [address] [place] [address] [place] CASE REPORT Normal [facility] Comment on above: Order Comment: Speci men Type: BLOOD SPECIMEN Ordering Facility: [facility] Address: [address] [place] [address] Result Comment: Gyne cologic Cytology Report Case: [id number] Authorizing Provider: Marcia Thurman APRN.CNM Collected: 06/18/2024 09:43 AM Ordering Location: OB/Gynecology Received: 06/18/2024 12:41 PM First Screen: Feciuch, Anitra, CT, ASCP Specimen: Pap Test, ThinPrep, Cervix Performed By: #### L [id number], HGBELEV #### [facility] CLIA [id number] [address] [place] [address] [place] CLINICAL HISTORY, CYTOLOGY, DIRECTOR OF BILLING Routine Exam Normal [facility] Comment on above: Order Comment: Speci men Type: BLOOD SPECIMEN Ordering Facility: [facility] Address: [address] [place] [address] Performed By: #### L [id number], HGBELEV #### [facility] CLIA [id number] [address] [place], [place] [id number] [place] FINAL PERFORMING LAB Normal [facility] Comment on above: Order Comment: Speci men Type: BLOOD SPECIMEN Ordering Facility: [facility] Address: [address] [place] [address] Result Comment: Tech nical component, engravings polisher screening performed at [facility], [address] [place] [address] CLIA# [id number] Diagnostic interpretation performed at [facility], [address] [place] [address] CLIA# [id number] Battery Charger: Samuel Black M.D. Performed By: #### L [id number], HGBELEV #### [facility] CLIA [id number] [address] [place] [address] [place] INTERPRETATION, CYTOLOGY, DIRECTOR OF BILLING Normal [facility] Comment on above: Order Comment: Speci men Type: BLOOD SPECIMEN Ordering Facility: [facility] Address: [address] [place] [address] Result Comment: Nega tive for intraepithelial lesion or malignancy. at 1359 EDT Performed By: #### L [id number], HGBELEV #### [facility] CLIA [id number] [address] [place], [place] [id number] [place] LMP 02/27/2024 Normal [facility] Comment on above: Order Comment: Speci men Type: BLOOD SPECIMEN Ordering Facility: [facility] Address: [address] [place] [address] Performed By: #### L [id number], HGBELEV #### [facility] CLIA [id number] [address] [place] [address] [place] PAP DISCLAIMER COMMENT The Pap Smear is a screening test for cervical cancer. False negative results occur with all screening tests, emphasizing the need for rescreening at recommended intervals, and clinical correlation. Normal [facility] Comment on above: Order Comment: Speci men Type: BLOOD SPECIMEN Ordering Facility: [facility] Address: [address] [place] [address] Performed By: #### L [id number], HGBELEV #### [facility] CLIA [id number] [address] [place], [place] [id number] [place] PAP RETAIL SALESPERSON COMMENT This specimen has been analyzed by the [employer] Imaging System, an automated imaging and review system, which assists the laboratory in evaluating cells on ThinPrep Pap tests. Following automated imaging, selected allen from every slide are reviewed by a engravings polisher. Normal [facility] Comment on above: Order Comment: Speci men Type: BLOOD SPECIMEN Ordering Facility: [facility] Address: [address] [place] [address] Performed By: #### L [id number], HGBELEV #### [facility] CLIA [id number] [address] [place] [address] [place] RBC PARAMETERS FOR HB IDon 0 - Erythrocyte distribution width (RBC) [Ratio] 12.6 % Normal 11.5-15.0 [facility] Comment on above: Order Comment: Speci men Type: BLOOD SPECIMEN Ordering Facility: [facility] Address: [address] [place] [address] Performed By: #### L [id number], HGBELEV #### [facility] CLIA [id number] [address] [place] [address] [place] Hematocrit (Bld) [Volume fraction] 36.5 % Normal 36.0-46.0 [facility] Comment on above: Order Comment: Speci men Type: BLOOD SPECIMEN Ordering Facility: [facility] Address: [address] [place] [address] Performed By: #### L [id number], HGBELEV #### [facility] CLIA [id number] [address] [place] [address] [place] Hemoglobin (Bld) [Mass/Vol] 12.6 g/dL Normal 11.5-15.5 [facility] Comment on above: Order Comment: Speci men Type: BLOOD SPECIMEN Ordering Facility: [facility] Address: [address] [place] [address] Performed By: #### L [id number], HGBELEV #### [facility] CLIA [id number] [address] [place] [address] [place] MCH (RBC) [Entitic mass] 31.6 pg Normal 26.0-34.0 [facility] Comment on above: Order Comment: Speci men Type: BLOOD SPECIMEN Ordering Facility: [facility] Address: [address] [place] [address] Performed By: #### L [id number], HGBELEV #### [facility] CLIA [id number] [address] [place] [address] [place] MCHC (RBC) [Mass/Vol] 34.5 g/dL Normal 30.5-36.0 [facility] Comment on above: Order Comment: Speci men Type: BLOOD SPECIMEN Ordering Facility: [facility] Address: [address] [place] [address] Performed By: #### L [id number], HGBELEV #### [facility] CLIA [id number] [address] [place] [address] [place] MCV (RBC) [Entitic vol] 91.5 fL Normal 80.0-100.0 C [facility] Comment on above: Order Comment: Speci men Type: BLOOD SPECIMEN Ordering Facility: [facility] Address: [address] [place] [address] Performed By: #### L [id number], HGBELEV #### [facility] CLIA [id number] [address] [place] [address] [place] RBC (Bld) [#/Vol] 3.99 10*6/uL Normal 3.90-5.20 [facility] Comment on above: Order Comment: Speci men Type: BLOOD SPECIMEN Ordering Facility: [facility] Address: [address] [place] [address] Performed By: #### L [id number], HGBELEV #### [facility] CLIA [id number] [address] [place] [address] [place] RUBELLA IGG ANTIBODYon 06-18 Interpretation and review of laboratory results Abnormal [facility] Rubella IgG, Qual Negative Abnormal Positive [facility] Comment on above: The result suggests no history of Rubella vaccination or exposure to Rubella virus, however, some individuals with past history of Rubella vaccination may test negative using this test as immunity to Rubella virus wanes over time after vaccination. Please correlate with vaccination history if applicable. [facility] RUBELLA IGG AB, QUAL Negative Abnormal Positive [facility] Comment on above: Order Comment: Vivi leon Type: BLOOD SPECIMEN Ordering Facility: [facility] Address: [address] [place] [address] Result Comment: The result suggests no history of Rubella vaccination or exposure to Rubella virus, however, some individuals with past history of Rubella vaccination may test negative using this test as immunity to Rubella virus wanes over time after vaccination. Please correlate with vaccination history if applicable. Performed By: #### L [id number], ROSSYEV #### [facility] CLIA [id number] [address] [place] [address] [place] Reagin and Treponema pallidu m IgG and IgM [Interp]on 06-18-2024 T. pallidum IgG+IgM IA Ql (S) Non-Reactive Nonreactive [facility] T. pallidum IgG+IgM IA Ql (S) Non-Reactive Normal Nonreactive [facility] Comment on above: Order Comment: Vivi leon Type: BLOOD SPECIMEN Ordering Facility: [facility] Address: [address] [place] [address] Performed By: #### L [id number], HGBELEV #### [facility] CLIA [id number] [address] [place] [address] [place] Reagin+T pallidum IgG+IgM Se rPl-Impon 06-18-2024 Reagin and Treponema pallidum IgG and IgM [Interp] Cannot exclude recent Treponemal infection if specimen collected within 7-10 days after appearance of suspect lesions or 2-3 weeks after an exposure. Clinical correlation is required. Normal [facility] Comment on above: Order Comment: Vivi leon Type: BLOOD SPECIMEN Ordering Facility: [facility] Address: [address] [place] [address] Performed By: #### L [id number], HGBELEV #### [facility] CLIA [id number] [address] [place] [address] [place] SYPHILIS TREPONEMAL W/REFLEX on 06-18-2024 Reagin and Treponema pallidum IgG and IgM [Interp] Cannot exclude recent Treponemal infection if specimen collected within 7-10 days after appearance of suspect lesions or 2-3 weeks after an exposure. Clinical correlation is required. [facility] TRICHOMONAS VAGINALIS NAATon 06-18-2024 T. vaginalis DNA JUANJOSE+probe Ql (Unsp spec) Not detected Normal Not detected [facility] Comment on above: Order Comment: Speci men Type: BLOOD SPECIMEN Ordering Facility: [facility] Address: [address] [place] [address] Performed By: #### L [id number], HGBELEV #### [facility] CLIA [id number] [address] [place] [address] [place] TYPE + SCREEN PRENATALon ABO group Nom (Bld) O [facility] Blood group antibody screen Ql Negative [facility] Rh Nom (Bld) Positive [facility] Type and Screen Expiration 06/21/2024 23:59 [facility] ABO O Normal [facility] Comment on above: Order Comment: Speci men Type: BLOOD SPECIMEN Ordering Facility: [facility] Address: [address] [place] [address] Performed By: #### L [id number], HGBELEV #### [facility] CLIA [id number] [address] [place] [address] [place] Rh Nom (Bld) Positive Normal [facility] Comment on above: Order Comment: Speci men Type: BLOOD SPECIMEN Ordering Facility: [facility] Address: [address] [place] [address] Performed By: #### L [id number], HGBELEV #### [facility] CLIA [id number] [address] [place] [address] [place] TYPE AND SCREEN EXPIRATION 06/21/2024 23:59 Normal [facility] Comment on above: Order Comment: Speci men Type: BLOOD SPECIMEN Ordering Facility: [facility] Address: [address] [place] [address] Performed By: #### L [id number], HGBELEV #### [facility] CLIA [id number] [address] [place] [address] OF [facility] Absolute lymphocyte countOrd ered By: ED PROVIDER on 06-17-2024 Lymphocytes Auto (Unsp spec) [#/Vol] 1.62 10*3/uL 0.83-4.51 [facility] Absolute neutrophil countOrd ered By: ED PROVIDER on 06-17-2024 Neutrophils (Bld) [#/Vol] 7.5 10*3/uL 2.0-7.7 [facility] Anion gap in Serum or Plasma Ordered By: Herber Fisher on 06-17-2024 Anion gap [Moles/Vol] 18 mmol/L High 5-15 [facility] Automated lymphocyte count a s percentage of total leukocytesOrdered By: ED PROVIDER on 06-17-2024 Lymphocytes/100 WBC Auto (Unsp spec) 15.9 % Low 19-41 [facility] [id number] 06-17-2024 ABO and Rh group Nom (Bld) Blood group O Rh(D) positive Normal [facility] Comment on above: Performed By: #### B [id number] #### [facility] [address] [place] [address]. [place], [address] BUN/creatinine ratioOrdered By: Herber Fisher on 06-17-2024 Urea nitrogen/Creatinine [Mass ratio] 16.2 mg/mg 10-20 [facility] Basophil percentageOrdered B y: ED PROVIDER on 06-17-2024 Basophils/100 WBC (Bld) 0.4 % 0-1 [facility] Beta HCG ( test) Ql Ordered By: Herber Fisher on 06-17-2024 Serum Test, Qualitative Negative [facility]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 Denies headache, visual changes, chest pain, shortness of breath, vaginal bleeding, leakage of fluid, or dysuria. Feeling well, no complaints. Good movement, No contractions O: See flow sheet Gen: No apparent distress Abd: Gravid, nontender IOL Sunday if able Reactive NST ASSESSMENT/PLAN: 1. Supervision of high risk in third trimester ([facility]) - ICD9: V23.9, ICD10: O09.93 (primary diagnosis) - URINE OB DIP B/O 2. IUGR (intrauterine growth restriction) affecting care of mother, third trimester, other fetus ([facility]) - ICD9: 656.53, ICD10: O36.5939 Now 14% - URINE OB DIP B/O 3. Late care ([facility]) - ICD9: V23.7, ICD10: O09.30 - URINE OB DIP B/O 4. 39 weeks gestation of ([facility]) - ICD9: V22.2, ICD10: Z3A.39 - URINE OB DIP B/O Little Johnson MD [facility] 11-27-2024 Miscellaneous Notes S: Monique Silveira is a 33 year old female who presents at 2024, by Last Menstrual Period for a routine visit. Denies headache, visual changes, chest pain, shortness of breath, vaginal bleeding, leakage of fluid, or dysuria. Feeling well, no complaints. Good movement, No contractions O: See flow sheet Gen: No apparent distress Abd: Gravid, nontender IOL Sunday if able Reactive NST ASSESSMENT/PLAN: 1. Supervision of high risk in third trimester ([facility]) - ICD9: V23.9, ICD10: O09.93 (primary diagnosis) - URINE OB DIP B/O 2. IUGR (intrauterine growth restriction) affecting care of mother, third trimester, other fetus ([facility]) - ICD9: 656.53, ICD10: O36.5939 Now 14% - URINE OB DIP B/O 3. Late care ([facility]) - ICD9: V23.7, ICD10: O09.30 - URINE OB DIP B/O 4. 39 weeks gestation of ([facility]) - ICD9: V22.2, ICD10: Z3A.39 - URINE OB DIP B/O Little Johnson MD documented in this encounter [facility] 11-27-2024 Telephone encounter Note 39w1d JG wanted induction scheduled for 11/30/24; However, [facility] stated evening is full and not available. Next available evening for induction is 12/02/24 or 12/03/24. 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 Left message for patient to call office. [employer] message also sent to Pt. Ren Anderson RN [facility] 11-27-2024 Instructions Deandre Christina LPN - 11/27/2024 3:05 PM EDT SEQUENTIAL SCREENINGS The [facility] offers sequential screenings for women who [...] It will require an appointment with our hazardous materials waste technician. This is not an ultrasound performed [...] the above symptoms, contact our office at [phone] and ask to speak with a nurse. After hours, you can call doctors registry at [phone] OR call [facility] at [phone] and ask to have the doctor ent consultant paged. If you consider this an emergency, dial [phone] or go to your nearest emergency department. NEED HELP? Are you dealing with a violent or abusive relationship? Are you a victim of rape or sexual assult? Call [facility] ([place]) 24 hour Crisis Hotline: 165.920.8841 or 468-967-6625. MANUAL Your Guide to a Healthy manual is now on-line. Visit [email or web address] Melo to download your free copy documented in this encounter [facility] 11-24-2024 Telephone encounter Note Patient notified. Stated the pelvic pain has now improved some too. She will continue to monitor for now. Arelis Manzo RN [facility] 11-24-2024 Miscellaneous Notes Patient notified. Stated the pelvic pain has now improved some too. She will continue to monitor for now. Arelis Manzo RN OK to monitor contractions and timing every 5 minutes, lasting a minute for an hour. If feeling pain is worsening can be seen for evaluation. Likely pelvic pressure due to symphysis pubic pain due to position. Marcia Thurman APRN.CNM 38w5d Calling c/o pelvic pain. She has been having hoa murcia before today. Today she had three stronger contractions about an hour apart each, but then she is also having intermittent menstrual like cramping long with constant sharp pelvic pain. She feels the sharp pain could be related to pressure on pelvic bone because she noticed belly has dropped today too. Rating constant pain from 5-7/10 on the pain scale. No bleeding, leaking fluid or other concerns. Good movement. Labor precautions reviewed and when to call office or go to L&D. Please advise. Arelis Manzo RN documented in this encounter [facility] 11-24-2024 Telephone encounter Note OK to monitor contractions and timing every 5 minutes, lasting a minute for an hour. If feeling pain is worsening can be seen for evaluation. Likely pelvic pressure due to symphysis pubic pain due to position. Marcia Thurman APRN.CNM [facility] 11-24-2024 Telephone encounter Note 38w5d Calling c/o pelvic pain. She has been having hoa murcia before today. Today she had three stronger contractions about an hour apart each, but then she is also having intermittent menstrual like cramping long with constant sharp pelvic pain. She feels the sharp pain could be related to pressure on pelvic bone because she noticed belly has dropped today too. Rating constant pain from 5-7/10 on the pain scale. No bleeding, leaking fluid or other concerns. Good movement. Labor precautions reviewed and when to call office or go to L&D. Please advise. Arelis Manzo RN [facility] 11-21-2024 Progress note Formatting of t his note might be different from the original. S: Monique Silveira is a 33 year old female who presents at 2024, by Last Menstrual Period for a routine visit. Denies headache, visual changes, chest pain, shortness of breath, vaginal bleeding, leakage of fluid, or dysuria. Feeling well, no complaints. Good movement, No contractions O: See flow sheet Gen: No apparent distress Abd: Gravid, nontender EFW 16% MICHELLE 19 Nst next week Was considering transferring to [facility] but would like to stay at [place]. ASSESSMENT/PLAN: 1. Supervision of high risk in third trimester ([facility]) - ICD9: V23.9, ICD10: O09.93 (primary diagnosis) 2. IUGR (intrauterine growth restriction) affecting care of mother, third trimester, other fetus ([facility]) - ICD9: 656.53, ICD10: O36.5939 Now 16% 3. Late care ([facility]) - ICD9: V23.7, ICD10: O09.30 4. 38 weeks gestation of ([facility]) - ICD9: V22.2, ICD10: Z3A.38 Little Johnson MD [facility] 11-21-2024 Miscellaneous Notes S: Monique Silveira is a 33 year old female who presents at 2024, by Last Menstrual Period for a routine visit. Denies headache, visual changes, chest pain, shortness of breath, vaginal bleeding, leakage of fluid, or dysuria. Feeling well, no complaints. Good movement, No contractions O: See flow sheet Gen: No apparent distress Abd: Gravid, nontender EFW 16% MICHELLE 19 Nst next week Was considering transferring to [facility] but would like to stay at [place]. ASSESSMENT/PLAN: 1. Supervision of high risk in third trimester ([facility]) - ICD9: V23.9, ICD10: O09.93 (primary diagnosis) 2. IUGR (intrauterine growth restriction) affecting care of mother, third trimester, other fetus ([facility]) - ICD9: 656.53, ICD10: O36.5939 Now 16% 3. Late care ([facility]) - ICD9: V23.7, ICD10: O09.30 4. 38 weeks gestation of ([facility]) - ICD9: V22.2, ICD10: Z3A.38 Little Johnson MD documented in this encounter [facility] 11-21-2024 Note Indication Evaluation of growth Limited care Impression - Single, live, intrauterine . - presentation is cephalic. - The biometry is consistent with the assigned gestational dating. - The EFW is 2863 g, at the 16%. AC is at the 22%. - Amniotic fluid volume is normal amount with an MVP of 6.6 cm and MICHELLE of 18.6 cm. - The placenta is posterior, fundal. - No malformations visualized on a limited survey as detailed below. Recommendations Additional follow-up as clinically indicated. Maternal Assessment Height 168 cm Height (ft) 5 ft Height (in) 6 in Physical Exam Initial weight (lb) 160 lb Initial BMI 25.82 kg/m Maternal assessment other: 2 Para 0 REMOTE READ Method Transabdominal ultrasound examination Howell . Number of fetuses: 1 Dating LMP on: 02/27/2024 GA by LMP 38 w + 2 d ANDRÉS by LMP: 2024 GA by prior assessment 38 w + 2 d ANDRÉS by prior assessment: 2024 Ultrasound examination on: 11/21/2024 GA by U/S based upon: AC, BPD, Femur, HC GA by U/S 36 w + 0 d ANDRÉS by U/S: 12/19/2024 Assigned: based on stated ANDRÉS, selected on 11/21/2024 Assigned GA 38 w + 2 d Assigned ANDRÉS: 2024 General Evaluation Cardiac activity present. FHR 141 bpm. movements: present. Presentation: cephalic Placenta: Placental site: posterior, fundal Umbilical cord: Cord vessels: 3 vessel cord Amniotic fluid: Amount of AF: normal amount. MVP 6.6 cm. MICHELLE 18.6 cm. Q1 6.6 cm, Q2 3.0 cm, Q3 3.9 cm, Q4 5.1 cm Growth Overview Exam date GA BPD (mm) HC (mm) AC (mm) FL (mm) HL (mm) EFW (g) 09/24/2024 30w 0d 72.1 11% 264.6 14% 239 6% 52.4 7% 49.7 30% 1190 4% 10/15/2024 33w 0d 79.7 17% 297.3 30% 275.5 15% 59.8 15% 1814 11% 11/05/2024 36w 0d 86.9 32% 323.7 47% 303.9 16% 63.1 2% 2373 12% 11/21/2024 38w 2d 91.2 40% 322.3 17% 326.8 22% 68.9 15% 2863 16% Biometry Standard BPD 91.2 mm 37w 0d 40% Hadlock OFD 111.2 mm 33w 4d 19% Nicolaides HC 322.3 mm 35w 4d 17% Carlos Eduardo AC 326.8 mm 36w 4d 22% Hadlock Femur 68.9 mm 35w 0d 15% Carlos Eduardo EFW 2,863 g 36w 2d 16% Hadlock EFW (lb) 6 lb EFW (oz) 5 oz EFW by: Hadlock (HC-AC-FL) Extended Motor Vehicle Clerk 4.7 mm Extremities / Bony Struc FL / HC 0.21 Other Structures FHR 141 bpm Anatomy Lateral ventricles: normal Cavum septi pellucidi: normal Cerebellum: normal Cisterna magna: normal 4-chamber view: normal RVOT view: normal LVOT view: normal 3-vessel view: normal Heart / Thorax Situs: situs solitus (normal) Diaphragm: normal Stomach: normal Kidneys: normal Bladder: normal sex: male Wants to know sex: yes Performed By: Mariama Davis RDMS, RVT Read By: Vikki Baker M.D. [facility] 11-19-2024 Telephone encounter Note Faxed. Ren Anderson RN [facility] 11-19-2024 Miscellaneous Notes Faxed. Ren Anderson RN Received breast pump RX from [employer]. To RR to sign. Little Kline RN documented in this encounter [facility] 11-19-2024 Telephone encounter Note Received breast pump RX from [employer]. To RR to sign. Little Kline RN [facility] 11-17-2024 Telephone encounter Note 37w5d Pt calls stating she had planned to deliver at [facility] and has pre-registered, but has changed her mind and would like to transfer to [facility]. Pt asking how to go about getting her records to them. Informed Pt that she can sign medical records release and we will fax to our medical records department and they will then fax to [facility]. Advised her that she will need to contact the provider she plans to follow at [facility] as well as pre-register there as well. Pt states she has Growth US and OB appt here in our office on 11/21/24 and will sign release form at that time. Ren Anderson RN [facility] 11-17-2024 Miscellaneous Notes 37w5d Pt calls stating she had planned to deliver at [facility] and has pre-registered, but has changed her mind and would like to transfer to [facility]. Pt asking how to go about getting her records to them. Informed Pt that she can sign medical records release and we will fax to our medical records department and they will then fax to [facility]. Advised her that she will need to contact the provider she plans to follow at [facility] as well as pre-register there as well. Pt states she has Growth US and OB appt here in our office on 11/21/24 and will sign release form at that time. Ren Anderson RN documented in this encounter [facility] 11-05-2024 Progress note Formatting of t his note might be different from the original. Anatomy ultrasound reviewed. No abnormalities identified. Follow up as clinically indicated. Please place copy in ob chart. Ashlyn Soto MD [facility] 11-05-2024 Miscellaneous Notes Anatomy ultrasound reviewed. No abnormalities identified. Follow up as clinically indicated. Please place copy in ob chart. Ashlyn Soto MD documented in this encounter [facility] 11-05-2024 Progress note Formatting of t his note might be different from the original. S: Monique Silveira is a 33 year old female who presents at 36 weeks gestation for a routine visit. Positive movements. Just completed growth US. EFW 12%, MICHELLE 18 today. Awaiting final report. Vertex position. Occasional contractions. Requesting CE today. O: See flow sheet Gen: No apparent distress Abd: Gravid, non tender TAUS- vertex CE = closed ASSESSMENT/PLAN: 1. 36 weeks gestation of 2. Supervision of high risk in third trimester 3. IUGR (intrauterine growth restriction) affecting care of mother, third trimester, other fetus ([facility]) GBS collected Continue ASA/ vitamin RTO Sunday at L&D for NST (due to patient's schedule) RTO next week for ROCKY and JOEL Weeks APRN.CNM [facility] 11-05-2024 Miscellaneous Notes S: Monique Silveira is a 33 year old female who presents at 36 weeks gestation for a routine visit. Positive movements. Just completed growth US. EFW 12%, MICHELLE 18 today. Awaiting final report. Vertex position. Occasional contractions. Requesting CE today. O: See flow sheet Gen: No apparent distress Abd: Gravid, non tender TAUS- vertex CE = closed ASSESSMENT/PLAN: 1. 36 weeks gestation of 2. Supervision of high risk in third trimester 3. IUGR (intrauterine growth restriction) affecting care of mother, third trimester, other fetus ([facility]) GBS collected Continue ASA/ vitamin RTO Sunday at L&D for NST (due to patient's schedule) RTO next week for BPP and JOEL Weeks APRN.CNM documented in this encounter [facility] 11-05-2024 Note Indication Evaluation of growth Limited care Impression - Single, live, intrauterine . - presentation is cephalic. - The biometry is consistent with the assigned gestational dating. - The EFW is 2373 g, at the 12%. AC is at the 16%. - The amniotic fluid volume is normal amount with an MVP of 5.5 cm and an MICHELLE of 18.4 cm. - The placenta is anterior, fundal. - No malformations visualized on a limited survey as detailed below. Recommendations Growth in 3-4 weeks if undelivered Maternal Assessment Height 168 cm Height (ft) 5 ft Height (in) 6 in Physical Exam Initial weight (lb) 160 lb Initial BMI 25.82 kg/m Maternal assessment other: 2 Para 0 REMOTE READ Method Transabdominal ultrasound examination Howell . Number of fetuses: 1 Dating LMP on: 02/27/2024 GA by LMP 36 w + 0 d ANDRÉS by LMP: 2024 GA by prior assessment 36 w + 0 d ANDRÉS by prior assessment: 2024 Ultrasound examination on: 11/05/2024 GA by U/S based upon: AC, BPD, Femur, HC GA by U/S 34 w + 3 d ANDRÉS by U/S: 12/14/2024 Assigned: based on stated ANDRÉS, selected on 11/05/2024 Assigned GA 36 w + 0 d Assigned ANDRÉS: 2024 General Evaluation Cardiac activity present. FHR 150 bpm. movements: present. Presentation: cephalic Placenta: Placental site: posterior, fundal Umbilical cord: Cord vessels: 3 vessel cord Amniotic fluid: Amount of AF: normal amount. MVP 5.5 cm. MICHELLE 18.4 cm. Q1 5.5 cm, Q2 5.5 cm, Q3 5.4 cm, Q4 2.0 cm Growth Overview Exam date GA BPD (mm) HC (mm) AC (mm) FL (mm) HL (mm) EFW (g) 09/24/2024 30w 0d 72.1 11% 264.6 14% 239 6% 52.4 7% 49.7 30% 1190 4% 10/15/2024 33w 0d 79.7 17% 297.3 30% 275.5 15% 59.8 15% 1814 11% 11/05/2024 36w 0d 86.9 32% 323.7 47% 303.9 16% 63.1 2% 2373 12% Biometry Standard BPD 86.9 mm 35w 1d 32% Hadlock OFD 115.1 mm 36w 1d 57% Nicolaides HC 323.7 mm 35w 5d 47% Carlos Eduardo AC 303.9 mm 34w 2d 16% Hadlock Femur 63.1 mm 32w 3d 2% Carlos Eduardo EFW 2,373 g 34w 0d 12% Hadlock EFW (lb) 5 lb EFW (oz) 4 oz EFW by: Hadlock (HC-AC-FL) Extended Motor Vehicle Clerk 4.7 mm Extremities / Bony Struc FL / HC 0.19 Other Structures FHR 150 bpm Anatomy Lateral ventricles: normal Cavum septi pellucidi: normal Cerebellum: normal Cisterna magna: normal 4-chamber view: normal RVOT view: normal LVOT view: normal 3-vessel view: normal Heart / Thorax Situs: situs solitus (normal) Diaphragm: normal Stomach: normal Kidneys: normal Bladder: normal sex: male Wants to know sex: yes Performed By: Mariama Davis RDMS, RVT Read By: Gabriela Alvarez M.D. [facility] 11-05-2024 Instructions Evita Espinoza LPN - 11/05/2024 2:20 PM EDT SEQUENTIAL SCREENINGS The [facility] offers sequential screenings for women who [...] It will require an appointment with our hazardous materials waste technician. This is not an ultrasound performed [...] the above symptoms, contact our office at [phone] and ask to speak with a nurse. After hours, you can call doctors registry at [phone] OR call [facility] at [phone] and ask to have the doctor ent consultant paged. If you consider this an emergency, dial or go to your nearest emergency department. NEED HELP? Are you dealing with a violent or abusive relationship? Are you a victim of rape or sexual assult? Call [facility] ([place]) 24 hour Crisis Hotline: 579.272.2238 or 046-924-3716. MANUAL Your Guide to a Healthy manual is now on-line. Visit [email or web address] Melo to download your free copy documented in this encounter [facility] 10-16-2024 Telephone encounter Note Left message to call office. Please notify patient of below, also make sure patient has scheduled NST at [facility] for tomorrow or Sunday. Mariama Agustin RN [facility] 10-16-2024 Miscellaneous Notes Left message to call office. Please notify patient of below, also make sure patient has scheduled NST at [facility] for tomorrow or Sunday. Mariama Agustin RN I specifically told patient she needs twice weekly testing - she did not say she was going to be out of town at all. That would be against my advice to go 2 weeks without any testing. Patient is aware that she needs to have another NST later this week on either Sunday or Sunday at [facility]. Patient states she has been calling the hospital herself and scheduling the NST. Patient is aware this needs done. Attempted to schedule BPP and NST for next week, but patient states she is going to be out of town for 2 weeks starting next week. Patient has BPP and OB scheduled for 11/05 when she returns to [facility]. FYI. Mariama Agustin RN Left message for patient to call office. [facility] message also sent to Pt. Ren Anderson RN Left message for patient to call office. Ren Anderson RN Yes, she needs twice weekly testing the rest of the . Tony Morales APRN.TRACIE Patient states she just had an NST done at the hospital on Sunday. She is asking if she still has to get one done this week. Shraddha Obrien October 13, 2024 9:39 AM Called patient and left a vm for patient to return our call Please schedule OB appt for after ultrasound. Needs NST as well this week. Tony Morales APRN.TRACIE Patient did not make follow up appointments today. Needs MICHELLE with NST next week and OB visit. Needs another NST next week. Should have twice weekly testing due to IUGR. Please assist in scheduling BPP for the following 2 weeks. Needs a growth ultrasound as well Thank you, Tony Morales APRN.CNP documented in this encounter [facility] 10-15-2024 Note HNO ID: [id number] Author: JAYLA TYSON MD Service: ? Author Type: Physician Type: Progress Notes Filed: 10/15/2024 16:50 Note Text: Patient failed BPP - NST performed NST SUMMARY PROVIDER ASSESSMENT AND INTERPRETATION Monique Silveira is a 33 year old female, , who is at 33w0d with an ANDRÉS of 2024, by Last Menstrual Period dating method. Indications for NST: IUGR Failed BPP Baseline: 150 Variability: Moderate Accelerations: Present 15 X 15 Decelerations: None Contractions: TOCO: None Interpretation: Category I and Reactive SIGNATURE: Jayla Parra MD [facility] 10-15-2024 History of Presen t illness Narrative Patient failed BPP - NST performed NST SUMMARY PROVIDER ASSESSMENT AND INTERPRETATION Monique Silveira is a 33 year old female, , who is at 33w0d with an ANDRÉS of 2024, by Last Menstrual Period dating method. Indications for NST: IUGR Failed BPP Baseline: 150 Variability: Moderate Accelerations: Present 15 X 15 Decelerations: None Contractions: TOCO: None Interpretation: Category I and Reactive SIGNATURE: Jayla Parra MD documented in this encounter [facility] 10-15-2024 Telephone encounter Note I specifically told patient she needs twice weekly testing - she did not say she was going to be out of town at all. That would be against my advice to go 2 weeks without any testing. [facility] 10-15-2024 Telephone encounter Note Patient is aware that she needs to have another NST later this week on either Sunday or Sunday at [facility]. Patient states she has been calling the hospital herself and scheduling the NST. Patient is aware this needs done. Attempted to schedule BPP and NST for next week, but patient states she is going to be out of town for 2 weeks starting next week. Patient has BPP and OB scheduled for 11/05 when [facility] YANCII. Mariama Agustin RN [facility] 10-15-2024 Telephone encounter Note Left message for patient to call office. CourseWeaverhart message also sent to Pt. Ren Anderson RN [facility] 10-15-2024 Note Indication Evaluation of growth, Evaluation of well-being limited care Impression - Single, live, intrauterine . - presentation is cephalic. - The biometry is consistent with the assigned gestational dating. - The EFW is 1814 g, at the 11%. AC is at the 15%. growth restriction has resolved. - The amniotic fluid volume is normal amount with an MVP of 6.7 cm and an MICHELLE of 17.2 cm. - The placenta is anterior, fundal. - BPP 09/14. - No malformations visualized on a limited survey as detailed below. Recommendations Continue testing with NST Growth ultrasound in 3 weeks Maternal Assessment Height 168 cm Height (ft) 5 ft Height (in) 6 in Physical Exam Initial weight (lb) 160 lb Initial BMI 25.82 kg/m Maternal assessment other: 2 Para 0 REMOTE READ Method Transabdominal ultrasound examination Howell . Number of fetuses: 1 Dating LMP on: 02/27/2024 GA by LMP 33 w + 0 d ANDRÉS by LMP: 2024 GA by prior assessment 33 w + 0 d ANDRÉS by prior assessment: 2024 Ultrasound examination on: 10/15/2024 GA by U/S based upon: AC, BPD, Femur, HC GA by U/S 31 w + 5 d ANDRÉS by U/S: 12/12/2024 Assigned: based on stated ANDRÉS, selected on 10/15/2024 Assigned GA 33 w + 0 d Assigned ANDRÉS: 2024 General Evaluation Cardiac activity present. FHR 131 bpm. movements: present. Presentation: cephalic Placenta: Placental site: posterior, fundal Umbilical cord: Cord vessels: 3 vessel cord Amniotic fluid: Amount of AF: normal amount. MVP 6.7 cm. MICHELLE 17.2 cm. Q1 5.6 cm, Q2 1.3 cm, Q3 3.7 cm, Q4 6.7 cm Biophysical Profile 0: breathing movements 2: Gross body movements 2: tone 2: Amniotic fluid volume 6/8 Biophysical profile score Growth Overview Exam date GA BPD (mm) HC (mm) AC (mm) FL (mm) HL (mm) EFW (g) 09/24/2024 30w 0d 72.1 11% 264.6 14% 239 6% 52.4 7% 49.7 30% 1190 4% 10/15/2024 33w 0d 79.7 17% 297.3 30% 275.5 15% 59.8 15% 1814 11% Biometry Standard BPD 79.7 mm 32w 0d 17% Hadlock OFD 106.0 mm 31w 4d 31% Nicolaides HC 297.3 mm 32w 0d 30% Carlos Eduardo AC 275.5 mm 31w 4d 15% Hadlock Femur 59.8 mm 31w 0d 15% Carlos Eduardo EFW 1,814 g 31w 2d 11% Hadlock EFW (lb) 4 lb EFW (oz) 0 oz EFW by: Hadlock (HC-AC-FL) Extended Motor Vehicle Clerk 4.0 mm Extremities / Bony Struc FL / HC 0.20 Other Structures FHR 131 bpm Anatomy Lateral ventricles: normal Cavum septi pellucidi: normal Cerebellum: normal Cisterna magna: normal 4-chamber view: normal RVOT view: normal LVOT view: normal 3-vessel view: normal Heart / Thorax Situs: situs solitus (normal) Diaphragm: normal Stomach: normal Kidneys: normal Bladder: normal sex: male Wants to know sex: yes Doppler Arterial Umbilical A PI 1.16 75% Debora Umbilical A S / D 3.42 88% Calos Performed By: Mariama Davis RDMS, RVT Read By: Gabriela Alvarez M.D. [facility] 10-15-2024 Progress note Formatting of t his note might be different from the original. DM-Pt doing well. Denies vaginal Bleeding, Leaking fluid, or regular Contractions. Pt reports good movement Physical Exam: Gen: female in no apparent distress Abd: soft, Gravid. Non tender to palpation. See flow sheet @ 33 weeks Assessment & Plan Supervision of high risk in third trimester (HCC) IUGR (intrauterine growth restriction) affecting care of mother, third trimester, other fetus ([facility]) Last growth 4% Continue twice weekly testing NST and BPP- has BPP and growth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 information to criminally investigate or prosecute any alcohol or drug abuse patient.[facility] HospitalIn the event this information is protected by the Federal Confidentiality of Alcohol and Drug Abuse Patient Records regulations: The Federal rules restrict any use of the information to criminally investigate or prosecute any alcohol or drug abuse patient.[facility] HospitalIn the event this information is protected by the Federal Confidentiality of Alcohol and Drug Abuse Patient Records regulations: The Federal rules restrict any use of the information to criminally investigate or prosecute any alcohol or drug abuse patient.[facility] HospitalIn the event this information is protected by the Federal Confidentiality of Alcohol and Drug Abuse Patient Records regulations: The Federal rules restrict any use of the information to criminally investigate or prosecute any alcohol or drug abuse patient.[facility] HospitalIn the event this information is protected by the Federal Confidentiality of Alcohol and Drug Abuse Patient Records regulations: The Federal rules restrict any use of the information to criminally investigate or prosecute any alcohol or drug abuse patient.[facility] HospitalIn the event this information is protected by the Federal Confidentiality of Alcohol and Drug Abuse Patient Records regulations: The Federal rules restrict any use of the information to criminally investigate or prosecute any alcohol or drug abuse patient.[facility] HospitalIn the event this information is protected by the Federal Confidentiality of Alcohol and Drug Abuse Patient Records regulations: The Federal rules restrict any use of the information to criminally investigate or prosecute any alcohol or drug abuse patient.[facility] HospitalIn the event this information is protected by the Federal Confidentiality of Alcohol and Drug Abuse Patient Records regulations: The Federal rules restrict any use of the information to criminally investigate or prosecute any alcohol or drug abuse patient.[facility] HospitalIn the event this information is protected by the Federal Confidentiality of Alcohol and Drug Abuse Patient Records regulations: The Federal rules restrict any use of the information to criminally investigate or prosecute any alcohol or drug abuse patient.[facility] HospitalIn the event this information is protected by the Federal Confidentiality of Alcohol and Drug Abuse Patient Records regulations: The Federal rules restrict any use of the information to criminally investigate or prosecute any alcohol or drug abuse patient.[facility] HospitalIn the event this information is protected by the Federal Confidentiality of Alcohol and Drug Abuse Patient Records regulations: The Federal rules restrict any use of the information to criminally investigate or prosecute any alcohol or drug abuse patient.[facility] HospitalIn the event this information is protected by the Federal Confidentiality of Alcohol and Drug Abuse Patient Records regulations: The Federal rules restrict any use of the information to criminally investigate or prosecute any alcohol or drug abuse patient.[facility] HospitalIn the event this information is protected by the Federal Confidentiality of Alcohol and Drug Abuse Patient Records regulations: The Federal rules restrict any use of the information to criminally investigate or prosecute any alcohol or drug abuse patient.[facility] HospitalIn the event this information is protected by the Federal Confidentiality of Alcohol and Drug Abuse Patient Records regulations: The Federal rules restrict any use of the information to criminally investigate or prosecute any alcohol or drug abuse patient.[facility] Reason for Visit (unrecogniz ed section and content) Reason Comments First OB Reason Comments Patient Update Reason Comments breast pump Reason Comments Breast Pump Reason Comments OB Transfer of Care Reason Comments Appointment left vm for patient about scheduling consult to epilepsy. called [phone] Reason Comments Appointment Reason Comments US Specialty Diagnoses / Procedures Referred By Contac t Referred To Contact [facility] Diagnoses with uncertain dates in first trimester ([facility]) Late care ([facility]) Procedures OBSTETRIC ULTRASOUND WHI US PREG UTERUS AFTER 1ST TRIMEST GESTATION Marcia Thurman APRN.KATHERYN [address] [place] [address] Phone: tel: fax: [facility] [address] [place] [address] Referral ID Status Reason Start Date Expiration Date V isits Requested Visits Authorized [id number] Closed Auto-Generate d Referral 07/01/2024 04/08/2025 1 1 Reason Onset Date Comments Care 09/24/2024 Reason Comments OB [facility]PP Appointment Reason Onset Date Comments Care 10/08/2024 Specialty Diagnoses / Procedures Referred By Contac t Referred To Contact [facility] Diagnoses Rubella non-immune status, antepartum (HCC) Late care (HCC) Seizures (HCC) Supervision of high risk in third trimester ([facility]) Supervision of with insufficient care, third trimester (HCC) 30 weeks gestation of ([facility]) Screening for diabetes mellitus Need for vaccination Procedures OBSTETRIC ULTRASOUND WHI US PREG UTERUS AFTER 1ST TRIMEST GESTATION Ashlyn Soto MD [address] [place] [address] Phone: tel: fax: [facility] [address] [place] [address] Referral ID Status Reason Start Date Expiration Date V isits Requested Visits Authorized [id number] Closed Auto-Generate d Referral 09/24/2024 04/08/2025 8 1 Reason Onset Date Comments Care 10/15/2024 Reason Onset Date Comments Care 11/05/2024 Specialty Diagnoses / Procedures Referred By Contac t Referred To Contact Claim 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 Supervision of high risk in third trimester (HCC) Growth/OB Procedures [facility] Ashlyn Soto MD [address] [place] [address] Phone: tel: fax: Lizz Weeks APRN.[facility] [address] [place] [address] Phone: tel: fax: Referral ID Status Reason Start Date Expiration Date Visits Requested Visits Authorized [id number] Closed OON Notification Letter Financial Clearance Required - OON Payor Patient Cleared - INN Insurance Found 11/05/2024 02/03/2025 1 1 Reason Comments Breast Pump RX Reason Comments Tranfer of care Referral ID Status Reason Start Date Expiration Date Visits Requested Visits Authorized [id number] Authorized Auto-Generat ed Referral 09/24/2024 04/08/2025 8 8 Reason Comments Pelvic Pain in Reason Onset Date Comments Care 11/27/2024 Specialty Diagnoses / Procedures Referred By Contac t Referred To Contact [employer] POUNCING [employer]PER[facility] [employer] Diagnoses Office visit Procedures Office visit Little Johnson MD [address] [place] [address] Phone: tel: fax: OB/Gynecology [address] [place] [address] Phone: tel: Referral ID Status Reason Start Date Expiration Date V isits Requested Visits Authorized [id number] Closed OON/Self Pay Override 11/27/2024 04/08/2025 1 1 Reason Comments Induction of Labor Reason Comments OB- N/V Care Teams (unrecognized sec tion and content) [...] October 04, 2024 End: October 04, 2024 Team Status: Inactive Member Role/Relationship Status Dates No Primary Care Physician Primary Care Provider Active Start: October 11, 2024 End: October 11, 2024 Dr. Carla James DO Attending Provider Active Start: October 11, 2024 End: October 11, 2024 Dr. Carla James DO Referring Provider Active Start: October 11, 2024 End: October 11, 2024 Goals (unrecognized section and content) Goals may be documented in a n alternate sectionGoals may be documented in an alternate sectionGoals may be documented in an alternate sectionGoals may be documented in an alternate section INFORMATION SOURCE (unrecogn ized section and content) DATE CREATED AUTHOR 07/25/2024 [facility] DATE CREATED AUTHOR AUTHOR'S ORGANIZ ATION 10/16/2024 [facility] DATE CREATED AUTHOR AUTHOR'S ORGANIZ ATION 12/04/2024 [facility] FOR RECORDS PERTAINING TO PATIENTS WHO [...] BE BASED ON THE PRIMARY CLINICAL RECORDS. [employer] provides no warranty or guarantee of the accuracy or completeness of information in this document.
[2024-12-07 19:25] VITALS: BMI 29.9
[2024-12-07 19:38] VITALS: BP 131/83; PULSE 121; RESP 18; TEMP 36.5; O2SAT 97
[2024-12-07 20:17] LABS: Hematocrit 29.5 % (37-47); Hemoglobin 10.0 g/dL (12.0-15.0); Immature Granulocytes Count 0.230 X10^3/uL (0.0-0.0); Mean Corp Hgb Conc 33.9 g/dL (32-36); Mean Corpuscular Volume 86.5 fL (81-99); Mean Platelet Vol. 10.6 fl (6.2-12.0); NRBC Flagged by Analyzer 0 % (0-5); Platelet Count 332 K/mm3 (150-450); RBC Distribution Width CV 13.6 % (11.6-14.6); RBC Distribution Width SD 42.3 fl (35.1-43.9); Red Blood Count 3.41 M/mm3 (4.2-5.4); White Blood Count 12.7 K/mm3 (4.4-11.0)
[2024-12-07 20:44] LABS: Syphilis Antibodies Nonreactive (Nonreactive)
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
[2024-12-07 22:22] LABS: Barbiturate Urine NEGATIVE (< 200 ng/mL); Benzodiazepine Urine NEGATIVE (< 200 ng/mL); PCP Urine NEGATIVE (< 25 ng/mL); THC Urine NEGATIVE (< 50 ng/mL)
[2024-12-08] VITALS (39 sets, daily range): BP systolic 104–144; BP diastolic 55–97; PULSE 88–116; RESP 14–19; TEMP 36.4–37.1; O2SAT 98–100
[2024-12-08 02:39] LABS: Creatinine, Urine (random) 94.20 mg/dL (28.00-217.00); Protein, Urine (Random) 10.5 mg/dL (0.0-12.0); Protein:Creat Ratio 111 mg/g CRE (0-200)
[2024-12-08 02:40] LABS: AST(SGOT) 17 U/L (<=31); Alanine Aminotransfer ALT/SGPT 6 U/L (<=34); Estimated Creatinine Clearance 101.85 ml/min (50-250)
[2024-12-08] MEDS: LACTATED RINGERS 500 ML 999 ML IV (04:14)
[2024-12-08 04:30] LABS: Uric Acid 6.2 mg/dL (2.6-6.0)
--- NOTE | 2024-12-08 09:07 | PCM.HP.OB ---
HPI - General General Date of Admission: 12/07/24 Date of Service: 12/07/24 Chief Complaint: IOL HPI Narrative MICHAEL CARDENAS, is a 34 F who presents IOL. EFW 14%. Maternal Data Information Final ANDRÉS: 12/03/24 Gestational age: 40+5 PFSH [facility] Medical History Epilepsy Home Medications ?Medication ?Instructions ?Recorded ?Last Taken ?Type vit no.95-ferrous 1 tab PO DAILY 06/17/24 12/05/24 History fumarate 28 mg-folic acid 800 mcg tablet () aspirin 81 mg tablet,delayed 81 mg PO DAILY prevent pre-e 12/07/24 12/05/24 History release ferrous sulfate 325 mg (65 mg 325 mg PO DAILY low hemoglobin 12/07/24 12/05/24 History iron) tablet (Feosol) Allergy/AdvReac Type Severity Reaction Status Date / Time No Known Allergies Allergy Verified 12/07/24 20:26 Social History Smoking Status: Never smoker History 2 Elective abortions Hx Para 0 Spontaneous abortions Hx # Term Pregnancies Ectopic pregnancies Hx # Pregnancies Multiple births # of living children NST FHR Rate Baby A Baseline: 150 Variability:: Moderate Accelerations:: 15 x 15 Uterine Activity:: irregular ROS Constitutional Constitutional: Denies fatigue, fever(s) or malaise Eyes Eyes: Denies change in vision ENT HEENT: Denies dizziness or headache(s) Cardiovascular Cardiovascular: Denies chest pain, dyspnea or lightheadedness Respiratory/Chest Respiratory/Chest: Denies cough or dyspnea Gastrointestinal Gastrointestinal: Denies change in bowel habits Genitourinary Genitourinary: Denies burning urination or genital lesions Integumentary Integumentary: Denies rash Neurologic Neurologic: Denies confusion, dizziness, headache(s), numbness or weakness Vital Signs Vital Signs Vital Signs: 12/07/24 19:38 12/07/24 19:38 12/07/24 19:38 Temperature Temperature Source Pulse Rate 121 H Respiratory Rate Blood Pressure 131/83 H BP Systolic 131 BP Diastolic 83 Pulse Ox 97 12/07/24 19:38 12/07/24 19:38 12/07/24 19:38 Temperature 97.7 F L Temperature Source Temporal Pulse Rate Respiratory Rate 18 Blood Pressure BP Systolic BP Diastolic Pulse Ox 12/08/24 00:20 12/08/24 00:20 12/08/24 00:20 Temperature Temperature Source Temporal Pulse Rate 116 H Respiratory Rate Blood Pressure 141/95 H BP Systolic 141 BP Diastolic 95 Pulse Ox 12/08/24 00:20 12/08/24 00:20 12/08/24 00:21 Temperature 98.7 F Temperature Source Pulse Rate 113 H Respiratory Rate 18 Blood Pressure BP Systolic BP Diastolic Pulse Ox 12/08/24 00:21 12/08/24 00:22 12/08/24 00:22 Temperature Temperature Source Pulse Rate 109 H Respiratory Rate Blood Pressure 134/95 H BP Systolic 134 BP Diastolic 95 Pulse Ox 100 12/08/24 01:52 12/08/24 01:52 12/08/24 04:13 Temperature Temperature Source Pulse Rate 112 H Respiratory Rate Blood Pressure 127/76 H BP Systolic 127 BP Diastolic 76 Pulse Ox 99 12/08/24 04:13 12/08/24 04:13 12/08/24 04:13 Temperature Temperature Source Temporal Pulse Rate 102 H Respiratory Rate 18 Blood Pressure BP Systolic BP Diastolic Pulse Ox 12/08/24 04:13 12/08/24 04:14 12/08/24 04:14 Temperature 97.8 F Temperature Source Pulse Rate 106 H Respiratory Rate Blood Pressure BP Systolic BP Diastolic Pulse Ox 100 12/08/24 07:23 12/08/24 07:23 12/08/24 07:23 Temperature Temperature Source Pulse Rate 109 H Respiratory Rate 16 Blood Pressure 136/66 H BP Systolic 136 BP Diastolic 66 Pulse Ox 12/08/24 07:23 12/08/24 07:24 12/08/24 07:24 Temperature 98.0 F Temperature Source Pulse Rate 107 H Respiratory Rate Blood Pressure BP Systolic BP Diastolic Pulse Ox 99 Weight Weight: 84.005 kg Body Mass Index (BMI) 29.9 Physical Exam Const alert and no apparent distress General Appearance: cooperative HEENT normocephalic Resp normal respiratory effort Cardio regular rate GI soft to palpation GI Narrative: gravid, nontender, appropriate for gestational age Extremity no calf tenderness General Extremity: edema Skin no wounds Rashes: No rashes noted Psych activity/motor behavior normal Labs Labs Labs: Blood Type O POSITIVE Antibody Screen NEGATIVE Hct 29.5 % (37-47) L Hgb 10.0 g/dL (12.0-15.0) L Obstetrics Ultrasound Syphilis Total Ab Nonreactive (Nonreactive) Assessment & Plan (1) 40 weeks gestation of : (2) Encounter for induction of labor: PLAN: Plan Cytotec possible beatty Epidural prn
--- NOTE | 2024-12-08 09:43 | PCM.PN.OB ---
Subjective Subjective Beatty bulb placed without difficulty. /-2 soft Still gilberto from cytotec Objective Data Objective Data Vital Signs: Vital Signs Temp Pulse Resp BP Pulse Ox 98.0 F 107 H 16 136/66 H 99 12/08/24 07:23 12/08/24 07:24 12/08/24 07:23 12/08/24 07:23 12/08/24 07:24 Weight: 84.005 kg Body Mass Index (BMI) 29.9 Intake & Output: Intake and Output for Last 24 Hours 12/06/24 12/07/24 12/08/24 23:59 23:59 23:59 Intake Total 100 / 100 1400 / 1400 Output Total 400 / 400 1300 / 1300 Balance -300 / -300 100 / 100 Lab / Micro Data 12/07/24 19:55 12/08/24 02:00 Labs: Laboratory Results - last 24 hr 12/07/24 19:55: WBC 12.7 H, RBC 3.41 L, Hgb 10.0 L, Hct 29.5 L, MCV 86.5, MCH 29.3, MCHC 33.9, RDW Std Deviation 42.3, RDW Coeff of [place] 13.6, Plt Count 332, MPV 10.6, Immature Gran % (Auto) 1.800 H, Neut % (Auto) 73.5 H, Lymph % (Auto) 14.5 L, [place] % (Auto) 8.1, Eos % (Auto) 1.7, Baso % (Auto) 0.4, Absolute Neuts (auto) 9.4 H, Absolute Lymphs (auto) 1.85, Nucleated RBC % 0, Syphilis Total Ab Nonreactive, Blood Type O POSITIVE, Antibody Screen NEGATIVE 12/07/24 21:38: U Random Total Protein 10.5, Urine Creatinine 94.20, Protein/Creatinin Ratio 111, Urine Opiates Screen NEGATIVE, U Buprenorphine Qual NEGATIVE, Ur Oxycodone Screen NEGATIVE, Urine Methadone Screen NEGATIVE, Urine Fentanyl Screen NEGATIVE, Ur Barbiturates Screen NEGATIVE, Ur Phencyclidine Scrn NEGATIVE, Ur Amphetamines Screen NEGATIVE, U Benzodiazepines Scrn NEGATIVE, Urine Cocaine Screen NEGATIVE, U Cannabinoids Screen NEGATIVE 12/08/24 02:00: Creatinine 0.85, Estim Creat Clear Calc 101.85, Est GFR (MDRD) Non-Af 92, Uric Acid 6.2 H, AST 17, ALT 6 NST FHR Rate Baby A Baseline: 150 Variability:: Moderate Accelerations:: 15 x 15 Decelerations:: Variable FHR Category:: Category I Uterine Activity:: q 3-4 Assessment & Plan (1) Encounter for induction of labor: (2) 40 weeks gestation of : PLAN: Plan Beatty in. Pit prn. Arom after beatty
[2024-12-08] MEDS: 0.9% Normal Saline Single 100 ML IV.SOLN. INTRA-UTER (09:45)
[2024-12-08] MEDS: Lactated Ringers 1,000 ML 50 ML IV (09:45)
[2024-12-08] MEDS: fentaNYL 100 MCG/2 ML Ampul IV (10:54)
[2024-12-08] MEDS: Oxytocin 15 Units/NS 250ml 15 UNITS/250 ML IV.SOLN 2 UNITS IV (13:29)
[2024-12-08] MEDS: Lactated Ringers 1,000 ML 999 ML IV (15:37)
[2024-12-08] MEDS: Lactated Ringers 1,000 ML 200 ML IV ×3 (16:39→21:36)
[2024-12-08] MEDS: fentaNYL-bupivacaine (epidural) 100 ML BAG EPIDURAL ×2 (16:46→20:31)
--- NOTE | 2024-12-08 17:29 | PN.OBGYN_ITS ---
Subjective Subjective AROM for clear fluid. 4 cm/ 70/-3. IUPC and FSE palced. Objective Data Objective Data Vital Signs: Vital Signs Temp Pulse Resp BP Pulse Ox 98.0 F 92 14 107/61 100 12/08/24 16:45 12/08/24 17:20 12/08/24 16:50 12/08/24 17:20 12/08/24 17:20 Weight: 84.005 kg Body Mass Index (BMI) 29.9 Intake & Output: Intake and Output for Last 24 Hours 12/06/24 12/07/24 12/08/24 23:59 23:59 23:59 Intake Total 100 / 100 1749.27 / 1749.27 Output Total 400 / 400 1300 / 1300 Balance -300 / -300 449.27 / 449.27 Lab / Micro Data 12/07/24 19:55 12/08/24 02:00 Labs: Laboratory Results - last 24 hr 12/07/24 19:55: WBC 12.7 H, RBC 3.41 L, Hgb 10.0 L, Hct 29.5 L, MCV 86.5, MCH 29.3, MCHC 33.9, RDW Std Deviation 42.3, RDW Coeff of [place] 13.6, Plt Count 332, MPV 10.6, Immature Gran % (Auto) 1.800 H, Neut % (Auto) 73.5 H, Lymph % (Auto) 14.5 L, [place] % (Auto) 8.1, Eos % (Auto) 1.7, Baso % (Auto) 0.4, Absolute Neuts (auto) 9.4 H, Absolute Lymphs (auto) 1.85, Nucleated RBC % 0, Syphilis Total Ab Nonreactive, Blood Type O POSITIVE, Antibody Screen NEGATIVE 12/07/24 21:38: U Random Total Protein 10.5, Urine Creatinine 94.20, Protein/Creatinin Ratio 111, Urine Opiates Screen NEGATIVE, U Buprenorphine Qual NEGATIVE, Ur Oxycodone Screen NEGATIVE, Urine Methadone Screen NEGATIVE, Urine Fentanyl Screen NEGATIVE, Ur Barbiturates Screen NEGATIVE, Ur Phencyclidine Scrn NEGATIVE, Ur Amphetamines Screen NEGATIVE, U Benzodiazepines Scrn NEGATIVE, Urine Cocaine Screen NEGATIVE, U Cannabinoids Screen NEGATIVE 12/08/24 02:00: Creatinine 0.85, Estim Creat Clear Calc 101.85, Est GFR (MDRD) Non-Af 92, Uric Acid 6.2 H, AST 17, ALT 6 NST FHR Rate Baby A Baseline: 150 Variability:: Moderate Accelerations:: 15 x 15 Decelerations:: None NST Reactive:: Yes FHR Category:: Category I Uterine Activity:: q2 Assessment & Plan (1) Encounter for induction of labor: (2) 40 weeks gestation of : PLAN: Plan Pitocin prn Epidural in place
[2024-12-08] MEDS: 0.9% Saline Lock 10 ML Syringe IV (22:53)
[2024-12-09] VITALS (53 sets, daily range): BP systolic 104–137; BP diastolic 55–85; PULSE 100–140; RESP 15–21; TEMP 36.2–37.8; O2SAT 95–100
[2024-12-09] MEDS: Lactated Ringers 1,000 ML 200 ML IV ×2 (00:40→04:56)
[2024-12-09] MEDS: fentaNYL-bupivacaine (epidural) 100 ML BAG EPIDURAL (01:28)
[2024-12-09] MEDS: Oxytocin 15 Units/NS 250ml 15 UNITS/250 ML IV.SOLN 334 UNITS IV (06:21)
[2024-12-09] MEDS: dexMEDEtomidine 200 MCG/2 ML ML 20 MCG IV (07:16)
[2024-12-09] MEDS: Cefazolin 1 GM/5 ML Vial 2 GM IV (07:21)
[2024-12-09] MEDS: Ketorolac 30 MG/ML Syringe IV (07:48)
[2024-12-09] MEDS: Oxytocin 15 Units/NS 250ml 15 UNITS/250 ML IV.SOLN 83 UNITS IV (08:15)
--- NOTE | 2024-12-09 08:21 | OB.VAGDELI_ITS ---
Assessment & Plan (1) (spontaneous vaginal delivery): Maternal Data Information Final ANDRÉS: 12/05/24 Gestational age: 40+4 Vaginal Delivery Maternal Presentation Maternal Presentation: Elective Induction Type of Induction: Pitocin, Beatty Bulb, Amniotomy and Cytotec Vaginal Delivery Information Procedure Performed: Spontaneous Vaginal Delivery Surgeon/Practitioner: Little Johnson Date of Procedure: 12/09/24 Pre-Procedure Diagnosis: term Post-Procedure Diagnosis: with retained placenta Type of anesthesia: Epidural Estimated Blood Loss: 250 cc Time of Delivery: 06:15 Findings Description of procedure: Presented for IOL. Cytotec x 2. Beatty bulb placed at 1 cm. AROM after beatty expelled. Epidural in place. ONce complete pushed over an intact perineium delivering the vertex KAMILLA. THe shoulders were immediatel forthcoming. THe cried upon deliverey and was placed on the maternal abdomen. THe cord was clmpaed and cut at 1 mintue. COrd blood was collected. The placenta was not forthcoming. After 30 minutes of fundal massage the placenta had not detached. Manual removal was then attempted. The bulk of the placenta was removed in pieces however the fundus was severely retroflexed and difficult to reach. A banjo was used but also could not reach the fundus. Epidural was still functioning well. Patient was then moved to the OR for a suction D&C. Procedure findings: Retroflexed uterus. Retained placenta Presentation: Vertex and KAMILLA Amniotic Membrane Rupture Type: Artificial Amniotic Fluid Description: Clear Placental Delivery Description: Spontaneous Placenta Disposition: [facility] Specimen collected: Yes Description of specimen(s) removed: placenta Cord Vessel Description: 3 Vessels Cord Entanglement: None A Gender: Male (1 minute): 9 (5 minute): 9 Delayed Cord Clamping: Yes [facility] Physician hat block bench hand: No Post Vaginal Deli Medications given after delivery: IV Pitocin Episiotomy Description: None Laceration: Midline and 1st degree Complication Complications: Yes Complication Details: retained placenta. Please see op report
--- NOTE | 2024-12-09 08:21 | EX.PCM.OBRPT ---
Assessment & Plan (1) Retained placenta or amniotic membrane after delivery without hemorrhage: Maternal Data Information Final ANDRÉS: 12/05/24 Gestational age: 40+4 Operative Report (OB) Procedure Details Date of Procedure: 12/09/24 Procedure Start Time: 07:18 Procedure Stop Time: 07:50 Pre-Operative Diagnosis: Other (retained placenta after vaginal delivery) Other Pre-Operative diagnosis: retained placenta Post-Operative Diagnosis: Same as Pre-operative diagnosis Type of Anesthesia: Epidural Antibiotic Given: Ancef 2 grams IV x1 Drain: Other (none) Estimated Blood Loss: 150 cc Findings Description of surgery: After . Placenta did not spontaneously detach. Manual removal results in the bulk of the placenta in fragments, however membranes could be palpated and POC were apparent on bedside US. Attempted to use the banjo in the delivery room but the fundus was retroflexed and difficult to access. Patient was moved to the OR. She was placed on the OR table. Her epidural was still adequate. She was than placed in yellow fin stirrups. The anterior cervix was grasped with a ring forceps. The banjo was introduced into the uterine cavity. Only small pieces were removed. The #16 suction curette was introduced into the uterine cavity. Minimal tissue was removed. The sharp angle of the fundus was difficult to reach. Her bladder was drained for 400 cc of urine. The curette was once again placed into the cavity. Small amounts of tissue were removed. A moist lap was used to sweep the uterus. A bedside US was used to evaluate the cavity. No more tissue was apparent and bleeding was minimal. Surgical findings: Retroflexed fundus Specimen collected: Yes Description of specimen(s) removed: placenta Field Attendant pipe roller: No Complications Complications: No
[2024-12-09] MEDS: Senna/Docusate Sodium 1 Tablet PO (10:15)
[2024-12-09] MEDS: Prenatal Vits Tablet 1 TABLET PO (10:15)
[2024-12-09 11:58] LABS: Pathology Sent to OSU SEE PATHOLOGY REPORT
[2024-12-09] MEDS: Cefazolin 2 GM in 0.9% Normal Saline (100mL Bag) 100 ML IV (15:49)
--- OUTSIDE RECORDS SUMMARY | 2024-12-09 22:56 | XMS RPT_ITS | CCD ---
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 Comment on above: Performed By: #### L 505.5000 #### [facility] [address] [place], [place], [address] PCP Negative Normal < 25 ng/mL [facility] Comment on above: Performed By: #### L 505.5000 #### [facility] [address] [place], [place], [address] THC Negative Normal < 50 ng/mL [facility] Comment on above: Performed By: #### L 505.5000 #### [facility] [address] [place], [place], [address] CNPNon 12-01-2024 CNPN Telephone (OBGYWM) MONIQUE SILVEIRA ([id number]) 1990 F Date Time Provider Department 12/01/24 [...] and can assist with decision. Marcia Thurman APRN.Arelis Rodriguez RN 12/02/2024 9:26 AM Signed Left message [...] had a Gatorade last night. Good FM. [place]iskey inconsistent cramping last night. Denies LOF or VB. Patient plans to call [facility] at 5:00 PM tonight. DIEGO Mcmullen Jessica, APRN.CNM 12/02/2024 10:27 AM Signed Can you please check with [facility], they are needing to move her to tomorrow night any ways. Double check with them to confirm and let the patient know induction is moved. Would recommend to get a bath, hydrate, braty diet today. Let us know if worsening or needs to be seen. Marcia Thurman APRN.Arelis Rodriguez RN 12/02/2024 11:22 AM Signed Patient notified. [...] 3 tablets by mouth once daily. - Iauarkqi-Yo-Pwr-Fe-F A tab Take 1 tablet by mouth [...] Encounter Status:Closed by ARELIS MANZO on 12/02/24 [facility] MONIQUE SILVEIRA ([id number]) 1990 F Date Time Provider Department 11/27/24 LITTLE JOHNSON During your visit today, we recorded the following information about you: Ren Anderson RN 11/27/2024 5:03 PM Signed 39w1d JG wanted induction scheduled for 11/30/24; However, [facility] stated evening is full and not available. Next available evening for induction is 12/02/24 or 12/03/24. 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 Left message for patient to call office. Campus Job message also sent to Pt. DIEGO Saleem [...] 3 tablets by mouth once daily. - Ycbjkiic-Fy-Zqa-Fe-F A tab Take 1 tablet by mouth [...] Status:Closed by ARELIS MANZO on 11/28/24 Normal [facility] URINE OB DIP B/Oon Glucose Ql (U) Negative Neg mg/dL [facility] Interpretation and review of laboratory results Normal [facility] Protein.monoclonal (U) [Mass/Vol] Negative Neg mg/dL [facility] CNPNon 11-24-2024 CNPN Telephone (OBGYWM) THERESA,KELSEY ([id number]) 1990 F Date Time Provider Department 11/24/24 [...] when to call office or go to [facility]. Please advise. DIEGO Ruiz Jessica, APRN.CNM 11/24/2024 3:12 PM Signed OK to monitor contractions and timing every 5 minutes, lasting a minute for an hour. If feeling pain is worsening can be seen for evaluation. Likely pelvic pressure due to symphysis pubic pain due to position. Marcia Thurman APRN.Arelis Rodriguez RN 11/24/2024 3:46 PM Signed Patient notified. [...] 3 tablets by mouth once daily. - Vfaknrbb-Wn-Noe-Fe-F A tab Take 1 tablet by mouth [...] Status:Closed by ARELIS MANZO on 11/24/24 Normal [facility] Examination level ultrasound on 11-21-2024 [facility] Radiology Study observation (narrative) [facility] Davin 11-19-2024 [facility] Telephone (OBGYWM) MONIQUE SILVEIRA ([id number]) 1990 F Date Time Provider Department 11/19/24 ASHLYN SOTO OBWALT During your visit today, we recorded the following information about you: Little Kline RN 11/19/2024 8:16 AM Signed Received breast pump RX [facility]. To RR to sign. DIEGO Mcmullen Tara, [...] 3 tablets by mouth once daily. 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 Pt asking how to go about getting her records to them. Informed Pt that she can sign medical records release and we will fax to our medical records department and they will then fax to [facility]. Advised her that she will need to contact the provider she plans to follow at [facility] as well as pre-register there as [...] 3 tablets by mouth once daily. - Fczzyemw-Aj-Wwo-Fe-F A tab Take 1 tablet by mouth [...] Status:Closed by REN ANDERSON on 11/19/24 Normal [facility] Examination level ultrasound on 11-05-2024 [facility] Radiology Study observation (narrative) [facility] ROUTINE, GROUP B ST REPTOCOCCUS BY PCRon 11-05-2024 ROUTINE, GROUP B STREPTOCOCCUS BY PCR Not detected Normal [facility] Comment on above: Performed By: #### G BPCR ####[facility] [id number] [place] [address] [place] URINE OB DIP B/Oon Glucose Ql (U) Negative Neg mg/dL [facility] Interpretation and review of laboratory results Normal [facility] Protein.monoclonal (U) [Mass/Vol] Negative Neg mg/dL [facility] Examination level ultrasound on 10-15-2024 [facility] Radiology Study observation (narrative) [facility] OB Triage Physician Noteon 0 10-12-2024 OB Triage Physician Note [facility] Medical Records Department [address] [place] [address] OB Triage Physician Note 10/12/24 1058 MR#: [id number] Acct: [id number] Name: MONIQUE SILVEIRA Rep #: [id number] : 1990 33 From: Carla James DO PCP: Care Physician,No Primary Status:DEP CLI Y Location: [facility] HPI - General General Date of Admission: 10/11/24 Date of Service: 10/11/24 Chief Complaint: NST HPI Narrative MONIQUE SILVEIRA, is a 33 F who presents for scheduled NST. [facility] Medical History Epilepsy Home Medications ???Medication ???Instructions [...] James, DO; No Primary Care Physician Signed Normal [facility] 10-08-2024 [facility] Telephone (OBGYWM) THERESAMONIQUE ([id number]) 1990 F Date Time Provider Department 10/08/24 TONY MORALESWBobby During your visit today, we recorded the following information about you: Tony Morales APRN.CNP 10/08/2024 4:18 PM Signed Patient did not [...] ultrasound. Needs NST as well this week. KATHERINE Lang Kaitlyn 10/13/2024 9:30 AM Signed Called patient and [...] Left message for patient to call office. Campus Job message also sent to Pt. DIEGO Saleem Lindsey, RN 10/15/2024 4:20 PM Signed Patient is aware that she needs to have another NST later this week on either Sunday or Sunday at [facility]. Patient states she has been calling the hospital herself and scheduling the NST. Patient is aware this needs done. Attempted to schedule BPP and NST for next week, but patient states she is going to be out of town for 2 weeks starting next week. Patient has BPP and OB scheduled for 11/05 when she returns to town. FYI. DIEGO Reyez Deidre, MD 10/15/2024 4:29 [...] make sure patient has scheduled NST at [facility] for tomorrow or Sunday. DIEGO Reyez Trisha, [...] Date Reviewed: 10/08/2024 Reviewed by: Tony Morales APRN.FOAM CUTTING SUPERVISOR - Fully Assessed Reason for Visit: Appointment [...] 3 tablets by mouth once daily. - Becytaia-Fv-Yii-Fe-F A tab Take 1 tablet by mouth [...] Status:Closed by LITTLE KLINE on 10/23/24 Normal [facility] Examination level ultrasound on 10-08-2024 [facility] Radiology Study observation (narrative) [facility] OB Triage Physician Noteon 0 10-05-2024 OB Triage Physician Note [facility] Medical Records Department [address] [place] [address] OB Triage Physician Note 10/05/24 1311 MR#: [id number] Acct: [id number] Name: MONIQUE SILVEIRA Rep #: [id number] : 1990 33 From: Ashlyn Soto MD PCP: Care Physician,No Primary Status:DEP CLI Y Location: [facility] HPI - General General Date of Service: 10/04/24 Chief Complaint: IUGR HPI Narrative MONIQUE SILVEIRA, is a 33 F who presents at 31 3/7 w/ IUGR for NST. Denies VB/LOF. Good FM. No ctxs, just occas. cramping Maternal Data Information Final ANDRÉS: 12/03/24 Final ANDRÉS Source: US <20 weeks Gestational age: 31 3/7 [facility] PFS Medical History Epilepsy Home Medications ???Medication [...] MD; No Primary Care Physician Signed Normal [facility] 09-29-2024 [facility] Telephone (OBGYWM) MONIQUE SILVEIRA ([id number]) 1990 F Date Time Provider Department 09/29/24 [...] tomorrow for a BPP since it's an [facility] day. Patient has her NSTs done at [facility] due to transportation issues.Please schedule her BPP for 09/30 if possible. DIEGO Mcmullen Lindsey, RN 09/29/2024 2:37 PM Signed Patient called back and states she is out of town which is why she cancelled today's ultrasound. She is not back until Sunday evening so wouldn't be available to do an ultrasound until . Patient has NST on Sunday at [facility] at 6 pm. After hanging up with patient a ultrasound did become available and I did schedule her. Is this ok to wait until and keep NST at [facility] on Sunday? Does patient need to see OB provider on if she does ultrasound? DIEGO Reyez Rebecca L, MD 09/29/2024 2:41 PM Signed US , NST Sunday or Sunday at [facility]. MD Darío Bailey Tara, RN 09/29/2024 3:08 [...] 3 tablets by mouth once daily. - Ymyaqqkb-Wx-Gda-Fe-F A tab Take 1 tablet by mouth [...] Status:Closed by REN ANDERSON on 09/29/24 Normal [facility] OB Triage Physician Noteon 0 09-29-2024 OB Triage Physician Note [facility] Medical Records Department [address] [place] [address] OB Triage Physician Note 09/29/24 0723 MR#: [id number] Acct: [id number] Name: MONIQUE SILVEIRA Rep #: [id number] : 1990 33 From: Little Johnson MD PCP: Care Physician,No Primary Status:DEP CLI Y Location: [facility] HPI - General General Date of [...] MD; No Primary Care Physician Signed Normal [facility] CBC W Auto Differential pane l (Bld)on 09-24-2024 Basophils (Bld) [#/Vol] 0.03 10*3/uL Normal <0.11 [facility] Comment on above: Order Comment: Speci men Type: BLOOD SPECIMEN Ordering Facility: [facility] Address: [address] [place] [address] Performed By: #### L [id number], HGBELEV #### [facility] CLIA [id number] [address] [place] [address] [place] Basophils/100 WBC (Bld) 0.3 % Normal [facility] Comment on above: Order Comment: Speci men Type: BLOOD SPECIMEN Ordering Facility: [facility] Address: [address] [place] [address] Performed By: #### L [id number], HGBELEV #### [facility] CLIA [id number] [address] [place] [address] [place] Differential cell count method Nom (Bld) Auto Normal [facility] Comment on above: Order Comment: Speci men Type: BLOOD SPECIMEN Ordering Facility: [facility] Address: [address] [place] [address] Performed By: #### L [id number], HGBELEV #### [facility] CLIA [id number] [address] [place] [address] [place] Eosinophils (Bld) [#/Vol] 0.14 10*3/uL Normal <0.46 [facility] Comment on above: Order Comment: Speci men Type: BLOOD SPECIMEN Ordering Facility: [facility] Address: [address] [place] [address] Performed By: #### L [id number], HGBELEV #### [facility] CLIA [id number] [address] [place] [address] [place] Eosinophils/100 WBC (Bld) 1.5 % Normal [facility] Comment on above: Order Comment: Speci men Type: BLOOD SPECIMEN Ordering Facility: [facility] Address: [address] [place] [address] Performed By: #### L [id number], HGBELEV #### [facility] CLIA [id number] [address] [place] [address] [place] Erythrocyte distribution width (RBC) [Ratio] 13.1 % Normal 11.5-15.0 [facility] Comment on above: Order Comment: Speci men Type: BLOOD SPECIMEN Ordering Facility: [facility] Address: [address] [place] [address] Performed By: #### L [id number], HGBELEV #### [facility] CLIA [id number] [address] [place] [address] [place] Hematocrit (Bld) [Volume fraction] 32.2 % Low 36.0-46.0 [facility] Comment on above: Order Comment: Speci men Type: BLOOD SPECIMEN Ordering Facility: [facility] Address: [address] [place] [address] Performed By: #### L [id number], HGBELEV #### [facility] CLIA [id number] [address] [place] [address] [place] Hemoglobin (Bld) [Mass/Vol] 11.0 g/dL Low 11.5-15.5 [facility] Comment on above: Order Comment: Speci men Type: BLOOD SPECIMEN Ordering Facility: [facility] Address: [address] [place] [address] Performed By: #### L [id number], HGBELEV #### [facility] CLIA [id number] [address] [place] [address] [place] Immature granulocytes (Bld) [#/Vol] 0.13 10*3/uL High <0.10 [facility] Comment on above: Order Comment: Speci men Type: BLOOD SPECIMEN Ordering Facility: [facility] Address: [address] [place] [address] Performed By: #### L [id number], HGBELEV #### [facility] CLIA [id number] [address] [place] [address] [place] Immature granulocytes/100 WBC (Bld) 1.4 % Normal [facility] Comment on above: Order Comment: Speci men Type: BLOOD SPECIMEN Ordering Facility: [facility] Address: [address] [place] [address] Performed By: #### L [id number], HGBELEV #### [facility] CLIA [id number] [address] [place] [address] [place] Lymphocytes (Bld) [#/Vol] 1.69 10*3/uL Normal 1.00-4.00 [facility] Comment on above: Order Comment: Speci men Type: BLOOD SPECIMEN Ordering Facility: [facility] Address: [address] [place] [address] Performed By: #### L [id number], HGBELEV #### [facility] CLIA [id number] [address] [place] [address] [place] Lymphocytes/100 WBC (Bld) 17.8 % Normal [facility] Comment on above: Order Comment: Speci men Type: BLOOD SPECIMEN Ordering Facility: [facility] Address: [address] [place] [address] Performed By: #### L [id number], HGBELEV #### [facility] CLIA [id number] [address] [place] [address] [place] MCH (RBC) [Entitic mass] 30.0 pg Normal 26.0-34.0 [facility] Comment on above: Order Comment: Speci men Type: BLOOD SPECIMEN Ordering Facility: [facility] Address: [address] [place] [address] Performed By: #### L [id number], HGBELEV #### [facility] CLIA [id number] [address] [place] [address] [place] MCHC (RBC) [Mass/Vol] 34.2 g/dL Normal 30.5-36.0 [facility] Comment on above: Order Comment: Speci men Type: BLOOD SPECIMEN Ordering Facility: [facility] Address: [address] [place] [address] Performed By: #### L [id number], HGBELEV #### [facility] CLIA [id number] [address] [place] [address] [place] MCV (RBC) [Entitic vol] 87.7 fL Normal 80.0-100.0 [facility] Comment on above: Order Comment: Speci men Type: BLOOD SPECIMEN Ordering Facility: [facility] Address: [address] [place] [address] Performed By: #### L [id number], HGBELEV #### [facility] CLIA [id number] [address] [place] [address] [place] Monocytes (Bld) [#/Vol] 0.83 10*3/uL Normal <0.87 [facility] Comment on above: Order Comment: Speci men Type: BLOOD SPECIMEN Ordering Facility: [facility] Address: [address] [place] [address] Performed By: #### L [id number], HGBELEV #### [facility] CLIA [id number] [address] [place] [address] [place] Monocytes/100 WBC (Bld) 8.7 % Normal [facility] Comment on above: Order Comment: Speci men Type: BLOOD SPECIMEN Ordering Facility: [facility] Address: [address] [place] [address] Performed By: #### L [id number], HGBELEV #### [facility] CLIA [id number] [address] [place] [address] [place] Neutrophils (Bld) [#/Vol] 6.69 10*3/uL Normal 1.45-7.50 [facility] Comment on above: Order Comment: Speci men Type: BLOOD SPECIMEN Ordering Facility: [facility] Address: [address] [place] [address] Performed By: #### L [id number], HGBELEV #### [facility] CLIA [id number] [address] [place] [address] [place] Neutrophils/100 WBC (Bld) 70.3 % Normal [facility] Comment on above: Order Comment: Speci men Type: BLOOD SPECIMEN Ordering Facility: [facility] Address: [address] [place] [address] Performed By: #### L [id number], HGBELEV #### [facility] CLIA [id number] [address] [place] [address] [place] Nucleated RBC (Bld) [#/Vol] 10*3/uL Normal <0.01 [facility] Comment on above: Order Comment: Speci men Type: BLOOD SPECIMEN Ordering Facility: [facility] Address: [address] [place] [address] Performed By: #### L [id number], HGBELEV #### [facility] CLIA [id number] [address] [place] [address] [place] Nucleated RBC/100 WBC (Bld) [Ratio] 0.0 /100 WBC Normal [facility] Comment on above: Order Comment: Speci men Type: BLOOD SPECIMEN Ordering Facility: [facility] Address: [address] [place] [address] Performed By: #### L [id number], HGBELEV #### [facility] CLIA [id number] [address] [place] [address] [place] Platelet mean volume (Bld) [Entitic vol] 9.7 fL Normal 9.0-12.7 [facility] Comment on above: Order Comment: Speci men Type: BLOOD SPECIMEN Ordering Facility: [facility] Address: [address] [place] [address] Performed By: #### L [id number], HGBELEV #### [facility] CLIA [id number] [address] [place] [address] [place] Platelets (Bld) [#/Vol] 310 10*3/uL Normal 150-400 [facility] Comment on above: Order Comment: Speci men Type: BLOOD SPECIMEN Ordering Facility: [facility] Address: [address] [place] [address] Performed By: #### L [id number], HGBELEV #### [facility] CLIA [id number] [address] [place] [address] [place] RBC (Bld) [#/Vol] 3.67 10*6/uL Low 3.90-5.20 [facility] Comment on above: Order Comment: Speci men Type: BLOOD SPECIMEN Ordering Facility: [facility] Address: [address] [place] [address] Performed By: #### L [id number], HGBELEV #### [facility] CLIA [id number] [facility] [place] [address] [place] WBC (Bld) [#/Vol] 9.51 10*3/uL Normal 3.70-11.00 [facility] Comment on above: Order Comment: Speci men Type: BLOOD SPECIMEN Ordering Facility: [facility] Address: [address] [place] [address] Performed By: #### L [id number], HGBELEV #### [facility] CLIA [id number] [address] [place] [address] [place] Examination level ultrasound [...] 10 oz EFW by: [employer] (HC-AC-FL) [employer] 5.1 mm CM 6.4 mm 33% Nicolaides [...] normal LVOT view: normal 3-vessel view: normal 4-pdhgoq-cxwsqiq view: normal Heart / Thorax Situs: situs [...] Perfo (more content not included)... MATERNAL MEDICINE [facility] Radiology Study observation (narrative) [facility] GESTATIONAL GLUCOSE SCREEN, 1-HOUR, 50 GRAM, NON-FASTINGOrdered By: Aniya Gan on 09-24-2024 Glucose [Mass/Vol] 121 mg/dL 74 - 134 mg/dL [facility] Comment on above: [place] [employer] Obst[employer] and Gynec[employer] (Lo/Sharla) guidelines state a gestational diabetes mellitus positive screen is made, in women not previously diagnosed with overt diabetes, when the 1 hr plasma glucose level is equal to or above 140 mg/dL. The [facility] Benefits Sales Consultant and [facility] [place] recommends a 135 mg/dL cutoff. Interpretation and review of laboratory results Normal [facility] GESTATIONAL GLUCOSE SCREEN, 1-HOUR, 50 GRAM, NON-FASTINGon 09-24-2024 Glucose [Mass/Vol] 121 mg/dL Normal 74-134 [facility] Comment on above: Order Comment: Vivi leon Type: BLOOD SPECIMEN [facility]ing Facility[facility] Address: [address] [place] [address] Result Comment: [facility] Congress of Obstetricians and Gynecologists (Wally/Sharla) guidelines state a gestational diabetes mellitus positive screen is made, in women not previously diagnosed with overt diabetes, when the 1 hr plasma glucose level is equal to or above 140 mg/dL. The [facility] Benefits Sales Consultant and [facility] [place] recommends a 135 mg/dL cutoff. Performed By: #### L [id number], HGBELEV #### [facility] CLIA [id number] [address] [place] [address] [place] Reagin and Treponema pallidu m IgG and IgM [Interp]on 09-24-2024 T. pallidum IgG+IgM IA Ql (S) Non-Reactive Normal Nonreactive [facility] Comment on above: Order Comment: Vivi leon Type: BLOOD SPECIMEN Ordering Facility: [facility] Address: [address] [place] [address] Performed By: #### 7 3752-8 #### [facility] CLIA [id number] [address] [place] [address] [place] Reagin+T pallidum IgG+IgM Se rPl-Impon 09-24-2024 Reagin and Treponema pallidum IgG and IgM [Interp] Cannot exclude recent Treponemal infection if specimen collected within 7-10 days after appearance of suspect lesions or 2-3 weeks after an exposure. Clinical correlation is required. Normal [facility] Comment on above: Order Comment: Vivi leon Type: BLOOD SPECIMEN [facility]ing [facility] Address: [address] [place] [address] Performed By: #### 7 3752-8 #### [facility] CLIA [id number] [address] [place] [address] [place] CNPNon 09-22-2024 CNPN Telephone (OBGYWM) THERESA,KELSEY ([id number]) 1990 F Date Time Provider Department 09/22/24 ASHLYN SOTO OBGYWM During your visit today, we recorded the following information about you: Last Period 02/27/24 Arelis Manzo RN 09/22/2024 3:03 PM Signed Spoke to patient and she is spending time between both [place] and [place]. On her way back now for tomorrow's visit. She has not had any additional care elsewhere in [place]. She did not have ultrasound done or scheduled yet. No available openings this week. Trying to move a patient on 09/24 to schedule her that morning for anatomy u/s. Reopened OB episode. DIEGO Ruiz Trisha, RN 09/22/2024 3:15 PM Signed Anatomy u/s scheduled for 09/24. Moved appt with to 09/24 too. Patient agreed. Arelis Manzo [...] 3 tablets by mouth once daily. - Ibphlsgg-Xc-Jcr-Fe-F A tab Take 1 tablet by mouth [...] Encounter Status:Closed by ARELIS MANZO on 09/22/24 [facility] Davin 08-22-2024 CNPN Telephone (NE50MN) MONIQUE SILVEIRA ([id number]) 1990 F Date Time Provider Department 08/22/24 NEUROLOGY PROVIDER NE50MN During your visit today, we recorded the following information about you: Shellicarolyn Kourtney 08/22/2024 1:46 PM Signed left for patient about scheduling consult to epilepsy. called [phone] Allergies As of Date: 08/22/2024 (No Known Allergies) Date Reviewed: 07/21/2024 Reviewed by: Aly Hernandez, DIEGO - Fully Assessed Reason for Visit: Appointment [186] Cmt: left for patient about scheduling consult to epilepsy. called [phone] Prescriptions as of 08/22/2024 - aspirin, enteric coated (ECOTRIN LOW STRENGTH) 81 mg EC tablet Take 1 tablet by mouth once daily. - vits62/FA/om3/dha/ep a ( GUMMY ORAL) Take by mouth once daily. - folic acid 1 mg tablet Take 3 tablets by mouth once daily. - Gdtfsino-Zq-Yem-Fe-F A tab Take 1 tablet by mouth [...] Encounter Status:Closed by KOURTNEY SUTTON on 08/22/24 [facility] MONIQUE SILVEIRA ([id number]) 1990 F Date Time Provider Department 08/14/24 MARCIA THURMAN OBGYWBobby During your visit today, we recorded the following information about you: Little Kline RN 08/14/2024 5:00 PM Signed Patient called requesting to have her medical records faxed to an office in [place]. Advised that a medical release would need to be signed. Information given to patient on how to download the release form. Message routed to billing to submit visit charges. Little Kline RN Allergies As of Date: 08/14/2024 (No Known Allergies) Date Reviewed: 07/21/2024 Reviewed by: Aly Hernandez, RN - Fully Assessed Reason for Visit: OB Transfer of Care [Other] Prescriptions as of 08/14/2024 - aspirin, enteric coated (ECOTRIN LOW STRENGTH) 81 mg EC tablet Take 1 tablet by mouth once daily. - vits62/FA/om3/dha/ep a ( GUMMY ORAL) Take by mouth once daily. - folic acid 1 mg tablet Take 3 tablets by mouth once daily. - Ddmoncwn-Ui-Fhw-Fe-F A tab Take 1 tablet by mouth [...] Status:Closed by LITTLE KLINE on 08/14/24 Normal [facility] ED NOTEon 07-21-2024 ED NOTE HNO ID: [id number] Author: RASHEEDA COSTELLO, DIEGO Service: ? Author Type: Registered Nurse Type: ED Notes Filed: 07/21/2024 00:20 Note Text: Hand off report given to EMS and OB branch employment coordinator who verbalized understanding. Pt's vss and left ED in stable condition via EMS. Normal [facility] NURSING PROGon 07-21-2024 NURSING PROG HNO ID: [id number] Author: ALY HERNANDEZ, RN Service: Nursing Author [...] up. No complaints at this time. Normal [facility] NURSING PROG HNO ID: [id number] Author: ALY HERNANDEZ, RN Service: Nursing Author [...] feels safe going home with . Normal [facility] CBC W Auto Differential pane l (Bld)on 07-20-2024 Basophils (Bld) [#/Vol] 0.03 10*3/uL Normal <0.11 [facility] Comment on above: Order Comment: Speci men Type: BLOOD SPECIMENOrdering Facility: [facility] Address: [address] [place] [address] Performed By: #### 5 7021-8 ####[facility] [place] [facility]IA [id number] [place] [address] [place] Basophils/100 WBC (Bld) 0.3 % Normal A [facility] Comment on above: Order Comment: Speci men Type: BLOOD SPECIMENOrdering Facility: [facility] Address: [address] [place] [address] Performed By: #### 5 7021-8 ####[facility] [place] LABCLIA [id number] [place] [id number] [place] Differential cell count method Nom (Bld) Auto Normal [facility] Comment on above: Order Comment: Speci men Type: BLOOD SPECIMENOrdering Facility: [facility] Address: [address] [place] [address] Performed By: #### 5 7021-8 ####[facility] [place] LABCLIA [id number] [place] [address] [place] Eosinophils (Bld) [#/Vol] 0.12 10*3/uL Normal <0.46 [facility] Comment on above: Order Comment: Speci men Type: BLOOD SPECIMENOrdering Facility: [facility] Address: [address] [place] [address] Performed By: #### 5 7021-8 ####[facility] [place] LABCLIA [id number] [place] [address] [place] Eosinophils/100 WBC (Bld) 1.1 % Normal [facility] Comment on above: Order Comment: Speci men Type: BLOOD SPECIMENOrdering Facility: [facility] Address: [address] [place] [address] Performed By: #### 5 7021-8 ####[facility] [place] [facility]CLIA [id number] [place] [address] [facility] OF [place] Erythrocyte distribution width (RBC) [Ratio] 12.7 % Normal 11.5-15.0 [facility] Comment on above: Order Comment: Speci men Type: BLOOD SPECIMENOrdering Facility: [facility] Address: [address] [place] [address] Performed By: #### 5 7021-8 ####[facility] [place] LABCLIA [id number] [place] [address] [facility] [place] Hematocrit (Bld) [Volume fraction] 32.4 % Low 36.0-46.0 [facility] Comment on above: Order Comment: Speci men Type: BLOOD SPECIMENOrdering Facility: [facility] Address: [address] [place] [address] Performed By: #### 5 7021-8 ####[facility] [place] [facility]CLIA [id number] [facility] [place] [address] [place] Hemoglobin (Bld) [Mass/Vol] 11.1 g/dL Low 11.5-15.5 [facility] Comment on above: Order Comment: Speci men Type: BLOOD SPECIMENOrdering Facility: [facility] Address: [address] [place] [address] Performed By: #### 5 7021-8 ####[facility] [place] [facility]CLIA [id number] [facility] [place] [address] [place] Immature granulocytes (Bld) [#/Vol] 0.07 10*3/uL Normal <0.10 [facility] Comment on above: Order Comment: Speci men Type: BLOOD SPECIMENOrdering Facility: [facility] Address: [address] [place] [address] Performed By: #### 5 7021-8 ####[facility] [place] [facility]CLIA [id number] [facility] [place] [address] [facility] [place] Immature granulocytes/100 WBC (Bld) 0.6 % Normal [facility] Comment on above: Order Comment: Speci men Type: BLOOD SPECIMENOrdering Facility: [facility] Address: [address] [place] [address] Performed By: #### 5 7021-8 ####[facility] [place] [facility]CLIA [id number] [facility] [place] [address] [place] Lymphocytes (Bld) [#/Vol] 1.73 10*3/uL Normal 1.00-4.00 [facility] Comment on above: Order Comment: Speci men Type: BLOOD SPECIMENOrdering Facility: [facility] Address: [address] [place] [address] Performed By: #### 5 7021-8 ####[facility] [place] [facility]CLIA [id number] [facility] [place] [address] [place] Lymphocytes/100 WBC (Bld) 15.6 % Normal [facility] Comment on above: Order Comment: Speci men Type: BLOOD SPECIMENOrdering Facility: [facility] Address: [address] [place] [address] Performed By: #### 5 7021-8 ####[facility] [place] LABCLIA [id number] [place] [address] [facility] MCH (RBC) [Entitic mass] 31.0 pg Normal 26.0-34.0 [facility] Comment on above: Order Comment: Speci men Type: BLOOD SPECIMENOrdering Facility: [facility] Address: [address] [place] [address] Performed By: #### 5 7021-8 ####[facility] [place] LABCLIA [id number] [place] [id number] [place] MCHC (RBC) [Mass/Vol] 34.3 g/dL Normal 30.5-36.0 [facility] Comment on above: Order Comment: Speci men Type: BLOOD SPECIMENOrdering Facility: [facility] Address: [address] [place] [address] Performed By: #### 5 7021-8 ####[facility] [id number] [address] MCV (RBC) [Entitic vol] 90.5 fL Normal 80.0-100.0 A [facility] Comment on above: Order Comment: Speci men Type: BLOOD SPECIMENOrdering Facility: [facility] Address: [address] [place] [address] Performed By: #### 5 7021-8 ####[facility] [id number] [address] OF [place] Monocytes (Bld) [#/Vol] 0.65 10*3/uL Normal <0.87 [facility] Comment on above: Order Comment: Speci men Type: BLOOD SPECIMENOrdering Facility: [facility] Address: [address] [place] [address] Performed By: #### 5 7021-8 ####[facility] LAB[facility] [id number] [address] Monocytes/100 WBC (Bld) 5.9 % Normal [facility] Comment on above: Order Comment: Speci men Type: BLOOD SPECIMENOrdering Facility: [facility] Address: [address] [place] [address] Performed By: #### 5 7021-8 ####[facility] [place] LABCLIA [id number] [place] [address] [place] Neutrophils (Bld) [#/Vol] 8.48 10*3/uL High 1.45-7.50 [facility] Comment on above: Order Comment: Speci men Type: BLOOD SPECIMENOrdering Facility: [facility] Address: [address] [place] [address] Performed By: #### 5 7021-8 ####[facility] [place] LABCLIA [id number] [place] [address] [place] Neutrophils/100 WBC (Bld) 76.5 % Normal [facility] Comment on above: Order Comment: Speci men Type: BLOOD SPECIMENOrdering Facility: [facility] Address: [address] [place] [address] Performed By: #### 5 7021-8 ####[facility] [place] LABCLIA [id number] [place] [address] [place] Nucleated RBC (Bld) [#/Vol] Normal [facility] Comment on above: Order Comment: Speci men Type: BLOOD SPECIMENOrdering Facility: [facility] Address: [address] [place] [address] Performed By: #### 5 7021-8 ####[facility] [place] [facility]CLIA [id number] [facility] [place] [address] [place] Nucleated RBC/100 WBC (Bld) [Ratio] Normal [facility] Comment on above: Order Comment: Speci men Type: BLOOD SPECIMENOrdering Facility: [facility] Address: [address] [place] [address] Performed By: #### 5 7021-8 ####[facility] [place] LABCLIA [id number] [place] [address] [place] Platelet mean volume (Bld) [Entitic vol] 9.6 fL Normal 9.0-12.7 [facility] Comment on above: Order Comment: Speci men Type: BLOOD SPECIMENOrdering Facility: [facility] Address: [address] [place] [address] Performed By: #### 5 7021-8 ####[facility] [id number] [place] [address] [facility] Platelets (Bld) [#/Vol] 295 10*3/uL Normal 150-400 [facility] Comment on above: Order Comment: Speci men Type: BLOOD SPECIMENOrdering Facility: [facility] Address: [address] [place] [address] Performed By: #### 5 7021-8 ####[facility] [id number] [place] [address] [facility] RBC (Bld) [#/Vol] 3.58 10*6/uL Low 3.90-5.20 [facility] Comment on above: Order Comment: Speci men Type: BLOOD SPECIMENOrdering Facility: [facility] Address: [address] [place] [address] Performed By: #### 5 7021-8 ####[facility] [id number] [place] [address] [facility] WBC (Bld) [#/Vol] 11.08 10*3/uL High 3.70-11.00 [facility] Comment on above: Order Comment: Speci men Type: BLOOD SPECIMENOrdering Facility: [facility] Address: [address] [place] [address] Performed By: #### 5 7021-8 ####[facility] [id number] [place] [address] [facility] Comprehensive metabolic 2000 panelon 07-20-2024 Albumin [Mass/Vol] 3.8 g/dL Low 3.9-4.9 [facility] Comment on above: Order Comment: Speci men Type: BLOOD SPECIMENOrdering Facility: [facility] Address: [address] [place] [address] Performed By: #### 2 4323-8, 87602-7, 0-3 ####[facility] [place] LABCLIA [id number] [place] [address] [place] [facility] ALP [Catalytic activity/Vol] 59 U/L Normal 34-123 [facility] Comment on above: Order Comment: Speci men Type: BLOOD SPECIMENOrdering Facility: [facility] Address: [address] [place] [address] Performed By: #### 2 4323-8, , 0-3 ####[facility] [place] LABCLIA [id number] [place] [address] [facility] ALT With P-5'-P [Catalytic activity/Vol] 9 U/L Normal 7-38 [facility] Comment on above: Order Comment: Speci men Type: BLOOD SPECIMENOrdering Facility: [facility] Address: [address] [place] [address] Performed By: #### 2 4323-8, , 0-3 ####[facility] [place] LABCLIA [id number] [place] [address] [place] [facility] Anion gap [Moles/Vol] 14 mmol/L Normal 8-15 [facility] Comment on above: Order Comment: Speci men Type: BLOOD SPECIMENOrdering Facility: [facility] Address: [address] [place] [address] Performed By: #### 2 4323-8, , 0-3 ####[facility] [place] LABCLIA [id number] [place] [address] [place] [facility] AST With P-5'-P [Catalytic activity/Vol] 14 U/L Normal 13-35 [facility] Comment on above: Order Comment: Speci men Type: BLOOD SPECIMENOrdering Facility: [facility] Address: [address] [place], [place] [address] Performed By: #### 2 4323-8, 12401-1, 0-3 ####[facility] [place] LABCLIA [id number] [place] [address] [place] Bilirubin [Mass/Vol] mg/dL Low 0.2-1.3 [facility] Comment on above: Order Comment: Speci men Type: BLOOD SPECIMENOrdering Facility: [facility] Address: [address] [place] [address] Performed By: #### 2 4323-8, 05984-9, 0-3 ####[facility] [place] LABCLIA [id number] [facility] [place] [address] [place] Calcium [Mass/Vol] 9.1 mg/dL Normal 8.5-10.2 [facility] Comment on above: Order Comment: Speci men Type: BLOOD SPECIMENOrdering Facility: [facility] Address: [address] [place] [address] Performed By: #### 2 4323-8, , 3039-3 ####[facility] [place] LABCLIA [id number] [place] [address] [place] Chloride [Moles/Vol] 107 mmol/L Normal 98-107 [facility] Comment on above: Order Comment: Speci men Type: BLOOD SPECIMENOrdering Facility: [facility] Address: [address] [place] [address] Performed By: #### 2 4323-8, , 0-3 ####[facility] [place] LABCLIA [id number] [facility] [place] [address] [place] CO2 [Moles/Vol] 16 mmol/L Low 22-30 [facility] Comment on above: Order Comment: Speci men Type: BLOOD SPECIMENOrdering Facility: [facility] Address: [address] [place] [address] Performed By: #### 2 4323-8, , 0-3 ####[facility] [place] LABCLIA [id number] [facility] [place] [address] [place] Creatinine [Mass/Vol] 0.50 mg/dL Low 0.58-0.96 [facility] Comment on above: Order Comment: Vivi leon Type: BLOOD SPECIMENOrdering Facility: [facility] Address: [address] [place] [address] Performed By: #### 2 4323-8, 43685-4, 3039-3 ####[facility] LABCLIA [id number] [place] [address] [place] Creatinine and Glomerular filtration rate.predicted panel (S/P/Bld) 127 mL/min/1.73m??? Normal >=60 [facility] Comment on above: Order Comment: Vivi leon Type: BLOOD SPECIMENOrdering Facility: [facility] Address: [address] [place] [address] Result Comment: Rosalind mated Glomerular Filtration Rate [...] actual GFR. Performed By: #### 2 4323-8, 19248-7, 3039-3 ####[facility] LABCLIA [id number] [place] [address] [place] Glucose [Mass/Vol] 103 mg/dL High 74-99 [facility] Comment on above: Order Comment: Vivi leon Type: BLOOD SPECIMENOrdering Facility: [facility] Address: [address] [place] [address] Result Comment: The [place] Diabetes Association (ADA) provides guidance for cutoff [...] Standards of Medical Care in Diabetes 2016, [place] [employer] Association. Diabetes Care. 2016.39(Suppl 1). Performed By: #### 2 4323-8, , 3039-3 ####[facility] [employer] LABCLIA [id number] [place] [address] [place] Potassium [Moles/Vol] 3.7 mmol/L Normal 3.7-5.1 [facility] Comment on above: Order Comment: Speci men Type: BLOOD SPECIMENOrdering Facility: [facility] Address: [address] [place], [place] [address] Performed By: #### 2 4323-8, , 3039-3 ####[facility] [employer] LABCLIA [id number] [place] [address] [place] Protein [Mass/Vol] 6.6 g/dL Normal 6.3-8.0 [facility] Comment on above: Order Comment: Speci men Type: BLOOD SPECIMENOrdering Facility: [facility] Address: [address] [place] [id number] Performed By: #### 2 4323-8, , 3039-3 ####[facility] [id number] [place] [address] [place] Sodium [Moles/Vol] 137 mmol/L Normal 136-144 [facility] Comment on above: Order Comment: Speci men Type: BLOOD SPECIMENOrdering Facility: [facility] Address: [address] [place] [id number] Performed By: #### 2 4323-8, , 0-3 ####[facility] LABCLIA [id number] [place] [address] [place] Urea nitrogen [Mass/Vol] 3 mg/dL Low 7-21 [facility] Comment on above: Order Comment: Speci men Type: BLOOD SPECIMENOrdering Facility: [facility] Address: [address] [place] [address] Performed By: #### 2 4323-8, , 3040-3 ####[facility] NICOLAS [id number] [place] [address] [facility] ED NOTEon 07-20-2024 ED NOTE HNO ID: [id number] Author: RASHEEDA COSTELLO RN Service: ? Author Type: Registered Nurse Type: ED Notes Filed: 07/21/2024 00:18 Note Text: Dr. Babb at bedside speaking with pt. Pt very reluctant to be admitted to the hospital, but after discussion with Dr. Babb pt is compliant with transfer. Pt on phone with spouse notifying him of transfer. Normal [facility] ED NOTE HNO ID: [id number] Author: RASHEEDA COSTELLO RN Service: ? Author [...] she leave with . Dr. Babb notified. [facility] ED NOTE HNO ID: [id number] Author: RASHEEDA COSTELLO RN Service: ? Author Type: Registered Nurse Type: ED Notes Filed: 07/20/2024 23:37 Note Text: Pt asked this RN if she could have spouse take her to [facility] OB Triage. This RN asked Dr. Babb. [...] importance of continuous monitoring. Pt verbalized understanding. [facility] ED NOTE HNO ID: [id number] Author: RAMIRO DING RN Service: Emergency Medicine Author Type: Registered Nurse Type: ED Notes Filed: 07/20/2024 23:03 Note Text: OB Triage at [facility] contacted. ED physician spoke with Dr. Serra. Dr. Serra accepted patient. [facility] transport arranged. [facility] ED NOTE HNO ID: [id number] Author: RAMIRO DING RN Service: ? Author Type: Registered Nurse Type: ED Notes Filed: 07/20/2024 23:01 Note Text: [facility] ETA 0000/0030 [facility] ED NOTE HNO ID: [id number] Author: RASHEEDA COSTELLO RN Service: ? Author [...] 2230 2236 2240 2251 2301 2313 2324 [facility] ED PROV NOTEon 07-20-2024 ED PROV NOTE HNO ID: [id number] Author: TRIPP BABB MD Service: Emergency Medicine [...] of town, with her delivery plan in [facility]. This afternoon patient had unfortunately had [...] of 2024. Patient is actually here from [place], with her planned delivery in [place]. Patient is only here visiting with her for work. Patient did have 1 pr (more content not included)... Normal [facility] Ethanol SerPl-mCncon 025 Ethanol [Mass/Vol] 156 mg/dL High <11 [facility] Comment on above: Order Comment: Speci men Type: BLOOD SPECIMEN [facility] Address: [facility] [place] [id number] Result Comment: Valu es > 80 mg/dL may indicate intoxication Performed By: #### 5 643-2 #### [facility] CLIA [id number] [address] [place], [place] [address] [place] Lipase SerPl-cCncon 07-21-19 25 Lipase [Catalytic activity/Vol] 57 U/L Normal 16-61 [facility] Comment on above: Order Comment: Speci men Type: BLOOD SPECIMENOrdering Facility: [facility] Address: [address] [place] [address] Performed By: #### 2 4323-8, 32364-2, 3040-3 ####[facility] [id number] ELGENOVEVAMALIA [address] OF [place] MATERNAL DRUG SCREEN,URINEon 07-20-2024 Amphetamines Confirm (U) [Mass/Vol] Negative Normal Negative [facility] Comment on above: Order Comment: Speci men Type: URINE SPECIMEN [facility] Address: [address] [place] [address] Performed By: #### M DSRF #### [facility] CLIA [id number] [address] [place] BARBITURATES, URINE Negative Normal Negative [facility] Comment on above: Order Comment: Speci men Type: URINE SPECIMEN [facility] Address: [address] [place] [address] Performed By: #### M DSRF #### [facility] CLIA [id number] [address] STATES [place] BENZODIAZEPINES, UR Negative Normal Negative [facility] Comment on above: Order Comment: Speci men Type: URINE SPECIMEN [facility] Address: [address] [place] [address] Performed By: #### M DSRF #### [facility] CLIA [id number] [address] OF [place] Cannabinoids Screen Ql (U) Negative Normal Negative [facility] Comment on above: Order Comment: Speci men Type: URINE SPECIMEN [facility] Address: [address] [place] [address] Performed By: #### M DSRF #### [facility] CLIA [id number] [address] OF [place] Cocaine Ql (U) Negative Normal Negative [facility] Comment on above: Order Comment: Speci men Type: URINE SPECIMEN [facility] Address: [address] [place] [address] Performed By: #### M DSRF #### [facility] CLIA [id number] [address] [place] Ethanol (U) [Mass/Vol] 211 mg/dL High <11 [facility] Comment on above: Order Comment: Speci men Type: URINE SPECIMEN [facility] Address: [address] [place] [address] Performed By: #### M DSRF #### [facility] CLIA [id number] [address] OF [place] Opiates Screen Ql (U) Negative Normal Negative [facility] Comment on above: Order Comment: Speci men Type: URINE SPECIMEN [facility] Address: [address] [place] [address] Performed By: #### M DSRF #### [facility] CLIA [id number] [address] [place] oxyCODONE cutoff Screen (U) [Mass/Vol] Negative Normal Negative [facility] Comment on above: Order Comment: Speci men Type: URINE SPECIMEN [facility] Address: [address] [place] [address] Performed By: #### M DSRF #### [facility] CLIA [id number] [address] OF [place] Phencyclidine Ql (U) Negative Normal Negative [facility] Comment on above: Order Comment: Speci men Type: URINE SPECIMEN [facility] Address: [address] [place] [address] Performed By: #### M DSRF #### [facility] CLIA [id number] [address] [place] Magnesium SerPl-mCncon 07-20 Magnesium [Mass/Vol] 1.6 mg/dL Low 1.7-2.3 [facility] Comment on above: Order Comment: Speci men Type: BLOOD SPECIMENOrdering Facility: [facility] Address: [address] [place] [address] Performed By: #### 2 4323-8, 82961-5, 3040-3 ####[facility] [id number] [place] [address] [facility] OF [place] SEPSIS LACTATEon 07-20-2024 Lactate [Moles/Vol] 1.7 mmol/L Normal <=2.0 [facility] Comment on above: Order Comment: Speci men Type: BLOOD SPECIMENOrdering Facility: [facility] Address: [address] [place] [address] Performed By: #### S LACT ####[facility] [id number] [place] [address] [facility] Urinalysis complete panel (U )on 07-20-2024 Bacteria LM.HPF (Urine sed) [#/Area] Rare Abnormal None Seen [facility] Comment on above: Order Comment: Speci men Type: URINE SPECIMEN [facility] Address: [address] [place] [address] Performed By: #### 2 4356-8 #### [facility] CLIA [id number] [address] [place] [address] [facility] Bilirubin Ql (U) Negative Normal Negative [facility] Comment on above: Order Comment: Speci men Type: URINE SPECIMEN [facility] Address: [address] [place] [address] Performed By: #### 2 4356-8 #### [facility] CLIA [id number] [address] [place] [address] [facility] Clarity (Unsp spec) Clear Normal Clear [facility] Comment on above: Order Comment: Speci men Type: URINE SPECIMEN [facility] Address: [address] [place] [address] Performed By: #### 2 4356-8 #### [facility] CLIA [id number] [address] [place] [address] [facility] [place] Color (U) Yellow Normal Yellow [facility] Comment on above: Order Comment: Speci men Type: URINE SPECIMEN [facility] Address: [address] [place] [address] Performed By: #### 2 4356-8 #### [facility] CLIA [id number] [address] [place] [address] [facility] OF [place] Epithelial cells LM.HPF (Urine sed) [#/Area] Few Normal [facility] Comment on above: Order Comment: Speci men Type: URINE SPECIMEN [facility] Address: [address] [place] [address] Performed By: #### 2 4356-8 #### [facility] CLIA [id number] [address] [place] [address] [facility] Glucose Test strip (U) [Mass/Vol] Negative Normal Negative [facility] Comment on above: Order Comment: Speci men Type: URINE SPECIMEN [facility] Address: [address] [place] [address] Performed By: #### 2 4356-8 #### [facility] CLIA [id number] [address] [place] [address] [place] Hemoglobin Ql (U) Negative Normal Negative [facility] Comment on above: Order Comment: Speci men Type: URINE SPECIMEN [facility] Address: [address] [place] [address] Performed By: #### 2 4356-8 #### [facility] CLIA [id number] [address] [place] [address] [place] Ketones Ql (U) Negative Normal Negative [facility] Comment on above: Order Comment: Speci men Type: URINE SPECIMEN [facility] Address: [address] [place] [address] Performed By: #### 2 4356-8 #### [facility] CLIA [id number] [address] [place] [address] [facility] Leukocyte esterase Test strip Ql (U) Negative Normal Negative [facility] Comment on above: Order Comment: Speci men Type: URINE SPECIMEN [facility] Address: [address] [place] [address] Performed By: #### 2 4356-8 #### [facility] CLIA [id number] [address] [place] [address] [place] Nitrite Ql (U) Negative Normal Negative [facility] Comment on above: Order Comment: Speci men Type: URINE SPECIMEN [facility] Address: [address] [place] [address] Performed By: #### 2 4356-8 #### [facility] CLIA [id number] [address] STATES [place] pH (U) 6.0 [pH] Normal 5.0-8.0 [facility] Comment on above: Order Comment: Speci men Type: URINE SPECIMEN [facility] Address: [address] [place] [address] Performed By: #### 2 4356-8 #### [facility] CLIA [id number] [address] Protein (U) [Mass/Vol] Negative Normal Negative [facility] Comment on above: Order Comment: Speci men Type: URINE SPECIMEN [facility] Address: [address] [place] [address] Performed By: #### 2 4356-8 #### [facility] CLIA [id number] [address] [place] RBC LM.HPF (Urine sed) [#/Area] 0-3 /HPF Normal 0-3 /HPF [facility] Comment on above: Order Comment: Speci men Type: URINE SPECIMEN [facility] Address: [address] [place] [address] Performed By: #### 2 4356-8 #### [facility] CLIA [id number] [address] Specific gravity (U) [Rel density] <=1.005 Low 1.005-1.030 [facility] Comment on above: Order Comment: Speci men Type: URINE SPECIMEN [facility] Address: [address] [place] [address] Performed By: #### 2 4356-8 #### [facility] CLIA [id number] [address] [place] [address] Urobilinogen Ql (U) 0.2 EU/dL Normal 0.2-1.0 EU/dL [facility] Comment on above: Order Comment: Speci men Type: URINE SPECIMEN [facility] Address: [address] [place] [address] Performed By: #### 2 4356-8 #### [facility] CLIA [id number] [address] [place] [address] WBC LM.HPF (Urine sed) [#/Area] 0-5 /HPF Normal 0-5 /HPF [facility] Comment on above: Order Comment: Speci men Type: URINE SPECIMEN [facility] Address: [address] [place] [address] Performed By: #### 2 4356-8 #### [facility] CLIA [id number] [address] [place] [address] OF [place] CNCOon 07-01-2024 CNCO Letter Text Normal [facility] CNPNon 06-27-2024 CNPN Telephone (VITOR) MONIQUE SILVEIRA ([id number]) 1990 F Date Time Provider Department 06/27/24 THURMAN, MARCIA OBGYWM During your visit today, we recorded the following information about you: Arelis Manzo RN 06/27/2024 8:24 AM Signed Breast pump order received from [facility]. To JOSE to sign. DIEGO Ruiz Jennifer, [...] 3 tablets by mouth once daily. - Jknqlkyc-Ho-Vim-Fe-F A tab Take 1 tablet by mouth [...] Encounter Status:Closed by ARELIS MANZO on 06/27/24 [facility] 06-23-2024 TRACIE Telephone (OBGYWM) THERESA,MONIQUE ([id number]) 1990 F Date Time Provider Department 06/23/24 [...] 3 tablets by mouth once daily. - Aqezemtj-Bs-Iil-Fe-F A tab Take 1 tablet by mouth [...] Encounter Status:Closed by ARELIS MANZO on 06/26/24 [facility] 06-20-2024 CNPN Telephone (DEYAGYWBobby) MONIQUE SILVEIRA ([id number]) 1990 F Date Time Provider Department 06/20/24 [...] 3 tablets by mouth once daily. - Wsaaplzq-Xe-Duo-Fe-F A tab Take 1 tablet by mouth [...] Status:Closed by ARELIS MANZO on 06/20/24 [facility] BACTERIAL VAGINOSIS NAATon 0 06-18-2024 Lactobacillus crispatus+gasseri+randolph ii + Gardnerella vaginalis + Atopobium vaginae rRNA JUANJOSE+probe Ql (Vag fld) Not detected Normal Not detected [facility] Comment on above: Order Comment: Speci men Type: BLOOD SPECIMEN [facility] Address: [address] [place] [address] Performed By: #### L [id number], HGBELEV #### [facility] CLIA [id number] [address] [place] [address] [place] Bacteria Ur Culton Bacteria identified Cx Nom (U) ORGANISM ID: 1 10,000 -<50,000 CFU/ml Normal urogenital donald Normal [facility] Comment on above: Performed By: #### 6 30-4 ####[facility] [id number] [place] [address] [place] C. trachomatis+N. gonorrhoea e DNA JUANJOSE+probe Ql (Unsp spec)on 06-18-2024 C. trachomatis rRNA JUANJOSE+probe Ql (Unsp spec) Not detected Normal Not detected [facility] Comment on above: Order Comment: Speci men Type: BLOOD SPECIMEN [facility] Address: [address] [place] [address] Performed By: #### L [id number], HGBELEV #### [facility] CLIA [id number] [address] [place] [address] [place] N. gonorrhoeae rRNA JUANJOSE+probe Ql (Unsp spec) Not detected Normal Not detected [facility] Comment on above: Order Comment: Speci men Type: BLOOD SPECIMEN [facility] Address: [address] [place] [address] Performed By: #### L [id number], HGBELEV #### [facility] CLIA [id number] [address] [place] [address] [place] CBC W Auto Differential pane l (Bld)on 06-18-2024 Basophils (Bld) [#/Vol] 10*3/uL Normal <0.11 [facility] Comment on above: Order Comment: Speci men Type: BLOOD SPECIMEN [facility] Address: [address] [place] [address] Performed By: #### L [id number], HGBELEV #### [facility] CLIA [id number] [address] [place] [address] [place] Basophils/100 WBC (Bld) 0.2 % Normal [facility] Comment on above: Order Comment: Speci men Type: BLOOD SPECIMEN [facility] Address: [address] [place] [address] Performed By: #### L [id number], HGBELEV #### [facility] CLIA [id number] [address] [place] [address] [place] Differential cell count method Nom (Bld) Auto Normal [facility] Comment on above: Order Comment: Speci men Type: BLOOD SPECIMEN [facility] Address: [address] [place] [address] Performed By: #### L [id number], HGBELEV #### [facility] CLIA [id number] [address] [place] [address] [place] Eosinophils (Bld) [#/Vol] 0.12 10*3/uL Normal <0.46 [facility] Comment on above: Order Comment: Speci men Type: BLOOD SPECIMEN [facility] Address: [address] [place] [address] Performed By: #### L [id number], HGBELEV #### [facility] CLIA [id number] [address] [place] [address] [place] Eosinophils/100 WBC (Bld) 1.3 % Normal [facility] Comment on above: Order Comment: Speci men Type: BLOOD SPECIMEN [facility] Address: [address] [place] [address] Performed By: #### L [id number], HGBELEV #### [facility] CLIA [id number] [address] [place] [address] [place] Erythrocyte distribution width (RBC) [Ratio] 12.7 % Normal 11.5-15.0 [facility] Comment on above: Order Comment: Speci men Type: BLOOD SPECIMEN [facility] Address: [address] [place] [address] Performed By: #### L [id number], HGBELEV #### [facility] CLIA [id number] [address] [place] [address] [place] Hematocrit (Bld) [Volume fraction] 35.4 % Low 36.0-46.0 [facility] Comment on above: Order Comment: Speci men Type: BLOOD SPECIMEN [facility] Address: [address] [place] [address] Performed By: #### L [id number], HGBELEV #### [facility] CLIA [id number] [address] [place] [address] [place] Hemoglobin (Bld) [Mass/Vol] 12.3 g/dL Normal 11.5-15.5 [facility] Comment on above: Order Comment: Speci men Type: BLOOD SPECIMEN [facility] Address: [address] [place] [address] Performed By: #### L [id number], HGBELEV #### [facility] CLIA [id number] [address] [place] [address] [place] Immature granulocytes (Bld) [#/Vol] 0.07 10*3/uL Normal <0.10 [facility] Comment on above: Order Comment: Speci men Type: BLOOD SPECIMEN [facility] Address: [address] [place] [address] Performed By: #### L [id number], HGBELEV #### [facility] CLIA [id number] [address] [place] [address] [place] Immature granulocytes/100 WBC (Bld) 0.7 % Normal [facility] Comment on above: Order Comment: Speci men Type: BLOOD SPECIMEN [facility] Address: [address] [place] [address] Performed By: #### L [id number], HGBELEV #### [facility] CLIA [id number] [address] [place] [address] [place] Lymphocytes (Bld) [#/Vol] 1.68 10*3/uL Normal 1.00-4.00 [facility] Comment on above: Order Comment: Speci men Type: BLOOD SPECIMEN [facility] Address: [address] [place] [address] Performed By: #### L [id number], HGBELEV #### [facility] CLIA [id number] [address] [place] [address] [place] Lymphocytes/100 WBC (Bld) 17.6 % Normal [facility] Comment on above: Order Comment: Speci men Type: BLOOD SPECIMEN [facility] Address: [address] [place] [address] Performed By: #### L [id number], HGBELEV #### [facility] CLIA [id number] [address] [place] [address] [place] MCH (RBC) [Entitic mass] 31.1 pg Normal 26.0-34.0 [facility] Comment on above: Order Comment: Speci men Type: BLOOD SPECIMEN [facility] Address: [address] [place] [address] Performed By: #### L [id number], HGBELEV #### [facility] CLIA [id number] [address] [place] [address] [place] MCHC (RBC) [Mass/Vol] 34.7 g/dL Normal 30.5-36.0 [facility] Comment on above: Order Comment: Speci men Type: BLOOD SPECIMEN [facility] Address: [address] [place] [address] Performed By: #### L [id number], HGBELEV #### [facility] CLIA [id number] [address] [place] [address] [place] MCV (RBC) [Entitic vol] 89.6 fL Normal 80.0-100.0 [facility] Comment on above: Order Comment: Speci men Type: BLOOD SPECIMEN [facility] Address: [address] [place] [address] Performed By: #### L [id number], HGBELEV #### [facility] CLIA [id number] [address] [place] [address] [place] Monocytes (Bld) [#/Vol] 0.90 10*3/uL High <0.87 [facility] Comment on above: Order Comment: Speci men Type: BLOOD SPECIMEN [facility] Address: [address] [place] [address] Performed By: #### L [id number], HGBELEV #### [facility] CLIA [id number] [address] [place] [address] [place] Monocytes/100 WBC (Bld) 9.4 % Normal [facility] Comment on above: Order Comment: Speci men Type: BLOOD SPECIMEN [facility] Address: [address] [place] [address] Performed By: #### L [id number], HGBELEV #### [facility] CLIA [id number] [address] [place] [address] [place] Neutrophils (Bld) [#/Vol] 6.75 10*3/uL Normal 1.45-7.50 [facility] Comment on above: Order Comment: Speci men Type: BLOOD SPECIMEN [facility] Address: [address] [place] [address] Performed By: #### L [id number], HGBELEV #### [facility] CLIA [id number] [address] [place] [address] [place] Neutrophils/100 WBC (Bld) 70.8 % Normal [facility] Comment on above: Order Comment: Speci men Type: BLOOD SPECIMEN [facility] Address: [address] [place] [address] Performed By: #### L [id number], HGBELEV #### [facility] CLIA [id number] [address] [place] [address] [place] Nucleated RBC (Bld) [#/Vol] 10*3/uL Normal <0.01 [facility] Comment on above: Order Comment: Speci men Type: BLOOD SPECIMEN [facility] Address: [address] [place] [address] Performed By: #### L [id number], HGBELEV #### [facility] CLIA [id number] [address] [place] [address] [place] Nucleated RBC/100 WBC (Bld) [Ratio] 0.0 /100 WBC Normal [facility] Comment on above: Order Comment: Speci men Type: BLOOD SPECIMEN [facility] Address: [address] [place] [address] Performed By: #### L [id number], HGBELEV #### [facility] CLIA [id number] [address] [place] [address] [place] Platelet mean volume (Bld) [Entitic vol] 9.5 fL Normal 9.0-12.7 [facility] Comment on above: Order Comment: Speci men Type: BLOOD SPECIMEN [facility] Address: [address] [place] [address] Performed By: #### L [id number], HGBELEV #### [facility] CLIA [id number] [address] [place] [address] [place] Platelets (Bld) [#/Vol] 282 10*3/uL Normal 150-400 [facility] Comment on above: Order Comment: Speci men Type: BLOOD SPECIMEN [facility] Address: [address] [place] [address] Performed By: #### L [id number], HGBELEV #### [facility] CLIA [id number] [address] [place] [address] [place] RBC (Bld) [#/Vol] 3.95 10*6/uL Normal 3.90-5.20 [facility] Comment on above: Order Comment: Speci men Type: BLOOD SPECIMEN [facility] Address: [address] [place] [address] Performed By: #### L [id number], HGBELEV #### [facility] CLIA [id number] [address] [place] [address] [place] WBC (Bld) [#/Vol] 9.54 10*3/uL Normal 3.70-11.00 [facility] Comment on above: Order Comment: Speci men Type: BLOOD SPECIMEN [facility] Address: [address] [place] [address] Performed By: #### L [id number], HGBELEV #### [facility] CLIA [id number] [address] [place] [address] [place] HBV surface Ag Ql (S)on 06-07 Interpretation and review of laboratory results Normal [facility] HBV surface Ag Ser Qlon 06-07 HBV surface Ag Ql (S) Negative Normal Negative [facility] Comment on above: Order Comment: Speci men Type: BLOOD SPECIMEN [facility] Address: [address] [place] [address] Performed By: #### L [id number], HGBELEV #### [facility] CLIA [id number] [address] [place] [address] [place] HCV Ab Ql (S)on 06-18-2024 Interpretation and review of laboratory results Normal [facility] HCV Ab Ser Qlon 06-18-2024 HCV Ab Ql (S) Negative Normal Negative [facility] Comment on above: Order Comment: Speci men Type: BLOOD SPECIMEN [facility] Address: [address] [place] [address] Result Comment: The result suggests no evidence of active infection with Hepatitis C virus. Should recent infection be suspected, repeat testing may be considered 4-6 weeks after this draw. Performed By: #### L [id number], HGBELEV #### [facility] CLIA [id number] [address] [place] [address] [place] HEPATITIS B SURFACE ANTIGENo n 06-18-2024 HBV surface Ag Ql (S) Negative Negative [facility] HEPATITIS C ANTIBODY IA WITH CONFIRMATIONon 06-18-2024 HCV Ab Ql (S) Negative Negative [facility] Comment on above: The result suggests no evidence of active infection with Hepatitis C virus. Should recent infection be suspected, repeat testing may be considered 4-6 weeks after this draw. HGB ELECTROPHORESIS FOR EVAL (LAB ORDER)on 06-18-2024 Hemoglobin A (Bld) [Mass fraction] 97.1 % Normal 96.2-98.0 [facility] Comment on above: Order Comment: Vivi leon Type: BLOOD SPECIMEN Ordering Facility: [facility] Address: [address] [place] [address] Performed By: #### L [id number], HGBELEV #### [facility] CLIA [id number] [address] [place] [address] [place] Hemoglobin A2 (Bld) [Mass fraction] 2.9 % Normal 2.0-3.1 [facility] Comment on above: Order Comment: Vivi leon Type: BLOOD SPECIMEN Ordering Facility: [facility] Address: [address] [place] [address] Performed By: #### L [id number], HGBELEV #### [facility] CLIA [id number] [address] [place] [address] [place] Hemoglobin Unsp Elph (Bld) [Mass fraction] No abnormal hemoglobin identified. Normal No abnormal hemoglobin identified. [facility] Comment on above: Order Comment: Speci men Type: BLOOD SPECIMEN Ordering Facility: [facility] Address: [address] [place] [address] Performed By: #### L [id number], HGBELEV #### [facility] CLIA [id number] [address] [place] [address] [place] HGB EVALUATION CASCADE INTER Florentino 06-18-2024 Hemoglobin pattern (Bld) [Interp] Reviewed by Everardo Goldberg MD Normal [facility] Comment on above: Order Comment: Speci men Type: BLOOD SPECIMEN Ordering Facility: [facility] Address: [address] [place] [address] Performed By: #### L [id number], HGBELEV #### [facility] CLIA [id number] [address] [place] [address] [place] INTERPRETATION (HGB EVAL) Normal [facility] Comment on above: Order Comment: Speci [facility] Type: BLOOD SPECIMEN Ordering Facility: [facility] Address: [address] [place] [address] Result Comment: Hemo globins were analyzed by capillary electrophoresis and CBC red cell parameters were reviewed. No abnormal hemoglobin is identified. There is a normal hemoglobin capillary electrophoresis pattern. Performed By: #### L [id number], HGBELEV #### [facility] CLIA [id number] [address] [place] [address] [place] HIGH RISK HUMAN PAPILLOMA THELMA (HPV), PCR FOR DETECTION AND GENOTYPINGon 06-18-2024 HPV 16 Ag Ql (Unsp spec) Not detected Normal Not detec ashkan [facility] Comment on above: Order Comment: Speci men Type: BLOOD SPECIMEN Ordering Facility: [facility] Address: [address] [place] [address] Performed By: #### L [id number], HGBELEV #### [facility] CLIA [id number] [address] [place] [address] [place] HPV 18 Ag Ql (Unsp spec) Not detected Normal Not detec ashkan [facility] Comment on above: Order Comment: Speci men Type: BLOOD SPECIMEN Ordering Facility: [facility] Address: [address] [place] [address] Performed By: #### L [id number], HGBELEV #### [facility] CLIA [id number] [address] [place] [address] [place] HPV 31+33+35+39+45+51+52+56+ 58+59+66+68 DNA JUANJOSE+probe Ql (Cvx) Not detected Normal Not detected [facility] Comment on above: Order Comment: Speci men Type: BLOOD SPECIMEN Ordering Facility: [facility] Address: [address] [place] [address] Result Comment: High Risk HPV Other Type includes HPV types 31, 33, 35, 39, 45, 51, 52, 56, 58, 59, 66 and 68. Performed By: #### L [id number], HGBELEV #### [facility] CLIA [id number] [address] [place] [address] [place] HIV 1+2 Ab IA Qlon 5 HIV 1 and 2 Ab IA.rapid Nom (S/P/Bld) [facility] Comment on above: Test not indicated. HIV 1+2 Ab+HIV1 p24 Ag IA Ql Non-Reactive Nonreactive [facility] HIV immunoassay testing algorithm interpretation (S/P/Bld) [Interp] [facility] Comment on above: No evidence of HIV-1 or HIV-2 infection. Should recent infection be suspected, repeat testing may be considered 2-3 weeks after this draw. [place] Rev. Code 3701.243(E): This information has been [...] release of HIV test results or diagnoses. [facility] HIV 1 and 2 Ab IA.rapid Nom (S/P/Bld) Normal [facility] Comment on above: Order Comment: Speci men Type: BLOOD SPECIMEN Ordering Facility: [facility] Address: [address] [place] [address] Result Comment: Test not indicated. Performed By: #### L [id number], HGBELEV #### [facility] CLIA [id number] [address] [place] [address] STATES OF [facility] HIV 1+2 Ab+HIV1 p24 Ag IA Ql Non-Reactive Normal Nonreactive [facility] Comment on above: Order Comment: Speci men Type: BLOOD SPECIMEN Ordering Facility: [facility] Address: [address] [place] [address] Performed By: #### L [id number], HGBELEV #### [facility] CLIA [id number] [address] [place] [address] [place] HIV immunoassay testing algorithm interpretation (S/P/Bld) [Interp] Normal [facility] Comment on above: Order Comment: Speci men Type: BLOOD SPECIMEN Ordering Facility: [facility] Address: [address] [place] [address] Result Comment: No e vidence of HIV-1 or HIV-2 infection. Should recent infection be suspected, repeat testing may be considered 2-3 weeks after this draw. [place] Rev. Code 3701.243(E): This information has been [...] results or diagnoses. Performed By: #### L [id number], HGBELEV #### [facility] CLIA [id number] [address] [place] [address] [place] HbA1c (Bld)on 06-18-2024 Average glucose Estimated from glycated hemoglobin (Bld) [Mass/Vol] 74 mg/dL [facility] Comment on above: eAG: (Estimated aver age glucose) is a calculated value from HgbA1c and is plastic products sales representative of the average blood glucose level in the last 2-3 month period. HbA1c (Bld) [Mass fraction] 4.2 % Low 4.3 - 5.6 % [facility] Comment on above: [place] Diabetes As sociation guidelines indicate that patients with HgbA1c in the range 5.7-6.4% are at increased risk for development of diabetes, and intervention by lifestyle modification may be beneficial. HgbA1c greater or equal to 6.5% is considered diagnostic of diabetes. Interpretation and review of laboratory results Abnormal [facility] Average glucose Estimated from glycated hemoglobin (Bld) [Mass/Vol] 74 mg/dL Normal [facility] Comment on above: Order Comment: Vivi leon Type: BLOOD SPECIMEN Ordering Facility: [facility] Address: [address] [place] [address] Result Comment: eAG: (Estimated average glucose) is a calculated value from HgbA1c and is plastic products sales representative of the average blood glucose level in the last 2-3 month period. Performed By: #### L [id number], HGBELEV #### [facility] CLIA [id number] [address] [place] [address] [place] HbA1c (Bld) [Mass fraction] 4.2 % Low 4.3-5.6 [facility] Comment on above: Order Comment: Vivi leon Type: BLOOD SPECIMEN Ordering Facility: [facility] Address: [address] [place] [address] Result Comment: [place] Diabetes Association guidelines indicate that patients with HgbA1c in the range 5.7-6.4% are at increased risk for development of diabetes, and intervention by lifestyle modification may be beneficial. HgbA1c greater or equal to 6.5% is considered diagnostic of diabetes. Performed By: #### L [id number], HGBELEV #### [facility] CLIA [id number] [address] [place] [address] [place] PAP TESTon 06-18-2024 ADEQUACY Normal [facility] Comment on above: Order Comment: Speci men Type: BLOOD SPECIMEN Ordering Facility: [facility] Address: [address] [place] [address] Result Comment: Sati sfactory for interpretation. Transformation zone present Performed By: #### L [id number], HGBELEV #### [facility] CLIA [id number] [address] [place], [place] [address] [place] CASE REPORT Normal [facility] Comment on above: Order Comment: Speci men Type: BLOOD SPECIMEN Ordering Facility: [facility] Address: [address] [place] [address] Result Comment: Gyne cologic Cytology Report Case: [id number] Authorizing Provider: Marcia Thurman APRN.CNM Collected: 06/18/2024 09:43 AM Ordering Location: OB/Gynecology Received: 06/18/2024 12:41 PM First Screen: Feciuch, Anitra, CT, ASCP Specimen: Pap Test, ThinPrep, Cervix Performed By: #### L [id number], HGBELEV #### [facility] CLIA [id number] [address] [place] [address] [place] CLINICAL HISTORY, CYTOLOGY, SLAB PULLER Routine Exam Normal [facility] Comment on above: Order Comment: Speci men Type: BLOOD SPECIMEN Ordering Facility: [facility] Address: [address] [place] [address] Performed By: #### L [id number], HGBELEV #### [facility] CLIA [id number] [address] [place] [address] [place] FINAL PERFORMING LAB Normal [facility] Comment on above: Order Comment: Speci men Type: BLOOD SPECIMEN Ordering Facility: [facility] Address: [address] [place], [place] [id number] Result Comment: Tech nical component, backer up screening performed at [facility], [address] [place] [address] CLIA# [id number] Diagnostic interpretation performed at [facility], [address] [place] [address] CLIA# [id number] Polysomnographic Technician: Samuel Black M.D. Performed By: #### L [id number], HGBELEV #### [facility] CLIA [id number] [address] [place] [address] [place] INTERPRETATION, CYTOLOGY, SLAB PULLER Normal [facility] Comment on above: Order Comment: Speci men Type: BLOOD SPECIMEN Ordering Facility: [facility] Address: [address] [place] [address] Result Comment: Nega tive for intraepithelial lesion or malignancy. at 1359 EDT Performed By: #### L [id number], HGBELEV #### [facility] CLIA [id number] [address] [place] [address] [place] LMP 02/27/2024 Normal [facility] Comment on above: Order Comment: Speci men Type: BLOOD SPECIMEN Ordering Facility: [facility] Address: [address] [place] [address] Performed By: #### L [id number], HGBELEV #### [facility] CLIA [id number] [address] [place], [place] [address] [place] PAP DISCLAIMER COMMENT The Pap Smear is a screening test for cervical cancer. False negative results occur with all screening tests, emphasizing the need for rescreening at recommended intervals, and clinical correlation. Normal [facility] Comment on above: Order Comment: Speci men Type: BLOOD SPECIMEN Ordering Facility: [facility] Address: [address] [place] [address] Performed By: #### L [id number], HGBELEV #### [facility] CLIA [id number] [address] [place] [address] [place] PAP CUSTOMER RELATIONS REPRESENTATIVE COMMENT This specimen has been analyzed by the ThinPrep Imaging System, an automated imaging and review system, which assists the laboratory in evaluating cells on ThinPrep Pap tests. Following automated imaging, selected allen from every slide are reviewed by a backer up. Normal [facility] Comment on above: Order Comment: Speci men Type: BLOOD SPECIMEN Ordering Facility: [facility] Address: [address] [place] [address] Performed By: #### L [id number], HGBELEV #### [facility] IA [id number] [address] [place] [address] [place] RBC PARAMETERS FOR HB IDon 0 06-18-2024 Erythrocyte distribution width (RBC) [Ratio] 12.6 % Normal 11.5-15.0 [facility] Comment on above: Order Comment: Speci men Type: BLOOD SPECIMEN Ordering Facility: [facility] Address: [address] [place] [address] Performed By: #### L [id number], HGBELEV #### [facility] [place] [id number] [address] [place] [address] [place] Hematocrit (Bld) [Volume fraction] 36.5 % Normal 36.0-46.0 [facility] Comment on above: Order Comment: Speci men Type: BLOOD SPECIMEN Ordering Facility: [facility] Address: [address] [place] [address] Performed By: #### L [id number], HGBELEV #### [facility] CLIA [id number] [address] [place] [address] [place] Hemoglobin (Bld) [Mass/Vol] 12.6 g/dL Normal 11.5-15.5 [facility] Comment on above: Order Comment: Speci men Type: BLOOD SPECIMEN Ordering Facility: [facility] Address: [address] [place] [address] Performed By: #### L [id number], HGBELEV #### [facility] CLIA [id number] [address] [place] [address] [place] MCH (RBC) [Entitic mass] 31.6 pg Normal 26.0-34.0 [facility] Comment on above: Order Comment: Speci men Type: BLOOD SPECIMEN Ordering Facility: [facility] Address: [address] [place] [address] Performed By: #### L [id number], HGBELEV #### [facility] CLIA [id number] [address] [place] [address] [place] MCHC (RBC) [Mass/Vol] 34.5 g/dL Normal 30.5-36.0 [facility] Comment on above: Order Comment: Speci men Type: BLOOD SPECIMEN Ordering Facility: [facility] Address: [address] [place] [address] Performed By: #### L [id number], HGBELEV #### [facility] CLIA [id number] [address] [place] [address] [place] MCV (RBC) [Entitic vol] 91.5 fL Normal 80.0-100.0 [facility] Comment on above: Order Comment: Speci men Type: BLOOD SPECIMEN Ordering Facility: [facility] Address: [address] [place] [address] Performed By: #### L [id number], HGBELEV #### [facility] CLIA [id number] [address] [place] [address] [place] RBC (Bld) [#/Vol] 3.99 10*6/uL Normal 3.90-5.20 [facility] Comment on above: Order Comment: Speci men Type: BLOOD SPECIMEN Ordering Facility: [facility] Address: [address] [place] [address] Performed By: #### L [id number], HGBELEV #### [facility] CLIA [id number] [address] [place] [address] [place] RUBELLA IGG ANTIBODYon 06-18 Interpretation and review of laboratory results Abnormal [facility] Rubella IgG, Qual Negative Abnormal Positive [facility] Comment on above: The result suggests no history of Rubella vaccination or exposure to Rubella virus, however, some individuals with past history of Rubella vaccination may test negative using this test as immunity to Rubella virus wanes over time after vaccination. Please correlate with vaccination history if applicable. [facility] RUBELLA IGG AB, QUAL Negative Abnormal Positive [facility] Comment on above: Order Comment: Speci carolyn Type: BLOOD SPECIMEN Ordering Facility: [facility] Address: [address] [place] [address] Result Comment: The result suggests no history of Rubella vaccination or exposure to Rubella virus, however, some individuals with past history of Rubella vaccination may test negative using this test as immunity to Rubella virus wanes over time after vaccination. Please correlate with vaccination history if applicable. Performed By: #### L [id number], HGBELEV #### [facility] CLIA [id number] [address] [place] [address] [place] Reagin and Treponema pallidu m IgG and IgM [Interp]on 06-18-2024 T. pallidum IgG+IgM IA Ql (S) Non-Reactive Nonreactive [facility] T. pallidum IgG+IgM IA Ql (S) Non-Reactive Normal Nonreactive [facility] Comment on above: Order Comment: Vivi leon Type: BLOOD SPECIMEN Ordering Facility: [facility] Address: [address] [place] [address] Performed By: #### L [id number], HGBELEV #### [facility] CLIA [id number] [address] [place] [address] [place] Reagin+T pallidum IgG+IgM Se rPl-Impon 06-18-2024 Reagin and Treponema pallidum IgG and IgM [Interp] Cannot exclude recent Treponemal infection if specimen collected within 7-10 days after appearance of suspect lesions or 2-3 weeks after an exposure. Clinical correlation is required. Normal [facility] Comment on above: Order Comment: Speci men Type: BLOOD SPECIMEN Ordering Facility: [facility] Address: [address] [place] [address] Performed By: #### L [id number], HGBELEV #### [facility] CLIA [id number] [address] [place] [address] [place] SYPHILIS TREPONEMAL W/REFLEX on 06-18-2024 Reagin and Treponema pallidum IgG and IgM [Interp] Cannot exclude recent Treponemal infection if specimen collected within 7-10 days after appearance of suspect lesions or 2-3 weeks after an exposure. Clinical correlation is required. [facility] TRICHOMONAS VAGINALIS NAATon 06-18-2024 T. vaginalis DNA JUANJOSE+probe Ql (Unsp spec) Not detected Normal Not detected [facility] Comment on above: Order Comment: Speci men Type: BLOOD SPECIMEN Ordering Facility: [facility] Address: [address] [place] [address] Performed By: #### L [id number], HGBELEV #### [facility] CLIA [id number] [address] [place] [address] [place] TYPE + SCREEN PRENATALon ABO group Nom (Bld) O [facility] Blood group antibody screen Ql Negative [facility] Rh Nom (Bld) Positive [facility] Type and Screen Expiration 06/21/2024 23:59 [facility] ABO O Normal [facility] Comment on above: Order Comment: Speci men Type: BLOOD SPECIMEN Ordering Facility: [facility] Address: [address] [place] [address] Performed By: #### L [id number], HGBELEV #### [facility] CLIA [id number] [address] [place] [address] [place] Rh Nom (Bld) Positive Normal [facility] Comment on above: Order Comment: Speci men Type: BLOOD SPECIMEN Ordering Facility: [facility] Address: [address] [place] [address] Performed By: #### L [id number], HGBELEV #### [facility] CLIA [id number] [address] [place] [address] [place] TYPE AND SCREEN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 V23.7, ICD10: O09.30 4. 38 weeks gestation of ([facility]) - ICD9: V22.2, ICD10: Z3A.38 Little Johnson MD [facility] 11-21-2024 Miscellaneous Notes S: Monique Silveira [...] Nst next week Was considering transferring to [facility] but would like to stay at [place]. ASSESSMENT/PLAN: 1. Supervision of high risk in third trimester ([facility]) - ICD9: V23.9, ICD10: O09.93 (primary diagnosis) 2. IUGR (intrauterine growth restriction) affecting care of mother, third trimester, other fetus ([facility]) - ICD9: 656.53, ICD10: O36.5939 Now 16% 3. Late care ([facility]) - ICD9: V23.7, ICD10: O09.30 4. 38 weeks gestation of ([facility]) - ICD9: V22.2, ICD10: Z3A.38 Little Johnson MD documented in this encounter [facility] 11-21-2024 Note Indication Evaluation of growth [...] 5 oz EFW by: [employer] (HC-AC-FL) [employer] 4.7 mm Extremities / Bony Struc [place] [...] Telephone encounter Note Faxed. Ren Anderson RN [facility] 11-19-2024 Miscellaneous Notes Faxed. Ren Darío, RN Received breast pump RX from [employer]. To RR to sign. Little Kline RN documented in this encounter [facility] 11-19-2024 Telephone encounter Note Received breast pump RX from [employer]. To RR to sign. Little Kline RN [facility] 11-17-2024 Telephone encounter Note 37w5d Pt calls stating she had planned to deliver at [facility] and has pre-registered, but has changed her mind and would like to transfer to [facility]. Pt asking how to go about getting her records to them. Informed Pt that she can sign medical records release and we will fax to our medical records department and they will then fax to [facility]. Advised her that she will need to contact the provider she plans to follow at [facility] as well as pre-register there as well. Pt states she has Growth US and OB appt here in our office on 11/21/24 and will sign release form at that time. Ren Anderson RN [facility] 11-17-2024 Miscellaneous Notes 37w5d Pt calls stating she had planned to deliver at [facility] and has pre-registered, but has changed her mind and would like to transfer to [facility]. Pt asking how to go about getting her records to them. Informed Pt that she can sign medical records release and we will fax to our medical records department and they will then fax to [facility]. Advised her that she will need to contact the provider she plans to follow at [facility] as well as pre-register there as well. Pt states she has Growth US and OB appt here in our office on 11/21/24 and will sign release form at that time. Ren Anderson RN documented in this encounter [facility] 11-05-2024 Progress note Formatting of t his note might be different from the original. Anatomy ultrasound reviewed. No abnormalities identified. Follow up as clinically indicated. Please place copy in ob chart. Ashlyn Soto MD [facility] 11-05-2024 Miscellaneous Notes Anatomy ultrasound reviewed. No abnormalities identified. Follow up as clinically indicated. Please place copy in ob chart. Ashlyn Soto MD documented in this encounter [facility] 11-05-2024 Progress note Formatting of t [...] week for BPP and JOEL Weeks APRN.CNM [facility] 11-05-2024 Miscellaneous Notes S: Monique Silveira [...] RTO next week for BPP and JOEL Lizz Weeks APRN.CNM documented in this encounter [facility] 11-05-2024 Note Indication Evaluation of growth [...] 4 oz EFW by: [employer] (HC-AC-[place]) [employer] 4.7 mm Extremities / Bony Struc [place] [...] 11/05/2024 2:20 PM EDT SEQUENTIAL SCREENINGS The [facility] offers sequential screenings for women who [...] It will require an appointment with our plastics technician. This is not an ultrasound performed [...] the above symptoms, contact our office at [phone] and ask to speak with a nurse. After hours, you can call doctors registry at [phone] OR call [facility] at [phone] and ask to have the doctor electrical controls assembler paged. If you consider this an emergency, dial 9-1-9 or go to your nearest emergency department. NEED HELP? Are you dealing with a violent or abusive relationship? Are you a victim of rape or sexual assult? Call [facility] ([place]) 24 hour Crisis Hotline: 243.468.4390 or 417-729-4528. MANUAL Your Guide to a Healthy manual is now on-line. Visit [email or web address] to download your free copy documented in this encounter [facility] 10-16-2024 Telephone encounter Note Left message to call office. Please notify patient of below, also make sure patient has scheduled NST at [facility] for tomorrow or Sunday. Mariama Agustin RN [facility] 10-16-2024 Miscellaneous Notes Left message to call office. Please notify patient of below, also make sure patient has scheduled NST at [facility] for tomorrow or Sunday. Mariama Agustin RN I specifically told patient she needs twice weekly testing - she did not say she was going to be out of town at all. That would be against my advice to go 2 weeks without any testing. Patient is aware that she needs to have another NST later this week on either Sunday or Sunday at [facility]. Patient states she has been calling the hospital herself and scheduling the NST. Patient is aware this needs done. Attempted to schedule BPP and NST for next week, but patient states she is going to be out of town for 2 weeks starting next week. Patient has BPP and OB scheduled for 11/05 when she returns to [facility]. FYI. Mariama Agustin RN Left message for patient to call office. [employer] message also sent to Pt. Ren Anderson [...] NST as well this week. Tony Morales APRN.FOAM CUTTING SUPERVISOR Patient did not make follow up appointments today. Needs MICHELLE with NST next week and OB visit. Needs another NST next week. Should have twice weekly testing due to IUGR. Please assist in scheduling BPP for the following 2 weeks. Needs a growth ultrasound as well Thank you, Tony Morales APRN.FOAM CUTTING SUPERVISOR documented in this encounter [facility] 10-15-2024 Note HNO ID: [id number] Author: JAYLA TYSON MD Service: ? Author [...] I and Reactive SIGNATURE: Jayla Parra MD [facility] 10-15-2024 History of Presen t illness Narrative Patient failed BPP - NST performed NST SUMMARY PROVIDER ASSESSMENT AND INTERPRETATION oMnique Silveira is a 33 year old female, , who is at 33w0d with an ANDRÉS of 2024, by Last Menstrual Period dating method. Indications for NST: IUGR Failed BPP Baseline: 150 Variability: Moderate Accelerations: Present 15 X 15 Decelerations: None Contractions: TOCO: None Interpretation: Category I and Reactive SIGNATURE: Jayla Parra MD documented in this encounter [facility] 10-15-2024 Telephone encounter Note I specifically told patient she needs twice weekly testing - she did not say she was going to be out of town at all. That would be against my advice to go 2 weeks without any testing. [facility] 10-15-2024 Telephone encounter Note Patient is aware that she needs to have another NST later this week on either Sunday or Sunday at [facility]. Patient states she has been calling the hospital herself and scheduling the NST. Patient is aware this needs done. Attempted to schedule BPP and NST for next week, but patient states she is going to be out of town for 2 weeks starting next week. Patient has BPP and OB scheduled for 11/05 when she returns to [facility]. FYI. Mariama Agustin RN [facility] 10-15-2024 Telephone encounter Note Left message for patient to call office. [email or web address] message also sent to Pt. Ren Anderson RN [facility] 10-15-2024 Note Indication Evaluation of growth, [...] The placenta is anterior, fundal. - BPP 8. - No malformations visualized on a limited [...] movements 2: tone 2: Amniotic fluid volume 09/14 Biophysical profile score Growth Overview Exam date [...] 0 oz EFW by: [employer] (HC-AC-[place]) [employer] 4.0 mm Extremities / Bony Struc [place] [...] Supervision of high risk in third trimester ([facility]) IUGR (intrauterine growth restriction) affecting care of mother, third trimester, other fetus ([facility]) Last growth 4% Continue twice weekly testing NST and BPP- has BPP and growth us today. Getting NSTs done at [facility] on saturdays Late care ([facility]) Alcohol consumption during , second trimester ([facility]) No further ETOH use during 33 weeks gestation of ([facility]) RTO 2 weeks Kick counts reviewed Jayla Parra MD [facility] 10-15-2024 Miscellaneous Notes DM-Pt doing well. Denies vaginal Bleeding, Leaking fluid, or regular Contractions. Pt reports good movement Physical Exam: Gen: female in no apparent distress Abd: soft, Gravid. Non tender to palpation. See flow sheet @ 33 weeks Assessment & Plan Supervision of high risk in third trimester ([facility]) IUGR (intrauterine growth restriction) affecting care of mother, third trimester, other fetus ([facility]) Last growth 4% Continue twice weekly testing NST and BPP- has BPP and growth us today. Getting NSTs done at [facility] on saturdays Late care ([facility]) Alcohol consumption during , second trimester ([facility]) No further ETOH use during 33 weeks gestation of ([facility]) RTO 2 weeks Kick counts reviewed Jayla Parra MD documented in this encounter [facility] 10-15-2024 Instructions Cynthia Weir MA - 10/15/2024 10:52 AM EDT SEQUENTIAL SCREENINGS The [facility] offers sequential screenings for women who [...] It will require an appointment with our plastics technician. This is not an ultrasound performed [...] the above symptoms, contact our office at [phone] and ask to speak with a nurse. After hours, you can call doctors registry at [phone] OR call [facility] at [phone] and ask to have the doctor electrical controls assembler paged. If you consider this an emergency, dial 9-1-4 or go to your nearest emergency department. NEED HELP? Are you dealing with a violent or abusive relationship? Are you a victim of rape or sexual assult? Call [facility] ([place]) 24 hour Crisis Hotline: 245.947.7275 or 949-076-2284. MANUAL Your Guide to a Healthy manual is now on-line. Visit [email or web address] to download your free copy documented in this encounter [facility] 10-13-2024 Telephone encounter Note Left message for patient to call office. Ren Anderson RN [facility] 10-13-2024 Telephone encounter Note Yes, she needs twice weekly testing the rest of the . Tony Morales APRN.TRACIE [facility] 10-13-2024 Telephone encounter Note Patient states she just had an NST done at the hospital on Sunday. She is asking if she still has to get one done this week. Shraddha Obrien October 13, 2024 9:39 AM [facility] 10-13-2024 Telephone encounter Note Called patient and left a vm for patient to return our call [facility] 10-13-2024 Telephone encounter Note Please schedule OB appt for after ultrasound. Needs NST as well this week. Tony Morales APRN.FOAM CUTTING SUPERVISOR [facility] 10-08-2024 Telephone encounter Note Patient did not make follow up appointments today. Needs MICHELLE with NST next week and OB visit. Needs another NST next week. Should have twice weekly testing due to IUGR. Please assist in scheduling BPP for the following 2 weeks. Needs a growth ultrasound as well Thank you, Tony Morales APRN.FOAM CUTTING SUPERVISOR [facility] 10-08-2024 Note Indication Evaluation of well-being growth restriction, Limited care, late transfer of care Impression - Single, live, intrauterine . - presentation is cephalic. - The amniotic fluid volume is normal amount with an MVP of 4.2 cm and an MICHELLE of 14.3 cm. - The placenta is posterior, fundal. - BPP 11/14. - Doppler velocimetry evaluation of the umbilical [...] M.D. [facility] 10-08-2024 Note HNO ID: [id number] Author: TONY MORALES APRN.FOAM CUTTING SUPERVISOR Service: ? Author Type: Nurse Practitioner Type: [...] Supervision of high risk in third trimester ([facility]) - ICD9: V23.9, ICD10: O09.93 (primary diagnosis) - Continue PNV, LDA and folic acid 2. 32 weeks gestation of ([facility]) - ICD9: V22.2, ICD10: Z3A.32 - 28 week labs reviewed 3. Seizures ([facility]) - ICD9: 780.39, ICD10: R56.9 - Has not seen neurology, referral was placed - Encouraged to schedule with neurology - Not on any medication currently 4. Alcohol consumption during , second trimester ([facility]) - ICD9: 648.43, ICD10: O99.312 - Reports that she has not consumed any further alcohol. has also quit drinking. Denies further abuse. 5. IUGR (intrauterine growth restriction) affecting care of mother, third trimester, other fetus ([facility]) - ICD9: 656.53, ICD10: O36.5939 - 4% EFW - BPP 11/14 today, has NST at [facility] on 10/11 - Schedule growth. - No openings for ultrasound next week. Discussed twice weekly NST. State she will not be able to attend twice weekly appointments due to transportation. Offered social work consult for transportation resources. Declines. Stressed importance of surveillance due to baby size. Planning for NST next week with OB appointment in office. 6. Rubella non-immune status, antepartum ([facility]) - ICD9: 646.83, V15.83, ICD10: O09.899, Z28.39 7. Heartburn during in third trimester ([facility]) - ICD9: 646.83, 787.1, ICD10: O26.893, R12 - FAMOTIDINE 20 MG TABLET 8. Heart palpitations - ICD9: 785.1, ICD10: R00.2 - COMPLETE BLOOD COUNT 9. Transportation insecurity - ICD9: V60.2, ICD10: Z59.82 - Declines social work consult RTO in 1 week for NST and OB visit. Tony Morales APRN.[facility] 10-08-2024 History of Presen t illness [...] Supervision of high risk in third trimester ([facility]) - ICD9: V23.9, ICD10: O09.93 (primary diagnosis) - Continue PNV, LDA and folic acid 2. 32 weeks gestation of ([facility]) - ICD9: V22.2, ICD10: Z3A.32 - 28 week labs reviewed 3. Seizures ([facility]) - ICD9: 780.39, ICD10: R56.9 - Has not seen neurology, referral was placed - Encouraged to schedule with neurology - Not on any medication currently 4. Alcohol consumption during , second trimester ([facility]) - ICD9: 648.43, ICD10: O99.312 - Reports that she has not consumed any further alcohol. has also quit drinking. Denies further abuse. 5. IUGR (intrauterine growth restriction) affecting care of mother, third trimester, other fetus ([facility]) - ICD9: 656.53, ICD10: O36.5939 - 4% EFW - BPP 11/14 today, has NST at [facility] on 10/11 - Schedule growth. - No openings for ultrasound next week. Discussed twice weekly NST. State she will not be able to attend twice weekly appointments due to transportation. Offered social work consult for transportation resources. Declines. Stressed importance of surveillance due to baby size. Planning for NST next week with OB appointment in office. 6. Rubella non-immune status, antepartum ([facility]) - ICD9: 646.83, V15.83, ICD10: O09.899, Z28.39 7. Heartburn during in third trimester ([facility]) - ICD9: 646.83, 787.1, ICD10: O26.893, R12 - FAMOTIDINE 20 MG TABLET 8. Heart palpitations - ICD9: 785.1, ICD10: R00.2 - COMPLETE BLOOD COUNT 9. Transportation insecurity - ICD9: V60.2, ICD10: Z59.82 - Declines social work consult RTO in 1 week for NST and OB visit. Tony Morales APRN.FOAM CUTTING SUPERVISOR documented in this encounter [facility] 10-08-2024 Instructions Ayah Freitas MA - 10/08/2024 1:34 PM EDT SEQUENTIAL SCREENINGS The [facility] offers sequential screenings for women who [...] It will require an appointment with our plastics technician. This is not an ultrasound performed [...] the above symptoms, contact our office at [phone] and ask to speak with a nurse. After hours, you can call doctors registry at [phone] OR call [facility] at [phone] and ask to have the doctor electrical controls assembler paged. If you consider this an emergency, dial 9-1-7 or go to your nearest emergency department. NEED HELP? Are you dealing with a violent or abusive relationship? Are you a victim of rape or sexual assult? Call [facility] ([place]) 24 hour Crisis Hotline: 914.824.9231 or 583-195-8339. MANUAL Your Guide to a Healthy manual is now on-line. Visit [email or web address] to download your free copy documented in this encounter [facility] 09-29-2024 Telephone encounter Note Call placed to Pt. Pt notified of BPP on 10/02. Advised NST needs completed on Sunday or Sunday. Contacted L&D and NST rescheduled for 10/04 at 6pm. Following BPP scheduled for 10/08, and following NST rescheduled to 10/11/24 at 6pm. Pt voiced understanding. Ren Anderson RN [facility] 09-29-2024 Miscellaneous Notes Call placed to Pt. Pt notified of BPP on 10/02. Advised NST needs completed on Sunday or Sunday. Contacted L&D and NST rescheduled for 10/04 at 6pm. Following BPP scheduled for 10/08, and following NST rescheduled to 10/11/24 at 6pm. Pt voiced understanding. Ren Anderson RN US , NST Sunday or Sunday at [facility]. Ashlyn Soto MD Patient called back and states she is out of town which is why she cancelled today's ultrasound. She is not back until Sunday evening so wouldn't be available to do an ultrasound until . Patient has NST on Sunday at [facility] at 6 pm. After hanging up with patient a ultrasound did become available and I did schedule her. Is this ok to wait until and keep NST at [facility] on Sunday? Does patient need to see [...] day. Patient has her NSTs done at [facility] due to transportation issues.Please schedule her BPP for 09/30 if possible. Little Kline RN documented in this encounter [facility] 09-29-2024 Telephone encounter Note US , NST Sunday or Sunday at [facility]. Ashlyn Soto MD [facility] 09-29-2024 Telephone encounter Note Patient called back and states she is out of town which is why she cancelled today's ultrasound. She is not back until Sunday evening so wouldn't be available to do an ultrasound until . Patient has NST on Sunday at [facility] at 6 pm. After hanging up with patient a ultrasound did become available and I did schedule her. Is this ok to wait until and keep NST at [facility] on Sunday? Does patient need to see OB provider on if she does ultrasound? Mariama Agustin RN [facility] 09-29-2024 Telephone encounter Note 30w5d Left message for patient to call the office. Asked that she speak with a nurse and not scheduling staff. Patient needs weekly BPP and NST. Patient's BPP was cancelled today with reason error. Patient is not rescheduled. There are openings with Nikole tomorrow for a BPP since it's an day. Patient has her NSTs done at [facility] due to transportation issues.Please schedule her BPP for 09/30 if possible. Little Kline RN [facility] 09-26-2024 Evaluation note Diagnosis Onset Date Resolution 30 weeks gestation of acute September 26, 2024 5:45pm IUGR (intrauterine growth restriction) acute September 26, 5:45pm [facility] Work Phone: 1(376) 832-292506-20-2025 Evaluation note* Diagnosis Onset Date Resolution Status Admit Date 30 weeks gestation of acut e September 26, 2024 5:45pm IUGR (intrauterine growth restriction) acute September 26, 2024 5:45pm 31 weeks gestation of acut e October 04, 2024 5:40pm IUGR (intrauterine growth restriction) acute October 04, 2024 5:40pm Supervision of other high ri sk pregnancies, third trimester acute Sep 5:40pm [facility] Work Phone: 1(617) 184-489206-18-2025 Progress note* Quick Notes - Ashlyn Soto MD - 09/24/2024 10:35 AM EDT RR- VB No. LOF No. CTXS No. Movement: present. Other c/o: No. Medication list reviewed. SENSITIVE EXAM: Sensitive exam not performed. Physical Exam See Flow Sheet Abd: soft, nontender, gravid Ext: edema: Trace A/P 30w0d Estimated Date of Delivery: 12/03/24 Assessment & Plan Supervision of high risk in third trimester ([facility]) Orders: URINE OB DIP B/O OBSTETRIC ULTRASOUND WHI; Standing NON-STRESS TEST; Standing Supervision of with insufficient care, third trimester ([facility]) Orders: GESTATIONAL GLUCOSE SCREEN, 1-HOUR, 50 GRAM, NON-FASTING; Future SYPHILIS TREPONEMAL W/REFLEX; Future ANEMIA REFLEX PANEL; Future URINE OB DIP B/O OBSTETRIC ULTRASOUND WHI; Standing NON-STRESS TEST; Standing 30 weeks gestation of ([facility]) Orders: GESTATIONAL GLUCOSE SCREEN, 1-HOUR, 50 GRAM, NON-FASTING; Future SYPHILIS TREPONEMAL W/REFLEX; Future ANEMIA REFLEX PANEL; Future URINE OB DIP B/O OBSTETRIC ULTRASOUND WHI; Standing NON-STRESS TEST; Standing Need for vaccination Orders: OBSTETRIC ULTRASOUND WHI; Standing Poor growth affecting management of mother in third trimester, single or unspecified fetus ([facility]) IUGR (intrauterine growth restriction) affecting care of mother, third trimester, other fetus ([facility]) BPP and NST weekly kick counts d/w her importance of close f/u Encounter for other contraceptive management declines larc at delivery declines birthing classes difficulty w/ transportation, will do BPP here an NST after work hours weekly at [facility] Ashlyn Soto M.D. [facility]06-18-2025 Miscellaneous Notes* Quick Notes - Ashlyn [...] Supervision of high risk in third trimester ([facility]) Orders: URINE OB DIP B/O OBSTETRIC ULTRASOUND WHI; Standing NON-STRESS TEST; Standing Supervision of with insufficient care, third trimester ([facility]) Orders: GESTATIONAL GLUCOSE SCREEN, 1-HOUR, 50 GRAM, NON-FASTING; Future SYPHILIS TREPONEMAL W/REFLEX; Future ANEMIA REFLEX PANEL; Future URINE OB DIP B/O OBSTETRIC ULTRASOUND WHI; Standing NON-STRESS TEST; Standing 30 weeks gestation of ([facility]) Orders: GESTATIONAL GLUCOSE SCREEN, 1-HOUR, 50 GRAM, NON-FASTING; Future SYPHILIS TREPONEMAL W/REFLEX; Future ANEMIA REFLEX PANEL; Future URINE OB DIP B/O OBSTETRIC ULTRASOUND WHI; Standing NON-STRESS TEST; Standing Need for vaccination Orders: OBSTETRIC ULTRASOUND WHI; Standing Poor growth affecting management of mother in third trimester, single or unspecified fetus ([facility]) IUGR (intrauterine growth restriction) affecting care of mother, third trimester, other fetus ([facility]) BPP and NST weekly kick counts d/w her importance of close f/u Encounter for other contraceptive management declines larc at delivery declines birthing classes difficulty w/ transportation, will do BPP here an NST after work hours weekly at [facility] Ashlyn Soto M.D. documented in this encounterOhio [facility]06-18-2025 NoteHNO ID: [id number] Author: ALLISON SMITH MA Service: ? Author Type: Saw Maker Type: Progress Notes Filed: 09/24/2024 12:32 Note [...] severely ill: Yes Patient denies history of Guillain-[place] Syndrome (a severe paralytic illness): Yes Tdap Adacel injection was given without incident. See immunizations for details of immunizations administered today. VIS sheet provided: Yes Provider Dr Soto was present in office at time of injection. Allison Smith [facility]06-18-2025 History of Present illness Narrative* Allison [...] severely ill: Yes Patient denies history of Guillain-[place] Syndrome (a severe paralytic illness): Yes Tdap Adacel injection was given without incident. See immunizations for details of immunizations administered today. VIS sheet provided: Yes Provider Dr Soto was present in office at time of injection. Allison Smith MA documented in this encounterOhio Valley Hospital06-18-2025 Instructions* Patient Instructions* Allison Smith MA - 09/24/2024 9:41 AM EDT SEQUENTIAL SCREENINGS [facility] offers sequential screenings for women who [...] testing. It will require an appointment withour plastics technician. This is not an ultrasound performed [...] the above symptoms, contact our office at [phone] and ask to speak with anurse. After hours, you can call doctors registry at [phone] OR call [facility] at [phone] ask to have the doctor electrical controls assembler paged. If you consider this an emergency, dial 5-7-2 or go to your nearest emergency department. NEED HELP? Are you dealing with a violent or abusive relationship? Are you a victim of rape or sexual assult? Call [facility] ([place]) 24 hour Crisis Hotline: 512.928.9631 or 999-304-0361. MANUAL Your Guide to a Healthy manual is now on-line. Visit [email or web address] to download your free copy documented in this encounterOhio Valley Hospital06-16-2025 Telephone encounter Note * Telephone Encounter - Arelis Manzo RN - 09/22/2024 3:15 PM EDT Anatomy u/s scheduled for 09/24. Moved appt with to 09/24 too. Patient agreed. Arelis Manzo RN [facility]06-16-[facility] Miscellaneous Notes* Telephone Encounter - Arelis Manzo RN - 09/22/2024 3:15 PM EDT Anatomy u/s scheduled for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
[2024-12-10 00:22] VITALS: BP 107/73; PULSE 95; RESP 16; TEMP 36.4; O2SAT 99
[2024-12-10] MEDS: Cefazolin 2 GM in 0.9% Normal Saline (100mL Bag) 100 ML IV ×3 (00:28→21:14)
[2024-12-10 04:07] VITALS: BP 106/88; PULSE 113; RESP 16; O2SAT 99
[2024-12-10 04:39] LABS: Hematocrit 21.4 % (37-47); Hemoglobin 7.3 g/dL (12.0-15.0); Immature Granulocytes Count 0.340 X10^3/uL (0.0-0.0); Mean Corp Hgb Conc 34.1 g/dL (32-36); Mean Corpuscular Volume 87.0 fL (81-99); Mean Platelet Vol. 10.1 fl (6.2-12.0); NRBC Flagged by Analyzer 0 % (0-5); Platelet Count 311 K/mm3 (150-450); RBC Distribution Width CV 14.0 % (11.6-14.6); RBC Distribution Width SD 43.8 fl (35.1-43.9); Red Blood Count 2.46 M/mm3 (4.2-5.4); White Blood Count 19.8 K/mm3 (4.4-11.0)
--- NOTE | 2024-12-10 04:58 | NURSING ---
patient refused cefazolin due to painful IV site and administration painful. Discussed with patient at later time and decision made to restart IV and restart cefazolin.
--- NOTE | 2024-12-10 05:44 | NURSING ---
Jad SIMENTAL call at [id number] and updated on patient WBC trend from 12.7 to 19.8 and hgb trend of 10 to 7.3 No orders or change in plan of care at this time
--- NOTE | 2024-12-10 08:09 | PCM.PROGNOTE ---
Subjective Subjective patient seen at bedside, doing well. Patient reports some uterine tenderness. lochia mild. breast feeding Objective Data Objective Data Vital Signs: Vital Signs Temp Pulse Resp BP Pulse Ox O2 Del Method 97.5 F L 113 H 16 106/88 H 99 Room Air 12/10/24 00:22 12/10/24 04:07 12/10/24 04:07 12/10/24 04:07 12/10/24 04:07 12/10/24 04:07 Oxygen Delivery Method Room Air Weight: 84.005 kg Body Mass Index (BMI) 29.9 Intake & Output: Intake and Output for Last 24 Hours 12/08/24 12/09/24 12/10/24 23:59 23:59 23:59 Intake Total 4628.37 / 4628.37 3110.76 / 3110.76 110.00 / 110.00 Output Total 2700 / 2700 1000 / 1000 Balance 1928.37 / 1928.37 2110.76 / 2110.76 110.00 / 110.00 Lab / Micro Data 12/10/24 04:32 12/08/24 02:00 Labs: Laboratory Results - last 24 hr 12/10/24 04:32: WBC 19.8 H, RBC 2.46 L, Hgb 7.3 L, Hct 21.4 L, MCV 87.0, MCH 29.7, MCHC 34.1, RDW Std Deviation 43.8, RDW Coeff of Norman 14.0, Plt Count 311, MPV 10.1, Immature Gran % (Auto) 1.700 H, Neut % (Auto) 78.5 H, Lymph % (Auto) 11.7 L, Branch % (Auto) 6.4, Eos % (Auto) 1.4, Baso % (Auto) 0.3, Absolute Neuts (auto) 15.5 H, Absolute Lymphs (auto) 2.32, Nucleated RBC % 0 Physical Exam Narrative Abd: fundus firm. mild tenderness to palpation Const alert and oriented x3 General Appearance: cooperative HEENT normocephalic Neck General: normal visual inspection GI soft to palpation and non-distended GI Narrative: Fundus firm Extremity normal to inspection and no calf tenderness Skin no rashes or lesions noted Neuro oriented x3 and CN's II-XII intact bilaterally Psych mental status grossly normal Assessment & Plan Assessment/Plan (1) (spontaneous vaginal delivery): (2) Retained placenta or amniotic membrane after delivery without hemorrhage: (3) Acute on chronic anemia: PLAN: Plan PPD#1 , Doing well Routine care pain mgmt ambulation Toradol then PO Motrin for pain IV iron
[2024-12-10] MEDS: 0.9% Saline Lock 10 ML Syringe IV ×4 (08:48→13:39)
[2024-12-10] MEDS: Ketorolac 30 MG/ML Syringe IV (08:54)
[2024-12-10] MEDS: Iron Sucrose Complex 200 MG in 0.9% Normal Saline (100mL Bag) 100 ML 220 MG IV (08:56)
[2024-12-10 09:01] VITALS: TEMP 36.4; O2SAT 99
[2024-12-10 09:53] VITALS: BP 123/62; PULSE 106; RESP 16
[2024-12-10] MEDS: Prenatal Vits Tablet 1 TABLET PO (10:16)
[2024-12-10] MEDS: Senna/Docusate Sodium 1 Tablet PO (10:16)
--- NOTE | 2024-12-10 13:53 | NURSING ---
student charting reviewed that is used for learning and educational purposes
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
[2024-12-10 14:31] VITALS: BP 109/66; PULSE 95; RESP 16; TEMP 36.3; O2SAT 99
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
[2024-12-10 21:07] VITALS: BP 121/85; PULSE 103; RESP 16; TEMP 36.4; O2SAT 99
[2024-12-11 02:44] VITALS: BP 135/84; PULSE 87; RESP 16; TEMP 36.4; O2SAT 100
[2024-12-11] MEDS: Cefazolin 2 GM in 0.9% Normal Saline (100mL Bag) 100 ML IV ×2 (05:10→13:37)
--- NOTE | 2024-12-11 08:39 | DS.PCM_ITS ---
Providers Date of Admission: 12/07/24 Primary Care Physician: Margie Primary Care Phys Reason For Visit: LABOR/VAGINAL DELIVERY Diagnosis Discharge Diagnosis (1) (spontaneous vaginal delivery): Status: Acute Code(s): O80 - Encounter for full-term uncomplicated delivery (2) Retained placenta or amniotic membrane after delivery without hemorrhage: Status: Acute Code(s): O73.1 - Retained portions of placenta and membranes, without hemorrhage (3) Acute on chronic anemia: Status: Chronic Code(s): D64.9 - Anemia, unspecified Plan PPD 2 - Retained placenta Anemia- S/P IV FE Repeating CBC Desires discharge home with follow up in office Medications at Discharge Home Medications vit no.95-ferrous fumarate 28 mg-folic acid 800 mcg tablet () 1 tab PO DAILY 06/17/24 ferrous sulfate 325 mg (65 mg iron) tablet (Feosol) 325 mg PO DAILY low hemoglobin 12/07/24 acetaminophen 500 mg tablet 1,000 mg (2 x 500 mg) PO Q6H PRN PRN Pain 1-10 Or Fever #0 tabs 12/11/24 ibuprofen 600 mg tablet 600 mg PO Q6H PRN PRN Pain Score 1-10 #0 tabs 12/11/24 sennosides 8.6 mg-docusate sodium 50 mg tablet (Stimulant Laxative Plus) 1 - 2 tab PO DAILY PRN PRN Constipation #0 tabs 12/11/24 Hospital Course Operations None Procedures None Summary of Care Provided Minutes Spent on Discharge: 15 Hospital Course: Patient had vaginal delivery. Hospital course was uneventful. Physical Exam Narrative Patient seen at bedside. Denies pain. Ambulating and voiding without difficulty. Lochia decreased. Desires discharge home today. Const alert and oriented x3 General Appearance: Negative for in distress HEENT normocephalic Eyes General Eye: normal appearance of both eyes Neck General: normal visual inspection Chest Chest: symmetrical chest wall rise Resp normal respiratory effort and normal air movement Effort and Inspection: symmetric chest movement; Negative for tachypneic Auscultation: clear to auscultation bilaterally Cardio regular rate and regular rhythm Peripheral Pulses: pulses 2+ throughout GI normal to inspection, nondistended, normoactive bowel sounds Narrative: Ice to perineum OB / External & Speculum: vaginal bleeding and other Lochia decreasing Uterus Palpation: uterus fundus firm (Below U) Extremity normal to inspection, full ROM and normal capillary refill Skin no rashes or lesions noted Neuro oriented x3, CN's II-XII intact bilaterally and gait normal Psych mental status grossly normal, thought process normal and activity/motor behavior normal Weight / BMI Weight Weight: 185 lb 3.2 oz Body Mass Index (BMI) 29.9 ABG / Lab / Microbiology Data 12/11/24 09:40 12/08/24 02:00 Laboratory: Laboratory Results - last 24 hr 12/11/24 09:40: WBC 12.2 H, RBC 2.48 L, Hgb 7.4 L, Hct 21.9 L, MCV 88.3, MCH 29.8, MCHC 33.8, RDW Std Deviation 44.5 H, RDW Coeff of Norman 14.1, Plt Count 360, MPV 10.4, Immature Gran % (Auto) 2.400 H, Neut % (Auto) 68.9, Lymph % (Auto) 18.3 L, Ross % (Auto) 7.0, Eos % (Auto) 3.0, Baso % (Auto) 0.4, Absolute Neuts (auto) 8.4 H, Absolute Lymphs (auto) 2.23, Nucleated RBC % 0 D/C Instructions Discharge Activity: Return to Normal Activity, No Restrictions, May Drive, May Shower and May Take a Tub Bath (Warm water only. No bath salts, soaps, bubbles) May resume sexual activity in: 6-8 weeks Weight Bearing Status: Weight bearing as tolerated Call your doctor if you observe: Fever of 101 or Higher, Inability to urinate, Using more than 1 pad per hour, Shortness of breath, Dizziness, Chest pain, Calf discomfort and Uncontrolled pain DC O2, CPAP, BIPAP Needs Home O2 Discharge instructions: No Please Follow Up With: [facility] Awa JOHN When: 2 weeks in office or virtual Meaningful Use Info Meaningful Use Meaningful Use Diagnoses (Choose all that apply): None applicable Discharge Plan Admission Admit Date/Time: 12/07/24 19:05 Primary Reason for Your Visit: Labor and Delivery Attending Provider: Little Johnson Primary Care Provider: Care Physician,No Primary Instructions Patient Instructions: After a Vaginal Delivery (WP) Discharge Orders/Prescriptions Prescriptions: New sennosides-docusate sodium [Stimulant Laxative Plus] 8.6-50 mg Tablet 1 - 2 tab PO DAILY PRN PRN (Reason: Constipation) Qty: 0 0RF acetaminophen 500 mg Tablet 1,000 mg PO Q6H PRN PRN (Reason: Pain 1-10 Or Fever) Qty: 0 0RF ibuprofen 600 mg Tablet 600 mg PO Q6H PRN PRN (Reason: Pain Score 1-10) Qty: 0 0RF Continued ferrous sulfate [Feosol] 325 mg (65 mg iron) tablet 325 mg PO DAILY PNV no.95-ferrous fumarate-FA [] 28 mg iron- 800 mcg tablet 1 tab PO DAILY Discontinued aspirin 81 mg tablet,delayed release (DR/EC) 81 mg PO DAILY Referrals / Follow Up: Lizz Weeks CNM [Med Staff - [facility] Practice Prof] - Care Physician,No Primary [Primary Care Provider] - Disposition Disposition (needs filled in before D/C Order can be placed): Home, Self Care
[2024-12-11 08:46] VITALS: BP 122/78; PULSE 100; RESP 16; TEMP 36.9; O2SAT 98
[2024-12-11] MEDS: 0.9% Saline Lock 10 ML Syringe IV ×2 (09:24→13:37)
[2024-12-11] MEDS: Prenatal Vits Tablet 1 TABLET PO (09:24)
[2024-12-11] MEDS: Senna/Docusate Sodium 1 Tablet PO (09:24)
[2024-12-11 10:17] LABS: Hematocrit 21.9 % (37-47); Hemoglobin 7.4 g/dL (12.0-15.0); Immature Granulocytes Count 0.290 X10^3/uL (0.0-0.0); Mean Corp Hgb Conc 33.8 g/dL (32-36); Mean Corpuscular Volume 88.3 fL (81-99); Mean Platelet Vol. 10.4 fl (6.2-12.0); NRBC Flagged by Analyzer 0 % (0-5); Platelet Count 360 K/mm3 (150-450); RBC Distribution Width CV 14.1 % (11.6-14.6); RBC Distribution Width SD 44.5 fl (35.1-43.9); Red Blood Count 2.48 M/mm3 (4.2-5.4); White Blood Count 12.2 K/mm3 (4.4-11.0)
--- NOTE | 2024-12-11 11:41 | DCINST_ITS ---
Discharge Instructions DC O2, CPAP, BIPAP needs Home O2 Discharge instructions: No Dressing / Incision May resume sexual activity in: 6-8 weeks Weight Bearing Status: Weight bearing as tolerated Dressing / Incision Call your doctor if you observe: Fever of 101 or Higher, Inability to urinate, Using more than 1 pad per hour, Shortness of breath, Dizziness, Chest pain, Calf discomfort and Uncontrolled pain Follow Up Care Please Follow Up With: [facility] Awa JOHN When: 1 week early visit 6 week exam Test Results: Test results from this visit will be discussed in further detail at your follow- up appointment, if applicable. Discharge Plan Admission Admit Date/Time: 12/07/24 19:05 Primary Reason for Your Visit: Labor and Delivery Attending Provider: Little Johnson Primary Care Provider: Care PhysicianMargie Primary Discharge Orders/Prescriptions Prescriptions: New sennosides-docusate sodium [Stimulant Laxative Plus] 8.6-50 mg Tablet 1 - 2 tab PO DAILY PRN PRN (Reason: Constipation) Qty: 0 0RF acetaminophen 500 mg Tablet 1,000 mg PO Q6H PRN PRN (Reason: Pain 1-10 Or Fever) Qty: 0 0RF ibuprofen 600 mg Tablet 600 mg PO Q6H PRN PRN (Reason: Pain Score 1-10) Qty: 0 0RF Continued ferrous sulfate [Feosol] 325 mg (65 mg iron) tablet 325 mg PO DAILY PNV no.95-ferrous fumarate-FA [] 28 mg iron- 800 mcg tablet 1 tab PO DAILY Discontinued aspirin 81 mg tablet,delayed release (DR/EC) 81 mg PO DAILY Referrals / Follow Up: Lizz Weeks CNM [Med Staff - Adv Practice Prof] - Care Physician,No Primary [Primary Care Provider] - Disposition Disposition (needs filled in before D/C Order can be placed): Home, Self Care
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
[2024-12-11 13:30] VITALS: BP 117/81; PULSE 92; RESP 16; TEMP 36.6; O2SAT 97
[2024-12-12 07:32] LABS: Pathology Specimen OB SEE PATHOLOGY REPORT
== END 2024-12-11 19:05 | disposition home or self-care (01) | DRG 798 ==
PROVIDERS: Advanced Practice Midwife; Admitting Provider Obstetrics & Gynecology; Referring Provider Obstetrics & Gynecology; Visit Provider Obstetrics & Gynecology
DX: O99.02 Anemia complicating childbirth (principal); Z37.0 Single live birth; O70.0 First degree perineal laceration during delivery; O73.1 Retained portions of placenta and membranes, without hemorrhage; Z79.82 Long term (current) use of aspirin; Z3A.40 40 weeks gestation of pregnancy
CPT/HCPCS: 59025; 59050; 80307; 82565; 82570; 84156; 84450; 84460; 84550; 85025; 86780; 86850; 86900; 86901; 99221; J1756; A4216; G0378; J2405